=== PATIENT | male | born 1935 | race American Indian/Alaskan Native ===

== ENCOUNTER → 2020-03-13 13:07 | Outpatient (BNVA) | payer MEDICARE, SELFPAY | PROVIDERS: PCP Internal Medicine; Visit Provider Internal Medicine | DX: G45.9 Transient cerebral ischemic attack, unspecified (principal); Z51.81 Encounter for therapeutic drug level monitoring; Z79.01 Long term (current) use of anticoagulants | CPT/HCPCS: 85610; 99211 ==

== ENCOUNTER → 2020-03-23 09:32 | Outpatient (BNVA) | payer MEDICARE, SELFPAY | PROVIDERS: Visit Provider Nurse Practitioner Family | DX: R07.89 Other chest pain (principal); R06.02 Shortness of breath; I25.10 Atherosclerotic heart disease of native coronary artery without angina pectoris; I48.19 Other persistent atrial fibrillation; I10 Essential (primary) hypertension; E78.00 Pure hypercholesterolemia, unspecified; Z95.1 Presence of aortocoronary bypass graft; Z79.82 Long term (current) use of aspirin; Z79.01 Long term (current) use of anticoagulants | CPT/HCPCS: 99214 ==

== ENCOUNTER → 2020-04-03 11:06 | Outpatient (BNVA) | payer MEDICARE, SELFPAY | PROVIDERS: PCP Internal Medicine; Visit Provider Internal Medicine | DX: G45.9 Transient cerebral ischemic attack, unspecified (principal); Z51.81 Encounter for therapeutic drug level monitoring; Z79.01 Long term (current) use of anticoagulants | CPT/HCPCS: 85610; 99211 ==

== ENCOUNTER → 2020-04-11 08:34 | Outpatient (REF) | payer MEDICARE, SELFPAY ==
--- NOTE | 2020-04-11 | NM_ITS ---
Lexiscan Myocardial perfusion study Indication: Shortness of breath, chest pressure, atrial fibrillation, coronary disease, bypass surgery, assess for coronary disease and ischemia Technique: The patient was brought in for a Lexiscan perfusion study on 04/11/2020 and was injected 0.4 mg of Lexiscan intravenously. Within a minute of this injection 30 mCi of sestamibi was given intravenously. Images were obtained using the SPECT gamma camera interlaced with the gating device. Images were obtained in supine position. Resting perfusion study was performed on 04/12/2020. Patient was administered 30 mCi of sestamibi intravenously at rest. Images were then obtained in supine position. Total DLP 100mGy-cm/ Images were processed with the software and compared side to side in short axis, horizontal long axis and vertical long axis views. Findings: Raw acquisition was reviewed. The stress perfusion study showed diminished tracer uptake along the basal inferior wall; along the inferolateral wall. With CT attenuation correction, there is improvement in tracer uptake that may indicate a component of diaphragmatic attenuation artifact. However there is also adjacent bowel/hepatic uptake which makes interpretation difficult. The gated study shows normal LV systolic function with calculated LVEF of 71%. LV cavity is normal in size. The gated study shows diminished thickening and contractility in the basal inferior wall. Resting study shows diminished tracer uptake along the basal inferior wall but otherwise unremarkable. Gating at rest reveals ejection fraction at 76%. The findings are consistent with fixed basal inferior perfusion defect; possible mild inferolateral reversible defect. NM/NM aparna perf SPECT rest & str Impression: 1. Myocardial perfusion imaging study shows fixed defect in the basal inferior wall that could indicate a prior infarct. Small areas in the inferolateral wall with reversible defects that could indicate mild ischemia, but cannot exclude artifacts related to adjacent diaphragm/bowel uptake. 2. Gated LVEF is normal. 3. Transient ischemic dilatation not present. EKG component of the test reported separately.
--- NOTE | 2020-04-11 08:40 | CA_ITS ---
Transthoracic Echocardiogram Patient (Last, First, Middle): Fadi Sheppard A Gender: Male Date of : 1935 Age: 84 Procedure Date: 04/11/2020 Procedure Type: Transthoracic Echocardiogram Location: OP Height: 177.8 cm Weight: 79.83 kg BSA: 1.98 m2 Heart Rate: bpm BP: 128 / 60 mmHg Reconciliation Manager: ROSARIO Referring MD: Sadaf MEADE Sign Installer: Freddie Arora MD Symptoms: R07.89 - Other chest pain, CAD Study Quality: Fair ECG Rhythm: Atrial Fibrillation Conclusions: - 1. Normal LV systolic function 2. Mildly dilated left atrium 3. Normal cardiac valvular Doppler 4. Normal RV systolic pressure 5. No gross pericardial effusion Findings Left Ventricle Normal left ventricular size, thickness, and systolic function. The visually estimated ejection fraction is between 55-60%. There is evidence of regional wall motion abnormalities. Diastolic function is indeterminate on the basis of available data. Wall Motion Rest Echo Findings The basal inferior segment is akinetic. All other scored wall segments showed normal motion. Right Ventricle Normal right ventricular cavity size and systolic function. Atria The left atrium is mildly dilated. Interatrial shunt cannot be excluded. The right atrium is normal in size. Aortic Valve The aortic valve was not well visualized. There is no aortic valve stenosis. There is no aortic valve regurgitation. Mitral Valve There is mild anterior and posterior mitral leaflet thickening. There is trace mitral valve regurgitation. There is no mitral valve stenosis. Pulmonic Valve The pulmonic valve was not well visualized. Tricuspid Valve Likely normal tricuspid valve structure and function. There is mild tricuspid valve regurgitation. The right ventricular systolic pressure is normal. The right ventricular systolic pressure is 26 mmHg. There is no evidence of pulmonary hypertension. Great Vessels All visible segments of the aorta are normal in size. The pulmonary artery was not well visualized. Small plaque is seen in the ascending aorta and arch. Venous The inferior vena cava was not well visualized. Pericardium/Pleural There is no evidence of pericardial effusion. Prior Study Comparison Changes noted compared to prior study dated: 11/19/2016. Basal inferiorwall motion abnormality noted Measurements 2D Linear Measurements IVSd: 0.93 0.6-0.9/0.6-1.0 cm LVIDd: 5.66 3.9-5.3/4.2-5.9 cm LVIDd Index: 2.86 2.4-3.2/2.2-3.1 cm/m2 LVIDs: 3.05 2.0-3.6 cm LVPWd: 1.04 0.7-1.1 cm Ao Root: 3.00 2.1-3.5 cm LA Diam: 3.90 2.7-3.8/3.0-4.0 cm LAIDs Index: 1.97 1.5-2.3 cm/m2 LV Mass: 273.03 67-162/88-224 g LV Mass Index: 137.89 43-95/49-115 g/m2 LVOT Diam: 2.00 3.0+(-)1.3 cm 2D Systolic Function EF 4C: 64.20 >55% EF 2C: 48.30 >55% EF BiP: 57.60 >55% Mitral Valve MV Pk E: 1.22 MV PK A: 0.51 MV Decel Time: 187.00 E/A: 2.40 E'Lateral: 9.96 E'Medial: 11.10 E/E' Med: 11.00 E/E' Lat: 12.20 PHT: 55.00 MVA PHT: 4.00 Decel [place]: 6.49 Aortic Valve AoV Pk Terrell: 1.15 AoV Pk Grad: 5.00 LVOT LVOT Pk Terrell: 1.10 LVOT Mn Terrell: 0.71 LVOT VTI: 0.24 LVOT Pk Grad: 5.00 LVOT Mn Grad: 3.00 LVOT Diam: 2.00 LVOT Area: 3.14 Diastolic Function MV Pk E: 1.22 MV Pk A: 0.51 E/A: 2.40 E'Medial: 11.10 E/E' Med: 11.00 E' Laterial: 9.96 E/E' Lat: 12.20 Tricuspid Valve TR Pk Terrell: 2.88 TR Pk Grad: 23.00 RA Press: 3.00 RVSP: 26.00 Great Vessels Aorta Ao Root-2D: 3.00 2.0-3.7 cm Ao Asc: 3.70 2.1-3.4 cm Updated in Other Vendor System with Status of Final Freddie Arora MD electronically signed on 04/11/2020 11:00:03 AM with status of Final
--- NOTE | 2020-04-11 08:40 | CA_ITS ---
Acquisition Time: 2020-04-11 09:40:57 Total Exercise Time: 00:02:00 Test Indications: Dyspnea Medications: ATORVASTATIN ISOSORBIDE VERAPAMIL WARFARIN Protocol: LEXISCAN Max HR: 088 BPM 64% of Pred: 137 BPM Max BP: 134/064 mmHG Max Work Load: 1.0 METS Pharmacological stress test using Lexiscan. Patient tolerated well, denies any anginal sx, mild SOB after Lexiscan. Sx reversed with Aminophyline 75 mg IV. EKG with a-fib at baseline. Non-diagnostic for ischemia. Nuclear images to follow. Normotensive response to test. Test reviewed with Dr. Casanova. Referred By: Sadaf Christian Overread By: Maryuri Martinez
== END ==
LOC: HO.CARD 08:34
PROVIDERS: PCP Internal Medicine; Visit Provider Nurse Practitioner Family
DX: R07.89 Other chest pain (principal); I25.10 Atherosclerotic heart disease of native coronary artery without angina pectoris; R06.02 Shortness of breath; Z95.1 Presence of aortocoronary bypass graft
CPT/HCPCS: 78452; 93017; 93306; A9500; J0280; J2785

== ENCOUNTER → 2020-04-24 11:32 | Outpatient (BNVA) | payer MEDICARE, SELFPAY | PROVIDERS: PCP Internal Medicine; Visit Provider Internal Medicine | DX: G45.9 Transient cerebral ischemic attack, unspecified (principal); Z51.81 Encounter for therapeutic drug level monitoring; Z79.01 Long term (current) use of anticoagulants | CPT/HCPCS: 85610; 99211 ==

== ENCOUNTER → 2020-04-26 09:57 | Outpatient (BNVA) | payer MEDICARE, SELFPAY | PROVIDERS: PCP Internal Medicine; Visit Provider Internal Medicine Cardiovascular Disease | DX: I48.91 Unspecified atrial fibrillation (principal); I25.10 Atherosclerotic heart disease of native coronary artery without angina pectoris; R07.89 Other chest pain; Z79.01 Long term (current) use of anticoagulants; Z79.899 Other long term (current) drug therapy; Z95.1 Presence of aortocoronary bypass graft | CPT/HCPCS: 99212 ==

== ENCOUNTER 2020-04-26 11:24 | Outpatient (REF) | payer MEDICARE, SELFPAY ==
[2020-04-26 12:33] LABS: MANUAL DIFF FLAG NO
[2020-04-26 12:49] LABS: Basophils Percent Auto 0.5 % (0-2); Eosinophils Absolute Auto 0.1 X10*3/uL (0.0-0.4); Hematocrit 34.1 % (42-52); Hemoglobin 11.4 g/dl (14.0-18.0); Imm Gran Abs Auto 0.03 X10*3/uL (0.00-0.03); Imm Gran Pct Auto 0.3 % (0.0-0.4); Lymphocytes Absolute Auto 1.6 X10*3/uL (1.2-4.9); Lymphocytes Percent Auto 18.6 % (20-40); Mean Corpuscular HGB Conc 33.4 g/dl (31.0-36.0); Mean Corpuscular Volume 107.6 fL (80-98); Mean Platelet Volume 10.4 fL (9.4-12.4); Monocytes Absolute Auto 0.8 X10*3/uL (0.1-1.2); Monocytes Percent Auto 9.5 % (2-11); NRBC Pct Auto 0.2 /100WBC (0.0-0.2); Neutrophils Absolute Auto 6.1 X10*3/uL (2.0-8.3); Neutrophils Percent Auto 70.1 % (45-73); Platelet Count 242 X10*3/uL (160-400); Red Blood Count 3.17 X10*6/uL (4.60-5.80); Red Cell Distribution Width 18.5 % (11.0-16.0); White Blood Count 8.6 X10*3/uL (4.8-10.8)
[2020-04-26 12:58] LABS: INTERNATIONAL NORM RATIO 2.2 (0.9-1.1); Prothrombin Time 26.9 SEC (10.8-13.0)
[2020-04-26 13:30] LABS: Alanine Aminotransferase 20 U/L (0-40); Albumin Level 4.4 g/dL (3.5-5.0); Alkaline Phosphatase 67 U/L (39-117); Anion Gap 11 (12-20); Aspartate Amino Transferase 16 U/L (5-37); Bilirubin Total 1.2 mg/dL (0.0-1.0); Blood Urea Nitrogen 17 mg/dL (9-16); Calcium 8.9 mg/dL (8.4-10.2); Carbon Dioxide 30 mmol/L (22-29); Chloride 105 mmol/L (96-108); Estimated Glomerular Filt Rate > 60; Glucose Random 94 mg/dL (60-115); Iron 99 mcg/dL (45-160); Percent Iron Saturation 39 % (15-50); Potassium 4.6 mmol/l (3.3-5.1); Sodium 141 mmol/L (135-145); Total Iron Binding Capacity 252 mcg/dL (228-428); Unsaturated Iron Binding 153 ug/dL
[2020-04-26 13:39] LABS: Ferritin 573 ng/mL (20-250)
[2020-04-26 13:49] LABS: Glucose Urine UA NEG (NEG); Leukocyte Esterase Urine NEG (NEG); Nitrite Urine NEG (NEG); PH 5.5 (5.0-8.0); Urine Blood NEG (NEG); Urine Ketones NEG (NEG); Urine Protein NEG (NEG-TRACE)
[2020-04-26 13:56] LABS: Appearance Urine CLEAR; Color Urine YELLOW
== END 2020-04-26 11:25 | disposition home or self-care (01) ==
LOC: HO.LAB 11:24
PROVIDERS: Internal Medicine; PCP Internal Medicine; Visit Provider Internal Medicine Cardiovascular Disease
DX: I25.10 Atherosclerotic heart disease of native coronary artery without angina pectoris (principal); R07.89 Other chest pain; D64.9 Anemia, unspecified; I10 Essential (primary) hypertension; I48.0 Paroxysmal atrial fibrillation
CPT/HCPCS: 36415; 80053; 81003; 82728; 83540; 85025; 85610

== ENCOUNTER → 2020-05-15 11:14 | Outpatient (BNVA) | payer MEDICARE, SELFPAY | PROVIDERS: PCP Internal Medicine; Visit Provider Internal Medicine | DX: G45.9 Transient cerebral ischemic attack, unspecified (principal); Z51.81 Encounter for therapeutic drug level monitoring; Z79.01 Long term (current) use of anticoagulants | CPT/HCPCS: 85610; 99211 ==

== ENCOUNTER → 2020-05-25 10:57 | Outpatient (BNVA) | payer MEDICARE, SELFPAY | PROVIDERS: PCP Internal Medicine; Visit Provider Internal Medicine Cardiovascular Disease | DX: I25.10 Atherosclerotic heart disease of native coronary artery without angina pectoris (principal); R07.89 Other chest pain; I48.91 Unspecified atrial fibrillation; Z95.1 Presence of aortocoronary bypass graft | CPT/HCPCS: 99212 ==

== ENCOUNTER → 2020-06-05 11:17 | Outpatient (BNVA) | payer MEDICARE, SELFPAY | PROVIDERS: PCP Internal Medicine; Visit Provider Internal Medicine | DX: G45.9 Transient cerebral ischemic attack, unspecified (principal); Z51.81 Encounter for therapeutic drug level monitoring; Z79.01 Long term (current) use of anticoagulants | CPT/HCPCS: 85610; 99211 ==

== ENCOUNTER → 2020-06-12 11:06 | Outpatient (BNVA) | payer MEDICARE, SELFPAY | PROVIDERS: PCP Internal Medicine; Visit Provider Internal Medicine Cardiovascular Disease | DX: I25.118 Atherosclerotic heart disease of native coronary artery with other forms of angina pectoris (principal); I48.91 Unspecified atrial fibrillation | CPT/HCPCS: 99212 ==

== ENCOUNTER → 2020-07-17 09:09 | Outpatient (BNVA) | payer MEDICARE, SELFPAY | PROVIDERS: PCP Internal Medicine; Visit Provider Internal Medicine | DX: G45.9 Transient cerebral ischemic attack, unspecified (principal); Z51.81 Encounter for therapeutic drug level monitoring; Z79.01 Long term (current) use of anticoagulants | CPT/HCPCS: 85610; 99211 ==

== ENCOUNTER → 2020-07-24 14:33 | Outpatient (BNVA) | payer MEDICARE, SELFPAY | PROVIDERS: PCP Internal Medicine; Visit Provider Internal Medicine Cardiovascular Disease | DX: I48.0 Paroxysmal atrial fibrillation (principal); I25.10 Atherosclerotic heart disease of native coronary artery without angina pectoris | CPT/HCPCS: 99212 ==

== ENCOUNTER → 2020-08-07 13:02 | Outpatient (BNVA) | payer MEDICARE, SELFPAY | PROVIDERS: PCP Internal Medicine; Visit Provider Internal Medicine | DX: G45.9 Transient cerebral ischemic attack, unspecified (principal); Z51.81 Encounter for therapeutic drug level monitoring; Z79.01 Long term (current) use of anticoagulants | CPT/HCPCS: 85610; 99211 ==

== ENCOUNTER 2020-08-10 12:55 | Outpatient (REF) | payer MEDICARE, SELFPAY ==
[2020-08-10 13:30] LABS: MANUAL DIFF FLAG NO
[2020-08-10 13:37] LABS: Basophils Percent Auto 0.5 % (0-2); Eosinophils Absolute Auto 0.4 X10*3/uL (0.0-0.4); Eosinophils Percent Auto 5.8 % (0-4); Hematocrit 33.7 % (42-52); Hemoglobin 11.7 g/dl (14.0-18.0); Imm Gran Abs Auto 0.03 X10*3/uL (0.00-0.03); Imm Gran Pct Auto 0.4 % (0.0-0.4); Lymphocytes Absolute Auto 1.9 X10*3/uL (1.2-4.9); Lymphocytes Percent Auto 25.4 % (20-40); Mean Corpuscular HGB Conc 34.7 g/dl (31.0-36.0); Mean Corpuscular Hemoglobin 36.8 pg (27.0-33.0); Mean Platelet Volume 10.6 fL (9.4-12.4); Monocytes Absolute Auto 1.1 X10*3/uL (0.1-1.2); Monocytes Percent Auto 14.2 % (2-11); NRBC Pct Auto 0.4 /100WBC (0.0-0.2); Neutrophils Percent Auto 53.7 % (45-73); Platelet Count 208 X10*3/uL (160-400); Red Blood Count 3.18 X10*6/uL (4.60-5.80); Red Cell Distribution Width 19.2 % (11.0-16.0); White Blood Count 7.5 X10*3/uL (4.8-10.8)
[2020-08-10 14:00] LABS: Anion Gap 11 (12-20); Blood Urea Nitrogen 19 mg/dL (9-16); Calcium 8.8 mg/dL (8.4-10.2); Carbon Dioxide 27 mmol/L (22-29); Chloride 105 mmol/L (96-108); Estimated Glomerular Filt Rate > 60; Glucose Random 95 mg/dL (60-115); Potassium 4.3 mmol/L (3.3-5.1); Sodium 139 mmol/L (135-145)
[2020-08-10 14:22] LABS: Vitamin D 25-OH Total 38.6 ng/mL (>30)
== END 2020-08-10 12:56 | disposition home or self-care (01) ==
LOC: HO.LAB 12:55
PROVIDERS: PCP Internal Medicine; Visit Provider Internal Medicine
DX: D64.9 Anemia, unspecified (principal); E55.9 Vitamin D deficiency, unspecified; R07.89 Other chest pain; I25.10 Atherosclerotic heart disease of native coronary artery without angina pectoris
CPT/HCPCS: 36415; 80048; 82306; 85025

== ENCOUNTER 2020-08-24 14:38 | Outpatient (REF) | payer SELFPAY | END 2020-08-24 14:39 | disposition home or self-care (01) | LOC: HO.HAP 14:38 | PROVIDERS: Visit Provider Otolaryngology | DX: Z13.89 Encounter for screening for other disorder (principal) ==

== ENCOUNTER → 2020-08-27 14:01 | Outpatient (BNVA) | payer MEDICARE, SELFPAY | PROVIDERS: PCP Internal Medicine; Visit Provider Internal Medicine | DX: G45.9 Transient cerebral ischemic attack, unspecified (principal); Z51.81 Encounter for therapeutic drug level monitoring; Z79.01 Long term (current) use of anticoagulants | CPT/HCPCS: 85610; 99211 ==

== ENCOUNTER → 2020-09-18 11:05 | Outpatient (BNVA) | payer MEDICARE, SELFPAY | PROVIDERS: PCP Internal Medicine; Visit Provider Internal Medicine | DX: G45.9 Transient cerebral ischemic attack, unspecified (principal); Z79.01 Long term (current) use of anticoagulants; Z51.81 Encounter for therapeutic drug level monitoring | CPT/HCPCS: 85610; 99211 ==

== ENCOUNTER 2020-10-02 08:16 | Outpatient (REF) | payer MEDICARE, SELFPAY ==
[2020-10-02 09:19] LABS: MANUAL DIFF FLAG NO
[2020-10-02 09:32] LABS: Basophils Absolute Auto 0.1 X10*3/uL (0.0-0.2); Basophils Percent Auto 0.6 % (0-2); Eosinophils Absolute Auto 0.2 X10*3/uL (0.0-0.4); Eosinophils Percent Auto 1.9 % (0-4); Hematocrit 34.7 % (42-52); Hemoglobin 11.6 g/dl (14.0-18.0); Imm Gran Abs Auto 0.03 X10*3/uL (0.00-0.03); Imm Gran Pct Auto 0.4 % (0.0-0.4); Lymphocytes Absolute Auto 1.8 X10*3/uL (1.2-4.9); Lymphocytes Percent Auto 22.9 % (20-40); Mean Corpuscular HGB Conc 33.4 g/dl (31.0-36.0); Mean Corpuscular Hemoglobin 35.7 pg (27.0-33.0); Mean Corpuscular Volume 106.8 fL (80-98); Mean Platelet Volume 11.3 fL (9.4-12.4); Monocytes Absolute Auto 0.7 X10*3/uL (0.1-1.2); Monocytes Percent Auto 9.4 % (2-11); NRBC Pct Auto 0.3 /100WBC (0.0-0.2); Neutrophils Absolute Auto 5.1 X10*3/uL (2.0-8.3); Neutrophils Percent Auto 64.8 % (45-73); Platelet Count 211 X10*3/uL (160-400); Red Blood Count 3.25 X10*6/uL (4.60-5.80); Red Cell Distribution Width 19.5 % (11.0-16.0); White Blood Count 7.9 X10*3/uL (4.8-10.8)
[2020-10-02 09:45] LABS: Alanine Aminotransferase 27 U/L (0-40); Albumin Level 4.3 g/dL (3.5-5.0); Alkaline Phosphatase 60 U/L (39-117); Anion Gap 11 (12-20); Aspartate Amino Transferase 19 U/L (5-37); Bilirubin Total 1.8 mg/dL (0.0-1.0); Blood Urea Nitrogen 22 mg/dL (9-16); Calcium 9.1 mg/dL (8.4-10.2); Carbon Dioxide 28 mmol/L (22-29); Chloride 106 mmol/L (96-108); Cholesterol 106 mg/dL; Estimated Glomerular Filt Rate > 60; Glucose Random 106 mg/dL (60-115); HDL Cholesterol 36 mg/dL; LDL Cholesterol Calculated 56 mg/dl; Potassium 4.3 mmol/L (3.3-5.1); Sodium 141 mmol/L (135-145); Total Protein 6.7 g/dL (6.5-8.0); Triglycerides 71 mg/dL
[2020-10-02 10:07] LABS: Free T4 (Free Thyroxine) 0.87 ng/dL (0.71-1.85); Thyroid Stimulating Hormone 1.17 uIU/mL (0.32-4.0)
[2020-10-02 12:06] LABS: Folate 12.6 ng/mL (> or = 4.0); Vitamin B12 1557 pg/mL (200-900)
== END 2020-10-02 08:17 | disposition home or self-care (01) ==
LOC: HO.LAB 08:16
PROVIDERS: PCP Internal Medicine; Visit Provider Internal Medicine
DX: I10 Essential (primary) hypertension (principal); E78.00 Pure hypercholesterolemia, unspecified
CPT/HCPCS: 36415; 80053; 80061; 82607; 82746; 84439; 84443; 85025

== ENCOUNTER → 2020-10-09 10:25 | Outpatient (BNVA) | payer MEDICARE, SELFPAY | PROVIDERS: PCP Internal Medicine; Visit Provider Internal Medicine | DX: Z86.73 Personal history of transient ischemic attack (TIA), and cerebral infarction without residual deficits (principal); Z51.81 Encounter for therapeutic drug level monitoring; Z79.01 Long term (current) use of anticoagulants | CPT/HCPCS: 85610; 99211 ==

== ENCOUNTER → 2020-10-23 14:18 | Outpatient (BNVA) | payer MEDICARE, SELFPAY | PROVIDERS: PCP Internal Medicine; Visit Provider Internal Medicine Cardiovascular Disease | DX: I48.0 Paroxysmal atrial fibrillation (principal); I25.10 Atherosclerotic heart disease of native coronary artery without angina pectoris | CPT/HCPCS: 99212 ==

== ENCOUNTER → 2020-10-30 10:15 | Outpatient (BNVA) | payer MEDICARE, SELFPAY | PROVIDERS: PCP Internal Medicine; Visit Provider Internal Medicine | DX: Z86.73 Personal history of transient ischemic attack (TIA), and cerebral infarction without residual deficits (principal); Z51.81 Encounter for therapeutic drug level monitoring; Z79.01 Long term (current) use of anticoagulants | CPT/HCPCS: 85610; 99211 ==

== ENCOUNTER 2020-11-02 10:03 | Outpatient (REF) | payer MEDICARE, SELFPAY ==
--- NOTE | 2020-11-02 09:00 | ECG_ITS ---
Hook-up date: 2020-11-02 10:18:00 Duration: 31:26:00 Test Indications: PAF Medications: 108385 QRS complexes 26 Ventricular ectopics which represent <1 % of total QRS comp. * Supraventricular ectopics which represent % of total QRS comp. * Paced QRS complexs which represent % of total QRS comp. VENTRICULAR ECTOPY 26 Isolated 0 Bigeminal Cycles 0 Couplets 0 Runs 0 Beats in Runs * Beats LONGEST at * BPM at :: -- * Beats FASTEST at * BPM at :: -- SUPRAVENTRICULAR ECTOPY * Isolated * Couplets * Runs * Beats in Runs * Beats LONGEST at * BPM at :: -- * Beats FASTEST at * BPM at :: -- HEART RATES 42 MIN at 14:18:57 2020-11-03 66 AVG 98 MAX at 21:20:57 2020-11-02 LONGEST RR 2.0480 secs at 07:08:47 2020-11-03 S-T LEVELS Channel 1 - 128 mm at 10:18:00 2020-11-02 - 128 mm at 10:18:00 2020-11-02 Channel 2 - 128 mm at 10:18:00 2020-11-02 - 128 mm at 10:18:00 2020-11-02 Channel 3 - 128 mm at 02:93:71 -- - 128 mm at 02:93:71 Underlying rhythm is atrial fibrillation; Average rate 66/min; range 42-98/min; Rare PVCs; Adequate rate control of atrial fibrillation; Patient diary not available for review. Referred By: Freddie Arora Overread By: BOBO MAURO
[2020-11-02 11:53] LABS: Hematocrit 32.9 % (42-52); Hemoglobin 10.9 g/dl (14.0-18.0); Mean Corpuscular HGB Conc 33.1 g/dl (31.0-36.0); Mean Corpuscular Hemoglobin 36.1 pg (27.0-33.0); Mean Corpuscular Volume 108.9 fL (80-98); Mean Platelet Volume 10.8 fL (9.4-12.4); Platelet Count 214 X10*3/uL (160-400); Red Blood Count 3.02 X10*6/uL (4.60-5.80); Red Cell Distribution Width 19.5 % (11.0-16.0)
[2020-11-02 12:03] LABS: B Type Natriuretic Peptide 118 pg/mL (<100)
[2020-11-02 12:13] LABS: Anion Gap 11 (12-20); Blood Urea Nitrogen 22 mg/dL (9-16); Calcium 9.2 mg/dL (8.4-10.2); Carbon Dioxide 27 mmol/L (22-29); Chloride 106 mmol/L (96-108); Estimated Glomerular Filt Rate > 60; Glucose Random 96 mg/dL (60-115); Potassium 4.3 mmol/L (3.3-5.1); Sodium 140 mmol/L (135-145)
== END 2020-11-02 10:04 | disposition home or self-care (01) ==
LOC: HO.CARD 10:03
PROVIDERS: PCP Internal Medicine; Visit Provider Internal Medicine Cardiovascular Disease
DX: I48.0 Paroxysmal atrial fibrillation (principal); M79.89 Other specified soft tissue disorders; Z79.899 Other long term (current) drug therapy
CPT/HCPCS: 36415; 80048; 83880; 85027; 93226

== ENCOUNTER → 2020-11-20 13:01 | Outpatient (BNVA) | payer MEDICARE, SELFPAY | PROVIDERS: PCP Internal Medicine; Visit Provider Internal Medicine | DX: Z86.73 Personal history of transient ischemic attack (TIA), and cerebral infarction without residual deficits (principal); Z51.81 Encounter for therapeutic drug level monitoring; Z79.01 Long term (current) use of anticoagulants | CPT/HCPCS: 85610; 99211 ==

== ENCOUNTER 2020-12-04 10:34 | Outpatient (REF) | payer MEDICARE, SELFPAY ==
--- NOTE | ~2020-12-04 | XR_ITS ---
EXAMINATION: XR SACRUM AND COCCYX CLINICAL INFORMATION: Pain COMPARISON: None TECHNIQUE: 2 views of the sacrum and 2 views of the coccyx were obtained. FINDINGS: Normal alignment. No fracture. 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 XR/XR sacrum coccyx min 2V IMPRESSION: Degenerative changes as described. No fracture.
== END 2020-12-04 10:35 | disposition home or self-care (01) ==
LOC: HO.XRAY 10:34
PROVIDERS: Absent Provider Nurse Practitioner Family; PCP Internal Medicine; Visit Provider Internal Medicine
DX: I48.91 Unspecified atrial fibrillation (principal); M54.5 Low back pain; Z51.81 Encounter for therapeutic drug level monitoring; Z79.01 Long term (current) use of anticoagulants
CPT/HCPCS: 72220; 85610; 99211

== ENCOUNTER → 2020-12-18 10:33 | Outpatient (BNVA) | payer MEDICARE, SELFPAY | PROVIDERS: PCP Internal Medicine; Visit Provider Internal Medicine | DX: Z79.01 Long term (current) use of anticoagulants (principal) | CPT/HCPCS: 85610; 99211 ==

== ENCOUNTER 2021-01-03 10:32 | Outpatient (REF) | payer MEDICARE, SELFPAY ==
--- NOTE | ~2021-01-03 | US_ITS ---
EXAMINATION: ULTRASOUND PROSTATE VOLUME CLINICAL INFORMATION: Nodular scar prostate land with lower urinary tract infections COMPARISON: None TECHNIQUE: Transrectal prostate ultrasound was performed. FINDINGS: The prostate gland is slightly enlarged measures 4.9 x 3.1 x 4.6 cm, volume 35 mL. There are central gland calcifications. US/US prostate volume IMPRESSION: Enlarged prostate gland.
== END 2021-01-03 10:33 | disposition home or self-care (01) ==
LOC: HO.US 10:32
PROVIDERS: Visit Provider Internal Medicine
DX: N40.2 Nodular prostate without lower urinary tract symptoms (principal)
CPT/HCPCS: 76872

== ENCOUNTER → 2021-01-08 10:38 | Outpatient (BNVA) | payer MEDICARE, SELFPAY | PROVIDERS: PCP Internal Medicine; Visit Provider Internal Medicine | DX: Z51.81 Encounter for therapeutic drug level monitoring; Z79.01 Long term (current) use of anticoagulants; Z86.73 Personal history of transient ischemic attack (TIA), and cerebral infarction without residual deficits | CPT/HCPCS: 85610; 99211 ==

== ENCOUNTER → 2021-01-15 10:27 | Outpatient (REF) | payer MEDICARE, SELFPAY ==
--- NOTE | 2021-01-15 10:35 | CA_ITS ---
Transthoracic Echocardiogram Patient (Last, First, Middle): Fadi Sheppard A Gender: Male Date of : 1935 Age: 85 Procedure Date: 01/15/2021 Procedure Type: Transthoracic Echocardiogram Location: OP Height: 175.26 cm Weight: 78.02 kg BSA: 1.94 m2 Heart Rate: bpm BP: 110 / 53 mmHg Photographers' Model: ROSARIO Referring MD: Freddie Arora MD Audit Control Clerk: Freddie Arora MD Symptoms: M79.89 - Other specified soft tissue disorders Study Quality: Fair ECG Rhythm: Atrial Fibrillation Conclusions: - 1. Normal LV systolic function with normal filling pressures 2. Mild biatrial enlargement 3. Normal cardiac valvular Doppler next 4. Normal RV systolic pressure 5. No pericardial effusion 6. Mildly dilated ascending aorta Findings Left Ventricle Normal left ventricular size, thickness, and systolic function. The visually estimated ejection fraction is between 60-65%. Normal left ventricular filling pressures. E/E prime ratio is <8, consistent with normal filling pressures. Right Ventricle Normal right ventricular cavity size and systolic function. Atria Mild biatrial enlargement. There is lipomatous hypertrophy of the interatrial septum. There is no evidence of interatrial shunt. Aortic Valve There is mild calcification of the aortic valve. There is no aortic valve stenosis. There is no aortic valve regurgitation. Mitral Valve There is mild anterior and posterior mitral leaflet thickening. There is trace mitral valve regurgitation. There is no mitral valve stenosis. Pulmonic Valve The pulmonic valve was not well visualized. Tricuspid Valve Likely normal tricuspid valve structure and function. There is trace tricuspid valve regurgitation. The right ventricular systolic pressure is normal. The right ventricular systolic pressure is 23 mmHg. Normal right atrial pressure. There is no evidence of pulmonary hypertension. Great Vessels The pulmonary artery was not well visualized. There is mild dilatation of the ascending aorta measuring 4.00 cm. Venous The inferior vena cava is normal in size and collapses greater than 50% with inspiration. Pericardium/Pleural There is no evidence of pericardial effusion. Prior Study Comparison No significant change compared to prior study dated: 04/11/2020. Measurements 2D Linear Measurements IVSd: 0.91 0.6-0.9/0.6-1.0 cm LVIDd: 5.07 3.9-5.3/4.2-5.9 cm LVIDd Index: 2.61 2.4-3.2/2.2-3.1 cm/m2 LVIDs: 3.09 2.0-3.6 cm LVPWd: 1.10 0.7-1.1 cm Ao Root: 3.10 2.1-3.5 cm LA Diam: 4.00 2.7-3.8/3.0-4.0 cm LAIDs Index: 2.06 1.5-2.3 cm/m2 LV Mass: 232.93 67-162/88-224 g LV Mass Index: 120.07 43-95/49-115 g/m2 LVOT Diam: 2.30 3.0+(-)1.3 cm 2D Systolic Function EF 4C: 62.40 >55% EF 2C: 54.70 >55% EF BiP: 61.10 >55% Mitral Valve MV Pk E: 1.15 MV Decel Time: 176.00 E'Lateral: 10.60 E'Medial: 7.72 E/E' Med: 14.90 E/E' Lat: 10.80 PHT: 52.00 MVA PHT: 4.23 Decel [place]: 6.57 Aortic Valve AoV Pk Terrell: 1.28 AoV Pk Grad: 7.00 LVOT LVOT Pk Terrell: 1.09 LVOT Mn Terrell: 0.68 LVOT VTI: 0.25 LVOT Pk Grad: 5.00 LVOT Mn Grad: 2.00 LVOT Diam: 2.30 LVOT Area: 4.15 Diastolic Function MV Pk E: 1.15 E'Medial: 7.72 E/E' Med: 14.90 E' Laterial: 10.60 E/E' Lat: 10.80 Right Ventricle TAPSE (mm): 1.80 Tricuspid Valve TR Pk Terrell: 2.25 TR Pk Grad: 20.00 RA Press: 3.00 RVSP: 23.00 Great Vessels Aorta Ao Root-2D: 3.10 2.0-3.7 cm Ao Asc: 4.00 2.1-3.4 cm Updated in Other Vendor System with Status of Final Freddie Arora MD electronically signed on 01/16/2021 4:34:43 PM with status of Final
== END ==
LOC: HO.CARD 10:27
PROVIDERS: Visit Provider Internal Medicine Cardiovascular Disease
DX: I25.10 Atherosclerotic heart disease of native coronary artery without angina pectoris (principal); I48.0 Paroxysmal atrial fibrillation; M79.89 Other specified soft tissue disorders
CPT/HCPCS: 93306

== ENCOUNTER → 2021-01-24 11:31 | Outpatient (BNVA) | payer MEDICARE, SELFPAY | PROVIDERS: PCP Internal Medicine; Visit Provider Internal Medicine Cardiovascular Disease | DX: I25.10 Atherosclerotic heart disease of native coronary artery without angina pectoris (principal); I48.0 Paroxysmal atrial fibrillation; I10 Essential (primary) hypertension; E78.00 Pure hypercholesterolemia, unspecified; E55.9 Vitamin D deficiency, unspecified; Z86.73 Personal history of transient ischemic attack (TIA), and cerebral infarction without residual deficits; Z95.1 Presence of aortocoronary bypass graft; Z98.890 Other specified postprocedural states; Z88.8 Allergy status to other drugs, medicaments and biological substances; Z79.02 Long term (current) use of antithrombotics/antiplatelets; Z79.899 Other long term (current) drug therapy | CPT/HCPCS: 99212 ==

== ENCOUNTER → 2021-01-29 10:36 | Outpatient (BNVA) | payer MEDICARE, SELFPAY | PROVIDERS: PCP Internal Medicine; Visit Provider Internal Medicine | DX: Z86.73 Personal history of transient ischemic attack (TIA), and cerebral infarction without residual deficits (principal); Z51.81 Encounter for therapeutic drug level monitoring; Z79.01 Long term (current) use of anticoagulants | CPT/HCPCS: 85610; 99211 ==

== ENCOUNTER → 2021-01-30 11:11 | Outpatient (BNVA) | payer MEDICARE, SELFPAY | PROVIDERS: PCP Internal Medicine; Visit Provider Urology | DX: N40.2 Nodular prostate without lower urinary tract symptoms (principal); N13.8 Other obstructive and reflux uropathy; R39.12 Poor urinary stream; E78.00 Pure hypercholesterolemia, unspecified; I10 Essential (primary) hypertension; M54.5 Low back pain; E55.9 Vitamin D deficiency, unspecified; Z98.890 Other specified postprocedural states; Z95.1 Presence of aortocoronary bypass graft; Z88.8 Allergy status to other drugs, medicaments and biological substances | CPT/HCPCS: 51798; 99202 ==

== ENCOUNTER 2021-02-19 11:34 | Outpatient (REF) | payer MEDICARE, SELFPAY ==
[2021-02-19 11:55] VITALS: BP 122/59; PULSE 65; RESP 19; TEMP 36.9; BMI 25.1
--- NOTE | 2021-02-19 12:58 | W.PM.OPN ---
Operative Note Operative Note Date of Service: 02/19/21 Narrative: Preoperative diagnosis: Elevated PSA Postoperative diagnosis: Elevated PSA Procedure: 1. transrectal ultrasound measurement of prostate 2. transrectal ultrasound-guided pudendal nerve block 3. transrectal ultrasound-guided prostate biopsy 12 core Surgeon: Dr. Efrain Jaimes Anesthetic: Local Indications for procedure: Elevated PSA Procedure: After informed consent was verified, the patient was brought into the procedure area and lay left-hand side down on the table. Patient identity confirmed. Perioperative antibiotics confirmed. Gel was placed per rectum Ultrasound probe was placed per rectum The prostate was measured in 3 dimensions Total volume equals 50 gm There were no cystic structures and no calcifications noted and the prostate was homogeneous in nature A ultrasound-guided pudendal nerve block was performed using 10 cc of 1% lidocaine. 8 cc was placed at the base and 2 cc of the apex. A 12 core biopsy was performed with 6 cores each side. Two cores were taken at the apex, mid and base. Cores were spaced between lateral and medial. He tolerated the procedure well. Was able to ambulate to bathroom after 5 minutes. Printed instructions regarding antibiotic use and common side effects such as low-grade temperature and bleeding were given.
== END 2021-02-19 11:35 | disposition home or self-care (01) ==
LOC: HO.MS 11:34
PROVIDERS: PCP Internal Medicine; Visit Provider Urology
PROC: (CPT 55700; principal; 2021-02-19 12:00)
DX: C61 Malignant neoplasm of prostate (principal); R97.20 Elevated prostate specific antigen [PSA]; Z51.81 Encounter for therapeutic drug level monitoring; Z79.01 Long term (current) use of anticoagulants; Z86.73 Personal history of transient ischemic attack (TIA), and cerebral infarction without residual deficits
CPT/HCPCS: 55700; 76942; 85610; 88305; 88344; 99211

== ENCOUNTER → 2021-02-22 10:58 | Outpatient (BNVA) | payer MEDICARE, SELFPAY | PROVIDERS: PCP Internal Medicine; Visit Provider Internal Medicine | DX: Z86.73 Personal history of transient ischemic attack (TIA), and cerebral infarction without residual deficits (principal); Z51.81 Encounter for therapeutic drug level monitoring; Z79.01 Long term (current) use of anticoagulants | CPT/HCPCS: 85610; 99211 ==

== ENCOUNTER → 2021-02-26 13:36 | Outpatient (BNVA) | payer MEDICARE, SELFPAY | PROVIDERS: PCP Internal Medicine; Visit Provider Urology | DX: N40.1 Benign prostatic hyperplasia with lower urinary tract symptoms (principal); N13.8 Other obstructive and reflux uropathy; C61 Malignant neoplasm of prostate | CPT/HCPCS: Q3014 ==

== ENCOUNTER → 2021-02-27 13:16 | Outpatient (BNVA) | payer MEDICARE, SELFPAY | PROVIDERS: PCP Internal Medicine; Visit Provider Internal Medicine | DX: Z86.73 Personal history of transient ischemic attack (TIA), and cerebral infarction without residual deficits (principal); Z79.01 Long term (current) use of anticoagulants; Z51.81 Encounter for therapeutic drug level monitoring | CPT/HCPCS: 85610; 99211; 99212 ==

== ENCOUNTER 2021-03-04 13:41 | Outpatient (REF) | payer MEDICARE, SELFPAY ==
[2021-03-04 15:58] LABS: Basophils Percent Auto 0.4 % (0-2); Eosinophils Absolute Auto 0.1 X10*3/uL (0.0-0.4); Eosinophils Percent Auto 1.3 % (0-4); Hematocrit 32.2 % (42-52); Hemoglobin 10.8 g/dl (14.0-18.0); Imm Gran Abs Auto 0.03 X10*3/uL (0.00-0.03); Imm Gran Pct Auto 0.4 % (0.0-0.4); Lymphocytes Absolute Auto 1.5 X10*3/uL (1.2-4.9); Lymphocytes Percent Auto 18.9 % (20-40); MANUAL DIFF FLAG NO; Mean Corpuscular HGB Conc 33.5 g/dl (31.0-36.0); Mean Corpuscular Hemoglobin 35.9 pg (27.0-33.0); Mean Platelet Volume 11.2 fL (9.4-12.4); Monocytes Absolute Auto 0.7 X10*3/uL (0.1-1.2); Monocytes Percent Auto 9.2 % (2-11); NRBC Pct Auto 0.4 /100WBC (0.0-0.2); Neutrophils Absolute Auto 5.5 X10*3/uL (2.0-8.3); Neutrophils Percent Auto 69.8 % (45-73); Platelet Count 218 X10*3/uL (160-400); Red Blood Count 3.01 X10*6/uL (4.60-5.80); Red Cell Distribution Width 19.4 % (11.0-16.0); White Blood Count 7.8 X10*3/uL (4.8-10.8)
[2021-03-04 16:23] LABS: Alanine Aminotransferase 20 U/L (0-40); Albumin Level 4.6 g/dL (3.5-5.0); Alkaline Phosphatase 60 U/L (39-117); Anion Gap 12 (12-20); Aspartate Amino Transferase 18 U/L (5-37); Bilirubin Total 1.9 mg/dL (0.0-1.0); Blood Urea Nitrogen 19 mg/dL (9-16); Carbon Dioxide 25 mmol/L (22-29); Chloride 106 mmol/L (96-108); Estimated Glomerular Filt Rate > 60; Glucose Random 115 mg/dL (60-115); Potassium 4.2 mmol/L (3.3-5.1); Sodium 139 mmol/L (135-145); Total Protein 6.9 g/dL (6.5-8.0)
[2021-03-04 16:37] LABS: B Type Natriuretic Peptide 214 pg/mL (<100)
[2021-03-04 16:47] LABS: Prostate Specific Antigen 2.21 ng/mL (<0.05-4.0); Thyroid Stimulating Hormone 0.95 uIU/mL (0.32-4.0)
== END 2021-03-04 13:42 | disposition home or self-care (01) ==
LOC: HO.LAB 13:41
PROVIDERS: PCP Internal Medicine; Visit Provider Urology
DX: Z12.5 Encounter for screening for malignant neoplasm of prostate (principal); I25.10 Atherosclerotic heart disease of native coronary artery without angina pectoris; N13.8 Other obstructive and reflux uropathy; N40.1 Benign prostatic hyperplasia with lower urinary tract symptoms
CPT/HCPCS: 36415; 80053; 83880; 84153; 84443; 85025

== ENCOUNTER → 2021-03-06 11:00 | Outpatient (BNVA) | payer MEDICARE, SELFPAY | PROVIDERS: PCP Internal Medicine; Visit Provider Internal Medicine | DX: Z86.73 Personal history of transient ischemic attack (TIA), and cerebral infarction without residual deficits (principal); Z51.81 Encounter for therapeutic drug level monitoring; Z79.01 Long term (current) use of anticoagulants | CPT/HCPCS: 85610; 99211 ==

== ENCOUNTER → 2021-03-13 11:07 | Outpatient (REF) | payer MEDICARE, SELFPAY ==
--- NOTE | ~2021-03-13 | NM_ITS ---
EXAMINATION: NM BONE SCAN OF THE WHOLE BODY CLINICAL INFORMATION: Malignant neoplasm of prostate. COMPARISON: No previous bone scan is available for comparison. Radiographs of the sacrum and coccyx dated 12/04/2020 are available for comparison. Radiographs of the right shoulder dated 07/04/2019 are also available for comparison. TECHNIQUE: Multiple gamma scintillation camera images of the whole body were performed 2 hours following the intravenous administration of 28 mCi Tc-99m MDP. FINDINGS: In the head, there is mildly increased activity in the right temporomandibular joint region, likely arthritic. In the thoracic cage and upper extremities, there is mildly increased activity in the sternoclavicular joints bilaterally and the glenohumeral articulation of the right shoulder and in mild bilaterally symmetrical foci in the radial side of both hands, all likely arthritic. There is a very faint focus of increased activity in the posterolateral aspect of the right ninth rib. In the spine, there is a mild thoracolumbar scoliosis with lumbar convexity to the left. In the pelvis, no significant abnormalities are present. In the lower extremities, there is mildly increased activity in the medial compartment of the right knee left and very faintly in the proximal left foot and right first metatarsophalangeal joint. No other definite bony abnormalities are noted. The urinary bladder and faint visualization of both kidneys are noted. Radiographs of the right shoulder dated 07/04/2019 shows marked degenerative changes in the glenohumeral joint corresponding to bone scan abnormalities described above. NM/NM bone scan whole body IMPRESSION: 1. A faint solitary right ninth rib lesion is noted as described above and this is most likely due to a healing fracture. This could be further characterized with dedicated rib radiographs if clinically indicated. 2. A few additional mild nonspecific abnormalities are noted as described above and these are all likely arthritic or traumatic in etiology. None of these abnormalities is strongly suspicious for metastatic disease.
== END ==
LOC: HO.NUCMED 11:07
PROVIDERS: Visit Provider Urology
DX: C61 Malignant neoplasm of prostate (principal); C79.51 Secondary malignant neoplasm of bone
CPT/HCPCS: 78306; A9503

== ENCOUNTER → 2021-03-20 08:43 | Outpatient (BNVA) | payer MEDICARE, SELFPAY | PROVIDERS: Visit Provider Urology | DX: C61 Malignant neoplasm of prostate (principal) | CPT/HCPCS: Q3014 ==

== ENCOUNTER → 2021-03-27 11:01 | Outpatient (BNVA) | payer MEDICARE, SELFPAY | PROVIDERS: PCP Internal Medicine; Visit Provider Internal Medicine | DX: Z86.73 Personal history of transient ischemic attack (TIA), and cerebral infarction without residual deficits (principal); Z51.81 Encounter for therapeutic drug level monitoring; Z79.01 Long term (current) use of anticoagulants | CPT/HCPCS: 85610; 99211 ==

== ENCOUNTER → 2021-04-16 13:10 | Outpatient (BNVA) | payer MEDICARE, SELFPAY | PROVIDERS: PCP Internal Medicine; Visit Provider Internal Medicine | DX: Z95.2 Presence of prosthetic heart valve (principal); Z51.81 Encounter for therapeutic drug level monitoring; Z79.01 Long term (current) use of anticoagulants | CPT/HCPCS: 85610; 99211 ==

== ENCOUNTER → 2021-05-07 13:01 | Outpatient (BNVA) | payer MEDICARE, SELFPAY | PROVIDERS: PCP Internal Medicine; Visit Provider Internal Medicine | DX: Z86.73 Personal history of transient ischemic attack (TIA), and cerebral infarction without residual deficits (principal); Z51.81 Encounter for therapeutic drug level monitoring; Z79.01 Long term (current) use of anticoagulants | CPT/HCPCS: 85610; 99211 ==

== ENCOUNTER 2021-05-20 08:29 | Outpatient (REF) | payer MEDICARE, SELFPAY ==
--- NOTE | ~2021-05-20 | XR_ITS ---
EXAMINATION: XR KNEE STANDING, BILATERAL XR KNEE, LEFT CLINICAL INFORMATION: Pain in unspecified knee. COMPARISON: X-ray bilateral knees 05/21/2018. TECHNIQUE: AP standing view of both knees was obtained. Lateral and sunrise views of the left knee were obtained. FINDINGS: RIGHT KNEE: Limited AP view demonstrates no change in mild lateral compartment narrowing with tiny marginal osteophytes. There may be slight worsening mild medial compartment narrowing. LEFT KNEE: There is no fracture, malalignment, or joint effusion. There are tiny marginal osteophytes involving all compartments. There is slight worsening [id number]-tklyggwi medial compartment narrowing. XR/XR knee standing BI IMPRESSION: Right Knee: Limited AP view demonstrates no change in mild lateral compartment narrowing and slight worsening mild medial compartment narrowing. Left Knee: Tricompartmental osteoarthritis with slight worsening [id number] medial compartment narrowing.
--- NOTE | ~2021-05-20 | XR_ITS ---
EXAMINATION: XR KNEE STANDING, BILATERAL XR KNEE, LEFT CLINICAL INFORMATION: Pain in unspecified knee. COMPARISON: X-ray bilateral knees 05/21/2018. TECHNIQUE: AP standing view of both knees was obtained. Lateral and sunrise views of the left knee were obtained. FINDINGS: RIGHT KNEE: Limited AP view demonstrates no change in mild lateral compartment narrowing with tiny marginal osteophytes. There may be slight worsening mild medial compartment narrowing. LEFT KNEE: There is no fracture, malalignment, or joint effusion. There are tiny marginal osteophytes involving all compartments. There is slight worsening awtt-po-enhhcsos medial compartment narrowing. XR/XR knee LT 2V IMPRESSION: Right Knee: Limited AP view demonstrates no change in mild lateral compartment narrowing and slight worsening mild medial compartment narrowing. Left Knee: Tricompartmental osteoarthritis with slight worsening aquf-ct-myfwsxcj medial compartment narrowing.
== END 2021-05-20 08:30 | disposition home or self-care (01) ==
LOC: HO.HOSX 08:29
PROVIDERS: Visit Provider Orthopaedic Surgery
DX: M17.0 Bilateral primary osteoarthritis of knee (principal)
CPT/HCPCS: 73560; 73565; 99202

== ENCOUNTER → 2021-05-28 11:36 | Outpatient (BNVA) | payer MEDICARE, SELFPAY | PROVIDERS: PCP Internal Medicine; Visit Provider Internal Medicine | DX: Z86.73 Personal history of transient ischemic attack (TIA), and cerebral infarction without residual deficits (principal); Z51.81 Encounter for therapeutic drug level monitoring; Z79.01 Long term (current) use of anticoagulants | CPT/HCPCS: 85610; 99211 ==

== ENCOUNTER 2021-06-18 10:38 | Outpatient (REF) | payer MEDICARE, SELFPAY | END 2021-06-18 10:39 | disposition home or self-care (01) | LOC: HO.HOSX 10:38 | PROVIDERS: Visit Provider Orthopaedic Surgery | DX: Z13.89 Encounter for screening for other disorder (principal) ==

== ENCOUNTER → 2021-06-25 13:39 | Outpatient (BNVA) | payer MEDICARE, SELFPAY | PROVIDERS: PCP Internal Medicine; Visit Provider Internal Medicine | DX: Z86.73 Personal history of transient ischemic attack (TIA), and cerebral infarction without residual deficits (principal); Z51.81 Encounter for therapeutic drug level monitoring; Z79.01 Long term (current) use of anticoagulants | CPT/HCPCS: 99211 ==

== ENCOUNTER 2021-07-09 12:05 | Outpatient (REF) | payer MEDICARE, SELFPAY ==
[2021-07-09 12:44] LABS: MANUAL DIFF FLAG NO
[2021-07-09 13:04] LABS: Basophils Percent Auto 0.4 % (0-2); Eosinophils Absolute Auto 0.2 X10*3/uL (0.0-0.4); Eosinophils Percent Auto 2.2 % (0-4); Hematocrit 33.1 % (42.0-52.0); Imm Gran Abs Auto 0.04 X10*3/uL (0.00-0.03); Imm Gran Pct Auto 0.4 % (0.0-0.4); Lymphocytes Absolute Auto 1.8 X10*3/uL (1.2-4.9); Lymphocytes Percent Auto 19.2 % (20-40); Mean Corpuscular HGB Conc 33.2 g/dl (31.0-36.0); Mean Corpuscular Hemoglobin 36.4 pg (27.0-33.0); Mean Corpuscular Volume 109.6 fL (80.0-98.0); Mean Platelet Volume 10.8 fL (9.4-12.4); Monocytes Absolute Auto 0.8 X10*3/uL (0.1-1.2); Monocytes Percent Auto 8.8 % (2-11); NRBC Pct Auto 0.2 /100WBC (0.0-0.2); Neutrophils Absolute Auto 6.6 x10*3/uL (2.0-8.3); Platelet Count 213 X10*3/uL (160-400); Red Blood Count 3.02 X10*6/uL (4.60-5.80); Red Cell Distribution Width 18.5 % (11.0-16.0); White Blood Count 9.6 X10*3/uL (4.8-10.8)
[2021-07-09 13:36] LABS: B Type Natriuretic Peptide 179 pg/mL (<100)
[2021-07-09 13:37] LABS: Alanine Aminotransferase 23 U/L (0-40); Albumin Level 4.4 g/dL (3.5-5.0); Alkaline Phosphatase 62 U/L (39-117); Anion Gap 10 (12-20); Aspartate Amino Transferase 18 U/L (5-37); Bilirubin Total 1.4 mg/dL (0.0-1.0); Blood Urea Nitrogen 26 mg/dL (9-16); Calcium 9.3 mg/dL (8.4-10.2); Carbon Dioxide 30 mmol/L (22-29); Chloride 105 mmol/L (96-108); Estimated Glomerular Filt Rate 59; Glucose Random 97 mg/dL (60-115); Potassium 4.4 mmol/L (3.3-5.1); Sodium 141 mmol/L (135-145); Total Protein 7.2 g/dL (6.5-8.0)
[2021-07-09 13:46] LABS: Erythrocyte Sedimentation Rate 12 MM/HR (0-15)
[2021-07-09 13:54] LABS: PSA,Total (Free>4and<10) 1.52 ng/mL (0.00-4.00)
[2021-07-09 14:00] LABS: Thyroid Stimulating Hormone 0.92 uIU/mL (0.32-4.0)
== END 2021-07-09 12:06 | disposition home or self-care (01) ==
LOC: HO.LAB 12:05
PROVIDERS: PCP Internal Medicine; Visit Provider Urology
DX: Z12.5 Encounter for screening for malignant neoplasm of prostate (principal); G45.9 Transient cerebral ischemic attack, unspecified; I25.10 Atherosclerotic heart disease of native coronary artery without angina pectoris; R73.01 Impaired fasting glucose; N13.8 Other obstructive and reflux uropathy; N40.1 Benign prostatic hyperplasia with lower urinary tract symptoms; Z51.81 Encounter for therapeutic drug level monitoring; Z79.01 Long term (current) use of anticoagulants
CPT/HCPCS: 36415; 80053; 83880; 84153; 84443; 85025; 85610; 85652; 99211

== ENCOUNTER → 2021-07-16 11:28 | Outpatient (BNVA) | payer MEDICARE, SELFPAY | PROVIDERS: PCP Internal Medicine; Visit Provider Internal Medicine | DX: Z86.73 Personal history of transient ischemic attack (TIA), and cerebral infarction without residual deficits (principal); Z51.81 Encounter for therapeutic drug level monitoring; Z79.01 Long term (current) use of anticoagulants | CPT/HCPCS: 85610; 99211 ==

== ENCOUNTER → 2021-07-23 15:49 | Outpatient (BNVA) | payer MEDICARE, SELFPAY | PROVIDERS: PCP Internal Medicine; Visit Provider Urology | DX: C61 Malignant neoplasm of prostate (principal) | CPT/HCPCS: 99212 ==

== ENCOUNTER → 2021-07-30 10:48 | Outpatient (BNVA) | payer MEDICARE, SELFPAY | PROVIDERS: PCP Internal Medicine; Referring Provider Internal Medicine; Visit Provider Internal Medicine Cardiovascular Disease | DX: I25.10 Atherosclerotic heart disease of native coronary artery without angina pectoris (principal); I10 Essential (primary) hypertension; E78.00 Pure hypercholesterolemia, unspecified; E55.9 Vitamin D deficiency, unspecified; R51.9 Headache, unspecified; R73.01 Impaired fasting glucose; Z98.890 Other specified postprocedural states; Z95.1 Presence of aortocoronary bypass graft; Z88.8 Allergy status to other drugs, medicaments and biological substances; Z79.01 Long term (current) use of anticoagulants; Z79.899 Other long term (current) drug therapy | CPT/HCPCS: 85610; 93005; 99211; 99212 ==

== ENCOUNTER → 2021-08-13 11:01 | Outpatient (BNVA) | payer MEDICARE, SELFPAY | PROVIDERS: PCP Internal Medicine; Visit Provider Internal Medicine | DX: G45.9 Transient cerebral ischemic attack, unspecified (principal); Z79.01 Long term (current) use of anticoagulants; Z51.81 Encounter for therapeutic drug level monitoring | CPT/HCPCS: 85610; 99211 ==

== ENCOUNTER 2021-08-20 11:00 | Outpatient (RCR) | payer MEDICARE, SELFPAY ==
--- NOTE | 2021-06-20 12:56 | MHC.PT.EP ---
[facility] [place] Office [place] Office [place] Office [address] Wilfredo Fermin [address] [phone] F: [phone] F: [phone] F: [phone] F: [phone] Physical Therapy Plan of Care Date of Evaluation: Date of Surgery: NA Diagnosis: Unilateral primary OA, patellofemoral OA (L knee) Assessment: Fadi is a 85 year old male who is referred to PT for unilateral primary OA . Pt reports of having sudden onset of knee buckling episodes about 2 months back. He denies any trauma or falls. He reports of having these episodes when he moves his knee from flexion to extension (sit to stand) and some times from knee extension to flexion. He denies having any pain. On PT examination he presented with no TTP, 0/10 pain in knee, decreased hip and knee muscle strength, altered posture and gait. Due to these impairments he has difficulty moving from sit to stand. He would benefit from skilled PT to address the aforementioned impairments and improve tolerance to functional activities. Frequency and Duration: The patient will be seen 2/week for 4 weeks Short Term Goals: 1. Pt will be able bend his knee through full plane of motion without feeling of instability in 2 weeks Deputy Felony Clerk Goals: 1. Pt will be able to move from sit to stand without having a feeling of knee buckling in 4 weeks. 2. Pt will be independent with [facility] for symptom management and maintenance in 4 weeks. Treatment Plan: Modalities to reduce pain, spasms and effusion. Manual therapy to restore motion and function. Therapeutic exercise to improve strength and flexibility. Neuromuscular re-education for posture and balance. Therapeutic activities to return to functional activities of daily living. Electronically signed by: Luana Dial PT DPT Please sign and return to therapist. Thank you for your referral.
--- NOTE | 2022-02-27 08:25 | MHC.PT.DC ---
[facility] [place] Office [place] Office [place] Office [address] Wilfredo Fermin [address] [phone] F: [phone] F: [phone] F: [phone] F: [phone] Physical Therapy Discharge Report Diagnosis: Unilateral primary OA, patellofemoral OA (L knee) Date of Surgery: NA Date of Evaluation: 06/20/21 Date of Discharge: 09/20/21 Treatments to Date: 5 Cancellations to Date: 0 No Shows to Date: 0 Discharge Status: Discharge Summary: We d/c patient at this time due to non-compliance with HEP reducing ability to improved in PT. 08/20/21: pt denies any compliance with HEP. we will continue 1 more visit, then d/c to HEP unless pt is able to demonstrate improved compliance with HEP. 07/30/21: progressed very well with resistance today, no adverse reactions. we will continue to progress as tolerated . 07/25/21: added reps and resistance today. added standing hip abd and ext with YTB. issued TB for HEP. 07/18/21: pt progressing well with skilled PT. still has yet to be compliant and consistent with HEP. we issued updated HEP and encouraged him about compliance. 07/04/21: Pt with less discomfort on stepper today. less difficult redirecting. we will transition to HEP Nv. 06/26/21: difficulty keeping on task. we finished with heat. assess response NV. Order received, pt evaluated and treated. He was sent home with hip and knee strengthening exercises. Progress per plan. Faid is a 85 year old male who is referred to PT for unilateral primary OA . Pt reports of having sudden onset of knee buckling episodes about 2 months back. He denies any trauma or falls. He reports of having these episodes when he moves his knee from flexion to extension (sit to stand) and some times from knee extension to flexion. He denies having any pain. On PT examination he presented with no TTP, 0/10 pain in knee, decreased hip and knee muscle strength, altered posture and gait. Due to these impairments he has difficulty moving from sit to stand. He would benefit from skilled PT to address the aforementioned impairments and improve tolerance to functional activities. Electronically signed by: Hilario Bolanos PT Please sign and return to therapist. Thank you for your referral.
== END 2022-02-27 08:25 | disposition home or self-care (01) ==
LOC: HO.PTCHIC 11:00
PROVIDERS: PCP Internal Medicine; Visit Provider Orthopaedic Surgery
DX: M17.10 Unilateral primary osteoarthritis, unspecified knee (principal)
CPT/HCPCS: 97110; 97161

== ENCOUNTER 2021-08-27 08:50 | Outpatient (REF) | payer MEDICARE, SELFPAY ==
--- NOTE | ~2021-08-27 | CT_ITS ---
EXAMINATION: CT ABDOMEN AND PELVIS WITHOUT AND WITH CONTRAST CLINICAL INFORMATION: Screening for pancreatic cancer. COMPARISON: Previous abdominal ultrasound July [address] of the abdomen and pelvis February 2012. TECHNIQUE: Multidetector volumetric imaging was performed of the abdomen and pelvis before and after the IV administration of 65 mL of Omnipaque 300 intravenous contrast. Sagittal and coronal reformatted images were obtained on the technologist's workstation. This CT examination was performed using dose optimization techniques as appropriate, variously including the following: *Automated exposure control *Adjustment of mA and/or kV according to patient size (this includes techniques or standardized protocols for targeted exams where dose is matched to indication/reason for exam; i.e. extremities or head) *Use of iterative reconstruction technique DLP: 695 mGy-cm FINDINGS: LUNG BASES: The visualized lung bases are clear. The heart is slightly enlarged. LIVER, GALLBLADDER, AND BILIARY TREE: The liver is normal in size, shape, and attenuation. No focal hepatic lesion or biliary ductal dilatation is present. The gallbladder is contracted. There are gallstones. PANCREAS: The pancreas is normal-appearing. No mass is seen. The main pancreatic duct does not appear dilated. SPLEEN: Unremarkable. ADRENAL GLANDS: Unremarkable. KIDNEYS AND URETERS: There are bilateral renal peripelvic cysts, left greater than right. No imaging followup needed. The kidneys are otherwise unremarkable. BLADDER: Unremarkable. GASTROINTESTINAL TRACT: The small and large bowel are unremarkable. The appendix is unremarkable. ABDOMINAL WALL: No significant hernia is appreciated. LYMPH NODES: Normal. VASCULAR: Atherosclerotic disease. No abdominal aortic aneurysm. Ectasia of the right common iliac artery measuring 1.5 cm. PELVIC VISCERA: Unremarkable. OSSEOUS STRUCTURES: Degenerative changes of the spine and hip joints. CT/CT abdomen pelvis wo/w con IMPRESSION: Normal-appearing pancreas. Gallstones. Peripelvic renal cysts. Atherosclerotic disease. Fleischner guidelines were followed.
[2021-08-27] MEDS: iohexoL 350 MG/ML 100 ML INFUS..BTL IV (09:47)
== END 2021-08-27 08:51 | disposition home or self-care (01) ==
LOC: HO.CT 08:50
PROVIDERS: Visit Provider Internal Medicine
DX: C61 Malignant neoplasm of prostate (principal); Z15.01 Genetic susceptibility to malignant neoplasm of breast
CPT/HCPCS: 74178; Q9967

== ENCOUNTER → 2021-09-03 10:59 | Outpatient (BNVA) | payer MEDICARE, SELFPAY | PROVIDERS: PCP Internal Medicine; Visit Provider Internal Medicine | DX: Z86.73 Personal history of transient ischemic attack (TIA), and cerebral infarction without residual deficits (principal); Z51.81 Encounter for therapeutic drug level monitoring; Z79.01 Long term (current) use of anticoagulants | CPT/HCPCS: 85610; 99211 ==

== ENCOUNTER → 2021-09-17 11:32 | Outpatient (BNVA) | payer MEDICARE, SELFPAY | PROVIDERS: PCP Internal Medicine; Visit Provider Internal Medicine | DX: G45.9 Transient cerebral ischemic attack, unspecified (principal); Z79.01 Long term (current) use of anticoagulants; Z51.81 Encounter for therapeutic drug level monitoring | CPT/HCPCS: 85610; 99211 ==

== ENCOUNTER → 2021-10-08 11:32 | Outpatient (BNVA) | payer MEDICARE, SELFPAY | PROVIDERS: PCP Internal Medicine; Visit Provider Internal Medicine | DX: G45.9 Transient cerebral ischemic attack, unspecified (principal); Z79.01 Long term (current) use of anticoagulants; Z51.81 Encounter for therapeutic drug level monitoring | CPT/HCPCS: 85610; 99211 ==

== ENCOUNTER → 2021-10-29 11:29 | Outpatient (BNVA) | payer MEDICARE, SELFPAY | PROVIDERS: PCP Internal Medicine; Visit Provider Internal Medicine | DX: G45.9 Transient cerebral ischemic attack, unspecified (principal); Z79.01 Long term (current) use of anticoagulants; Z51.81 Encounter for therapeutic drug level monitoring | CPT/HCPCS: 85610; 99211 ==

== ENCOUNTER 2021-11-13 12:57 | Outpatient (REF) | payer MEDICARE, SELFPAY ==
--- NOTE | ~2021-11-13 | US_ITS ---
EXAMINATION: US SOFT TISSUE NECK CLINICAL INFORMATION: Localized swelling, mass or lump left neck COMPARISON: None TECHNIQUE: Ultrasound of the neck soft tissues is performed with high- frequency mackey-scale imaging and color Doppler. Comparison imaging of the left neck was performed. FINDINGS: There is a 1.3 x 0.6 x 0.9 cm right level 2 cervical lymph node in the area of palpable abnormality. This is normal in size and demonstrate normal ultrasound morphology and flow. The adjacent right submandibular gland is normal-appearing. There is a similar-appearing left cervical lymph node adjacent to the submandibular gland that are 0.9 x 0.5 x 0.7 cm. US/US soft tiss head and/or neck IMPRESSION: No abnormality seen by ultrasound. Small bilateral cervical lymph nodes in the submandibular region.
== END 2021-11-13 12:58 | disposition home or self-care (01) ==
LOC: HO.HMGCX 12:57
PROVIDERS: PCP Internal Medicine; Visit Provider Internal Medicine
DX: R22.1 Localized swelling, mass and lump, neck (principal)
CPT/HCPCS: 76536

== ENCOUNTER → 2021-11-19 11:27 | Outpatient (BNVA) | payer MEDICARE, SELFPAY | PROVIDERS: PCP Internal Medicine; Visit Provider Internal Medicine | DX: G45.9 Transient cerebral ischemic attack, unspecified (principal); Z51.81 Encounter for therapeutic drug level monitoring; Z79.01 Long term (current) use of anticoagulants | CPT/HCPCS: 85610; 99211 ==

== ENCOUNTER 2021-11-27 06:57 | Outpatient (REF) | payer MEDICARE, SELFPAY ==
[2021-11-27 07:11] LABS: MANUAL DIFF FLAG NO
[2021-11-27 07:26] LABS: Basophils Percent Auto 0.3 % (0-2); Eosinophils Absolute Auto 0.1 X10*3/uL (0.0-0.4); Eosinophils Percent Auto 1.5 % (0-4); Hematocrit 31.3 % (42.0-52.0); Hemoglobin 10.5 g/dl (14.0-18.0); Imm Gran Abs Auto 0.05 X10*3/uL (0.00-0.03); Imm Gran Pct Auto 0.5 % (0.0-0.4); Lymphocytes Absolute Auto 1.6 X10*3/uL (1.2-4.9); Lymphocytes Percent Auto 17.1 % (20-40); Mean Corpuscular HGB Conc 33.5 g/dl (31.0-36.0); Mean Corpuscular Hemoglobin 36.8 pg (27.0-33.0); Mean Corpuscular Volume 109.8 fL (80.0-98.0); Mean Platelet Volume 10.8 fL (9.4-12.4); Monocytes Absolute Auto 0.8 X10*3/uL (0.1-1.2); Monocytes Percent Auto 7.9 % (2-11); NRBC Pct Auto 0.2 /100WBC (0.0-0.2); Neutrophils Absolute Auto 6.9 x10*3/uL (2.0-8.3); Neutrophils Percent Auto 72.7 % (45-73); Platelet Count 206 X10*3/uL (160-400); Red Blood Count 2.85 X10*6/uL (4.60-5.80); Red Cell Distribution Width 19.7 % (11.0-16.0); White Blood Count 9.5 X10*3/uL (4.8-10.8)
[2021-11-27 07:36] LABS: Estimated Average Glucose 111 mg/dL; Hemoglobin A1c % 5.5 %
[2021-11-27 07:50] LABS: B Type Natriuretic Peptide 213 pg/mL (<100)
[2021-11-27 07:57] LABS: Alanine Aminotransferase 22 U/L (0-40); Albumin Level 4.4 g/dL (3.5-5.0); Alkaline Phosphatase 73 U/L (39-117); Anion Gap 11 (12-20); Aspartate Amino Transferase 18 U/L (5-37); Bilirubin Total 1.2 mg/dL (0.0-1.0); Blood Urea Nitrogen 27 mg/dL (9-16); Calcium 9.1 mg/dL (8.4-10.2); Carbon Dioxide 26 mmol/L (22-29); Chloride 107 mmol/L (96-108); Cholesterol 93 mg/dL; Estimated Glomerular Filt Rate > 60; Glucose Random 103 mg/dL (60-115); HDL Cholesterol 37 mg/dL; LDL Cholesterol Calculated 49 mg/dl; Magnesium 2.3 mg/dL (1.6-2.6); Potassium 4.5 mmol/L (3.3-5.1); Sodium 139 mmol/L (135-145); Total Protein 7.1 g/dL (6.5-8.0); Triglycerides 37 mg/dL
[2021-11-27 08:07] LABS: Free T4 (Free Thyroxine) 1.07 ng/dL (0.71-1.85); Vitamin D 25-OH Total 55.9 ng/mL (>30)
[2021-11-27 08:16] LABS: Prostate Specific Antigen 1.58 ng/mL (<0.05-4.0); Thyroid Stimulating Hormone 0.99 uIU/mL (0.32-4.0)
[2021-11-27 08:22] LABS: Folate > 20.0 ng/mL (> or = 4.0); Vitamin B12 1583 pg/mL (200-900)
[2021-11-27 08:25] LABS: Erythrocyte Sedimentation Rate 18 MM/HR (0-15)
[2021-11-27 09:46] LABS: Appearance Urine CLEAR; Color Urine YELLOW; Glucose Urine UA NEG (NEG); Leukocyte Esterase Urine NEG (NEG); Nitrite Urine NEG (NEG); PH 5.5 (5.0-8.0); Specific Gravity - Urine 1.015 (1.005-1.025); Urine Blood NEG (NEG); Urine Ketones NEG (NEG); Urine Protein NEG (NEG-TRACE)
[2021-11-27 10:18] LABS: RBC Urine 0 /HPF (0); WBC Urine 0 /HPF (0-4)
== END 2021-11-27 06:58 | disposition home or self-care (01) ==
LOC: HO.LAB 06:57
PROVIDERS: PCP Internal Medicine; Visit Provider Urology
DX: Z12.5 Encounter for screening for malignant neoplasm of prostate (principal); C61 Malignant neoplasm of prostate; I25.10 Atherosclerotic heart disease of native coronary artery without angina pectoris; R73.01 Impaired fasting glucose; E78.00 Pure hypercholesterolemia, unspecified
CPT/HCPCS: 36415; 80053; 80061; 81001; 82306; 82607; 82746; 83036; 83735; 83880; 84153; 84439; 84443; 85025; 85652

== ENCOUNTER → 2021-12-03 09:16 | Outpatient (BNVA) | payer MEDICARE, SELFPAY | PROVIDERS: PCP Internal Medicine; Visit Provider Urology | DX: C61 Malignant neoplasm of prostate (principal) | CPT/HCPCS: 99212 ==

== ENCOUNTER → 2021-12-17 11:30 | Outpatient (BNVA) | payer MEDICARE, SELFPAY | PROVIDERS: PCP Internal Medicine; Visit Provider Internal Medicine | DX: Z86.73 Personal history of transient ischemic attack (TIA), and cerebral infarction without residual deficits (principal); Z51.81 Encounter for therapeutic drug level monitoring; Z79.01 Long term (current) use of anticoagulants | CPT/HCPCS: 85610; 99211 ==

== ENCOUNTER 2021-12-25 11:07 | Outpatient (REF) | payer MEDICARE, SELFPAY ==
--- NOTE | ~2021-12-25 | CT_ITS ---
EXAMINATION: CT SOFT TISSUE NECK WITHOUT CONTRAST CLINICAL INFORMATION: Unspecified voice and resonance disorder. COMPARISON: None TECHNIQUE: Helical imaging was performed in the axial plane with generation of coronal and sagittal reformatted images. This CT examination was performed using dose optimization techniques as appropriate, variously including the following: *Automated exposure control *Adjustment of mA and/or kV according to patient size (this includes techniques or standardized protocols for targeted exams where dose is matched to indication/reason for exam; i.e. extremities or head) *Use of iterative reconstruction technique DLP: 344 mGy-cm FINDINGS: The nasopharynx appears normal. There is no retropharyngeal adenopathy. The palatine tonsils and base of tongue appear normal. No laryngeal lesion is seen. The vocal folds appear symmetric. The parotid and submandibular glands appear normal. No enlarged cervical chain lymph nodes are seen. The thyroid gland appears normal. No consolidation is seen within the upper lungs. Sequela of coronary artery bypass grafting is noted. Atheromatous changes are seen within the major neck arteries imaged intracranial contents appear normal. Multilevel degenerative changes are seen within the spine. CT/CT soft tissue neck wo con IMPRESSION: No neck mass or cervical lymphadenopathy identified.
== END 2021-12-25 11:08 | disposition home or self-care (01) ==
LOC: HO.CT 11:07
PROVIDERS: PCP Internal Medicine; Visit Provider Nurse Practitioner Family
DX: R49.9 Unspecified voice and resonance disorder (principal); R59.0 Localized enlarged lymph nodes
CPT/HCPCS: 70490

== ENCOUNTER → 2022-01-07 14:33 | Outpatient (BNVA) | payer MEDICARE, SELFPAY | PROVIDERS: PCP Internal Medicine; Visit Provider Internal Medicine | DX: G45.9 Transient cerebral ischemic attack, unspecified (principal); Z79.01 Long term (current) use of anticoagulants; Z51.81 Encounter for therapeutic drug level monitoring | CPT/HCPCS: 85610; 99211 ==

== ENCOUNTER → 2022-01-21 11:29 | Outpatient (BNVA) | payer MEDICARE, SELFPAY | PROVIDERS: PCP Internal Medicine; Visit Provider Internal Medicine | DX: I25.10 Atherosclerotic heart disease of native coronary artery without angina pectoris (principal); I48.0 Paroxysmal atrial fibrillation; G45.9 Transient cerebral ischemic attack, unspecified; Z79.01 Long term (current) use of anticoagulants; Z51.81 Encounter for therapeutic drug level monitoring | CPT/HCPCS: 85610; 93005; 99211; 99212 ==

== ENCOUNTER → 2022-02-11 11:49 | Outpatient (BNVA) | payer MEDICARE, SELFPAY | PROVIDERS: PCP Internal Medicine; Visit Provider Internal Medicine | DX: G45.9 Transient cerebral ischemic attack, unspecified (principal); Z51.81 Encounter for therapeutic drug level monitoring; Z79.01 Long term (current) use of anticoagulants | CPT/HCPCS: 85610; 99211 ==

== ENCOUNTER → 2022-02-25 13:05 | Outpatient (BNVA) | payer MEDICARE, SELFPAY | PROVIDERS: PCP Internal Medicine; Visit Provider Internal Medicine | DX: G45.9 Transient cerebral ischemic attack, unspecified (principal); Z79.01 Long term (current) use of anticoagulants; Z51.81 Encounter for therapeutic drug level monitoring | CPT/HCPCS: 85610; 99211 ==

== ENCOUNTER → 2022-02-28 11:17 | Outpatient (BNVA) | payer MEDICARE, SELFPAY | PROVIDERS: PCP Internal Medicine; Visit Provider Internal Medicine | DX: G45.9 Transient cerebral ischemic attack, unspecified (principal); Z79.01 Long term (current) use of anticoagulants; Z51.81 Encounter for therapeutic drug level monitoring | CPT/HCPCS: 85610; 99211 ==

== ENCOUNTER → 2022-03-04 11:27 | Outpatient (BNVA) | payer MEDICARE, SELFPAY | PROVIDERS: PCP Internal Medicine; Visit Provider Internal Medicine | DX: G45.9 Transient cerebral ischemic attack, unspecified (principal); Z79.01 Long term (current) use of anticoagulants; Z51.81 Encounter for therapeutic drug level monitoring | CPT/HCPCS: 85610; 99211 ==

== ENCOUNTER 2022-03-05 14:49 | Outpatient (REF) | payer MEDICARE, SELFPAY ==
--- NOTE | ~2022-03-05 | XR_ITS ---
EXAMINATION: XR CHEST CLINICAL INFORMATION: Dysphagia COMPARISON: Previous chest x-ray most recent October 2018 TECHNIQUE: 2 views of the chest were obtained. FINDINGS: The cardiac and mediastinal contours are stable. 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 The lungs are clear. There is an azygos lobe. There is no pleural effusion or pneumothorax. There are degenerative changes of the spine. There are old bilateral rib fractures. There are median sternotomy wires. XR/XR chest 2V IMPRESSION: No evidence for acute disease in the chest.
== END 2022-03-05 14:50 | disposition home or self-care (01) ==
LOC: HO.XRAY 14:49
PROVIDERS: PCP Internal Medicine; Visit Provider Internal Medicine Cardiovascular Disease
DX: R13.10 Dysphagia, unspecified (principal)
CPT/HCPCS: 71046

== ENCOUNTER 2022-03-13 08:33 | Outpatient (REF) | payer MEDICARE, SELFPAY ==
--- NOTE | ~2022-03-13 | FL_ITS ---
PROCEDURE: BARIUM SWALLOW AND UPPER GI CLINICAL INFORMATION: Dysphagia. COMPARISON: None TECHNIQUE: Barium swallow was performed using thin and thick barium and effervescent granules. Barium tablet was also administered. Subsequently, upper GI was performed including CHIANG drinking esophagram images. FINDINGS: There is retention in the vallecula with liquid barium. The barium tablet also got temporarily stuck in the vallecula. No aspiration or penetration is seen. The patient had difficulty drinking. Esophageal motility is normal. There is significant gastroesophageal reflux. There is also question of mild esophagitis with some mucosal irregularity of the distal esophagus and underdistention. Aside from getting stuck in the vallecula, the barium tablet passed freely through the esophagus into the stomach. No hernia, mass or stricture in the esophagus is appreciated. The stomach and duodenum are normal-appearing. No fold thickening, mass, ulcer or stricture is seen. FLUOROSCOPY TIME: 2.3 minutes DAP: 16.4 Gy-cm2 Saved fluoroscopic images: 77 FL/FL upper GI w air w Ba Swallow IMPRESSION: Retention in the vallecula with liquid barium. The barium tablet also got stuck in the vallecula. Gastroesophageal reflux and question mild esophagitis.
== END 2022-03-13 08:34 | disposition home or self-care (01) ==
LOC: HO.XRAY 08:33
PROVIDERS: PCP Internal Medicine; Visit Provider Internal Medicine
DX: R13.10 Dysphagia, unspecified (principal); Z79.01 Long term (current) use of anticoagulants
CPT/HCPCS: 74246

== ENCOUNTER → 2022-03-18 11:18 | Outpatient (BNVA) | payer MEDICARE, SELFPAY | PROVIDERS: PCP Internal Medicine; Visit Provider Internal Medicine | DX: G45.9 Transient cerebral ischemic attack, unspecified (principal); Z79.01 Long term (current) use of anticoagulants; Z51.81 Encounter for therapeutic drug level monitoring | CPT/HCPCS: 85610; 99211 ==

== ENCOUNTER 2022-03-31 11:44 | Outpatient (REF) | payer MEDICARE, SELFPAY ==
[2022-03-31 12:01] LABS: MANUAL DIFF FLAG NO
[2022-03-31 12:22] LABS: Basophils Percent Auto 0.5 % (0-2); Eosinophils Absolute Auto 0.1 X10*3/uL (0.0-0.4); Eosinophils Percent Auto 1.9 % (0-4); Hematocrit 29.6 % (42.0-52.0); Hemoglobin 10.1 g/dl (14.0-18.0); Imm Gran Abs Auto 0.03 X10*3/uL (0.00-0.03); Imm Gran Pct Auto 0.4 % (0.0-0.4); Lymphocytes Absolute Auto 1.7 X10*3/uL (1.2-4.9); Lymphocytes Percent Auto 22.5 % (20-40); Mean Corpuscular HGB Conc 34.1 g/dl (31.0-36.0); Mean Corpuscular Hemoglobin 37.3 pg (27.0-33.0); Mean Corpuscular Volume 109.2 fL (80.0-98.0); Mean Platelet Volume 10.9 fL (9.4-12.4); Monocytes Absolute Auto 0.6 X10*3/uL (0.1-1.2); Monocytes Percent Auto 8.3 % (2-11); NRBC Pct Auto 0.4 /100WBC (0.0-0.2); Neutrophils Percent Auto 66.4 % (45-73); Platelet Count 212 X10*3/uL (160-400); Red Blood Count 2.71 X10*6/uL (4.60-5.80); Red Cell Distribution Width 17.9 % (11.0-16.0); White Blood Count 7.5 X10*3/uL (4.8-10.8)
[2022-03-31 12:49] LABS: Alanine Aminotransferase 18 U/L (0-40); Albumin Level 4.3 g/dL (3.5-5.0); Alkaline Phosphatase 60 U/L (39-117); Anion Gap 12 (12-20); Aspartate Amino Transferase 17 U/L (5-37); Bilirubin Total 1.6 mg/dL (0.0-1.0); Blood Urea Nitrogen 25 mg/dL (9-16); Carbon Dioxide 26 mmol/L (22-29); Chloride 106 mmol/L (96-108); Estimated Glomerular Filt Rate > 60; Glucose Random 167 mg/dL (60-115); Iron 127 mcg/dL (45-160); Percent Iron Saturation 55 % (15-50); Potassium 4.2 mmol/L (3.3-5.1); Sodium 140 mmol/L (135-145); Total Iron Binding Capacity 230 mcg/dL (228-428); Total Protein 6.6 g/dL (6.5-8.0); Unsaturated Iron Binding 103 ug/dL
[2022-03-31 13:09] LABS: Prostate Specific Antigen 2.14 ng/mL (<0.05-4.0); Thyroid Stimulating Hormone 0.92 uIU/mL (0.32-4.0)
== END 2022-03-31 11:45 | disposition home or self-care (01) ==
LOC: HO.LAB 11:44
PROVIDERS: Absent Provider Urology; PCP Internal Medicine; Visit Provider Internal Medicine
DX: Z12.5 Encounter for screening for malignant neoplasm of prostate (principal); I48.0 Paroxysmal atrial fibrillation
CPT/HCPCS: 36415; 80053; 83540; 84153; 84443; 85025

== ENCOUNTER → 2022-04-01 13:22 | Outpatient (BNVA) | payer MEDICARE, SELFPAY | PROVIDERS: PCP Internal Medicine; Visit Provider Urology | DX: G45.9 Transient cerebral ischemic attack, unspecified (principal); C61 Malignant neoplasm of prostate; Z51.81 Encounter for therapeutic drug level monitoring; Z79.01 Long term (current) use of anticoagulants | CPT/HCPCS: 85610; 99211; 99212 ==

== ENCOUNTER → 2022-04-24 10:59 | Outpatient (BNVA) | payer MEDICARE, SELFPAY | PROVIDERS: PCP Internal Medicine; Visit Provider Internal Medicine | DX: G45.9 Transient cerebral ischemic attack, unspecified (principal); Z79.01 Long term (current) use of anticoagulants; Z51.81 Encounter for therapeutic drug level monitoring | CPT/HCPCS: 85610; 99211 ==

== ENCOUNTER → 2022-05-13 13:07 | Outpatient (BNVA) | payer MEDICARE, SELFPAY | PROVIDERS: PCP Internal Medicine; Visit Provider Internal Medicine | DX: Z86.73 Personal history of transient ischemic attack (TIA), and cerebral infarction without residual deficits (principal); Z79.01 Long term (current) use of anticoagulants; Z51.81 Encounter for therapeutic drug level monitoring | CPT/HCPCS: 85610; 99211 ==

== ENCOUNTER → 2022-06-04 13:03 | Outpatient (BNVA) | payer MEDICARE, SELFPAY | PROVIDERS: PCP Internal Medicine; Visit Provider Internal Medicine | DX: G45.9 Transient cerebral ischemic attack, unspecified (principal); Z79.01 Long term (current) use of anticoagulants; Z51.81 Encounter for therapeutic drug level monitoring | CPT/HCPCS: 85610; 99211 ==

== ENCOUNTER → 2022-06-10 11:15 | Outpatient (BNVA) | payer MEDICARE, SELFPAY | PROVIDERS: PCP Internal Medicine; Visit Provider Internal Medicine | DX: G45.9 Transient cerebral ischemic attack, unspecified (principal); Z79.01 Long term (current) use of anticoagulants; Z51.81 Encounter for therapeutic drug level monitoring | CPT/HCPCS: 85610; 99211 ==

== ENCOUNTER → 2022-06-17 11:15 | Outpatient (BNVA) | payer MEDICARE, SELFPAY | PROVIDERS: PCP Internal Medicine; Visit Provider Internal Medicine | DX: G45.9 Transient cerebral ischemic attack, unspecified (principal); Z79.01 Long term (current) use of anticoagulants; Z51.81 Encounter for therapeutic drug level monitoring | CPT/HCPCS: 85610; 99211 ==

== ENCOUNTER → 2022-07-01 12:59 | Outpatient (BNVA) | payer MEDICARE, SELFPAY | PROVIDERS: PCP Internal Medicine; Visit Provider Internal Medicine | DX: G45.9 Transient cerebral ischemic attack, unspecified (principal); Z79.01 Long term (current) use of anticoagulants; Z51.81 Encounter for therapeutic drug level monitoring | CPT/HCPCS: 85610; 99211 ==

== ENCOUNTER 2022-07-19 10:30 | Outpatient (REF) | payer MEDICARE, SELFPAY ==
[2022-07-19 10:43] LABS: MANUAL DIFF FLAG NO
[2022-07-19 11:22] LABS: Basophils Absolute Auto 0.1 X10*3/uL (0.0-0.2); Basophils Percent Auto 0.8 % (0-2); Eosinophils Absolute Auto 0.2 X10*3/uL (0.0-0.4); Eosinophils Percent Auto 2.3 % (0-4); Hematocrit 31.8 % (42.0-52.0); Hemoglobin 10.7 g/dl (14.0-18.0); Imm Gran Abs Auto 0.03 X10*3/uL (0.00-0.03); Imm Gran Pct Auto 0.4 % (0.0-0.4); Immature Retic Fraction 18.6 % (2.3-13.4); Lymphocytes Absolute Auto 1.6 X10*3/uL (1.2-4.9); Lymphocytes Percent Auto 20.2 % (20-40); Mean Corpuscular HGB Conc 33.6 g/dl (31.0-36.0); Mean Corpuscular Hemoglobin 36.9 pg (27.0-33.0); Mean Corpuscular Volume 109.7 fL (80.0-98.0); Mean Platelet Volume 11.1 fL (9.4-12.4); Monocytes Absolute Auto 0.7 X10*3/uL (0.1-1.2); NRBC Pct Auto 0.3 /100WBC (0.0-0.2); Neutrophils Absolute Auto 5.2 x10*3/uL (2.0-8.3); Neutrophils Percent Auto 67.3 % (45-73); Platelet Count 197 X10*3/uL (160-400); Red Cell Distribution Width 18.5 % (11.0-16.0); Retic HGB Equivalent 36.6 pg (30.0-35.0); Reticulocyte Percent 1.3 % (0.5-1.8); Reticulocytes Absolute 0.038 X10*6/uL (0.026-0.095); White Blood Count 7.7 X10*3/uL (4.8-10.8)
[2022-07-19 11:37] LABS: Estimated Average Glucose 97 mg/dL
[2022-07-19 11:54] LABS: Alanine Aminotransferase 16 U/L (0-40); Albumin Level 4.4 g/dL (3.5-5.0); Alkaline Phosphatase 66 U/L (39-117); Anion Gap 11 (12-20); Aspartate Amino Transferase 16 U/L (5-37); Bilirubin Total 1.7 mg/dL (0.0-1.0); Blood Urea Nitrogen 18 mg/dL (9-16); Calcium 9.1 mg/dL (8.4-10.2); Carbon Dioxide 26 mmol/L (22-29); Chloride 107 mmol/L (96-108); Cholesterol 112 mg/dL; Estimated Glomerular Filt Rate > 60; Glucose Random 93 mg/dL (60-115); HDL Cholesterol 42 mg/dL; Iron 130 mcg/dL (45-160); LDL Cholesterol Calculated 60 mg/dl; Percent Iron Saturation 55 % (15-50); Potassium 4.4 mmol/L (3.3-5.1); Sodium 140 mmol/L (135-145); Total Iron Binding Capacity 237 mcg/dL (228-428); Total Protein 6.9 g/dL (6.5-8.0); Triglycerides 53 mg/dL; Unsaturated Iron Binding 107 ug/dL
[2022-07-19 12:27] LABS: Ferritin 562 ng/mL (20-250); Folate 15.8 ng/mL (> or = 4.0); Free T4 (Free Thyroxine) 1.08 ng/dL (0.71-1.85); Prostate Specific Antigen Scr 3.03 ng/mL (<0.05-4.0); Thyroid Stimulating Hormone 1.04 uIU/mL (0.32-4.0); Vitamin B12 1373 pg/mL (200-900)
== END 2022-07-19 10:31 | disposition home or self-care (01) ==
LOC: HO.LAB 10:30
PROVIDERS: PCP Internal Medicine; Visit Provider Internal Medicine
DX: Z12.5 Encounter for screening for malignant neoplasm of prostate (principal); I25.10 Atherosclerotic heart disease of native coronary artery without angina pectoris; I48.0 Paroxysmal atrial fibrillation; C61 Malignant neoplasm of prostate; E78.00 Pure hypercholesterolemia, unspecified; R73.01 Impaired fasting glucose
CPT/HCPCS: 36415; 80053; 80061; 82607; 82728; 82746; 83036; 83540; 84153; 84439; 84443; 85025; 85045

== ENCOUNTER → 2022-07-22 13:00 | Outpatient (BNVA) | payer MEDICARE, SELFPAY | PROVIDERS: PCP Internal Medicine; Visit Provider Internal Medicine | DX: Z86.73 Personal history of transient ischemic attack (TIA), and cerebral infarction without residual deficits (principal); Z51.81 Encounter for therapeutic drug level monitoring; Z79.01 Long term (current) use of anticoagulants | CPT/HCPCS: 85610; 99211 ==

== ENCOUNTER → 2022-07-29 11:11 | Outpatient (BNVA) | payer MEDICARE, SELFPAY | PROVIDERS: PCP Internal Medicine; Referring Provider Internal Medicine; Visit Provider Internal Medicine Cardiovascular Disease | DX: I25.10 Atherosclerotic heart disease of native coronary artery without angina pectoris (principal); I48.0 Paroxysmal atrial fibrillation | CPT/HCPCS: 99212 ==

== ENCOUNTER → 2022-08-12 13:15 | Outpatient (REF) | payer MEDICARE, SELFPAY ==
--- NOTE | 2022-08-12 13:22 | CA_ITS ---
Transthoracic Echocardiogram Patient (Last, First, Middle): Fadi Sheppard A Gender: Male Date of : 1935 Age: 87 Procedure Date: 08/12/2022 Procedure Type: Transthoracic Echocardiogram Location: OP Height: 177.8 cm Weight: 74.39 kg BSA: 1.92 m2 Heart Rate: bpm BP: 141 / 65 mmHg Galley Stripper: ALESSIA Referring MD: Freddie Arora MD Symptoms: I48.0 - Paroxysmal atrial fibrillation Study Quality: Adequate ECG Rhythm: Atrial Fibrillation Conclusions: - The left ventricular systolic function is normal. The calculated ejection fraction is 59% by biplane method. - The basal inferior segment is akinetic. - Moderate biatrial enlargement. - There is mild mitral annular calcification. Findings Left Ventricle Normal left ventricular cavity size. There is normal left ventricular wall thickness. The left ventricular systolic function is normal. The calculated ejection fraction is 59% by biplane method. There is evidence of regional wall motion abnormalities. Diastolic function is indeterminate on the basis of available data. Wall Motion Rest Echo Findings The basal inferior segment is akinetic. Right Ventricle Mildly increased right ventricular cavity size. There is normal right ventricular systolic function. Atria Moderate biatrial enlargement. Aortic Valve There is a normal trileaflet aortic valve. There is no aortic valve stenosis. There is trace (trivial) aortic valve regurgitation. Mitral Valve The mitral valve appears normal. There is mild mitral annular calcification. There is trace mitral valve regurgitation. There is no mitral valve stenosis. Pulmonic Valve The pulmonic valve is likely normal. Tricuspid Valve There is mild tricuspid valve regurgitation. There is no evidence of pulmonary hypertension. Great Vessels The asc aorta is normal in size. Venous The inferior vena cava is mildly dilated and collapses less than 50% with inspiration. Pericardium/Pleural There is no evidence of pericardial effusion. Prior Study Comparison No significant change compared to prior study dated: 01/15/2021. Wall motion similar to before. Images reviewed. Measurements 2D Linear Measurements IVSd: 0.81 0.6-0.9/0.6-1.0 cm LVIDd: 5.35 3.9-5.3/4.2-5.9 cm LVIDd Index: 2.79 2.4-3.2/2.2-3.1 cm/m2 LVIDs: 3.32 2.0-3.6 cm LVPWd: 0.82 0.7-1.1 cm LA Diam: 4.60 2.7-3.8/3.0-4.0 cm LAIDs Index: 2.40 1.5-2.3 cm/m2 LV Mass: 193.96 67-162/88-224 g LV Mass Index: 101.02 43-95/49-115 g/m2 LVOT Diam: 2.10 3.0+(-)1.3 cm 2D Systolic Function EF 4C: 65.90 >55% EF 2C: 51.30 >55% EF BiP: 59.00 >55% Mitral Valve MV Pk E: 1.10 E'Lateral: 9.75 E/E' Lat: 11.30 Aortic Valve AoV Pk Terrell: 1.35 AoV Pk Grad: 7.00 LVOT LVOT Pk Terrell: 0.89 LVOT Mn Terrell: 0.73 LVOT VTI: 0.23 LVOT Pk Grad: 3.00 LVOT Mn Grad: 2.00 LVOT Diam: 2.10 LVOT Area: 3.46 Diastolic Function MV Pk E: 1.10 E' Laterial: 9.75 E/E' Lat: 11.30 Tricuspid Valve TR Pk Terrell: 2.28 TR Pk Grad: 21.00 RA Press: 8.00 RVSP: 29.00 Great Vessels Aorta Sinus of Valsalva: 3.30 2.0-3.5 cm Ao Asc: 3.80 2.1-3.4 cm Pulmonary Valve PV Pk Terrell: 0.76 Peak PV Grad: 2.00 Updated in Other Vendor System with Status of Final Satya Casanova MD electronically signed on 08/13/2022 2:42:03 PM with status of Final
== END ==
LOC: HO.CARD 13:15
PROVIDERS: PCP Internal Medicine; Visit Provider Internal Medicine Cardiovascular Disease
DX: I48.0 Paroxysmal atrial fibrillation (principal); G45.9 Transient cerebral ischemic attack, unspecified; Z51.81 Encounter for therapeutic drug level monitoring; Z79.01 Long term (current) use of anticoagulants
CPT/HCPCS: 85610; 93306; 99211

== ENCOUNTER → 2022-09-02 13:06 | Outpatient (BNVA) | payer MEDICARE, SELFPAY | PROVIDERS: PCP Internal Medicine; Visit Provider Internal Medicine | DX: G45.9 Transient cerebral ischemic attack, unspecified (principal); Z79.01 Long term (current) use of anticoagulants; Z51.81 Encounter for therapeutic drug level monitoring | CPT/HCPCS: 85610; 99211 ==

== ENCOUNTER → 2022-09-23 11:40 | Outpatient (BNVA) | payer MEDICARE, SELFPAY | PROVIDERS: PCP Internal Medicine; Visit Provider Internal Medicine | DX: G45.9 Transient cerebral ischemic attack, unspecified (principal); Z79.01 Long term (current) use of anticoagulants; Z51.81 Encounter for therapeutic drug level monitoring | CPT/HCPCS: 85610; 99211 ==

== ENCOUNTER 2022-09-26 10:35 | Outpatient (REF) | payer MEDICARE, SELFPAY | END 2022-09-26 10:36 | disposition home or self-care (01) | LOC: HO.LAB 10:35 | PROVIDERS: PCP Internal Medicine; Visit Provider Urology | DX: Z12.5 Encounter for screening for malignant neoplasm of prostate (principal); C61 Malignant neoplasm of prostate | CPT/HCPCS: 36415; 84153 ==

== ENCOUNTER → 2022-09-30 11:47 | Outpatient (BNVA) | payer MEDICARE, SELFPAY | PROVIDERS: PCP Internal Medicine; Visit Provider Urology | DX: C61 Malignant neoplasm of prostate (principal); R39.12 Poor urinary stream | CPT/HCPCS: 99212 ==

== ENCOUNTER → 2022-10-08 13:35 | Outpatient (BNVA) | payer MEDICARE, SELFPAY | PROVIDERS: PCP Internal Medicine; Visit Provider Internal Medicine | DX: G45.9 Transient cerebral ischemic attack, unspecified (principal); Z79.01 Long term (current) use of anticoagulants; Z51.81 Encounter for therapeutic drug level monitoring | CPT/HCPCS: 85610; 99211 ==

== ENCOUNTER → 2022-10-13 11:20 | Outpatient (BNVA) | payer MEDICARE, SELFPAY | PROVIDERS: PCP Internal Medicine; Visit Provider Internal Medicine | DX: G45.9 Transient cerebral ischemic attack, unspecified (principal); Z79.01 Long term (current) use of anticoagulants; Z51.81 Encounter for therapeutic drug level monitoring | CPT/HCPCS: 85610; 99211 ==

== ENCOUNTER → 2022-10-27 15:03 | Outpatient (BNVA) | payer MEDICARE, SELFPAY | PROVIDERS: PCP Internal Medicine; Visit Provider Internal Medicine | DX: G45.9 Transient cerebral ischemic attack, unspecified (principal); Z79.01 Long term (current) use of anticoagulants; Z51.81 Encounter for therapeutic drug level monitoring | CPT/HCPCS: 85610; 99211 ==

== ENCOUNTER → 2022-11-18 11:31 | Outpatient (BNVA) | payer MEDICARE, SELFPAY | PROVIDERS: PCP Internal Medicine; Visit Provider Internal Medicine | DX: G45.9 Transient cerebral ischemic attack, unspecified (principal); Z79.01 Long term (current) use of anticoagulants; Z51.81 Encounter for therapeutic drug level monitoring | CPT/HCPCS: 85610; 99211 ==

== ENCOUNTER → 2022-12-10 11:38 | Outpatient (BNVA) | payer MEDICARE, SELFPAY | PROVIDERS: PCP Internal Medicine; Visit Provider Internal Medicine | DX: G45.9 Transient cerebral ischemic attack, unspecified (principal); Z79.01 Long term (current) use of anticoagulants; Z51.81 Encounter for therapeutic drug level monitoring | CPT/HCPCS: 85610; 99212 ==

== ENCOUNTER 2022-12-15 11:17 | Outpatient (AMB) | payer MEDICARE, SELFPAY ==
--- NOTE | 2022-12-15 11:26 | MHC.OFFVISCO ---
Intake Intake Visit Reasons: Anticoagulation Allergies omeprazole [OMEPRAZOLE] Allergy (Unknown, Verified 12/15/22 11:21) RASH Medication List - Last Reconciled 12/15/22 by Gricelda Ogden RN atorvastatin (Lipitor) 40 mg PO DAILY cholecalciferol (vitamin D3) 50 mcg PO DAILY furosemide 40 mg (2 x 20 mg) PO DAILY isosorbide mononitrate ER 30 mg PO DAILY 90 days multivitamin 1 tab PO DAILY nitroglycerin 0.4 mg sublingual ONCE verapamil ER 120 mg PO TID warfarin 5 mg See Protocol PO DAILY 90 days Nursing Note INR: 2.4- in therapeutic range Medications and supplements reviewed- no changes No changes in health, diet, medications, or supplements, Denies any signs and symptoms of bleeding or bruising or clotting. Bleeding, bruising, clotting discussed Nutritional guidance given Dose: due to dental extraction then cont reg dosing 5mg x 5, 7.5mg x 2 F/U INR: tomm 12/16/22 per dentist office Patient verbalizes understanding of instructions given pt states having dental extraction on thu12/17/[address] whitten, [facility] in [place]- goal inr 2.0- pt states has been instructed to hold warfarin today and tomm. dental office called- spoke to marcial- she verified pt to hold warfarin for 2 days. inr must be done 24 hours prior to proc. 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
[2022-12-16 15:40] LABS: Prothrombin Time Whole Bld POC 28.9 sec (11.1-13.5); ~PT, ~INR - Anti Coag Clinic 2.4 (0.9-1.1)
== END 2022-12-15 12:03 | disposition home or self-care (01) ==
LOC: HO.ACS 11:17
PROVIDERS: PCP Internal Medicine; Visit Provider Internal Medicine
DX: Z79.01 Long term (current) use of anticoagulants (principal)

== ENCOUNTER → 2022-12-15 11:17 | Outpatient (BNVA) | payer MEDICARE, SELFPAY | PROVIDERS: PCP Internal Medicine; Visit Provider Internal Medicine | DX: Z86.73 Personal history of transient ischemic attack (TIA), and cerebral infarction without residual deficits (principal); Z79.01 Long term (current) use of anticoagulants; Z51.81 Encounter for therapeutic drug level monitoring | CPT/HCPCS: 85610; 99211 ==

== ENCOUNTER 2022-12-16 11:01 | Outpatient (AMB) | payer MEDICARE, SELFPAY ==
[2022-12-16 11:23] LABS: Prothrombin Time Whole Bld POC 19.4 sec (11.1-13.5); ~PT, ~INR - Anti Coag Clinic 1.6 (0.9-1.1)
--- NOTE | 2022-12-16 11:26 | MHC.OFFVISCO ---
Intake Intake Visit Reasons: Anticoagulation Allergies omeprazole [OMEPRAZOLE] Allergy (Unknown, Verified 12/16/22 11:09) RASH Medication List - Last Reconciled 12/16/22 by Zoe Figueroa RN atorvastatin (Lipitor) 40 mg PO DAILY cholecalciferol (vitamin D3) 50 mcg PO DAILY furosemide 40 mg (2 x 20 mg) PO DAILY isosorbide mononitrate ER 30 mg PO DAILY 90 days multivitamin 1 tab PO DAILY nitroglycerin 0.4 mg sublingual ONCE verapamil ER 120 mg PO TID warfarin 5 mg See Protocol PO DAILY 90 days Nursing Note INR 1.6 out of therapeutic range- TO HAVE DENTAL EXTRACTION TOMORROW Medications and supplements reviewed Patient status: BEING VERY FORGETFUL Medications or supplements: HOLDING WARFARIN X 2 DAYS Diet: GOOD Denies any signs and symptoms of bleeding or clotting or unusual bruising Bleeding, bruising, clotting discussed Nutritional guidance given: AVOID GREENS AFTER THE PROCEDURE AND UNTIL INR 2.0 Dose: HOLD X 2 DAYS (Thu)PER DENTIST, THEN RESUME WED 5MG IF APPROVED BY DENTIST, 7.5MG , THU, SAT F/U INR Date: 12/19/22Thursday ?? 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 Anti-Coag Initial Assessment Social Hx Patient Tobacco Use Status: Never used Tobacco alcohol intake: former Coding Level of Care Code Est Patient Level 1 Diagnoses Current use of anticoagulant therapy Z79.01 Results AMB INR Fingerstick AMB INR Fingerstick 1.6 Last Edit by Zoe Figueroa RN on 12/16/22 11:17 manual entry Assessment & Plan Assessment & Plan (1) Current use of anticoagulant therapy: Code(s): Z79.01 - prison (current) use of anticoagulants Category: Medical
== END 2022-12-16 11:35 | disposition home or self-care (01) ==
LOC: HO.ACS 11:01
PROVIDERS: PCP Internal Medicine; Visit Provider Internal Medicine
DX: Z79.01 Long term (current) use of anticoagulants (principal)

== ENCOUNTER → 2022-12-16 11:01 | Outpatient (BNVA) | payer MEDICARE, SELFPAY | PROVIDERS: PCP Internal Medicine; Visit Provider Internal Medicine | DX: G45.9 Transient cerebral ischemic attack, unspecified (principal); Z79.01 Long term (current) use of anticoagulants; Z51.81 Encounter for therapeutic drug level monitoring | CPT/HCPCS: 85610; 99211 ==

== ENCOUNTER 2022-12-19 11:35 | Outpatient (AMB) | payer MEDICARE, SELFPAY ==
[2022-12-19 11:45] LABS: Prothrombin Time Whole Bld POC 14.3 sec (11.1-13.5); ~PT, ~INR - Anti Coag Clinic 1.2 (0.9-1.1)
--- NOTE | 2022-12-19 12:00 | MHC.OFFVISCO ---
Intake Intake Visit Reasons: Anticoagulation Allergies omeprazole [OMEPRAZOLE] Allergy (Unknown, Verified 12/19/22 11:40) RASH Medication List - Last Reconciled 12/19/22 by Lizette Sol, RN atorvastatin (Lipitor) 40 mg PO DAILY cholecalciferol (vitamin D3) 50 mcg PO DAILY furosemide 40 mg (2 x 20 mg) PO DAILY isosorbide mononitrate ER 30 mg PO DAILY 90 days multivitamin 1 tab PO DAILY nitroglycerin 0.4 mg sublingual ONCE verapamil ER 120 mg PO TID warfarin 5 mg See Protocol PO DAILY 90 days Nursing Note PT. HELD WARFARIN AGAIN ON 12/17 AFTER EXTRACTION. HE DENIES ANY CP,SOB,DIET/MED CHANGES OR SX OF BLEEDING. 7.5MGM 4 DAYS AND RECHECK INR HERE ON 12/23. NO GREENS 3 DAYS. WILL INCREASE REDS. )(VELMA)INFORMED OF LOW INR AND PLAN OF CARE. ALSO INFORMED THAT PT.REFUSES TO TAKE LOVENOX IF ORDERED. PT.VERB.GOOD UNDERSTANDING OF DOSING INSTR. 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
== END 2022-12-19 12:11 | disposition home or self-care (01) ==
LOC: HO.ACS 11:35
PROVIDERS: PCP Internal Medicine; Visit Provider Internal Medicine
DX: Z79.01 Long term (current) use of anticoagulants (principal)

== ENCOUNTER → 2022-12-19 11:35 | Outpatient (BNVA) | payer MEDICARE, SELFPAY | PROVIDERS: PCP Internal Medicine; Visit Provider Internal Medicine | DX: G45.9 Transient cerebral ischemic attack, unspecified (principal); Z79.01 Long term (current) use of anticoagulants; Z51.81 Encounter for therapeutic drug level monitoring | CPT/HCPCS: 85610; 99211 ==

== ENCOUNTER 2022-12-23 11:05 | Outpatient (AMB) | payer MEDICARE, SELFPAY ==
--- NOTE | 2022-12-23 11:13 | MHC.OFFVISCO ---
Intake Intake Visit Reasons: Anticoagulation Allergies omeprazole [OMEPRAZOLE] Allergy (Unknown, Verified 12/23/22 11:08) RASH Medication List - Last Reconciled 12/23/22 by Gricelda Ogden RN atorvastatin (Lipitor) 40 mg PO DAILY cholecalciferol (vitamin D3) 50 mcg PO DAILY enoxaparin (Lovenox) 70 mg (0.7 mL) subcut Q12H furosemide 40 mg (2 x 20 mg) PO DAILY isosorbide mononitrate ER 30 mg PO DAILY 90 days multivitamin 1 tab PO DAILY nitroglycerin 0.4 mg sublingual ONCE verapamil ER 120 mg PO TID warfarin 5 mg See Protocol PO DAILY 90 days Nursing Note INR 1.5-?? out of therapeutic range Medications and supplements reviewed Patient status: pt s/p dental extraction on 12/17/22-pt held warfarin 3 days Medications or supplements: pt states on antibiotics- will call acs with name return call from pt- he states taking amoxicillin 500mg tid- has 3-4 days left Diet: appetite good Denies any signs and symptoms of bleeding or clotting or unusual bruising Bleeding, bruising, clotting discussed Nutritional guidance given: no greens for 2-3 days Dose: 7.5mg today- then cont reg 5mg x 5, 7.5mg x 2 F/U INR Date : thursday12/26/22?? Patient verbalizing understanding of instructions given. pcp office called with low inr/dosing and f/u appt thursday- spoke to POORNIMA at 1125 pt states did not up lovenox and did not take- pcp made aware, pt educated on purpose of lovenox and risks involved. pt made aware pcp would like him to take lovenox . 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
[2022-12-23 11:14] LABS: Prothrombin Time Whole Bld POC 17.9 sec (11.1-13.5); ~PT, ~INR - Anti Coag Clinic 1.5 (0.9-1.1)
== END 2022-12-23 12:51 | disposition home or self-care (01) ==
LOC: HO.ACS 11:05
PROVIDERS: PCP Internal Medicine; Visit Provider Internal Medicine
DX: Z79.01 Long term (current) use of anticoagulants (principal)

== ENCOUNTER → 2022-12-23 11:05 | Outpatient (BNVA) | payer MEDICARE, SELFPAY | PROVIDERS: PCP Internal Medicine; Visit Provider Internal Medicine | DX: G45.9 Transient cerebral ischemic attack, unspecified (principal); Z79.01 Long term (current) use of anticoagulants; Z51.81 Encounter for therapeutic drug level monitoring | CPT/HCPCS: 85610; 99211 ==

== ENCOUNTER 2022-12-26 10:21 | Outpatient (AMB) | payer MEDICARE, SELFPAY ==
[2022-12-26 10:28] LABS: Prothrombin Time Whole Bld POC 26.9 sec (11.1-13.5); ~PT, ~INR - Anti Coag Clinic 2.2 (0.9-1.1)
--- NOTE | 2022-12-26 10:36 | MHC.OFFVISCO ---
Intake Intake Visit Reasons: Anticoagulation Allergies omeprazole [OMEPRAZOLE] Allergy (Unknown, Verified 12/26/22 10:24) RASH Medication List - Last Reconciled 12/26/22 by Lizette Sol RN atorvastatin (Lipitor) 40 mg PO DAILY cholecalciferol (vitamin D3) 50 mcg PO DAILY enoxaparin (Lovenox) 70 mg See Protocol subcut Q12H furosemide 40 mg (2 x 20 mg) PO DAILY isosorbide mononitrate ER 30 mg PO DAILY 90 days multivitamin 1 tab PO DAILY nitroglycerin 0.4 mg sublingual ONCE verapamil ER 120 mg PO TID warfarin 5 mg See Protocol PO DAILY 90 days Nursing Note NO CP,SOB,DIET/MED CHANGES,FALLS OR SX OF BLEEDING. CONTINUE PRESENT DOSE AND FOLLOW-UP IN 10 DAYS GOOD UNDERSTANDING OF DOSING INSTR. Anti-Coag Initial Assessment Social Hx Patient Tobacco Use Status: Never used Tobacco alcohol intake: former Coding Level of Care Code Est Patient Level 1 Diagnoses Current use of anticoagulant therapy Z79.01 Assessment & Plan Assessment & Plan (1) Current use of anticoagulant therapy: Code(s): Z79.01 - [facility] (current) use of anticoagulants Category: Medical
== END 2022-12-26 10:38 | disposition home or self-care (01) ==
LOC: HO.ACS 10:21
PROVIDERS: PCP Internal Medicine; Visit Provider Internal Medicine
DX: Z79.01 Long term (current) use of anticoagulants (principal)

== ENCOUNTER → 2022-12-26 10:21 | Outpatient (BNVA) | payer MEDICARE, SELFPAY | PROVIDERS: PCP Internal Medicine; Visit Provider Internal Medicine | DX: G45.9 Transient cerebral ischemic attack, unspecified (principal); Z79.01 Long term (current) use of anticoagulants; Z51.81 Encounter for therapeutic drug level monitoring | CPT/HCPCS: 85610; 99211 ==

== ENCOUNTER 2023-01-06 11:32 | Outpatient (AMB) | payer MEDICARE, SELFPAY ==
[2023-01-06 11:40] LABS: Prothrombin Time Whole Bld POC 24.4 sec (11.1-13.5)
--- NOTE | 2023-01-06 11:49 | MHC.OFFVISCO ---
Intake Intake Visit Reasons: Anticoagulation Allergies omeprazole [OMEPRAZOLE] Allergy (Unknown, Verified 01/06/23 11:34) RASH Medication List - Last Reconciled 01/06/23 by Cheli Urrutia, RN atorvastatin (Lipitor) 40 mg PO DAILY cholecalciferol (vitamin D3) 50 mcg PO DAILY furosemide 40 mg (2 x 20 mg) PO DAILY isosorbide mononitrate ER 30 mg PO DAILY 90 days multivitamin 1 tab PO DAILY nitroglycerin 0.4 mg sublingual ONCE verapamil ER 120 mg PO TID warfarin 5 mg See Protocol PO DAILY 90 days Nursing Note Amb to [facility] feeling ok, sts was in the hospital Thursday, when questioned when at [facility] sts just Thursday the , chart review revealed Thursday 12/28, pt sts they didn't do ant testing on me till the last day , denies being admitted. Sts he went there for arm pain, sts he has a bruise (noted left forearm, surface, not raised) really bothering me but it is getting better Medications and supplements reviewed, sts no new meds No other changes in health, diet, medications, or supplements Denies any unusual signs and symptoms of bruising, bleeding other than noted above Denies any new Chest pain, SOB, or clotting INR: 2.0 just in therapeutic range Nutritional guidance given: balance greens and reds in diet Dose: continue usual dosing; 7.5 mg x 2 days and 5mg x 5 days F/U INR: 1 week, booked on Thursday as there were no 1130 appointments available on Thursday Patient verbalizes understanding of instructions given with accurate read back/ teach back of dosing although noted periods of confusion Anti-Coag Initial Assessment Social Hx Patient Tobacco Use Status: Never used Tobacco alcohol intake: former Coding Level of Care Code Est Patient Level 1 Diagnoses Current use of anticoagulant therapy Z79.01 Time Spent (min) 15 Assessment & Plan Assessment & Plan (1) Current use of anticoagulant therapy: Code(s): Z79.01 - long-term (current) use of anticoagulants Category: Medical
== END 2023-01-06 12:03 | disposition home or self-care (01) ==
LOC: HO.ACS 11:32
PROVIDERS: PCP Internal Medicine; Visit Provider Internal Medicine
DX: Z79.01 Long term (current) use of anticoagulants (principal)

== ENCOUNTER → 2023-01-06 11:32 | Outpatient (BNVA) | payer MEDICARE, SELFPAY | PROVIDERS: PCP Internal Medicine; Visit Provider Internal Medicine | DX: G45.9 Transient cerebral ischemic attack, unspecified (principal); Z79.01 Long term (current) use of anticoagulants; Z51.81 Encounter for therapeutic drug level monitoring | CPT/HCPCS: 85610; 99211 ==

== ENCOUNTER 2023-01-14 11:35 | Outpatient (AMB) | payer MEDICARE, SELFPAY ==
[2023-01-14 11:39] LABS: Prothrombin Time Whole Bld POC 27.3 sec (11.1-13.5); ~PT, ~INR - Anti Coag Clinic 2.3 (0.9-1.1)
--- NOTE | 2023-01-14 11:47 | MHC.OFFVISCO ---
Intake Intake Visit Reasons: Anticoagulation Allergies omeprazole [OMEPRAZOLE] Allergy (Unknown, Verified 01/14/23 11:36) RASH Medication List - Last Reconciled 01/14/23 by Lizette Sol RN atorvastatin (Lipitor) 40 mg PO DAILY cholecalciferol (vitamin D3) 50 mcg PO DAILY furosemide 40 mg (2 x 20 mg) PO DAILY isosorbide mononitrate ER 30 mg PO DAILY 90 days multivitamin 1 tab PO DAILY nitroglycerin 0.4 mg sublingual ONCE verapamil ER 120 mg PO TID warfarin 5 mg See Protocol PO DAILY 90 days Nursing Note NO CP,SOB,DIET/MED CHANGES,FALLS OR SX OF BLEEDING. CONTINUE PRESENT DOSE AND FOLLOW-UP IN 2 WEEKS/ GOOD UNDERSTANDING OF DOSING INSTR. 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
== END 2023-01-14 11:48 | disposition home or self-care (01) ==
LOC: HO.ACS 11:35
PROVIDERS: PCP Internal Medicine; Visit Provider Internal Medicine
DX: Z79.01 Long term (current) use of anticoagulants (principal)

== ENCOUNTER → 2023-01-14 11:35 | Outpatient (BNVA) | payer MEDICARE, SELFPAY | PROVIDERS: PCP Internal Medicine; Visit Provider Internal Medicine | DX: G45.9 Transient cerebral ischemic attack, unspecified (principal); Z79.01 Long term (current) use of anticoagulants; Z51.81 Encounter for therapeutic drug level monitoring | CPT/HCPCS: 85610; 99211 ==

== ENCOUNTER 2023-01-20 12:53 | Outpatient (AMB) | payer MEDICARE, SELFPAY ==
[2023-01-20 13:03] VITALS: BP 130/72; PULSE 64; O2SAT 97; BMI 23.5
--- NOTE | 2023-01-20 13:03 | MHC.PC.OV ---
Vital Signs 01/20/23 13:03 Height 5 ft 10 in Weight 164 lb BMI 23.5 BP 130/72 Blood Pressure Location Lt brachial Position Sitting Pulse 64 Pulse Source Pulse Oximeter Pulse Oximetry (%) 97 Oxygen Delivery Method Room Air Intake Visit Reasons: Annual Exam Allergies omeprazole [OMEPRAZOLE] Allergy (Unknown, Verified 01/20/23 13:03) RASH Medication List - Last Reconciled 01/20/23 by Dhiraj Guevara MD atorvastatin (Lipitor) 40 mg PO DAILY cholecalciferol (vitamin D3) 50 mcg PO DAILY furosemide 40 mg (2 x 20 mg) PO DAILY isosorbide mononitrate ER 30 mg PO DAILY 90 days multivitamin 1 tab PO DAILY nitroglycerin 0.4 mg sublingual ONCE verapamil ER 120 mg PO TID warfarin 5 mg See Protocol PO DAILY 90 days Tobacco use date assessed: 07/22/22 Fall risk assessment: No Falls in past year Last assessed Fall Risk: 01/20/23 Dental Screening Dental Screen Date: 01/20/23 Did you have a dental visit in the last 12 months?: Yes Did you have a dental problem in the last 6 months where you did not have access to dental care?: No Was dental information given to patient?: Patient has dentist HPI Annual Exam HPI Details 87 year old male with hypertension, hypercholesterolemia, atrial fibrillation on anticoagulation, coronary artery disease GERD history of prostate cancer and impaired glucose tolerance. Last seen in July patient is here for physical exam. Review of the notes in December 2022 was in the hospital for left shoulder pain patient was admitted. Patient had increased paranoia a a patient was also seen by the [facility] in November 2022 for right shoulder, left knee pain known to have osteoarthritis and has had injection 1 year ago diagnosis osteoarthritis of the left knee and right shoulder and had another injection done November. For the prostate cancer sees Urology September 2022 diagnosis in 2020 continue to be monitored with PSA. Echocardiogram done in August 2022The left ventricular systolic function is normal. The calculated ejection fraction is 59% by biplane method. - The basal inferior segment is akinetic. - Moderate biatrial enlargement. - There is mild mitral annular calcification. 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 Patient has followed up with Cardiology also in July for the atrial fibrillation continuing with anticoagulation and verapamil . Continue risk reduction strategies. as per patient states hospital - work up - not available has hearing aids but not using due to difficulty cleaning [facility] Medical History Atrial fibrillation Bilateral carotid artery disease Carpal tunnel syndrome of right wrist Cervical spinal stenosis Coronary artery disease CVA (cerebral vascular accident) Dementia GERD (gastroesophageal reflux disease) Hypercholesterolemia Hypertension Low back pain Prostate nodule Vitamin D deficiency Surgical History History of cardiac cath (~03/2008) Hx of CABG (~1997) Inguinal hernia, right Family History Father No problems noted. Mother Cancer CVD (cardiovascular disease) Social History Household Members: Spouse Housing: House Alcohol intake: former Patient Tobacco Use Status: Never used Tobacco e-Cigarette/Vaping Use: Never Used Second Hand Smoke Exposure: No service: Yes Current occupational status: retired Cognitive needs: No Hearing needs: Yes Vision needs: Yes Questionnaire PHQ-9 Over the last 2 weeks, how often have you been bothered by any of the following problems? 1. Little interest or pleasure in doing things: not at all 2. Feeling down, depressed, or hopeless: not at all 3. Trouble falling or staying asleep, or sleeping too much: not at all 4. Feeling tired or having little energy: not at all 5. Poor appetite or overeating: not at all 6. Feeling bad about yourself - or that you are a failure or have let yourself or your family down: not at all 7. Trouble concentrating on things, such as reading the newspaper or watching television: not at all 8. Moving or speaking so slowly that other people could have noticed. Or the opposite - being so fidgety or restless that you have been moving around a lot more than usual: not at all 9. Thoughts that you would be better off or of hurting yourself in some way: not at all Total score: 0 Depression Screening Interpretation: Negative Source: Developed by Drs. Fadi Avery, Alanna B.WJustin Martinez and colleagues, with an educational oliver from [employer]. Thrive Questionnaire Date Thrive assessed: 07/22/22 AUDIT C Alcohol Use Questionnaire (AUDIT-C) 1. How often do you have a drink containing alcohol?: Never 3. How often do you have six or more drinks on one occasion?: Never Total Score: 0 DARYL-7 AMB Questionnaire DARYL-7 Date DARYL - 7 assessed: 07/22/22 Source: Developed by Drs. Fadi Avery, Justin Clinton and colleagues, with an educational olvier from [employer]. Review of Systems Const Denies poor appetite and Denies weakness Eyes Denies no additional complaints ENT Reports Normal hearing present, Denies dizziness, Denies nasal congestion, Denies tinnitus and Denies sore throat Card Denies chest pain, Denies syncope, Denies rapid heart rate and Denies dyspnea Resp Denies cough and Denies dyspnea GI Denies change in stool character, Reports constipation, Denies diarrhea, Denies nausea and Denies vomiting Denies dysuria and Denies urinary frequency Neuro Reports Normal hearing present, Denies confusion, Denies dizziness, Denies syncope and Denies weakness Psych Denies confusion Physical exam (Primary Care) Vital Signs: Last Vital Signs Pulse 64 01/20/23 13:03 BP 130/72 01/20/23 13:03 Pulse Ox 97 01/20/23 13:03 Oxygen Delivery Method Room Air 01/20/23 13:03 BMI result Body Mass Index 23.5 Tobacco/Smoking Status: Tobacco use Status Tobacco use date assessed 07/22/22 01/20/23 13:07 Patient Tobacco Use Status Never used Tobacco 01/20/23 13:07 e-Cigarette/Vaping Use Never Used 01/20/23 13:07 PHQ-9: PHQ-9 Score PHQ-9: Total score 0 01/20/23 13:07 Depression Screening Interpretation: Negative Thrive Assessment: Date of Thrive Assessment Date Thrive assessed 07/22/22 01/20/23 13:07 Const General: No confusion Orientation/consciousness: No confusion HENMT Head: Yes normocephalic Ears: external ears normal and TM's normal bilaterally Face and sinus: Yes normal facial exam Mouth: moist mucous membranes Throat: Yes tonsils normal Eyes Conjunctivae: conjunctivae normal Pupils: Equal, round and reactive pupils present and Pupil accommodation reflex normal Direct Ophthalmoscopy: normal light reflex Neck Neck: No lymphadenopathy Thyroid: Thyroid normal Chest Chest palpation & inspection: normal inspection of the chest Resp Effort & Inspection: normal respiratory effort and no audible wheezes Auscultation: clear to auscultation bilaterally, no crackles, no wheezes and lung sounds not diminished Cardio Other: irregular rate and controlled Peripheral pulses: radial pulses present and dorsalis pedis present GI Other: guaiac neg prostate enlarged Palpation (GI): no masses Auscultation: normal bowel sounds and normoactive bowel sounds Other: Mild inguinal bulge R direct hernia Skin General skin exam: no rashes or lesions noted Rashes: no rashes Neuro General: No confusion Cranial nerves: Yes Equal, round and reactive pupils present and Yes Normal hearing present Cognition (Neuro): normal cognition Gait exam (Neuro): Normal gait present Motor exam (neuro): 5/5 motor strength present throughout Deep tendon reflexes (DTR's): Right brachioradialis reflex intensity grade: 2+, Left brachioradialis reflex intensity grade: 2+, Right patellar reflex intensity grade: 2+ and Left patellar reflex intensity grade: 2+ Extrem Other: ++ edema L leg + edema R leg General: Yes edema Assessment and Plan Assessment & Plan (1) Annual physical exam: Code(s): Z00.00 - Encounter for general adult medical examination without abnormal findings (2) Prostate cancer: Comment: February 2021 grade group 3 intermediate volume - Bone Scan NAD Code(s): C61 - Malignant neoplasm of prostate Plan: Patient follows with Urology on PSA surveillance (3) Coronary artery disease: Comment: CABG 3 vessel catheterization 2007 Catheterization May 2020 complex mulivessel disease, April 2020 echocardiogram normal LV mild left atrial dilatation Code(s): I25.10 - Atherosclerotic heart disease of [place] coronary artery without angina pectoris Qualifiers: Coronary Disease-Associated Artery/Lesion type: [place] artery [place] vs. transplanted heart: [place] heart Associated angina: without angina Qualified Code(s): I25.10 - Atherosclerotic heart disease of [place] coronary artery without angina pectoris Plan: Control the cholesterol, weight, blood pressure (4) Atrial fibrillation: Comment: Ablation 2007(did not work), Holter October 2020 atrial fibrillation controlled rate Code(s): I48.91 - Unspecified atrial fibrillation Qualifiers: Atrial fibrillation type: paroxysmal Qualified Code(s): I48.0 - Paroxysmal atrial fibrillation Plan: Continue with anticoagulation and follows up with Cardiology (5) Macrocytic anemia: Code(s): D53.9 - Nutritional anemia, unspecified Plan: Continue to follow-up with hematology oncology (6) Hypercholesterolemia: Comment: LDL goal < 70 Code(s): E78.00 - Pure hypercholesterolemia, unspecified Plan: Avoid fried foods, chicken skin, eggs, butter margarine, pastries and meat. Be it pork or beef they have a lot of cholesterol LDL goal of less than 70 and triglyceride of less than 150 patient is on atorvastatin 40 mg once a day July 2022 last blood work (7) Hypertension: Code(s): I10 - Essential (primary) hypertension Qualifiers: Hypertension type: essential hypertension Qualified Code(s): I10 - Essential (primary) hypertension Plan: Continue with blood pressure medication. Decrease salt intake and exercise patient takes verapamil 120 mg 3 times a day Coding Level of Care Code Est Pt Prev Care >65y(02046) Diagnoses Annual physical exam Z00.00 Prostate cancer C61 Coronary artery disease I25.10 Coronary Disease-Associated Artery/Lesion type: [place] artery [place] vs. transplanted heart: [place] heart Associated angina: without angina Atrial fibrillation I48.0 Atrial fibrillation type: paroxysmal Macrocytic anemia D53.9 Hypercholesterolemia E78.00 Hypertension I10 Hypertension type: essential hypertension
== END 2023-01-20 13:50 | disposition home or self-care (01) ==
PROVIDERS: PCP Internal Medicine; Visit Provider Internal Medicine
DX: Z00.00 Encounter for general adult medical examination without abnormal findings (principal); C61 Malignant neoplasm of prostate; I48.0 Paroxysmal atrial fibrillation; I10 Essential (primary) hypertension; I25.10 Atherosclerotic heart disease of native coronary artery without angina pectoris; D53.9 Nutritional anemia, unspecified; E78.00 Pure hypercholesterolemia, unspecified
CPT/HCPCS: 99397

== ENCOUNTER 2023-01-27 12:43 | Outpatient (AMB) | payer MEDICARE, SELFPAY ==
--- NOTE | 2023-01-27 12:47 | MHC.OFFVIS ---
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 Installer Required: No Electronic Assembler: Electronic Assembler Present Accompanied by: Spouse Allergies omeprazole [OMEPRAZOLE] Allergy (Unknown, Verified 01/20/23 13:03) RASH Medication List - Last Reconciled 01/27/23 by Freddie Arora MD atorvastatin (Lipitor) 40 mg PO DAILY cholecalciferol (vitamin D3) 50 mcg PO DAILY furosemide 20 mg PO DAILY isosorbide mononitrate ER 30 mg PO DAILY 90 days multivitamin 1 tab PO DAILY nitroglycerin 0.4 mg sublingual ONCE verapamil ER 120 mg PO TID warfarin 5 mg See Protocol PO DAILY 90 days HPI HPI Comments History of Present Illness Details Fadi comes for follow-up. Recently was at [facility] and said he underwent a lot of testing. On asking why he went to [facility] he said he wanted to get checked out. He did not have any clear significant symptoms. Myocardial perfusion imaging shows apical infarct with minimal kelley-infarct ischemia. Echocardiogram shows preserved LV systolic function without major valvular abnormalities. He is taking the same medications. Denies any prolonged palpitations, lightheadedness, syncope. No bleeding issues or neurologic events. No orthopnea, PND, leg edema. FORMERLY [facility], [facility]–1983 Medical History Atrial fibrillation Bilateral carotid artery disease Carpal tunnel syndrome of right wrist Cervical spinal stenosis Coronary artery disease CVA (cerebral vascular accident) Dementia GERD (gastroesophageal reflux disease) Hypercholesterolemia Hypertension Low back pain Prostate nodule Vitamin D deficiency Surgical History History of cardiac cath (~03/2008) Hx of CABG (~1997) Inguinal hernia, right Family History Father No problems noted. Mother Cancer CVD (cardiovascular disease) Social History Household Members: Spouse Housing: House Alcohol intake: former Patient Tobacco Use Status: Never used Tobacco e-Cigarette/Vaping Use: Never Used Second Hand Smoke Exposure: No service: Yes Current occupational status: retired Cognitive needs: No Hearing needs: Yes Vision needs: Yes Review of Systems Const Denies chills, Denies fatigue, Denies fever(s), Denies frequent falls, Denies weakness, Denies weight gain and Denies weight loss ENT Denies dizziness Card Denies chest pain, Denies leg edema, Denies lightheadedness, Denies palpitations, Denies dyspnea, Denies dyspnea on exertion, Denies orthopnea and Denies other (loss of consciousness) Resp Denies cough, Denies dyspnea and Denies dyspnea on exertion GI Denies hematochezia and Denies change in stool character Musc Denies abnormal gait, Denies muscle weakness, Denies numbness, Denies radiating pain into limb and Denies tingling Neuro Denies abnormal gait, Denies dizziness, Denies frequent falls, Denies numbness, Denies tingling and Denies weakness Endo Denies fatigue and Denies palpitations Physical Exam Vital Signs: Last Vital Signs Pulse 64 01/27/23 12:48 BP 122/62 01/27/23 12:48 BMI result Body Mass Index 23.1 Const General: cooperative, comfortable, no acute distress, alert and awake Nutritional Appearance: average body habitus Orientation/consciousness: patient oriented x3 Limitations: no limitations Neck Neck: Yes trachea midline, Yes supple and Yes no JVD Resp Effort & Inspection: normal respiratory effort Auscultation: clear to auscultation bilaterally Cardio Jugular venous distension: no JVD Palpation: normal PMI Rhythm: abnormal rhythm irregularly irregular Heart sounds: S1 normal heart sound present and S2 normal heart sound present GI Auscultation: normal bowel sounds Skin General skin exam: no rashes or lesions noted Neuro General: patient oriented x3 and no focal motor deficits Extrem General: Yes no clubbing, cyanosis or edema Psych Appearance: grossly normal Affect: Anxious affect present Assessment & Plan Assessment & Plan (1) Coronary artery disease: Comment: CABG 3 vessel catheterization 2007 Catheterization May 2020 complex mulivessel disease, April 2020 echocardiogram normal LV mild left atrial dilatation Code(s): I25.10 - Atherosclerotic heart disease of [place] coronary artery without angina pectoris Qualifiers: Coronary Disease-Associated Artery/Lesion type: [place] artery [place] vs. transplanted heart: [place] heart Associated angina: without angina Qualified Code(s): I25.10 - Atherosclerotic heart disease of [place] coronary artery without angina pectoris Plan: CAD status post 3 vessel coronary bypass grafting with recent myocardial perfusion imaging not show any significant ischemia. Currently not having any symptoms of angina. Advised to continue current medical therapy. Blood pressure is currently well optimized. Continue high-intensity statin therapy with target goal LDL less than 70 mg/dL. Continue isosorbide therapy. Continue warfarin therapy and avoid aspirin therapy to reduce bleeding risk. (2) Atrial fibrillation: Comment: Ablation 2007(did not work), Holter October 2020 atrial fibrillation controlled rate Code(s): I48.91 - Unspecified atrial fibrillation Qualifiers: Atrial fibrillation type: paroxysmal Qualified Code(s): I48.0 - Paroxysmal atrial fibrillation Plan: Chronic atrial fibrillation which is currently rate control verapamil therapy. He wants to change verapamil therapy which has worked well for him for many years. I told him that this is not necessary at this point time. He is currently on warfarin therapy for anticoagulation. Advised to continue the same. We discussed about direct oral anticoagulant putting was continued to warfarin therapy. Target INR between 2 and 3 being followed by [facility]. Follow up in the clinic in 6 months time, sooner p.r.n.. Thank you for allowing me to partake in his care Medications: Changed From furosemide 40 mg (2 x 20 mg) PO DAILY 180 tabs 0RF M79.89 - Other specified soft tissue disorders To furosemide 20 mg PO DAILY M79.89 - Other specified soft tissue disorders Coding Level of Care Code Est Pt Level 4 (41787) Diagnoses Coronary artery disease I25.10 Coronary Disease-Associated Artery/Lesion type: [place] artery [place] vs. transplanted heart: [place] heart Associated angina: without angina Atrial fibrillation I48.0 Atrial fibrillation type: paroxysmal
[2023-01-27 12:48] VITALS: BP 122/62; PULSE 64; BMI 23.1
== END 2023-01-27 13:40 | disposition home or self-care (01) ==
PROVIDERS: PCP Internal Medicine; Referring Provider Internal Medicine; Visit Provider Internal Medicine Cardiovascular Disease
DX: I25.10 Atherosclerotic heart disease of native coronary artery without angina pectoris (principal); I48.0 Paroxysmal atrial fibrillation
CPT/HCPCS: 99214

== ENCOUNTER → 2023-01-27 12:43 | Outpatient (BNVA) | payer MEDICARE, SELFPAY | PROVIDERS: PCP Internal Medicine; Referring Provider Internal Medicine; Visit Provider Internal Medicine Cardiovascular Disease | DX: I25.10 Atherosclerotic heart disease of native coronary artery without angina pectoris (principal); I48.0 Paroxysmal atrial fibrillation | CPT/HCPCS: 99212 ==

== ENCOUNTER 2023-01-28 11:33 | Outpatient (AMB) | payer MEDICARE, SELFPAY ==
--- NOTE | 2023-01-28 11:42 | MHC.OFFVISCO ---
Intake Intake Visit Reasons: Anticoagulation Allergies omeprazole [OMEPRAZOLE] Allergy (Unknown, Verified 01/28/23 11:37) RASH Medication List - Last Reconciled 01/28/23 by Gricelda Ogden, RN atorvastatin (Lipitor) 40 mg PO DAILY cholecalciferol (vitamin D3) 50 mcg PO DAILY furosemide 20 mg PO DAILY isosorbide mononitrate ER 30 mg PO DAILY 90 days multivitamin 1 tab PO DAILY nitroglycerin 0.4 mg sublingual ONCE verapamil ER 120 mg PO TID warfarin 5 mg See Protocol PO DAILY 90 days Nursing Note INR 1.9-?? out of therapeutic range Medications and supplements reviewed Patient status: pt saw cardiology recently- no changes Medications or supplements: no changes Diet: same Denies any signs and symptoms of bleeding or clotting or unusual bruising Bleeding, bruising, clotting discussed- pt with abrasion on right lateral forearm due to injury with rough wall Nutritional guidance given: no greens for 2 days, eat a red today Dose: pt states already took warfarin today, increase tomm to 7.5mg then cont reg dosing- 7.5mg x 2, 5mg x 5 F/U INR Date : pt ref earlier appt than 02/16/23? Patient verbalizing understanding of instructions given. 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
[2023-01-28 11:43] LABS: Prothrombin Time Whole Bld POC 23.3 sec (11.1-13.5); ~PT, ~INR - Anti Coag Clinic 1.9 (0.9-1.1)
== END 2023-01-28 11:54 | disposition home or self-care (01) ==
LOC: HO.ACS 11:33
PROVIDERS: PCP Internal Medicine; Visit Provider Internal Medicine
DX: Z79.01 Long term (current) use of anticoagulants (principal)

== ENCOUNTER → 2023-01-28 11:33 | Outpatient (BNVA) | payer MEDICARE, SELFPAY | PROVIDERS: PCP Internal Medicine; Visit Provider Internal Medicine | DX: G45.9 Transient cerebral ischemic attack, unspecified (principal); Z79.01 Long term (current) use of anticoagulants; Z51.81 Encounter for therapeutic drug level monitoring | CPT/HCPCS: 85610; 99211 ==

== ENCOUNTER 2023-02-16 11:29 | Outpatient (AMB) | payer MEDICARE, SELFPAY ==
--- NOTE | 2023-02-16 11:37 | MHC.OFFVISCO ---
Intake Intake Visit Reasons: Anticoagulation Allergies omeprazole [OMEPRAZOLE] Allergy (Unknown, Verified 02/16/23 11:32) RASH Medication List - Last Reconciled 02/16/23 by Gricelda Ogden RN atorvastatin (Lipitor) 40 mg PO DAILY cholecalciferol (vitamin D3) 50 mcg PO DAILY furosemide 20 mg PO DAILY isosorbide mononitrate ER 30 mg PO DAILY 90 days multivitamin 1 tab PO DAILY nitroglycerin 0.4 mg sublingual ONCE verapamil ER 120 mg PO TID warfarin 5 mg See Protocol PO DAILY 90 days Nursing Note INR: 2.6-in therapeutic range Medications and supplements reviewed- no changes No changes in health, diet, medications, or supplements, Denies any signs and symptoms of bleeding or bruising or clotting. Bleeding, bruising, clotting discussed - occ bruising Nutritional guidance given Dose: 7.5mg x 2, 5mg x 5 F/U INR: 4 weeks Patient verbalizes understanding of instructions given Anti-Coag Initial Assessment Social Hx Patient Tobacco Use Status: Never used Tobacco alcohol intake: former Coding Level of Care Code Est Patient Level 1 Diagnoses Current use of anticoagulant therapy Z79.01 Results AMB INR Fingerstick AMB INR Fingerstick 2.6 Last Edit by Gricelda Ogden RN on 02/16/23 11:39 Assessment & Plan Assessment & Plan (1) Current use of anticoagulant therapy: Code(s): Z79.01 - penitentiary (current) use of anticoagulants Category: Medical
[2023-02-16 11:38] LABS: Prothrombin Time Whole Bld POC 31.3 sec (11.1-13.5); ~PT, ~INR - Anti Coag Clinic 2.6 (0.9-1.1)
== END 2023-02-16 11:47 | disposition home or self-care (01) ==
LOC: HO.ACS 11:29
PROVIDERS: PCP Internal Medicine; Visit Provider Internal Medicine
DX: Z79.01 Long term (current) use of anticoagulants (principal)

== ENCOUNTER → 2023-02-16 11:29 | Outpatient (BNVA) | payer MEDICARE, SELFPAY | PROVIDERS: PCP Internal Medicine; Visit Provider Internal Medicine | DX: G45.9 Transient cerebral ischemic attack, unspecified (principal); Z79.01 Long term (current) use of anticoagulants; Z51.81 Encounter for therapeutic drug level monitoring | CPT/HCPCS: 85610; 99211 ==

== ENCOUNTER 2023-03-06 11:35 | Outpatient (AMB) | payer MEDICARE, SELFPAY ==
[2023-03-06 11:46] LABS: Prothrombin Time Whole Bld POC 26.7 sec (11.1-13.5); ~PT, ~INR - Anti Coag Clinic 2.2 (0.9-1.1)
--- NOTE | 2023-03-06 11:49 | MHC.OFFVISCO ---
Intake Intake Visit Reasons: Anticoagulation Allergies omeprazole [OMEPRAZOLE] Allergy (Unknown, Verified 03/06/23 11:40) RASH Medication List - Last Reconciled 03/06/23 by Cheli Urrutia, RN apixaban (Eliquis) 5 mg PO BID atorvastatin (Lipitor) 40 mg PO DAILY cholecalciferol (vitamin D3) 50 mcg PO DAILY furosemide 20 mg PO DAILY isosorbide mononitrate ER 30 mg PO DAILY 90 days multivitamin 1 tab PO DAILY nitroglycerin 0.4 mg sublingual ONCE verapamil ER 120 mg PO TID warfarin 5 mg See Protocol PO DAILY 90 days Nursing Note Amb to [facility] feeling well pt recently contacted hospital with concerns related to lancets- see compose note from 03/05 discussion with pt regarding options for todays visit, can have phlebotomy lab draw, discussed results will take approx 30 or more minutes and if pt would like that option we can schedule accordingly, pt also offered usual visit with lancet. A disassembled lancet was shown to pt so that he could see mechanism, needle size, length and stop mechanism that keep needle from penetrating deep PT STS THAT HE SPOKE WITH DR PYLE THIS MORNING AND IS POSSIBLY GOING TO GO ON ELOQUIS. reviewed with pt Eloquis information including anticoagulant, bleed risk and precautions, twice daily dosing, less blood monitoring, less dietary and medication interactions. reviewed with pt that if he is going on eloquis there will be a transition from warfarin to eloquis that we will assist him with pt sts it is in the hands of the insurance right now pt sts that today he will have INR done by lancet to his thumb (not a usual site) Medications and supplements reviewed, noted eloquis prescribed No other changes in health, diet, medications, or supplements Denies any unusual signs and symptoms of bruising, bleeding Denies any new Chest pain, SOB, or clotting INR: 2.2 in therapeutic range Nutritional guidance given: balance greens and reds in diet, be consistent Dose: continue usual dosing;7.5mg x2 days and 5mg x 5 days F/U INR: 03/24, sooner if going on Eloquis Patient verbalizes understanding of instructions given with accurate read back/ teach back of dosing Anti-Coag Initial Assessment Social Hx Patient Tobacco Use Status: Never used Tobacco alcohol intake: former Coding Level of Care Code Est Patient Level 2 Diagnoses Current use of anticoagulant therapy Z79.01 Time Spent (min) 30 Assessment & Plan Assessment & Plan (1) Current use of anticoagulant therapy: Code(s): 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
== END 2023-03-06 12:35 | disposition home or self-care (01) ==
LOC: HO.ACS 11:35
PROVIDERS: PCP Internal Medicine; Visit Provider Internal Medicine
DX: Z79.01 Long term (current) use of anticoagulants (principal)

== ENCOUNTER → 2023-03-06 11:35 | Outpatient (BNVA) | payer MEDICARE, SELFPAY | PROVIDERS: PCP Internal Medicine; Visit Provider Internal Medicine | DX: G45.9 Transient cerebral ischemic attack, unspecified (principal); Z79.01 Long term (current) use of anticoagulants; Z51.81 Encounter for therapeutic drug level monitoring | CPT/HCPCS: 85610; 99212 ==

== ENCOUNTER 2023-03-23 07:35 | Outpatient (REF) | payer MEDICARE, SELFPAY ==
[2023-03-23 07:48] LABS: MANUAL DIFF FLAG NO
[2023-03-23 08:33] LABS: Basophils Absolute Auto 0.1 X10*3/uL (0.0-0.2); Basophils Percent Auto 0.8 % (0-2); Eosinophils Absolute Auto 0.2 X10*3/uL (0.0-0.4); Eosinophils Percent Auto 2.5 % (0-4); Hematocrit 32.7 % (42.0-52.0); Hemoglobin 10.9 g/dl (14.0-18.0); Imm Gran Abs Auto 0.05 X10*3/uL (0.00-0.03); Imm Gran Pct Auto 0.7 % (0.0-0.4); Lymphocytes Absolute Auto 1.8 X10*3/uL (1.2-4.9); Lymphocytes Percent Auto 23.3 % (20-40); Mean Corpuscular HGB Conc 33.3 g/dl (31.0-36.0); Mean Platelet Volume 11.5 fL (9.4-12.4); Monocytes Absolute Auto 0.8 X10*3/uL (0.1-1.2); NRBC Pct Auto 0.4 /100WBC (0.0-0.2); Neutrophils Absolute Auto 4.7 x10*3/uL (2.0-8.3); Neutrophils Percent Auto 61.7 % (45-73); Platelet Count 298 X10*3/uL (160-400); Red Blood Count 2.87 X10*6/uL (4.60-5.80); Red Cell Distribution Width 17.9 % (11.0-16.0); White Blood Count 7.7 X10*3/uL (4.8-10.8)
[2023-03-23 08:34] LABS: Mean Corpuscular Volume 113.9 fL (80.0-98.0)
[2023-03-23 08:48] LABS: Estimated Average Glucose 105 mg/dL; Hemoglobin A1c % 5.3 % (<6.0)
[2023-03-23 09:14] LABS: Alanine Aminotransferase 19 U/L (0-40); Albumin Level 4.5 g/dL (3.5-5.0); Alkaline Phosphatase 67 U/L (39-117); Anion Gap 13 (12-20); Aspartate Amino Transferase 18 U/L (5-37); Bilirubin Total 0.9 mg/dL (0.0-1.0); Blood Urea Nitrogen 22 mg/dL (9-16); Calcium 9.4 mg/dL (8.4-10.2); Carbon Dioxide 27 mmol/L (22-29); Chloride 108 mmol/L (96-108); Cholesterol 129 mg/dL (<200); Estimated Glomerular Filt Rate > 60; Glucose Random 107 mg/dL (60-115); HDL Cholesterol 41 mg/dL (>40); LDL Cholesterol Calculated 74 mg/dL (<100); Sodium 144 mmol/L (135-145); Total Protein 7.2 g/dL (6.5-8.0); Triglycerides 71 mg/dL (<150)
[2023-03-23 09:22] LABS: Prostate Specific Antigen 3.76 ng/mL (<0.05-4.0)
[2023-03-23 09:32] LABS: Free T4 (Free Thyroxine) 0.94 ng/dL (0.71-1.85); Thyroid Stimulating Hormone 1.31 uIU/mL (0.32-4.0)
[2023-03-23 09:37] LABS: Folate 14.1 ng/mL (> or = 4.0); Vitamin B12 1456 pg/mL (200-900)
== END 2023-03-23 07:36 | disposition home or self-care (01) ==
LOC: HO.LAB 07:35
PROVIDERS: Absent Provider Urology; PCP Internal Medicine; Visit Provider Internal Medicine
DX: Z12.5 Encounter for screening for malignant neoplasm of prostate (principal); C61 Malignant neoplasm of prostate; R73.01 Impaired fasting glucose; E78.00 Pure hypercholesterolemia, unspecified; I25.10 Atherosclerotic heart disease of native coronary artery without angina pectoris
CPT/HCPCS: 36415; 80053; 80061; 82607; 82746; 83036; 84153; 84439; 84443; 85025

== ENCOUNTER 2023-03-24 11:37 | Outpatient (REF) | payer MEDICARE, SELFPAY ==
[2023-03-24 12:54] LABS: INTERNATIONAL NORM RATIO 2.4 (0.9-1.1); Prothrombin Time 29.8 SEC (11.1-13.3)
== END 2023-03-24 11:38 | disposition home or self-care (01) ==
LOC: HO.LAB 11:37
PROVIDERS: PCP Internal Medicine; Visit Provider Internal Medicine
DX: G45.9 Transient cerebral ischemic attack, unspecified (principal); Z79.01 Long term (current) use of anticoagulants
CPT/HCPCS: 36415; 85610; 99212

== ENCOUNTER 2023-03-24 11:37 | Outpatient (AMB) | payer MEDICARE, SELFPAY ==
--- NOTE | 2023-03-24 11:51 | MHC.OFFVISCO ---
Intake Intake Visit Reasons: Anticoagulation Allergies omeprazole [OMEPRAZOLE] Allergy (Unknown, Verified 03/24/23 11:39) RASH Medication List - Last Reconciled 03/24/23 by Cheli Urrutia, RN apixaban (Eliquis) 5 mg PO BID atorvastatin (Lipitor) 40 mg PO DAILY cholecalciferol (vitamin D3) 50 mcg PO DAILY furosemide 20 mg PO DAILY isosorbide mononitrate ER 30 mg PO DAILY 90 days multivitamin 1 tab PO DAILY nitroglycerin 0.4 mg sublingual ONCE verapamil ER 120 mg PO TID warfarin 5 mg See Protocol PO DAILY 90 days Nursing Note pt presents to [facility] at 1130, sts he would like butterfly draw today for stick pt does not have appt today, sts today is my day and this is my time pt instructed that appt is tomorrow, pt then sts they changed my appointment and I don't think that is far instructed pt that some appts were changed yesterday for today due to staffing issue this morning, however his appointment was not changed by us and was scheduled on 03/06 for 03/25. pt also reminded that we had discussed that if he did decide to go with phlebotomy blood draws he had to come 30 minutes before scheduled appointment time to be able to get results and review dosing with patient patient also instructed that because he is requesting the lab draws, presented to [facility] not scheduled and not as instructed, care will be returned to PCP No change in medications, supplements or diet, pt has Eliquis on EMAR but is not taking due to zamora pamphlets given for Eliquis and Xarelto denies any unusual bruising, bleeding, Cp,or SOB 1150 pt to lab and request for butterfly draw 1215 pt back to [facility], sts blood has been drawn, instructed to have a seat in waiting room and as soon as INR available will review dosing 1230-INR pending 1245-INR pending 1250-INR pending 1255- INR pending 1300- INR 2.4 pt instructed to continue usual dosing 7.5mg x 2 days and 5mg x 5 days balance greens and reds in diet, be consistent next INR will be due in 4 weeks or earlier if switching to Eloquis, pt referred to PCP for continued follow up as not following scheduled appointment dates, and request for lab draw compose note to PCP regarding above Anti-Coag Initial Assessment Social Hx Patient Tobacco Use Status: Never used Tobacco alcohol intake: former Coding Level of Care Code Est Patient Level 2 Diagnoses Current use of anticoagulant therapy Z79.01 Time Spent (min) 30 Assessment & Plan Assessment & Plan (1) Current use of anticoagulant therapy: Code(s): Z79.01 - intermediate frame tender (current) use of anticoagulants Category: Medical Orders: Orders Prothrombin Time INR Today Z79.01 - intermediate frame tender (current) use of anticoagulants
== END 2023-03-24 15:06 | disposition home or self-care (01) ==
LOC: HO.ACS 11:37
PROVIDERS: PCP Internal Medicine; Visit Provider Internal Medicine
DX: Z79.01 Long term (current) use of anticoagulants (principal)

== ENCOUNTER 2023-04-07 08:37 | Outpatient (AMB) | payer MEDICARE, SELFPAY ==
--- NOTE | 2023-04-07 08:37 | A.OFFVIS_ITS ---
Intake Intake Visit Reasons: 6m follow up Intake Note: Patient is Present for Follow Up Urology Medication: None Antibiotic Allergies: None Blood Thinners: Eliquis, Warfarin Pharmacy: [facility] PVR: 0 Allergies omeprazole [OMEPRAZOLE] Allergy (Unknown, Verified 04/07/23 08:44) RASH Medication List - Last Reconciled 04/07/23 by Efrain Jaimes MD apixaban (Eliquis) 5 mg PO BID atorvastatin (Lipitor) 40 mg PO DAILY cholecalciferol (vitamin D3) 50 mcg PO DAILY furosemide 20 mg PO DAILY isosorbide mononitrate ER 30 mg PO DAILY 90 days multivitamin 1 tab PO DAILY nitroglycerin 0.4 mg sublingual ONCE tamsulosin 0.4 mg PO BEDTIME 30 days verapamil ER 120 mg PO TID warfarin 5 mg See Protocol PO DAILY 90 days HPI HPI Comments History of Present Illness Details Fadi is a pleasant male. He is a patient of Dr. Guevara. He is seen for following urologic condition - prostate nodule - prostate cancer Slight PSA rise Does have BPH symptoms Trial of Flomax Active surveillance without any intervention PSA 09/28 3.3, 03/30 3.7 Prostate cancer February 2021 grade group 3 Prostate cancer diagnosed by Dr. Jaimes February 2021 PSA at diagnosis - 02/26 2.2 Biopsy performed for prostate nodule Histologic type: Adenocarcinoma, acinar type; focal intraductal adenocarcinoma Histologic grade: [place] score: 4+3=7 (left mid lateral), 3+4=7 (left base medial), 3+3=6 (left base lateral, left mid medial, right base lateral, right mid medial) Tumor quantitation: ? Number cores positive: 6 - 50%, 80%, 50%, 50%, 20%, 20% - 270/1200 ? Total number of cores: 12 ? % of tissue involved: 20-25% of all tissue examined Periprostatic fat inv.: Not identified Seminal vesicle inv.: Not identified, Perineural inv.: Present, LVI:Not identified Staging 02/26 Bone Scan NAD PSA 12/23 1.8, 02/26 2.2, 11/27 1.6, 03/29 2.1 6 month follow-up PSA Lower Urinary Tract Symptoms Weakness of stream On alpha velasquez previously PFSH Medical History Prostate nodule Low back pain GERD (gastroesophageal reflux disease) CVA (cerebral vascular accident) Dementia Bilateral carotid artery disease Carpal tunnel syndrome of right wrist Vitamin D deficiency Cervical spinal stenosis Atrial fibrillation Hypercholesterolemia Hypertension Coronary artery disease Surgical History Inguinal hernia, right History of cardiac cath (~03/2008) Hx of CABG (~1997) Family History Father No problems noted. Mother Cancer CVD (cardiovascular disease) Social History Household Members: Spouse Housing: House Alcohol intake: former Patient Tobacco Use Status: Never used Tobacco e-Cigarette/Vaping Use: Never Used Second Hand Smoke Exposure: No service: Yes Current occupational status: retired Cognitive needs: No Hearing needs: Yes Vision needs: Yes Review of Systems Const Denies chills and Denies fever(s) Card Reports no additional complaints and Denies syncope Resp Denies cough GI Denies abdominal pain and Denies heartburn Reports as per HPI and Denies change in libido Neuro Denies syncope Psych Denies change in libido Endo Denies change in libido Physical Exam Const General: cooperative, healthy appearing, comfortable and no acute distress Orientation/consciousness: patient oriented x3 HEENT Face and sinus: Yes normal facial exam Mouth: moist mucous membranes Neck Neck: Yes normal visual inspection, Yes full ROM and Yes trachea midline Chest Chest palpation & inspection: normal inspection of the chest Resp Effort & Inspection: normal respiratory effort, able to speak in complete sentences and no respiratory distress GI Inspection: Yes normal to inspection Back/Spine/Pelvis Cervical Spine: normal cervical lordosis Thoracic/Lumbar Spine: thoracic and lumbar spine normal to inspection Skin General skin exam: no rashes or lesions noted Neuro General: patient oriented x3, gait normal, tone normal and moves all extremities Extrem General: Yes normal to inspection and Yes capillary refill normal Office Procedures Post Void Residual Post Residual Void Post Void Residual (PVR): 0 38745-Hhlu Void Residual by ultrasound Results AMB Urinalysis, Automated UA Leukoctes 0 Jeffry/uL Last Edit by LIZABETH Lawton on 04/07/23 08:51 UA Nitrite Negative Last Edit by LIZABETH Lawton on 04/07/23 08:51 UA Urobilinogen 0.2 mg/dL Last Edit by Una Martines A on 04/07/23 08:5 1 UA Protein 0 mg/dL Last Edit by Una Martines A on 04/07/23 08:51 UA pH 6.0 Last Edit by Una Martines, A on 04/07/23 08:51 UA Blood 0 Joseph/uL Last Edit by Una Martines A on 04/07/23 08:51 UA Specific [place] 1.015 Last Edit by Una Martines, A on 04/07/23 08: 51 UA Ketone Negative Last Edit by Una Martines A on 04/07/23 08:51 UA Bilirubin 0 mg/dL Last Edit by Una Martines A on 04/07/23 08:51 UA Glucose 0 mg/dL Last Edit by Una Martines A on 04/07/23 08:51 Results Reviewed Results Reviewed: Laboratory Last Values Urine pH (Auto) 6.0 04/07/23 08:44 Specific [place] (Auto) 1.015 04/07/23 08:44 Urine Protein (Auto) 0 mg/dL 04/07/23 08:44 Glucose (UA)(Auto) 0 mg/dL 04/07/23 08:44 Urine Ketones (Auto) Negative 04/07/23 08:44 Urine Blood (Auto) 0 Joseph/uL 04/07/23 08:44 Urine Nitrite (Auto) Negative 04/07/23 08:44 Urine Bilirubin (Auto) 0 mg/dL 04/07/23 08:44 Urine Urobilinogen (Auto) 0.2 mg/dL 04/07/23 08:44 Leukocyte Esterase (Auto) 0 Jeffry/uL 04/07/23 08:44 Assessment & Plan Assessment & Plan (1) BPH w urinary obs/LUTS: Code(s): N40.1 - Benign prostatic hyperplasia with lower urinary tract symptoms; N13.8 - Other obstructive and reflux uropathy (2) Prostate cancer: Comment: February 2021 grade group 3 intermediate volume - Bone Scan NAD Code(s): C61 - Malignant neoplasm of prostate Plan Two month follow-up PVR Orders: Orders AMB Urinalysis Automated Today Z13.9 - Encounter for screening, unspecified AMB Post Void Residual by ultrasound Today N13.8 - Other obstructive and reflux uropathy, N40.1 - Benign prostatic hyperplasia with lower urinary tract symptoms Medications: New tamsulosin 0.4 mg PO BEDTIME 30 caps 1RF 30 days N13.8 - Other obstructive and reflux uropathy, N40.1 - Benign prostatic hyperplasia with lower urinary tract symptoms, R35.1 - Nocturia Patient Instructions: Imaging studies, laboratory and physical exam results were discussed and reviewed in detail. No major barriers to patient understanding were identified. An opportunity to ask questions regarding the treatment plan was provided. All questions were answered. The patient expressed understanding and agreement with the above treatment plan. The patient is aware they should contact our office by phone for worsening of their current condition or the appearance of new urologic symptoms. Compliance is encouraged with any medications and followup testing that is ordered. It is a privilege to participate in the urologic care of your patient. If you have any questions or concerns regarding treatment for the above conditions, or other urologic issues, please do not hesitate to contact me. The office telephone contact is [phone]. This note is constructed using voice recognition software. While every effort has been made to ensure accuracy textile designer errors may have been included. Yours sincerely, Dr Efrain Jaimes MD, [facility] - Urology Providers of Expert, Compassionate Care for the Genitourinary System Coding Level of Care Code Est Pt Level 4 (70771) Diagnoses BPH w urinary obs/LUTS N40.1; N13.8 Prostate cancer C61 CPT Codes Post Residual Void - PVR CPT Code: 63127-Seve Void Residual by ultrasound ([id number])
== END 2023-04-07 09:12 | disposition home or self-care (01) ==
LOC: HO.HUSH 08:37
PROVIDERS: PCP Internal Medicine; Visit Provider Urology
DX: N40.1 Benign prostatic hyperplasia with lower urinary tract symptoms (principal); N13.8 Other obstructive and reflux uropathy; C61 Malignant neoplasm of prostate; Z13.9 Encounter for screening, unspecified
CPT/HCPCS: 99213

== ENCOUNTER → 2023-04-07 08:37 | Outpatient (BNVA) | payer MEDICARE, SELFPAY | PROVIDERS: PCP Internal Medicine; Visit Provider Urology | DX: N40.1 Benign prostatic hyperplasia with lower urinary tract symptoms (principal); N13.8 Other obstructive and reflux uropathy; C61 Malignant neoplasm of prostate | CPT/HCPCS: 51798; 81003; 99212 ==

== ENCOUNTER 2023-04-14 11:22 | Outpatient (AMB) | payer MEDICARE, SELFPAY ==
[2023-04-14 11:45] LABS: Prothrombin Time Whole Bld POC 20.3 sec (11.1-13.5); ~PT, ~INR - Anti Coag Clinic 1.7 (0.9-1.1)
--- NOTE | 2023-04-14 11:58 | MHC.OFFVISCO ---
Intake Intake Visit Reasons: Anticoagulation Allergies omeprazole [OMEPRAZOLE] Allergy (Unknown, Verified 04/14/23 11:34) RASH Medication List - Last Reconciled 04/14/23 by Zoe Figueroa RN apixaban (Eliquis) 5 mg PO BID atorvastatin (Lipitor) 40 mg PO DAILY cholecalciferol (vitamin D3) 50 mcg PO DAILY furosemide 20 mg PO DAILY isosorbide mononitrate ER 30 mg PO DAILY 90 days multivitamin 1 tab PO DAILY nitroglycerin 0.4 mg sublingual ONCE tamsulosin 0.4 mg PO BEDTIME 30 days verapamil ER 120 mg PO TID warfarin 5 mg See Protocol PO DAILY 90 days Nursing Note Pt very pleasant today, asking many questions about the Eliquis, financial form given for he and is daughter to fill out then to bring to PCP to complete it on his next f/u appt He fell 04/08/23 and went to ER at [facility], they stated his fall may be r/t the flomax and enc him to stop it, he is still taking it, His INR was 3.4 on `04/08/23 -he stated that is why he thinks he fell because his INR was elevated, it was explained he had elevated INRs in the past and did not fall, but to discuss with his PCP. Smaller yellow [id number] lancet used to obtain POC today - he tolerated the POC very well with his finger squeezed tight to lessen the prick sensation, the poc was performed barely touching his finger finger, he stated he still felt it but the pain was much less INR: 1.7 in therapeutic range Medications and supplements reviewed Denies any signs and symptoms of bleeding or bruising or clotting. Bleeding, bruising, clotting discussed Nutritional guidance given - avoid greens today then resume usual dose Dose: 7.5MG X 3 DAYS this week/ then resume usual dose and f/u INR next week F/U INR: 1 WEEK Patient verbalizes understanding of instructions given Anti-Coag Initial Assessment Social Hx Patient Tobacco Use Status: Never used Tobacco alcohol intake: former Coding Level of Care Code Est Patient Level 1 Diagnoses Current use of anticoagulant therapy Z79.01 Results AMB INR Fingerstick AMB INR Fingerstick 1.7 Last Edit by Zoe Figueroa RN on 04/14/23 11:44 MANUAL ENTRY Assessment & Plan Assessment & Plan (1) Current use of anticoagulant therapy: Code(s): Z79.01 - detention (current) use of anticoagulants Category: Medical
== END 2023-04-14 12:11 | disposition home or self-care (01) ==
LOC: HO.ACS 11:22
PROVIDERS: PCP Internal Medicine; Visit Provider Internal Medicine
DX: Z79.01 Long term (current) use of anticoagulants (principal)

== ENCOUNTER → 2023-04-14 11:22 | Outpatient (BNVA) | payer MEDICARE, SELFPAY | PROVIDERS: PCP Internal Medicine; Visit Provider Internal Medicine | DX: G45.9 Transient cerebral ischemic attack, unspecified (principal); Z79.01 Long term (current) use of anticoagulants; Z51.81 Encounter for therapeutic drug level monitoring | CPT/HCPCS: 85610; 99211 ==

== ENCOUNTER → 2023-04-16 08:19 | Outpatient (REF) | payer MEDICARE, SELFPAY ==
--- NOTE | 2023-04-16 11:39 | HM_ITS ---
Conclusion: 1. Patient was monitored for total period of 1 day 2. Baseline was atrial fibrillation with average heart of 71 beats per minute with good rate control 3. No significant pauses noted 4. Occasional PVCs noted 5. Patient reported symptoms that did not sound cardiac but correlated with underlying control atrial fibrillation MTDD
== END ==
LOC: HO.CARD 08:19
PROVIDERS: PCP Internal Medicine; Visit Provider Internal Medicine Cardiovascular Disease
DX: I48.0 Paroxysmal atrial fibrillation (principal)
CPT/HCPCS: 93225

== ENCOUNTER → 2023-04-16 11:39 | Outpatient (BNV) | payer MEDICARE, SELFPAY | PROVIDERS: PCP Internal Medicine; Visit Provider Internal Medicine Cardiovascular Disease | DX: I48.0 Paroxysmal atrial fibrillation (principal) | CPT/HCPCS: 93227 ==

== ENCOUNTER 2023-04-17 14:42 | Outpatient (AMB) | payer MEDICARE, SELFPAY ==
--- NOTE | 2023-04-17 14:42 | A.OFFVIS_ITS ---
Intake Intake Visit Reasons: discuss meds/symptoms #[phone] Intake Note: Patient is Present for Telephone Follow Up medication Urology Med: stopped Tamsulosin Antibiotic Allergy: None Blood Thinner:Eliquis Allergies omeprazole [OMEPRAZOLE] Allergy (Unknown, Verified 06/03/23 11:31) RASH HPI HPI Comments History of Present Illness Details Fadi is a pleasant male. He is a patient of Dr. Guevara. He is seen for following urologic condition - prostate nodule - prostate cancer Telemedicine Evaluation 15 min Consultation [employer] Shirin Video attempted Slight PSA rise Does have BPH symptoms Trial of Flomax Active surveillance without any intervention Prior discussion regarding finasteride He initially had been against this approach. Is willing to try. PSA 09/28 3.3, 03/30 3.7 Prostate cancer February 2021 grade group 3 Prostate cancer diagnosed by Dr. Jaimes February 2021 PSA at diagnosis - 02/26 2.2 Biopsy performed for prostate nodule Histologic type: Adenocarcinoma, acinar type; focal intraductal adenocarcinoma Histologic grade: [place] score: 4+3=7 (left mid lateral), 3+4=7 (left base medial), 3+3=6 (left base lateral, left mid medial, right base lateral, right mid medial) Tumor quantitation: Number cores positive: 6 - 50%, 80%, 50%, 50%, 20%, 20% - 270/1200 Total number of cores: 12, % of tissue involved: 20-25% of all tissue examined Periprostatic fat inv.: Not identified Seminal vesicle inv: Not identified, Perineural inv.: Present, LVI:Not identified Staging 02/26 Bone Scan NAD PSA 12/23 1.8, 02/26 2.2, 11/27 1.6, 03/29 2.1 6 month follow-up PSA Lower Urinary Tract Symptoms Weakness of stream On alpha velasquez previously PFSH Medical History Prostate nodule Low back pain GERD (gastroesophageal reflux disease) CVA (cerebral vascular accident) Dementia Bilateral carotid artery disease Carpal tunnel syndrome of right wrist Vitamin D deficiency Cervical spinal stenosis Atrial fibrillation Hypercholesterolemia Hypertension Coronary artery disease Surgical History Inguinal hernia, right History of cardiac cath (~03/2008) Hx of CABG (~1997) Family History Father No problems noted. Mother Cancer CVD (cardiovascular disease) Social History Household Members: Spouse Housing: House Alcohol intake: former Patient Tobacco Use Status: Never used Tobacco e-Cigarette/Vaping Use: Never Used Second Hand Smoke Exposure: No service: Yes Current occupational status: retired Cognitive needs: No Hearing needs: Yes Vision needs: Yes Review of Systems Const All systems reviewed & are unremarkable except as noted in HPI and below Reports no additional complaints Resp Reports no additional complaints GI Reports no additional complaints Reports as per HPI Musc Reports no additional complaints Physical Exam Telemedicine evaluation Appropriate responses Regular breathing rate and rhythm HEENT Head: Yes normal to inspection Ears: hearing grossly normal bilaterally Eyes General: appearance normal, both eyes and all related structures Neck Neck: Yes normal visual inspection Chest Chest palpation & inspection: normal inspection of the chest Resp Effort & Inspection: normal respiratory effort and able to speak in complete sentences Assessment & Plan Assessment & Plan (1) BPH w urinary obs/LUTS: Code(s): N40.1 - Benign prostatic hyperplasia with lower urinary tract symptoms; N13.8 - Other obstructive and reflux uropathy (2) Prostate cancer: Comment: February 2021 grade group 3 intermediate volume - Bone Scan NAD Code(s): C61 - Malignant neoplasm of prostate Plan Trial finasteride Medications: New finasteride 5 mg PO DAILY 90 tabs 0RF 90 days N32.0 - Bladder-neck obstruction Patient Instructions: Imaging studies, laboratory and physical exam results were discussed and reviewed in detail. No major barriers to patient understanding were identified. An opportunity to ask questions regarding the treatment plan was provided. All questions were answered. The patient expressed understanding and agreement with the above treatment plan. The patient is aware they should contact our office by phone for worsening of their current condition or the appearance of new urologic symptoms. Compliance is encouraged with any medications and followup testing that is ordered. It is a privilege to participate in the urologic care of your patient. If you have any questions or concerns regarding treatment for the above conditions, or other urologic issues, please do not hesitate to contact me. The office telephone contact is [phone]. This note is constructed using voice recognition software. While every effort has been made to ensure accuracy tissue technologist errors may have been included. Yours sincerely, Dr Efrain Jaimes MD, [facility] - Urology Providers of Expert, Compassionate Care for the Genitourinary System Telehealth Telehealth Location of provider rendering services: practice address Location of patient: address on file Patient Identification confirmed using: Name, : Yes Telehealth method: voice only Patient verbally consented to treatment: Yes Patient verbally consented to billing insurance company: Yes Patient informed of any privacy concerns related to visit: Yes Coding Level of Care Code Est Pt Level 4 (94152) Diagnoses BPH w urinary obs/LUTS N40.1; N13.8 Prostate cancer C61
== END 2023-04-17 15:03 | disposition home or self-care (01) ==
LOC: HO.HUSH 14:42
PROVIDERS: PCP Internal Medicine; Visit Provider Urology
DX: N40.1 Benign prostatic hyperplasia with lower urinary tract symptoms (principal); N13.8 Other obstructive and reflux uropathy; C61 Malignant neoplasm of prostate
CPT/HCPCS: 99442

== ENCOUNTER → 2023-04-17 14:42 | Outpatient (BNVA) | payer MEDICARE, SELFPAY | PROVIDERS: PCP Internal Medicine; Visit Provider Urology ==

== ENCOUNTER 2023-04-21 11:03 | Outpatient (AMB) | payer MEDICARE, SELFPAY ==
[2023-04-21 11:13] LABS: Prothrombin Time Whole Bld POC 34.2 sec (11.1-13.5); ~PT, ~INR - Anti Coag Clinic 2.8 (0.9-1.1)
--- NOTE | 2023-04-21 11:18 | MHC.OFFVISCO ---
Intake Intake Visit Reasons: Anticoagulation Allergies omeprazole [OMEPRAZOLE] Allergy (Unknown, Verified 04/21/23 11:05) RASH Medication List - Last Reconciled 04/21/23 by Cheli Urrutia, RN apixaban (Eliquis) 5 mg PO BID atorvastatin (Lipitor) 40 mg PO DAILY cholecalciferol (vitamin D3) 50 mcg PO DAILY finasteride 5 mg PO DAILY 90 days folic acid 1 mg PO DAILY furosemide 20 mg PO DAILY isosorbide mononitrate ER 30 mg PO DAILY 90 days multivitamin 1 tab PO DAILY nitroglycerin 0.4 mg sublingual ONCE tamsulosin 0.4 mg PO BEDTIME 30 days verapamil ER 120 mg PO TID warfarin 5 mg See Protocol PO DAILY 90 days Nursing Note Amb to ACS feeling well, Medications and supplements reviewed, sts started on folic acid (no warfarin interaction) , pt sts he is not taking eloquis which is on EMAR No other changes in health, diet, medications, or supplements Denies any unusual signs and symptoms of bruising, bleeding Denies any new Chest pain, SOB, or clotting INR: 2.8 in therapeutic range (obtained by 23gauge lancet, no C/O) Nutritional guidance given: balance greens and reds in diet, be consistent Dose: continue usual dosing;7.5mg x 2 days and 5mg x 5 days F/U INR: offered 2 week appt pt sts 3 weeks, booked for 3 weeks Patient verbalizes understanding of instructions given with accurate read back/ teach back of dosing Anti-Coag Initial Assessment Social Hx Patient Tobacco Use Status: Never used Tobacco alcohol intake: former Coding Level of Care Code Est Patient Level 1 Diagnoses Current use of anticoagulant therapy Z79.01 Time Spent (min) 15 Assessment & Plan Assessment & Plan (1) Current use of anticoagulant therapy: Code(s): Z79.01 - shelter (current) use of anticoagulants Category: Medical
== END 2023-04-21 11:25 | disposition home or self-care (01) ==
LOC: HO.ACS 11:03
PROVIDERS: PCP Internal Medicine; Visit Provider Internal Medicine
DX: Z79.01 Long term (current) use of anticoagulants (principal)

== ENCOUNTER → 2023-04-21 11:03 | Outpatient (BNVA) | payer MEDICARE, SELFPAY | PROVIDERS: PCP Internal Medicine; Visit Provider Internal Medicine | DX: G45.9 Transient cerebral ischemic attack, unspecified (principal); Z79.01 Long term (current) use of anticoagulants; Z51.81 Encounter for therapeutic drug level monitoring | CPT/HCPCS: 85610; 99211 ==

== ENCOUNTER 2023-04-23 10:16 | Outpatient (AMB) | payer MEDICARE, SELFPAY ==
[2023-04-23 10:21] VITALS: BP 124/68; PULSE 62; O2SAT 92; BMI 23.4
--- NOTE | 2023-04-23 10:21 | A.OFFPC_ITS ---
Vital Signs 04/23/23 10:21 Height 5 ft 10 in Weight 163 lb BMI 23.4 BP 124/68 Blood Pressure Location Lt brachial Position Sitting Pulse 62 Pulse Source Pulse Oximeter Pulse Oximetry (%) 92 Oxygen Delivery Method Room Air Intake Visit Reasons: ED Follow up Allergies omeprazole [OMEPRAZOLE] Allergy (Unknown, Verified 04/23/23 10:21) RASH Tobacco use date assessed: 07/22/22 Fall risk assessment: 1 Fall in past year Last assessed Fall Risk: 04/23/23 Dental Screening Dental Screen Date: 04/23/23 Did you have a dental visit in the last 12 months?: Yes Did you have a dental problem in the last 6 months where you did not have access to dental care?: No Was dental information given to patient?: Patient has dentist HPI ED Follow up HPI Details 87-year-old male with a history of prost ate cancer coronary artery disease atrial fibrillation hypercholesterolemia hypertension last seen in January 2023. Patient is here for follow-up.. Review of the notes patient was recently in the hospital for fall denies any tripping and does not remember feeling palpitations or lightheadedness head trauma on the sidewall per daughter lost consciousness or 40 seconds had right-sided eye deviation and lip tingling patient was recently started on tamsulosin CT head and spine patient had an echocardiogram December 2022 EF 55-60% basal inferior wall akinetic no valvular disease right ventricle mildly dilated right ventricular systolic function mildly reduced advised to consider EEG. Before this ER visit patient was seen by the Urology for the prostate cancer diagnosed February 2021 patient was started on finasteride [facility] Medical History Prostate nodule Low back pain GERD (gastroesophageal reflux disease) CVA (cerebral vascular accident) Dementia Bilateral carotid artery disease Carpal tunnel syndrome of right wrist Vitamin D deficiency Cervical spinal stenosis Atrial fibrillation Hypercholesterolemia Hypertension Coronary artery disease Surgical History Inguinal hernia, right History of cardiac cath (~03/2008) Hx of CABG (~1997) Family History Father No problems noted. Mother Cancer CVD (cardiovascular disease) Social History Household Members: Spouse Housing: House Alcohol intake: former Patient Tobacco Use Status: Never used Tobacco e-Cigarette/Vaping Use: Never Used Second Hand Smoke Exposure: No service: Yes Current occupational status: retired Cognitive needs: No Hearing needs: Yes Vision needs: Yes Questionnaire PHQ-9 Over the last 2 weeks, how often have you been bothered by any of the following problems? 1. Little interest or pleasure in doing things: not at all 2. Feeling down, depressed, or hopeless: not at all 3. Trouble falling or staying asleep, or sleeping too much: not at all 4. Feeling tired or having little energy: not at all 5. Poor appetite or overeating: not at all 6. Feeling bad about yourself - or that you are a failure or have let yourself or your family down: not at all 7. Trouble concentrating on things, such as reading the newspaper or watching television: not at all 8. Moving or speaking so slowly that other people could have noticed. Or the opposite - being so fidgety or restless that you have been moving around a lot more than usual: not at all 9. Thoughts that you would be better off or of hurting yourself in some way: not at all Total score: 0 Depression Screening Interpretation: Negative Depression Screening Done: Yes Source: Developed by Drs. Fadi Avery, Justin Clinton and colleagues, with an educational oliver from [employer]. Thrive Questionnaire Date Thrive assessed: 07/22/22 AUDIT C Alcohol Use Questionnaire (AUDIT-C) 1. How often do you have a drink containing alcohol?: Never 3. How often do you have six or more drinks on one occasion?: Never Total Score: 0 DARYL-7 AMB Questionnaire DARYL-7 Date DARYL - 7 assessed: 07/22/22 Source: Developed by Drs. Fadi Avery, Justin Clinton and colleagues, with an educational oliver from [employer]. Physical exam (Primary Care) Vital Signs: Last Vital Signs Pulse 62 04/23/23 10:21 BP 124/68 04/23/23 10:21 Pulse Ox 92 04/23/23 10:21 Oxygen Delivery Method Room Air 04/23/23 10:21 BMI result Body Mass Index 23.4 Tobacco/Smoking Status: Tobacco use Status Tobacco use date assessed 07/22/22 04/23/23 10:26 Patient Tobacco Use Status Never used Tobacco 04/23/23 10:26 e-Cigarette/Vaping Use Never Used 04/23/23 10:26 PHQ-9: PHQ-9 Score PHQ-9: Total score 0 04/23/23 10:26 Depression Screening Interpretation: Negative Thrive Assessment: Date of Thrive Assessment Date Thrive assessed 07/22/22 04/23/23 10:26 Const General: alert; No acute distress Eyes Conjunctivae: conjunctivae normal Resp Auscultation: clear to auscultation bilaterally Cardio Rate: regular rate Rhythm: regular rhythm GI Inspection: Yes normal to inspection Extrem General: Yes normal to inspection and No edema Assessment and Plan Assessment & Plan (1) Hypertension: Code(s): I10 - Essential (primary) hypertension Qualifiers: Hypertension type: essential hypertension Qualified Code(s): I10 - Essential (primary) hypertension Plan: Continue with blood pressure medication. Decrease salt intake and exercise patient presently on verapamil 120 mg once a day (2) Hypercholesterolemia: Comment: LDL goal < 70 Code(s): E78.00 - Pure hypercholesterolemia, unspecified Plan: Avoid fried foods, chicken skin, eggs, butter margarine, pastries and meat. Be it pork or beef they have a lot of cholesterol LDL goal of less than 70 and triglyceride of less than 150 patient is on atorvastatin 40 mg once a day (3) Atrial fibrillation: Comment: Ablation 2007(did not work), Holter October 2020 atrial fibrillation controlled rate Code(s): I48.91 - Unspecified atrial fibrillation Qualifiers: Atrial fibrillation type: paroxysmal Qualified Code(s): I48.0 - Paroxysmal atrial fibrillation Plan: Continuing with anticoagulation with Eliquis (4) Coronary artery disease: Comment: CABG 3 vessel catheterization 2007 Catheterization May 2020 complex mulivessel disease, April 2020 echocardiogram normal LV mild left atrial dilatation Code(s): I25.10 - Atherosclerotic heart disease of [place] coronary artery without angina pectoris Qualifiers: Coronary Disease-Associated Artery/Lesion type: [place] artery [place] vs. transplanted heart: [place] heart Associated angina: without angina Qu alified Code(s): I25.10 - Atherosclerotic heart disease of [place] coronary artery without angina pectoris Plan: Control the cholesterol, weight, blood pressure (5) GERD (gastroesophageal reflux disease): Code(s): K21.9 - Gastro-esophageal reflux disease without esophagitis Qualifiers: Esophagitis presence: without esophagitis Qualified Code(s): K21.9 - Gastro-esophageal reflux disease without esophagitis Plan: Avoid the foods that causes that usually spicy foods, tomato products, juices, coffee, soda and foods that your sensitive to. After eating do not lie down, allow 3-4 hours before in lie down. And keep the head of bed above 30 degrees to avoid the acid from going up. (6) BPH w urinary obs/LUTS: Code(s): N40.1 - Benign prostatic hyperplasia with lower urinary tract symptoms; N13.8 - Other obstructive and reflux uropathy Plan: Patient is being followed up by Urology (7) Syncope: Code(s): R55 - Syncope and collapse Plan: Patient was recently hospitalized and workup still underway (8) Prostate cancer: Comment: February 2021 grade group 3 intermediate volume - Bone Scan NAD Code(s): C61 - Malignant neoplasm of prostate Plan: Patient continues to follow-up with Urology Orders: Orders EEG ambulatory Today R55 - Syncope and collapse Coding Level of Care Code Est Pt Level 4 (97849) Diagnoses Essential hypertension I10 Hypertension type: essential hypertension Hypercholesterolemia E78.00 Paroxysmal atrial fibrillation I48.0 Atrial fibrillation type: paroxysmal Coronary artery disease involving [place] coronary artery of [place] heart without angina pectoris I25.10 Coronary Disease-Associated Artery/Lesion type: [place] artery [place] vs. transplanted heart: [place] heart Associated angina: without angina Gastroesophageal reflux disease without esophagitis K21.9 Esophagitis presence: without esophagitis BPH w urinary obs/LUTS N40.1; N13.8 Syncope R55 Prostate cancer C61
== END 2023-04-23 11:45 | disposition home or self-care (01) ==
PROVIDERS: PCP Internal Medicine; Visit Provider Internal Medicine
DX: I10 Essential (primary) hypertension (principal); I48.0 Paroxysmal atrial fibrillation; C61 Malignant neoplasm of prostate; E78.00 Pure hypercholesterolemia, unspecified; I25.10 Atherosclerotic heart disease of native coronary artery without angina pectoris; K21.9 Gastro-esophageal reflux disease without esophagitis; N40.1 Benign prostatic hyperplasia with lower urinary tract symptoms; N13.8 Other obstructive and reflux uropathy; R55 Syncope and collapse
CPT/HCPCS: 99214

== ENCOUNTER 2023-04-24 10:29 | Outpatient (AMB) | payer MEDICARE, SELFPAY ==
[2023-04-24 10:31] VITALS: BP 120/78; PULSE 78; O2SAT 98; BMI 23.7
--- NOTE | 2023-04-24 10:31 | MHC.OFFVIS ---
Intake Vital Signs 04/24/23 10:31 Height 5 ft 10 in Weight 165 lb 5.547 oz BMI 23.7 BP 120/78 Blood Pressure Location Lt brachial Position Sitting Pulse 78 Pulse Oximetry (%) 98 Intake Visit Reasons: [facility] dc/ holter 04/16 Intake Note: Follow-up [facility] dc after holter feeling ok Contract Associate Manager Required: No Electrical Manufacturing Technician: Electrical Manufacturing Technician Present Accompanied by: and daughter Allergies omeprazole [OMEPRAZOLE] Allergy (Unknown, Verified 04/23/23 10:21) RASH Medication List - Last Reconciled 04/24/23 by Freddie Arora MD atorvastatin (Lipitor) 40 mg PO DAILY cholecalciferol (vitamin D3) 50 mcg PO DAILY folic acid 1 mg PO DAILY furosemide 20 mg PO DAILY isosorbide mononitrate ER 30 mg PO DAILY 90 days multivitamin 1 tab PO DAILY nitroglycerin 0.4 mg sublingual ONCE verapamil ER 120 mg PO TID warfarin 5 mg See Protocol PO DAILY 90 days HPI HPI Comments History of Present Illness Details Fadi comes for follow-up after recent hospitalization syncope. He was started on Flomax tonight before the following day after he got up from the table after eating he walk few steps and then fell down and passed out. He subsequently was taken to [facility]. He was observed and had multiple tests including echocardiogram myocardial perfusion imaging which were unremarkable. He was then discharged home and his Flomax was discontinued. Since then he has had no further episodes. Since then he had a Holter monitor which shows atrial fibrillation controlled ventricular response without any significant pauses. [facility] Medical History Prostate nodule Low back pain GERD (gastroesophageal reflux disease) CVA (cerebral vascular accident) Dementia Bilateral carotid artery disease Carpal tunnel syndrome of right wrist Vitamin D deficiency Cervical spinal stenosis Atrial fibrillation Hypercholesterolemia Hypertension Coronary artery disease Surgical History Inguinal hernia, right History of cardiac cath (~03/2008) Hx of CABG (~1997) Family History Father No problems noted. Mother Cancer CVD (cardiovascular disease) Social History Household Members: Spouse Housing: House Alcohol intake: former Patient Tobacco Use Status: Never used Tobacco e-Cigarette/Vaping Use: Never Used Second Hand Smoke Exposure: No service: Yes Current occupational status: retired Cognitive needs: No Hearing needs: Yes Vision needs: Yes Review of Systems Const Denies chills, Denies fatigue, Denies fever(s), Denies frequent falls, Denies weakness, Denies weight gain and Denies weight loss ENT Denies dizziness Card Denies chest pain, Denies leg edema, Denies lightheadedness, Denies palpitations, Denies dyspnea, Denies dyspnea on exertion, Denies orthopnea and Denies other (loss of consciousness) Resp Denies cough, Denies dyspnea and Denies dyspnea on exertion GI Denies hematochezia and Denies change in stool character Musc Denies abnormal gait, Denies muscle weakness, Denies numbness, Denies radiating pain into limb and Denies tingling Neuro Denies abnormal gait, Denies dizziness, Denies frequent falls, Denies numbness, Denies tingling and Denies weakness Endo Denies fatigue and Denies palpitations Physical Exam Vital Signs: Last Vital Signs Pulse 78 04/24/23 10:31 BP 120/78 04/24/23 10:31 Pulse Ox 98 04/24/23 10:31 BMI result Body Mass Index 23.7 Const General: cooperative, comfortable, no acute distress, alert and awake Nutritional Appearance: average body habitus Orientation/consciousness: patient oriented x3 Limitations: no limitations Neck Neck: Yes trachea midline, Yes supple and Yes no JVD Resp Effort & Inspection: normal respiratory effort Auscultation: clear to auscultation bilaterally Cardio Jugular venous distension: no JVD Palpation: normal PMI Rhythm: abnormal rhythm irregularly irregular Heart sounds: S1 normal heart sound present and S2 normal heart sound present GI Auscultation: normal bowel sounds Skin General skin exam: no rashes or lesions noted Neuro General: patient oriented x3 and no focal motor deficits Extrem General: Yes no clubbing, cyanosis or edema Psych Appearance: grossly normal Affect: Anxious affect present Assessment & Plan Assessment & Plan (1) Syncope: Code(s): R55 - Syncope and collapse Plan: Syncope that from history sounds like orthostatic syncope. Subsequent workup is not showing any significant cardiac issues including no significant pauses on Holter monitor on current medications there is no significant LV systolic dysfunction and/or ischemia. Advised to increase his fluid intake up to 60 oz a day I do not see any clear indication for Lasix therapy and this can be discontinued. Call me if he develops any signs of fluid overload. Avoid vasodilatory medications neck and potentiate syncopal episodes. Risk of orthostatic syncope was discussed. We discussed about orthostatic precautions including sleeping in a semi reclining position, changing his position less abruptly and assuming sitting or lying down position he gets any symptoms. His symptoms are very minimal prior to him passing out. This can present a difficult clinical situation. Advised compression venous stockings for his leg edema. (2) Coronary artery disease: Comment: CABG 3 vessel catheterization 2007 Catheterization May 2020 complex mulivessel disease, April 2020 echocardiogram normal LV mild left atrial dilatation Code(s): I25.10 - Atherosclerotic heart disease of [place] coronary artery without angina pectoris Qualifiers: Coronary Disease-Associated Artery/Lesion type: [place] artery [place] vs. transplanted heart: [place] heart Associated angina: without angina Qualified Code(s): I25.10 - Atherosclerotic heart disease of [place] coronary artery without angina pectoris Plan: Coronary artery disease, remote coronary bypass grafting with patent grafts. His recent myocardial perfusion imaging shows no significant ischemia except for possible apical defect which could be artifactual. He has currently no anginal symptoms on current therapy with verapamil and isosorbide. However if he continues to have episodes of syncope may require discontinuation of isosorbide therapy. Continue high-intensity statin therapy. Currently on warfarin therapy for anticoagulation should avoid antiplatelet therapy to reduce bleeding risk (3) Atrial fibrillation: Comment: Ablation 2007(did not work), Holter October 2020 atrial fibrillation controlled rate Code(s): I48.91 - Unspecified atrial fibrillation Qualifiers: Atrial fibrillation type: paroxysmal Qualified Code(s): I48.0 - Paroxysmal atrial fibrillation Plan: Atrial fibrillation with adequate rate control on current verapamil therapy. Continue the same. No signs of bradyarrhythmia that requires pacing therapy. This was discussed in details with the patient. I do not think there is indication for implantable loop recorder at this point in time. Will follow up in 6 months time, sooner p.r.n.. Thank you for allowing me to partake in his care Coding Level of Care Code Est Pt Level 4 (37854) Diagnoses Syncope R55 Coronary artery disease involving [place] coronary artery of [place] heart without angina pectoris I25.10 Coronary Disease-Associated Artery/Lesion type: [place] artery [place] vs. transplanted heart: [place] heart Associated angina: without angina Paroxysmal atrial fibrillation I48.0 Atrial fibrillation type: paroxysmal
== END 2023-04-24 11:05 | disposition home or self-care (01) ==
PROVIDERS: PCP Internal Medicine; Visit Provider Internal Medicine Cardiovascular Disease
DX: R55 Syncope and collapse (principal); I25.10 Atherosclerotic heart disease of native coronary artery without angina pectoris; I48.0 Paroxysmal atrial fibrillation
CPT/HCPCS: 99214

== ENCOUNTER → 2023-04-24 10:29 | Outpatient (BNVA) | payer MEDICARE, SELFPAY | PROVIDERS: PCP Internal Medicine; Visit Provider Internal Medicine Cardiovascular Disease | DX: R55 Syncope and collapse (principal); I25.10 Atherosclerotic heart disease of native coronary artery without angina pectoris; I48.0 Paroxysmal atrial fibrillation | CPT/HCPCS: 99212 ==

== ENCOUNTER 2023-05-12 11:04 | Outpatient (AMB) | payer MEDICARE, SELFPAY ==
--- NOTE | 2023-05-12 11:25 | MHC.OFFVISCO ---
Intake Intake Visit Reasons: Anticoagulation Allergies omeprazole [OMEPRAZOLE] Allergy (Unknown, Verified 05/12/23 11:13) RASH Medication List - Last Reconciled 05/12/23 by Zoe Figueroa RN atorvastatin (Lipitor) 40 mg PO DAILY cholecalciferol (vitamin D3) 50 mcg PO DAILY folic acid 1 mg PO DAILY isosorbide mononitrate ER 30 mg PO DAILY 90 days multivitamin 1 tab PO DAILY nitroglycerin 0.4 mg sublingual ONCE verapamil ER 120 mg PO TID warfarin 5 mg See Protocol PO DAILY 90 days Nursing Note INR: 2.1 in therapeutic range #23 GUAGE LANCET USED FOR INR TODAY WITHOUT ANY COMPLAINT OR DISCOMFORT Medications and supplements reviewed No changes in health, diet, medications, or supplements, Denies any signs and symptoms of bleeding or bruising or clotting. Bleeding, bruising, clotting discussed Nutritional guidance given Dose: 7.5MG X 2 DAYS/ 5MG X 5 DAYS F/U INR: 3 WEEKS PER PT REQUEST 06/03/23 Patient verbalizes understanding of instructions given Anti-Coag Initial Assessment Social Hx Patient Tobacco Use Status: Never used Tobacco alcohol intake: former Coding Level of Care Code Est Patient Level 1 Diagnoses Current use of anticoagulant therapy Z79.01 Results AMB INR Fingerstick AMB INR Fingerstick 2.1 Last Edit by Zoe Figueroa RN on 05/12/23 11:20 MANUAL ENTRY INTERACE DELAYS ONGOING Assessment & Plan Assessment & Plan (1) Current use of anticoagulant therapy: Code(s): Z79.01 - detention (current) use of anticoagulants Category: Medical
[2023-05-13 11:05] LABS: Prothrombin Time Whole Bld POC 25.3 sec (11.1-13.5); ~PT, ~INR - Anti Coag Clinic 2.1 (0.9-1.1)
== END 2023-05-12 11:28 | disposition home or self-care (01) ==
LOC: HO.ACS 11:04
PROVIDERS: PCP Internal Medicine; Visit Provider Internal Medicine
DX: Z79.01 Long term (current) use of anticoagulants (principal)

== ENCOUNTER → 2023-05-12 11:04 | Outpatient (BNVA) | payer MEDICARE, SELFPAY | PROVIDERS: PCP Internal Medicine; Visit Provider Internal Medicine | DX: G45.9 Transient cerebral ischemic attack, unspecified (principal); Z79.01 Long term (current) use of anticoagulants; Z51.81 Encounter for therapeutic drug level monitoring | CPT/HCPCS: 85610; 99211 ==

== ENCOUNTER → 2023-06-03 11:48 | Outpatient (BNVA) | payer MEDICARE, SELFPAY | PROVIDERS: PCP Internal Medicine; Visit Provider Internal Medicine | DX: G45.9 Transient cerebral ischemic attack, unspecified (principal); Z79.01 Long term (current) use of anticoagulants; Z51.81 Encounter for therapeutic drug level monitoring | CPT/HCPCS: 85610 ==

== ENCOUNTER 2023-07-02 13:08 | Outpatient (AMB) | payer MEDICARE, SELFPAY ==
--- NOTE | 2023-07-02 13:30 | MHC.OFFVISCO ---
Intake Intake Visit Reasons: Anticoagulation Allergies omeprazole [OMEPRAZOLE] Allergy (Unknown, Verified 07/02/23 13:23) RASH Medication List - Last Reconciled 07/02/23 by Gricelda Ogden RN atorvastatin (Lipitor) 40 mg PO DAILY cholecalciferol (vitamin D3) 50 mcg PO DAILY folic acid 1 mg PO DAILY isosorbide mononitrate ER 30 mg PO DAILY multivitamin 1 tab PO DAILY nitroglycerin 0.4 mg sublingual ONCE verapamil ER 120 mg PO TID warfarin 5 mg See Protocol PO DAILY 90 days Nursing Note INR 3.5-?? out of therapeutic range of 2-3 Medications and supplements reviewed Patient status: no c.o Medications or supplements: no changes may change mvi to one without vit k. will let acs know when Diet: same- had increased dark chocolate Denies any signs and symptoms of bleeding or clotting or unusual bruising Bleeding, bruising, clotting discussed Nutritional guidance given: eat greens to lower, no reds for 2-3 days Dose: 2.5mg today then cont 5mg x 5, 7.5mg x 2 F/U INR Date : 2 weeks?? Patient verbalizing understanding of instructions given. Anti-Coag Initial Assessment Social Hx Patient Tobacco Use Status: Never used Tobacco alcohol intake: former Coding Level of Care Code Est Patient Level 1 Diagnoses Current use of anticoagulant therapy Z79.01 Assessment & Plan Assessment & Plan (1) Current use of anticoagulant therapy: Code(s): Z79.01 - alf (current) use of anticoagulants Category: Medical
[2023-07-02 13:32] LABS: Prothrombin Time Whole Bld POC 42.3 sec (11.1-13.5); ~PT, ~INR - Anti Coag Clinic 3.5 (0.9-1.1)
== END 2023-07-02 13:55 | disposition home or self-care (01) ==
LOC: HO.ACS 13:08
PROVIDERS: PCP Internal Medicine; Visit Provider Internal Medicine
DX: Z79.01 Long term (current) use of anticoagulants (principal)

== ENCOUNTER → 2023-07-02 13:08 | Outpatient (BNVA) | payer MEDICARE, SELFPAY | PROVIDERS: PCP Internal Medicine; Visit Provider Internal Medicine | DX: G45.9 Transient cerebral ischemic attack, unspecified (principal); Z79.01 Long term (current) use of anticoagulants; Z51.81 Encounter for therapeutic drug level monitoring | CPT/HCPCS: 85610; 99211 ==

== ENCOUNTER 2023-07-22 15:01 | Outpatient (AMB) | payer MEDICARE, SELFPAY ==
[2023-07-22 15:02] VITALS: BP 122/68; PULSE 49; O2SAT 98; BMI 24.0
--- NOTE | 2023-07-22 15:02 | A.OFFPC_ITS ---
Vital Signs 07/22/23 15:02 07/22/23 15:45 Height 5 ft 10 in Weight 167 lb BMI 24.0 BP 122/68 Blood Pressure Location Lt brachial Position Sitting Pulse 49 L 63 Pulse Source Pulse Oximeter Auscultation Pulse Oximetry (%) 98 Oxygen Delivery Method Room Air Intake Visit Reasons: Coronary artery disease Players Assistant Required: No Allergies omeprazole [OMEPRAZOLE] Allergy (Unknown, Verified 07/22/23 15:08) RASH Tobacco use date assessed: 07/22/23 Fall risk assessment: 1 Fall in past year Last assessed Fall Risk: 07/22/23 Dental Screening Dental Screen Date: 07/22/23 Did you have a dental visit in the last 12 months?: No Did you have a dental problem in the last 6 months where you did not have access to dental care?: No HPI Coronary artery disease HPI Details 88-year-old male with a history of atria l fibrillation coronary artery disease GERD hypertension hypercholesterolemia BPH and history of prostate cancer coming in for follow-up. Last seen in April 2023. Review of the notes has followed up with Urology June 2023 for history of the prostate cancer assessment of benign localized prostatic hyperplasia without urinary obstruction. Advised to continue with finasteride and malignant neoplasm of the prostate gland August 2022 will continue to monitor review of the notes had an EKG in April showing atrial fibrillation patient also had a stress test done no evidence of EKG ischemia . Received also December 2022 echocardiogram showing left ventricular size is normal left ventricular ejection fraction 55-60% basal inferior wall is akinetic right ventricle mildly dilated. So patient saw Cardiology April 2023 syncope from history sounds like orthostatic subsequent studies negative advised to increase oral fluids no indication for Lasix. For the coronary artery disease April 2020 echocardiogram normal left ventricular mild left atrial dilatation. complains of bowel movement, change in diet.. Patient also wanted to go over the [place] [facility] form. Discussed each and every item on the MOLST form with the pain. Patient also asks about vitamin K and the food groups that belongs to this and what it does. As for Coumadin discussion about medication/food effect on Coumadin. [facility] Medical History Prostate nodule Low back pain GERD (gastroesophageal reflux disease) CVA (cerebral vascular accident) Dementia Bilateral carotid artery disease Carpal tunnel syndrome of right wrist Vitamin D deficiency Cervical spinal stenosis Atrial fibrillation Hypercholesterolemia Hypertension Coronary artery disease Surgical History Inguinal hernia, right History of cardiac cath (~03/2008) Hx of CABG (~1997) Family History Father No problems noted. Mother Cancer CVD (cardiovascular disease) Social History Household Members: Spouse Housing: House Alcohol intake: former Patient Tobacco Use Status: Never used Tobacco e-Cigarette/Vaping Use: Never Used Second Hand Smoke Exposure: No service: Yes Current occupational status: retired Cognitive needs: No Hearing needs: Yes Vision needs: Yes Questionnaire Thrive Questionnaire Date Thrive assessed: 07/22/23 I am a: Patient AUDIT C Alcohol Use Questionnaire (AUDIT-C) 1. How often do you have a drink containing alcohol?: Never 3. How often do you have six or more drinks on one occasion?: Never Total Score: 0 DARYL-7 AMB Questionnaire DARYL-7 Date DARYL - 7 assessed: 07/22/22 Source: Developed by Drs. Fadi Avery, Alanna Nguyen, Justin Campos and colleagues, with an educational oliver from [employer]. Physical exam (Primary Care) Vital Signs: Last Vital Signs Pulse 63 07/22/23 15:45 BP 122/68 07/22/23 15:02 Pulse Ox 98 07/22/23 15:02 Oxygen Delivery Method Room Air 07/22/23 15:02 BMI result Body Mass Index 24.0 Tobacco/Smoking Status: Tobacco use Status Tobacco use date assessed 07/22/23 07/22/23 15:03 Patient Tobacco Use Status Never used Tobacco 07/22/23 15:03 e-Cigarette/Vaping Use Never Used 07/22/23 15:03 Thrive Assessment: Date of Thrive Assessment Date Thrive assessed 07/22/23 07/22/23 15:11 Const General: alert; No acute distress Eyes Conjunctivae: conjunctivae normal Resp Auscultation: clear to auscultation bilaterally Cardio Rate: regular rate Rhythm: regular rhythm GI Inspection: Yes normal to inspection Extrem General: Yes edema Assessment and Plan Assessment & Plan (1) Impaired fasting blood sugar: Code(s): R73.01 - Impaired fasting glucose Plan: Decrease the amount of carbohydrate intake, pasta, bread, rice and potatoes are all sugar and that is aside from all the sweet stuff, remember that fruits are good but they are Sweet also. (2) BPH w urinary obs/LUTS: Code(s): N40.1 - Benign prostatic hyperplasia with lower urinary tract symptoms; N13.8 - Other obstructive and reflux uropathy Plan: Patient follows up with urology (3) Prostate cancer: Comment: February 2021 grade group 3 intermediate volume - Bone Scan NAD Code(s): C61 - Malignant neoplasm of prostate Plan: Continue to follow-up with urology (4) Coronary artery disease: Comment: CABG 3 vessel catheterization 2007 Catheterization May 2020 complex mulivessel disease, April 2020 echocardiogram normal LV mild left atrial dilatation Code(s): I25.10 - Atherosclerotic heart disease of [place] coronary artery without angina pectoris Qualifiers: Associated angina: without angina Coronary Disease-Associated Artery/Lesion type: [place] artery [place] vs. transplanted heart: [place] heart Qualified Code(s): I25.10 - Atherosclerotic heart disease of [place] coronary artery without angina pectoris Plan: Control the cholesterol, weight, blood pressure continue with anticoagulation on isosorbide mononitrate and nitro as needed (5) Atrial fibrillation: Comment: Ablation 2007(did not work), Holter October 2020 atrial fibrillation controlled rate Code(s): I48.91 - Unspecified atrial fibrillation Qualifiers: Atrial fibrillation type: paroxysmal Qualified Code(s): I48.0 - Paroxysmal atrial fibrillation Plan: Continue with anticoagulation with Coumadin (6) Hypercholesterolemia: Comment: LDL goal < 70 Code(s): E78.00 - Pure hypercholesterolemia, unspecified Plan: Avoid fried foods, chicken skin, eggs, butter margarine, pastries and meat. Be it pork or beef they have a lot of cholesterol LDL goal of less than 70 and triglyceride of less than 150 patient is on atorvastatin 40 mg once a day (7) Hypertension: Code(s): I10 - Essential (primary) hypertension Qualifiers: Hypertension type: essential hypertension Qualified Code(s): I10 - Essential (primary) hypertension Plan: Continue with blood pressure medication. Decrease salt intake and exercise patient on verapamil 120 mg 3 times a day concern about bradycardia (8) Change in stool caliber: Code(s): R19.5 - Other fecal abnormalities Plan: advsed increase fluid intake, fiber in the diet but will have to watch out for coumadin inr. (9) Peripheral vascular disease: Code(s): I73.9 - Peripheral vascular disease, unspecified Plan: elevate, exercise and support stockings Orders: Orders Comprehensive Met. Panel Today R73.01 - Impaired fasting glucose Lipid Panel Today D53.9 - Nutritional anemia, unspecified, E78.00 - Pure hypercholesterolemia, unspecified IRON PROFILE Today D53.9 - Nutritional anemia, unspecified Reticulocyte Count Today D53.9 - Nutritional anemia, unspecified Vitamin B12 and Folate Today D53.9 - Nutritional anemia, unspecified Thyroid Stimulating Hormone Today I48.0 - Paroxysmal atrial fibrillation Hemoglobin A1c Today R73.01 - Impaired fasting glucose Complete Blood Count Auto Diff Today D53.9 - Nutritional anemia, unspecified Ferritin Today D53.9 - Nutritional anemia, unspecified Free T4 (Free Thyroxine) Today D53.9 - Nutritional anemia, unspecified UA CC w/rflx Micro + Cult Today C61 - Malignant neoplasm of prostate, R30.0 - Dysuria Coding Level of Care Code Est Pt Level 4 (76644) Diagnoses Impaired fasting blood sugar R73.01 BPH w urinary obs/LUTS N40.1; N13.8 Prostate cancer C61 Coronary artery disease involving [place] coronary artery of [place] heart without angina pectoris I25.10 Associated angina: without angina Coronary Disease-Associated Artery/Lesion type: [place] artery [place] vs. transplanted heart: [place] heart Paroxysmal atrial fibrillation I48.0 Atrial fibrillation type: paroxysmal Hypercholesterolemia E78.00 Essential hypertension I10 Hypertension type: essential hypertension Change in stool caliber R19.5 Peripheral vascular disease I73.9
[2023-07-22 15:45] VITALS: PULSE 63
== END 2023-07-22 16:20 | disposition home or self-care (01) ==
PROVIDERS: PCP Internal Medicine; Visit Provider Internal Medicine
DX: R73.01 Impaired fasting glucose (principal); C61 Malignant neoplasm of prostate; I48.0 Paroxysmal atrial fibrillation; I73.9 Peripheral vascular disease, unspecified; N40.1 Benign prostatic hyperplasia with lower urinary tract symptoms; N13.8 Other obstructive and reflux uropathy; I25.10 Atherosclerotic heart disease of native coronary artery without angina pectoris; E78.00 Pure hypercholesterolemia, unspecified; I10 Essential (primary) hypertension; R19.5 Other fecal abnormalities
CPT/HCPCS: 99214

== ENCOUNTER 2023-07-29 11:07 | Outpatient (AMB) | payer MEDICARE, SELFPAY ==
[2023-07-29 11:31] LABS: Prothrombin Time Whole Bld POC 43.7 sec (11.1-13.5); ~PT, ~INR - Anti Coag Clinic 3.6 (0.9-1.1)
--- NOTE | 2023-07-29 11:35 | MHC.OFFVISCO ---
Intake Intake Visit Reasons: Anticoagulation Allergies omeprazole [OMEPRAZOLE] Allergy (Unknown, Verified 07/29/23 11:23) RASH Medication List - Last Reconciled 07/29/23 by Lizette Sol, RN atorvastatin (Lipitor) 40 mg PO DAILY cholecalciferol (vitamin D3) 50 mcg PO DAILY folic acid 1 mg PO DAILY isosorbide mononitrate ER 30 mg PO DAILY multivitamin 1 tab PO DAILY nitroglycerin 0.4 mg sublingual ONCE verapamil ER 120 mg PO TID warfarin 5 mg See Protocol PO DAILY 90 days Nursing Note NO CP,SOB,DIET/MED CHANGES,FALLS OR SX OF BLEEDING. HOLD WARFARIN TOMORROW(TOOK TODAY) THEN RESUME USUAL DOSING AND FOLLOW-UP IN 2 WEEKS. GOOD UNDERSTANDING OF DOSING INSTR., Anti-Coag Initial Assessment Social Hx Patient Tobacco Use Status: Never used Tobacco alcohol intake: former Coding Level of Care Code Est Patient Level 1 Diagnoses Current use of anticoagulant therapy Z79.01 Assessment & Plan Assessment & Plan (1) Current use of anticoagulant therapy: Code(s): Z79.01 - roasterman (current) use of anticoagulants Category: Medical
== END 2023-07-29 11:37 | disposition home or self-care (01) ==
LOC: HO.ACS 11:07
PROVIDERS: PCP Internal Medicine; Visit Provider Internal Medicine
DX: Z79.01 Long term (current) use of anticoagulants (principal)

== ENCOUNTER → 2023-07-29 11:07 | Outpatient (BNVA) | payer MEDICARE, SELFPAY | PROVIDERS: PCP Internal Medicine; Visit Provider Internal Medicine | DX: G45.9 Transient cerebral ischemic attack, unspecified (principal); Z79.01 Long term (current) use of anticoagulants; Z51.81 Encounter for therapeutic drug level monitoring | CPT/HCPCS: 85610; 99211 ==

== ENCOUNTER 2023-08-11 11:20 | Outpatient (AMB) | payer MEDICARE, SELFPAY ==
[2023-08-11 11:34] LABS: Prothrombin Time Whole Bld POC 17.7 sec (11.1-13.5); ~PT, ~INR - Anti Coag Clinic 1.5 (0.9-1.1)
--- NOTE | 2023-08-11 11:34 | MHC.OFFVISCO ---
Intake Intake Visit Reasons: Anticoagulation Allergies omeprazole [OMEPRAZOLE] Allergy (Unknown, Verified 08/11/23 11:20) RASH Medication List - Last Reconciled 08/11/23 by Cheli Eden RN apixaban (Eliquis) 5 mg PO BID atorvastatin (Lipitor) 40 mg PO DAILY cholecalciferol (vitamin D3) 50 mcg PO DAILY folic acid 1 mg PO DAILY isosorbide mononitrate ER 30 mg PO BID multivitamin 1 tab PO DAILY nitroglycerin 0.4 mg sublingual ONCE verapamil ER 120 mg PO TID warfarin 5 mg PO DAILY Nursing Note INR: 1.5 out of therapeutic range 2-3 After much questioning, pt states he did not take today's dose and thinks he missed a dose this past week. States he will be taking Eliquis hopefully today. Going [facility] after he leaves [facility] to find out the cost. Prescription is waiting to be picked up. Medications and supplements reviewed No changes in health, diet, medications, or supplements, Denies any signs and symptoms of bleeding or bruising or clotting. Bleeding, bruising, clotting discussed and concern about INR being low today. Pt instructed to call [facility] as soon as he knows if he will be starting Eliquis today. If not, he knows he needs to follow the dosing sheet prepared on this visit for warfarin. If continuing on warfarin, then increase dose to 7.5mg today and tomorrow (5mg) then to continue usual dose 5mg the next day() and to retest at [facility] on Thursday F/U INR: 3 days Patient verbalizes understanding of instructions given Md has discontinued warfarin but this sports book writer added it back into med list to be able to give a dosing instruction sheet. Dr Guevara's office called and INR 1.5, warfarin dosing plan, F/U and concerns regarding starting eliquis today or not relayed to [facility]. Anti-Coag Initial Assessment Social Hx Patient Tobacco Use Status: Never used Tobacco alcohol intake: former Coding Level of Care Code Est Patient Level 2 Diagnoses Current use of anticoagulant therapy Z79.01 Time Spent (min) 30 Results AMB INR Fingerstick AMB INR Fingerstick 1.5 Last Edit by Cheli Eden RN on 08/11/23 11:25 interface delay Assessment & Plan Assessment & Plan (1) Current use of anticoagulant therapy: Code(s): Z79.01 - detention (current) use of anticoagulants Category: Medical
== END 2023-08-11 12:09 | disposition home or self-care (01) ==
LOC: HO.ACS 11:20
PROVIDERS: PCP Internal Medicine; Visit Provider Internal Medicine
DX: Z79.01 Long term (current) use of anticoagulants (principal)

== ENCOUNTER → 2023-08-11 11:20 | Outpatient (BNVA) | payer MEDICARE, SELFPAY | PROVIDERS: PCP Internal Medicine; Visit Provider Internal Medicine | DX: G45.9 Transient cerebral ischemic attack, unspecified (principal); Z79.01 Long term (current) use of anticoagulants; Z51.81 Encounter for therapeutic drug level monitoring | CPT/HCPCS: 85610; 99212 ==

== ENCOUNTER 2023-08-28 14:46 | Outpatient (AMB) | payer MEDICARE, SELFPAY ==
--- NOTE | 2023-08-28 15:19 | MHC.OFFVIS ---
Intake Visit Reasons: 2m/PVR Intake Note: Patient presents today for a follow up on PVR Meds- None Allergies to Antibiotic- No Known Allergies Blood Thinner- Eliquis Post Void Residual: 58ml Utility Worker [employer] Required: No Allergies omeprazole [OMEPRAZOLE] Allergy (Unknown, Verified 08/28/23 15:57) RASH HPI Comments Details: Fadi is a pleasant male. He is a patient of Dr. Guevara. He is seen for following urologic condition - prostate nodule - prostate cancer PSA stable Plan prostate MRI in 6 months. PSA 09/28 3.3, 03/30 3.7 Prostate cancer February 2021 grade group [address] cancer diagnosed by Dr. Jaimes February 2021 PSA at diagnosis - 02/26 2.2 Biopsy performed for prostate nodule Histologic type: Adenocarcinoma, acinar type; focal intraductal adenocarcinoma Histologic grade: [place] score: 4+3=7 (left mid lateral), 3+4=7 (left base medial), 3+3=6 (left base lateral, left mid medial, right base lateral, right mid medial) Tumor quantitation: Number cores positive: 6 - 50%, 80%, 50%, 50%, 20%, 20% - 270/1200 Total number of cores: 12, % of tissue involved: 20-25% of all tissue examined Periprostatic fat inv.: Not identified Seminal vesicle inv: Not identified, Perineural inv.: Present, LVI:Not identified Staging 02/26 Bone Scan NAD PSA 12/23 1.8, 02/26 2.2, 11/27 1.6, 03/29 2.1 6 month follow-up PSA Lower Urinary Tract Symptoms Weakness of stream On alpha velasquez previously PFSH Medical History Prostate nodule Low back pain GERD (gastroesophageal reflux disease) CVA (cerebral vascular accident) Dementia Bilateral carotid artery disease Carpal tunnel syndrome of right wrist Vitamin D deficiency Cervical spinal stenosis Atrial fibrillation Hypercholesterolemia Hypertension Coronary artery disease Surgical History Inguinal hernia, right History of cardiac cath (~03/2008) Hx of CABG (~1997) Family History Father No problems noted. Mother Cancer CVD (cardiovascular disease) Social History Household Members: Spouse Housing: House Alcohol intake: former Patient Tobacco Use Status: Never used Tobacco e-Cigarette/Vaping Use: Never Used Second Hand Smoke Exposure: No service: Yes Current occupational status: retired Cognitive needs: No Hearing needs: Yes Vision needs: Yes Review of Systems Const Denies chills and Denies fever(s) Card Reports no additional complaints and Denies syncope Resp Denies cough GI Denies abdominal pain and Denies heartburn Reports as per HPI and Denies change in libido Neuro Denies syncope Psych Denies change in libido Endo Denies change in libido Physical Exam Const General: cooperative, healthy appearing, comfortable and no acute distress Orientation/consciousness: patient oriented x3 HEENT Face and sinus: Yes normal facial exam Mouth: moist mucous membranes Neck Neck: Yes normal visual inspection, Yes full ROM and Yes trachea midline Chest Chest palpation & inspection: normal inspection of the chest Resp Effort & Inspection: normal respiratory effort, able to speak in complete sentences and no respiratory distress GI Inspection: Yes normal to inspection Back/Spine/Pelvis Cervical Spine: normal cervical lordosis Thoracic/Lumbar Spine: thoracic and lumbar spine normal to inspection Skin General skin exam: no rashes or lesions noted Neuro General: patient oriented x3, gait normal, tone normal and moves all extremities Extrem General: Yes normal to inspection and Yes capillary refill normal Office Procedures Post Void Residual Post Residual Void Post Void Residual (PVR): 58 26091-Hjzl Void Residual by ultrasound Assessment & Plan Assessment & Plan (1) Prostate cancer: Comment: February 2021 grade group 3 intermediate volume - Bone Scan NAD Code(s): C61 - Malignant neoplasm of prostate Category: Medical Plan Six-month follow-up MRI with PSA Orders: Orders Blood Urea Nitrogen 6 Months C61 - Malignant neoplasm of prostate Creatinine 6 Months C61 - Malignant neoplasm of prostate Prostate Specific Antigen 6 Months C61 - Malignant neoplasm of prostate MR pelvis wo/w con 6 Months C61 - Malignant neoplasm of prostate AMB Post Void Residual by ultrasound 08/28/23 R33.9 - Retention of urine, unspecified Patient Instructions: Imaging studies, laboratory and physical exam results were discussed and reviewed in detail. No major barriers to patient understanding were identified. An opportunity to ask questions regarding the treatment plan was provided. All questions were answered. The patient expressed understanding and agreement with the above treatment plan. The patient is aware they should contact our office by phone for worsening of their current condition or the appearance of new urologic symptoms. Compliance is encouraged with any medications and followup testing that is ordered. It is a privilege to participate in the urologic care of your patient. If you have any questions or concerns regarding treatment for the above conditions, or other urologic issues, please do not hesitate to contact me. The office telephone contact is [phone]. This note is constructed using voice recognition software. While every effort has been made to ensure accuracy clinical educator errors may have been included. Yours sincerely, Dr Efrain Jaimes MD, [facility] - Urology Providers of Expert, Compassionate Care for the Genitourinary System Coding Level of Care Code Est Pt Level 3 (00413) Diagnoses Prostate cancer C61 CPT Codes Post Residual Void - PVR CPT Code: 80380-Afdi Void Residual by ultrasound ([id number])
== END 2023-08-28 16:01 | disposition home or self-care (01) ==
PROVIDERS: PCP Internal Medicine; Visit Provider Urology
DX: C61 Malignant neoplasm of prostate (principal)
CPT/HCPCS: 99213

== ENCOUNTER → 2023-08-28 14:46 | Outpatient (BNVA) | payer MEDICARE, SELFPAY | PROVIDERS: PCP Internal Medicine; Visit Provider Urology | DX: C61 Malignant neoplasm of prostate (principal); R39.12 Poor urinary stream; R33.9 Retention of urine, unspecified | CPT/HCPCS: 51798; 99212 ==

== ENCOUNTER 2023-10-22 12:31 | Outpatient (AMB) | payer MEDICARE, SELFPAY ==
--- NOTE | 2023-10-22 12:42 | A.OFFVIS_ITS ---
Vital Signs 10/22/23 12:43 Height 5 ft 10 in Weight 167 lb 8.821 oz BMI 24.0 BP 118/64 Blood Pressure Location Lt brachial Position Sitting Pulse 67 Intake Visit Reasons: 6 mth fu Allergies omeprazole [OMEPRAZOLE] Allergy (Unknown, Verified 08/28/23 15:57) RASH Medication List - Last Reconciled 10/22/23 by Freddie Arora MD apixaban (Eliquis) 5 mg PO BID 90 days atorvastatin (Lipitor) 40 mg PO DAILY cholecalciferol (vitamin D3) 50 mcg PO DAILY isosorbide mononitrate ER 30 mg PO ONCE multivitamin 1 tab PO DAILY nitroglycerin 0.4 mg sublingual ONCE verapamil ER 120 mg PO BID HPI Comments Details: Fadi comes for follow-up. He is accompanied by his . Continues to be very vague about his symptoms. He said he sleeps a lot in his for the he does not sleep at night and then has daytime sleepiness. Denies any symptoms of claudication. Has increased leg swelling. He said he has currently not on any diuretics. He is taking verapamil twice a day. Has been noticing some precordial chest discomfort which is very atypical and not exertion related. He said he gets more tired. Also complains of exertional shortness of breath. Although denies any clear orthopnea PND this is difficult. Denies any palpitations. Complains of intermittent episodes of chest discomfort for which she then takes extra isosorbide instead of sublingual nitroglycerin. No bleeding issues or neurologic events. [facility] Medical History Prostate nodule Low back pain GERD (gastroesophageal reflux disease) CVA (cerebral vascular accident) Dementia Bilateral carotid artery disease Carpal tunnel syndrome of right wrist Vitamin D deficiency Cervical spinal stenosis Atrial fibrillation Hypercholesterolemia Hypertension Coronary artery disease Surgical History Inguinal hernia, right History of cardiac cath (~03/2008) Hx of CABG (~1997) Family History Father No problems noted. Mother Cancer CVD (cardiovascular disease) Social History Household Members: Spouse Housing: House Alcohol intake: former Patient Tobacco Use Status: Never used Tobacco e-Cigarette/Vaping Use: Never Used Second Hand Smoke Exposure: No service: Yes Current occupational status: retired Cognitive needs: No Hearing needs: Yes Vision needs: Yes Review of Systems Const Denies chills, Denies fatigue, Denies fever(s), Denies frequent falls, Denies weakness, Denies weight gain and Denies weight loss ENT Denies dizziness Card Denies chest pain, Denies leg edema, Denies lightheadedness, Denies palpitations, Denies dyspnea, Denies dyspnea on exertion, Denies orthopnea and Denies other (loss of consciousness) Resp Denies cough, Denies dyspnea and Denies dyspnea on exertion GI Denies hematochezia and Denies change in stool character Musc Denies abnormal gait, Denies muscle weakness, Denies numbness, Denies radiating pain into limb and Denies tingling Neuro Denies abnormal gait, Denies dizziness, Denies frequent falls, Denies numbness, Denies tingling and Denies weakness Endo Denies fatigue and Denies palpitations Physical Exam Vital Signs: Last Vital Signs Pulse 67 10/22/23 12:43 BP 118/64 10/22/23 12:43 BMI result Body Mass Index 24.0 Const General: cooperative, comfortable, no acute distress, alert and awake Nutritional Appearance: average body habitus Orientation/consciousness: patient oriented x3 Limitations: no limitations Neck Neck: Yes trachea midline, Yes supple and Yes no JVD (Positive AJR) Resp Effort & Inspection: normal respiratory effort Auscultation: clear to auscultation bilaterally Cardio Jugular venous distension: no JVD Palpation: normal PMI Rhythm: abnormal rhythm irregularly irregular Heart sounds: S1 normal heart sound present and S2 normal heart sound present GI Auscultation: normal bowel sounds Skin General skin exam: no rashes or lesions noted Neuro General: patient oriented x3 and no focal motor deficits Extrem General: No clubbing, No cyanosis and Yes edema Psych Appearance: grossly normal Affect: Anxious affect present Office Procedures EKG Details: [place] [id number]-[id number], Complete Assessment & Plan Assessment & Plan (1) Congestive heart failure: Code(s): I50.9 - Heart failure, unspecified Plan: Patient with signs and symptoms suggestive of development of congestive heart failure. Does have vague symptoms of fatigue and has increased shortness of breath. Clinically appears to be mildly fluid overloaded. Would advise him to a baseline BMP and BNP. If elevated I think he would benefit from low-dose Lasix therapy. This was discussed with him. Will obtain an echocardiogram near future. Management of heart failure syndrome was discussed. He was confused about heart failure syndrome I discussed avoided means with him including pathophysiology. Goals of therapy were discussed including improving symptoms and avoidance of hospitalization. (2) Coronary artery disease: Comment: CABG 3 vessel catheterization 2007 Catheterization May 2020 complex mulivessel disease, April 2020 echocardiogram normal LV mild left atrial dilatation Code(s): I25.10 - Atherosclerotic heart disease of [place] coronary artery without angina pectoris Category: Medical Qualifiers: Coronary Disease-Associated Artery/Lesion type: [place] artery [place] vs. transplanted heart: [place] heart Associated angina: without angina Qualified Code(s): I25.10 - Atherosclerotic heart disease of [place] coronary artery without angina pectoris Plan: CAD with remote coronary artery bypass grafting with myocardial ischemia. Currently on dual therapy with verapamil as well as isosorbide therapy. Continue the same. Currently on full oral anticoagulation and on Eliquis. Will avoid antiplatelet therapy to reduce bleeding risk. Continue high-intensity statin therapy. Target goal LDL less than 70 mg/dL. Blood pressure is c urrently well optimized. Discussed how to take his sublingual nitroglycerin with him again. Advised to call me with progressive symptoms although this will be difficult. (3) Atrial fibrillation: Comment: Ablation 2007(did not work), Holter October 2020 atrial fibrillation controlled rate Code(s): I48.91 - Unspecified atrial fibrillation Category: Medical Qualifiers: Atrial fibrillation type: paroxysmal Qualified Code(s): I48.0 - Paroxysmal atrial fibrillation Plan: Atrial fibrillation, chronic has been on rate control therapy for many years. Continue verapamil therapy. Importance of rate control was discussed. Rate appears to be adequately controlled at this point time. Continue full oral anticoagulation, currently on Eliquis 5 mg b.i.d.. Quarterly renal function test should be pursued. Follow up in the clinic in 3 months time, sooner p.r.n.. Thank you for allowing me to partake in his care Orders: Orders B Type Natriuretic Peptide Today I48.0 - Paroxysmal atrial fibrillation Basic Metabolic Panel Today I48.0 - Paroxysmal atrial fibrillation CA echo transthoracic complete Today I48.0 - Paroxysmal atrial fibrillation Medications: Changed From verapamil ER 120 mg PO TID 270 caps 3RF I48.0 - Paroxysmal atrial fibrillation To verapamil ER 120 mg PO BID I48.0 - Paroxysmal atrial fibrillation From isosorbide mononitrate ER 30 mg PO BID 90 tabs 3RF To isosorbide mononitrate ER 30 mg PO ONCE Coding Level of Care Code Est Pt Level 4 (66140) Diagnoses Congestive heart failure I50.9 Coronary artery disease involving [place] coronary artery of [place] heart without angina pectoris I25.10 Coronary Disease-Associated Artery/Lesion type: [place] artery [place] vs. transplanted heart: [place] heart Associated angina: without angina Paroxysmal atrial fibrillation I48.0 Atrial fibrillation type: paroxysmal CPT Codes EKG - CPT: 99025-[id number], Complete ([id number])
[2023-10-22 12:43] VITALS: BP 118/64; PULSE 67; BMI 24.0
== END 2023-10-22 13:17 | disposition home or self-care (01) ==
PROVIDERS: PCP Internal Medicine; Visit Provider Internal Medicine Cardiovascular Disease
DX: I50.9 Heart failure, unspecified (principal); I25.10 Atherosclerotic heart disease of native coronary artery without angina pectoris; I48.0 Paroxysmal atrial fibrillation
CPT/HCPCS: 93010; 99214

== ENCOUNTER 2023-10-22 12:31 | Outpatient (REF) | payer MEDICARE, SELFPAY ==
[2023-10-22 14:42] LABS: Anion Gap 13 (12-20); Blood Urea Nitrogen 17 mg/dL (9-16); Calcium 9.3 mg/dL (8.4-10.2); Carbon Dioxide 26 mmol/L (22-29); Chloride 107 mmol/L (96-108); Estimated Glomerular Filt Rate > 60; Glucose Random 108 mg/dL (60-115); Potassium 4.2 mmol/L (3.3-5.1); Sodium 142 mmol/L (135-145)
[2023-10-22 14:44] LABS: B Type Natriuretic Peptide 223 pg/mL (<100)
== END 2023-10-22 12:32 | disposition home or self-care (01) ==
LOC: HO.LAB 12:31
PROVIDERS: PCP Internal Medicine; Visit Provider Internal Medicine Cardiovascular Disease
DX: I48.0 Paroxysmal atrial fibrillation (principal); I50.9 Heart failure, unspecified; I25.10 Atherosclerotic heart disease of native coronary artery without angina pectoris
CPT/HCPCS: 36415; 80048; 83880; 93005; 99212

== ENCOUNTER 2024-01-23 10:38 | Outpatient (REF) | payer MEDICARE, SELFPAY ==
[2024-01-23 10:53] LABS: MANUAL DIFF FLAG NO
[2024-01-23 11:08] LABS: Appearance Urine Clear; Color Urine Yellow; Glucose Urine UA Negative (Negative); Leukocyte Esterase Urine Negative (Negative); Nitrite Urine Negative (Negative); Urine Blood Negative (Negative); Urine Ketones Negative (Negative); Urine Protein Negative (Neg-Trace)
[2024-01-23 11:09] LABS: Basophils Percent Auto 0.5 % (0-2); Eosinophils Absolute Auto 0.1 X10*3/uL (0.0-0.4); Eosinophils Percent Auto 2.3 % (0-4); Hematocrit 26.3 % (42.0-52.0); Imm Gran Abs Auto 0.02 X10*3/uL (0.00-0.03); Imm Gran Pct Auto 0.3 % (0.0-0.4); Immature Retic Fraction 20.6 % (2.3-13.4); Lymphocytes Absolute Auto 2.1 X10*3/uL (1.2-4.9); Lymphocytes Percent Auto 33.5 % (20-40); Mean Corpuscular HGB Conc 34.2 g/dl (31.0-36.0); Mean Corpuscular Hemoglobin 37.7 pg (27.0-33.0); Mean Platelet Volume 11.5 fL (9.4-12.4); Monocytes Percent Auto 16.3 % (2-11); Neutrophils Absolute Auto 2.9 x10*3/uL (2.0-8.3); Neutrophils Percent Auto 47.1 % (45-73); Platelet Count 311 X10*3/uL (160-400); Red Blood Count 2.39 X10*6/uL (4.60-5.80); Red Cell Distribution Width 23.7 % (11.0-16.0); Retic HGB Equivalent 33.4 pg (30.0-35.0); Reticulocyte Percent 1.5 % (0.5-1.8); Reticulocytes Absolute 0.035 X10*6/uL (0.026-0.095); White Blood Count 6.2 X10*3/uL (4.8-10.8)
[2024-01-23 11:17] LABS: Estimated Average Glucose 103 mg/dL; Hemoglobin A1c % 5.2 % (<6.0)
[2024-01-23 11:51] LABS: Alanine Aminotransferase 18 U/L (0-40); Albumin Level 4.3 g/dL (3.5-5.0); Alkaline Phosphatase 50 U/L (39-117); Anion Gap 11 (12-20); Aspartate Amino Transferase 16 U/L (5-37); Bilirubin Total 1.7 mg/dL (0.0-1.0); Blood Urea Nitrogen 15 mg/dL (9-16); Calcium 9.4 mg/dL (8.4-10.2); Carbon Dioxide 26 mmol/L (22-29); Chloride 109 mmol/L (96-108); Cholesterol 98 mg/dL (<200); Estimated Glomerular Filt Rate > 60; Glucose Random 102 mg/dL (60-115); HDL Cholesterol 46 mg/dL (>40); Iron 207 mcg/dL (45-160); LDL Cholesterol Calculated 44 mg/dL (<100); Percent Iron Saturation 85 % (15-50); Sodium 142 mmol/L (135-145); Total Iron Binding Capacity 243 mcg/dL (228-428); Total Protein 6.6 g/dL (6.5-8.0); Triglycerides 42 mg/dL (<150); Unsaturated Iron Binding 36 ug/dL
[2024-01-23 11:56] LABS: Prostate Specific Antigen 3.26 ng/mL (<0.05-4.0)
[2024-01-23 11:59] LABS: Ferritin 484 ng/mL (20-250); Free T4 (Free Thyroxine) 0.95 ng/dL (0.71-1.85)
[2024-01-23 12:10] LABS: Folate 12.8 ng/mL (> or = 4.0); Vitamin B12 917 pg/mL (200-900)
== END 2024-01-23 10:39 | disposition home or self-care (01) ==
LOC: HO.LAB 10:38
PROVIDERS: PCP Internal Medicine; Visit Provider Urology
DX: C61 Malignant neoplasm of prostate (principal); E78.00 Pure hypercholesterolemia, unspecified; D53.9 Nutritional anemia, unspecified; I48.0 Paroxysmal atrial fibrillation; R73.01 Impaired fasting glucose; R30.0 Dysuria; Z12.5 Encounter for screening for malignant neoplasm of prostate
CPT/HCPCS: 36415; 80053; 80061; 81003; 82607; 82728; 82746; 83036; 83540; 84153; 84439; 84443; 85025; 85045

== ENCOUNTER 2024-01-25 12:23 | Outpatient (AMB) | payer MEDICARE, SELFPAY ==
[2024-01-25 12:32] VITALS: BP 120/64; PULSE 70; O2SAT 97; BMI 23.6
--- NOTE | 2024-01-25 12:32 | MHC.PC.OV ---
Vital Signs 01/25/24 12:32 Height 5 ft 10 in Weight 164 lb 4 oz BMI 23.6 BP 120/64 Blood Pressure Location Lt brachial Position Sitting Pulse 70 Pulse Source Pulse Oximeter Pulse Oximetry (%) 97 Oxygen Delivery Method Room Air Intake Visit Reasons: Annual exam Guest Experience Manager Required: No Accompanied by: Self / Same As Patient Allergies omeprazole [OMEPRAZOLE] Allergy (Unknown, Verified 01/25/24 12:32) RASH Medication List - Last Reconciled 01/25/24 by Dhiraj Guevara MD apixaban (Eliquis) 5 mg PO BID 90 days atorvastatin (Lipitor) 40 mg PO DAILY cholecalciferol (vitamin D3) 50 mcg PO DAILY furosemide (Lasix) 20 mg PO DAILY isosorbide mononitrate ER 30 mg PO .QD multivitamin 1 tab PO DAILY nitroglycerin 0.4 mg sublingual ONCE verapamil ER 120 mg PO BID Tobacco use date assessed: 01/25/24 Fall risk assessment: No Falls in past year Last assessed Fall Risk: 01/25/24 Dental Screening Dental Screen Date: 01/25/24 Did you have a dental visit in the last 12 months?: Yes Did you have a dental problem in the last 6 months where you did not have access to dental care?: No Was dental information given to patient?: Patient has dentist HPI Annual exam HPI Details 88-year-old male with a history of BPH prostate cancer coronary artery disease atrial fibrillation hypercholesterolemia hypertension peripheral vascular disease and impaired glucose tolerance coming in for physical exam. Last seen in 07/28/2023. Patient's last colonoscopy was done in 2011. 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 Did see Urology notes in 12/29/2023 that he did not follow-up with [facility] U[facility]. Patient did see Urology here 11/26/2023 advised six-month follow-up with MRI. Patient was seen by Cardiology in 10/22/2023 congestive heart failure advised BNP blood work and if elevated would consider Lasix therapy advised echocardiogram CABG 2008 catheterization 05/27/2020 complex multivessel disease 04/27/2020 echocardiogram normal LV with mild left atrial dilatation atrial fibrillation with full anticoagulation on verapamil quarterly renal function test. decline taking off shoes [facility] Medical History Prostate nodule Low back pain GERD (gastroesophageal reflux disease) CVA (cerebral vascular accident) Dementia Bilateral carotid artery disease Carpal tunnel syndrome of right wrist Vitamin D deficiency Cervical spinal stenosis Atrial fibrillation Hypercholesterolemia Hypertension Coronary artery disease Surgical History (Updated 01/25/24 @ 13:09 by Dhiraj Guevara MD) Inguinal hernia, right History of cardiac cath (~03/2008) Hx of CABG (~1997) Family History Father No problems noted. Mother Cancer CVD (cardiovascular disease) Social History Household Members: Spouse Housing: House Alcohol intake: former Patient Tobacco Use Status: Never used Tobacco e-Cigarette/Vaping Use: Never Used Second Hand Smoke Exposure: No service: Yes Current occupational status: retired Cognitive needs: No Hearing needs: Yes Vision needs: Yes Questionnaire PHQ-9 Over the last 2 weeks, how often have you been bothered by any of the following problems? 1. Little interest or pleasure in doing things: not at all 2. Feeling down, depressed, or hopeless: not at all 3. Trouble falling or staying asleep, or sleeping too much: not at all 4. Feeling tired or having little energy: not at all 5. Poor appetite or overeating: not at all 6. Feeling bad about yourself - or that you are a failure or have let yourself or your family down: not at all 7. Trouble concentrating on things, such as reading the newspaper or watching television: not at all 8. Moving or speaking so slowly that other people could have noticed. Or the opposite - being so fidgety or restless that you have been moving around a lot more than usual: not at all 9. Thoughts that you would be better off or of hurting yourself in some way: not at all Total score: 0 Depression Screening Interpretation: Negative Depression Screening Done: Yes Source: Developed by Drs. Fadi Avery, Alanna Nguyen, Justin Campos and colleagues, with an educational oliver from [employer]. Thrive Questionnaire Date Thrive assessed: 01/25/24 I am a: Patient What is your living situation today?: I have a steady place to live Within the past 12 months, did the food you bought not last and you didn't have the money to get more?: Never true Within the past 12 months, did you worry whether your food would run out before you got money to buy more?: Never true Do you have trouble paying for medicines?: No Do you have trouble getting transportation to medical appointments?: No Do you have trouble paying your heating and electricity bill?: No Do you have trouble taking care of your child, family member or friend?: No Do you have trouble with day-to-day activities such as bathing, preparing meals, shopping, managing finances, etc.?: No Are you currently unemployed and looking for a job?: No Are you interested in more education?: No Please select the resources that you would like help with: None Currently or been in a relationship where the following occur: No concerns reported THRIVE Score: 0 AUDIT C Alcohol Use Questionnaire (AUDIT-C) 1. How often do you have a drink containing alcohol?: Never 3. How often do you have six or more drinks on one occasion?: Never Total Score: 0 DARYL-7 AMB Questionnaire DARYL-7 Date DARYL - 7 assessed: 01/25/24 Feeling nervous, anxious, or on edge: 0 = Not at all Not being able to stop or control worryin = Not at all Worrying too much about different things: 0 = Not at all Trouble relaxin = Not at all Being so restless that it is hard to sit still: 0 = Not at all Becoming easily annoyed or irritable: 0 = Not at all Feeling afraid as if something awful might happen: 0 = Not at all Total DARYL-7 score (0-4 normal; 5-9 mild; 10-14 moderate; 15-21 severe): 0 Source: Developed by Drs. Fadi Avery, Alanna Nguyen, Justin Campos and colleagues, with an educational oliver from [employer]. Review of Systems Const Denies poor appetite and Denies weakness Eyes Denies no additional complaints ENT Reports Normal hearing present, Denies dizziness, Denies nasal congestion, Denies tinnitus and Denies sore throat Card Denies chest pain, Denies syncope, Denies rapid heart rate and Denies dyspnea Resp Denies cough and Denies dyspnea GI Denies change in stool character, Reports constipation, Denies diarrhea, Denies nausea and Denies vomiting Denies dysuria and Denies urinary frequency Neuro Reports Normal hearing present, Denies confusion, Denies dizziness, Denies syncope and Denies weakness Psych Denies confusion Physical exam (Primary Care) Vital Signs: Last Vital Signs Pulse 70 01/25/24 12:32 BP 120/64 01/25/24 12:32 Pulse Ox 97 01/25/24 12:32 Oxygen Delivery Method Room Air 01/25/24 12:32 BMI result Body Mass Index 23.6 Tobacco/Smoking Status: Tobacco use Status Tobacco use date assessed 01/25/24 01/25/24 12:41 Patient Tobacco Use Status Never used Tobacco 01/25/24 12:41 e-Cigarette/Vaping Use Never Used 01/25/24 12:41 PHQ-9: PHQ-9 Score PHQ-9: Total score 0 01/25/24 12:41 Depression Screening Interpretation: Negative Thrive Assessment: Date of Thrive Assessment Date Thrive assessed 01/25/24 01/25/24 12:41 Currently or been in a relationship where the following occur: No concerns reported Const General: No confusion Orientation/consciousness: No confusion HENMT Head: Yes normocephalic Ears: external ears normal and TM's normal bilaterally Face and sinus: Yes normal facial exam Mouth: moist mucous membranes Throat: Yes tonsils normal Eyes Conjunctivae: conjunctivae normal Pupils: Equal, round and reactive pupils present and Pupil accommodation reflex normal Direct Ophthalmoscopy: normal light reflex Neck Neck: No lymphadenopathy Thyroid: Thyroid normal Chest Chest palpation & inspection: normal inspection of the chest Resp Effort & Inspection: normal respiratory effort and no audible wheezes Auscultation: clear to auscultation bilaterally, no crackles, no wheezes and lung sounds not diminished Cardio Rate: regular rate Rhythm: regular rhythm Peripheral pulses: radial pulses present and dorsalis pedis present GI Other: guaiac negative prostate hard as a rock with a mass on the L side- polypoid 1 cm Palpation (GI): no masses Auscultation: normal bowel sounds and normoactive bowel sounds Other: R inguinal hernia noted mild 3cm Skin General skin exam: no rashes or lesions noted Rashes: no rashes Neuro General: No confusion Cranial nerves: Yes Equal, round and reactive pupils present and Yes Normal hearing present Cognition (Neuro): normal cognition Gait exam (Neuro): Normal gait present Motor exam (neuro): 5/5 motor strength present throughout Deep tendon reflexes (DTR's): Right brachioradialis reflex intensity grade: 2+, Left brachioradialis reflex intensity grade: 2+, Right patellar reflex intensity grade: 2+ and Left patellar reflex intensity grade: 2+ Extrem General: No edema Assessment and Plan Assessment & Plan (1) Annual physical exam: Code(s): Z00.00 - Encounter for general adult medical examination without abnormal findings Plan: Patient is advised to eat healthy, keep well hydrated, keep active and have adequate sleep. (2) Prostate cancer: Comment: February 2021 grade group 3 intermediate volume - Bone Scan NAD Code(s): C61 - Malignant neoplasm of prostate Plan: Patient is being followed up by Urology and MRI in 6 months (3) Coronary artery disease: Comment: CABG 3 vessel catheterization 2007 Catheterization May 2020 complex mulivessel disease, April 2020 echocardiogram normal LV mild left atrial dilatation Code(s): I25.10 - Atherosclerotic heart disease of [place] coronary artery without angina pectoris Qualifiers: Coronary Disease-Associated Artery/Lesion type: [place] artery [place] vs. transplanted heart: [place] heart Associated angina: without angina Qualified Code(s): I25.10 - Atherosclerotic heart disease of [place] coronary artery without angina pectoris Plan: Control the cholesterol, weight, blood pressure, diabetes on anticoagulation (4) Atrial fibrillation: Comment: Ablation 2007(did not work), Holter October 2020 atrial fibrillation controlled rate Code(s): I48.91 - Unspecified atrial fibrillation Qualifiers: Atrial fibrillation type: paroxysmal Qualified Code(s): I48.0 - Paroxysmal atrial fibrillation Plan: Continue with anticoagulation and verapamil (5) Hypercholesterolemia: Comment: LDL goal < 70 Code(s): E78.00 - Pure hypercholesterolemia, unspecified Plan: Avoid fried foods, chicken skin, eggs, butter margarine, pastries and meat. Be it pork or beef they have a lot of cholesterol atorvastatin 40 mg once a day goal of LDL is less than 70. (6) Hypertension: Code(s): I10 - Essential (primary) hypertension Qualifiers: Hypertension type: essential hypertension Qualified Code(s): I10 - Essential (primary) hypertension Plan: Continue with blood pressure medication. Decrease salt intake and exercise takes isosorbide mononitrate and verapamil 120 mg twice a day (7) Impaired fasting blood sugar: Code(s): R73.01 - Impaired fasting glucose Plan: Decrease the amount of carbohydrate intake, pasta, bread, rice and potatoes are all sugar and that is aside from all the sweet stuff, remember that fruits are good but they are Sweet also. (8) Inguinal hernia, right: Code(s): K40.90 - Unilateral inguinal hernia, without obstruction or gangrene, not specified as recurrent Plan: mild avoid heavy liftingh Orders: Orders Basic Metabolic Panel Today I48.0 - Paroxysmal atrial fibrillation Basic Metabolic Panel Today I48.0 - Paroxysmal atrial fibrillation Basic Metabolic Panel 04/24/24 I48.0 - Paroxysmal atrial fibrillation Basic Metabolic Panel 07/23/24 I48.0 - Paroxysmal atrial fibrillation Basic Metabolic Panel 10/21/24 I48.0 - Paroxysmal atrial fibrillation Coding Level of Care Code Est Pt Prev Care >65y(40606) Diagnoses Annual physical exam Z00.00 Prostate cancer C61 Coronary artery disease involving [place] coronary artery of [place] heart without angina pectoris I25.10 Coronary Disease-Associated Artery/Lesion type: [place] artery [place] vs. transplanted heart: [place] heart Associated angina: without angina Paroxysmal atrial fibrillation I48.0 Atrial fibrillation type: paroxysmal Hypercholesterolemia E78.00 Essential hypertension I10 Hypertension type: essential hypertension Impaired fasting blood sugar R73.01 Inguinal hernia, right K40.90
== END 2024-01-25 13:23 | disposition home or self-care (01) ==
PROVIDERS: PCP Internal Medicine; Visit Provider Internal Medicine
DX: Z00.00 Encounter for general adult medical examination without abnormal findings (principal); C61 Malignant neoplasm of prostate; I25.10 Atherosclerotic heart disease of native coronary artery without angina pectoris; I48.0 Paroxysmal atrial fibrillation; E78.00 Pure hypercholesterolemia, unspecified; I10 Essential (primary) hypertension; R73.01 Impaired fasting glucose; K40.90 Unilateral inguinal hernia, without obstruction or gangrene, not specified as recurrent
CPT/HCPCS: 99397

== ENCOUNTER 2024-01-27 11:11 | Outpatient (AMB) | payer MEDICARE, SELFPAY ==
[2024-01-27 11:22] VITALS: BP 116/58; PULSE 72; BMI 24.1
--- NOTE | 2024-01-27 11:22 | MHC.OFFVIS ---
Vital Signs 01/27/24 11:22 Height 5 ft 10 in Weight 168 lb BMI 24.1 BP 116/58 L Blood Pressure Location Lt brachial Position Sitting Pulse 72 Pulse Source Pulse Oximeter Intake Visit Reasons: 3m follow up Allergies omeprazole [OMEPRAZOLE] Allergy (Unknown, Verified 01/25/24 12:32) RASH Medication List - Last Reconciled 01/27/24 by Freddie Arora MD apixaban (Eliquis) 5 mg PO BID 90 days atorvastatin (Lipitor) 40 mg PO DAILY cholecalciferol (vitamin D3) 50 mcg PO DAILY furosemide (Lasix) 20 mg PO DAILY isosorbide mononitrate ER 30 mg PO .QD multivitamin 1 tab PO DAILY nitroglycerin 0.4 mg sublingual ONCE PRN verapamil ER 120 mg PO BID 90 days HPI Comments Details: Fadi comes for follow-up, accompanied by his . No clear symptoms to present. Denies symptoms angina. He said he does not like to take diuretics as he has to go to the bathroom a lot. He denies any clear orthopnea, PND. Does have kelley ankle edema. Denies any prolonged palpitation irregular heartbeat. Denies any bleeding issues or neurologic events. [facility] Medical History (Updated 01/27/24 @ 14:01 by Freddie Arora MD) Prostate nodule Low back pain GERD (gastroesophageal reflux disease) CVA (cerebral vascular accident) Dementia Bilateral carotid artery disease Carpal tunnel syndrome of right wrist Vitamin D deficiency Cervical spinal stenosis Atrial fibrillation Hypercholesterolemia Hypertension Coronary artery disease Surgical History (Updated 01/27/24 @ 14:01 by Freddie Arora MD) Hx of CABG (~1997) Inguinal hernia, right History of cardiac cath (~03/2008) Family History Father No problems noted. Mother Cancer CVD (cardiovascular disease) Social History Household Members: Spouse Housing: House Alcohol intake: former Patient Tobacco Use Status: Never used Tobacco e-Cigarette/Vaping Use: Never Used Second Hand Smoke Exposure: No service: Yes Current occupational status: retired Cognitive needs: No Hearing needs: Yes Vision needs: Yes Review of Systems Const Denies weakness ENT Denies dizziness Card Denies chest pain, Denies chest pain with activity, Denies syncope, Denies rapid heart rate, Denies pedal edema, Denies edema, Denies leg edema, Denies lightheadedness, Denies palpitations, Denies dyspnea, Denies dyspnea on exertion and Denies orthopnea Resp Denies cough, Denies dyspnea and Denies dyspnea on exertion GI Denies hematochezia and Denies change in stool character Musc Denies abnormal gait, Denies muscle cramps, Denies muscle weakness, Denies numbness, Denies radiating pain into limb and Denies tingling Neuro Denies abnormal gait, Denies dizziness, Denies syncope, Denies numbness, Denies tingling and Denies weakness Endo Denies palpitations Physical Exam Vital Signs: Last Vital Signs Pulse 72 01/27/24 11:22 BP 116/58 L 01/27/24 11:22 BMI result Body Mass Index 24.1 Const General: cooperative, comfortable, no acute distress, alert and awake Nutritional Appearance: average body habitus Orientation/consciousness: patient oriented x3 Limitations: no limitations Neck Neck: Yes trachea midline, Yes supple and Yes no JVD (Positive AJR) Resp Effort & Inspection: normal respiratory effort Auscultation: clear to auscultation bilaterally Cardio Jugular venous distension: no JVD Palpation: normal PMI Rhythm: abnormal rhythm irregularly irregular Heart sounds: S1 normal heart sound present and S2 normal heart sound present GI Auscultation: normal bowel sounds Skin General skin exam: no rashes or lesions noted Neuro General: patient oriented x3 and no focal motor deficits Extrem General: No clubbing, No cyanosis and Yes edema Psych Appearance: grossly normal Affect: Anxious affect present Assessment & Plan Assessment & Plan (1) Coronary artery disease: Comment: CABG 3 vessel catheterization 2007 Catheterization May 2020 complex mulivessel disease, April 2020 echocardiogram normal LV mild left atrial dilatation Code(s): I25.10 - Atherosclerotic heart disease of robinson coronary artery without angina pectoris Category: Medical Qualifiers: Coronary Disease-Associated Artery/Lesion type: robinson artery [place] vs. transplanted heart: robinson heart Associated angina: without angina Qualified Code(s): I25.10 - Atherosclerotic heart disease of [place] coronary artery without angina pectoris Plan: CAD status post three-vessel coronary artery bypass grafting with robinson coronary disease, clinically without any symptoms angina current antianginal therapy with isosorbide verapamil. Advised to continue the same. Currently on full oral anticoagulation Eliquis and therefore avoid aspirin therapy to reduce bleeding risk. Continue high-intensity statin therapy with target goal LDL less than 70 mg/dL. Further workup is indicated at this point in time. (2) Atrial fibrillation: Comment: Ablation 2007(did not work), Holter October 2020 atrial fibrillation controlled rate Code(s): I48.91 - Unspecified atrial fibrillation Category: Medical Qualifiers: Atrial fibrillation type: paroxysmal Qualified Code(s): I48.0 - Paroxysmal atrial fibrillation Plan: Chronic longstanding atrial fibrillation has failed rhythm control approach. Continue rate control approach with verapamil which has worked well. He is not having any symptoms of significant palpitations. Continue full oral anticoagulation with Eliquis at 5 mg b.i.d.. Agree with quarterly renal function test and annual CBC check. (3) (HFpEF) heart failure with preserved ejection fraction: Code(s): I50.30 - Unspecified diastolic (congestive) heart failure Category: Medical Plan: Heart failure preserved ejection fraction, clinically euvolemic and well compensated. Advised to monitor for signs and symptoms of heart failure. Daily weight monitoring avoidance of salt loading was discussed. Importance of diuretic therapy was discussed. Continue aggressive blood pressure control which is currently well optimized. Advised Follow up in the clinic in 6 months time, sooner p.r.n.. Thank you for allowing me to partake in his care Medications: Changed From nitroglycerin 0.4 mg sublingual ONCE 25 tabs 1RF I25.10 - Atherosclerotic heart disease of [place] coronary artery without angina pectoris To nitroglycerin 0.4 mg sublingual ONCE PRN I25.10 - Atherosclerotic heart disease of [place] coronary artery without angina pectoris Coding Level of Care Code Est Pt Level 4 (35225) Diagnoses Coronary artery disease involving robinson coronary artery of robinson heart without angina pectoris I25.10 Coronary Disease-Associated Artery/Lesion type: [place]inson artery [place] vs. transplanted heart: robinson heart Associated angina: without angina Paroxysmal atrial fibrillation I48.0 Atrial fibrillation type: paroxysmal (HFpEF) heart failure with preserved ejection fraction I50.30
== END 2024-01-27 11:48 | disposition home or self-care (01) ==
PROVIDERS: PCP Internal Medicine; Visit Provider Internal Medicine Cardiovascular Disease
DX: I25.10 Atherosclerotic heart disease of native coronary artery without angina pectoris (principal); I48.0 Paroxysmal atrial fibrillation; I50.30 Unspecified diastolic (congestive) heart failure
CPT/HCPCS: 99214

== ENCOUNTER → 2024-01-27 11:11 | Outpatient (BNVA) | payer MEDICARE, SELFPAY | PROVIDERS: PCP Internal Medicine; Visit Provider Internal Medicine Cardiovascular Disease | DX: I25.10 Atherosclerotic heart disease of native coronary artery without angina pectoris (principal); I48.0 Paroxysmal atrial fibrillation; I50.30 Unspecified diastolic (congestive) heart failure | CPT/HCPCS: 99212 ==

== ENCOUNTER 2024-01-29 10:32 | Outpatient (AMB) | payer MEDICARE, SELFPAY ==
--- NOTE | 2024-01-29 11:09 | MHC.OFFVIS ---
Intake Visit Reasons: 6M Follow Up-MRI/PSA(set) Intake Note: Patient is present for MRI Results Urology Med: None Antibiotic Allergy: None Blood Thinner: Eliquis Allergies omeprazole [OMEPRAZOLE] Allergy (Unknown, Verified 01/25/24 12:32) RASH HPI Comments Details: Fadi is a pleasant male. He is a patient of Dr. Guevara. He is seen for following urologic condition - prostate nodule - prostate cancer PSA 3.3. Discussed MRI findings. Prostate size 55 g, PI-RADS 5 lesion 2 cm. Represents proximally 15% of total prostate volume. Question of abutment. At this point will continue to follow PSA 09/28 3.3, 03/30 3.7, 01/29 3.3 Prostate cancer February 2021 grade group 3 Prostate cancer diagnosed by Dr. Jaimes February 2021 PSA at diagnosis - 02/26 2.2 Biopsy performed for prostate nodule Histologic type: Adenocarcinoma, acinar type; focal intraductal adenocarcinoma Histologic grade: Monae score: 4+3=7 (left mid lateral), 3+4=7 (left base medial), 3+3=6 (left base lateral, left mid medial, right base lateral, right mid medial) Tumor quantitation: Number cores positive: 6 - 50%, 80%, 50%, 50%, 20%, 20% - 270/1200 Total number of cores: 12, % of tissue involved: 20-25% of all tissue examined Periprostatic fat inv.: Not identified Seminal vesicle inv: Not identified, Perineural inv.: Present, LVI:Not identified Staging 02/26 Bone Scan NAD PSA 12/23 1.8, 02/26 2.2, 11/27 1.6, 03/29 2.1 Imaging - 01/29 MRI - left posterolateral mid gland 2 cm lesion PI-RADS 5, question of early T3a involvement, 55 g prostate Lower Urinary Tract Symptoms Weakness of stream On alpha velasquez previously PFSH Medical History (Updated 01/27/24 @ 14:01 by Freddie Arora MD) Prostate nodule Low back pain GERD (gastroesophageal reflux disease) CVA (cerebral vascular accident) Dementia Bilateral carotid artery disease Carpal tunnel syndrome of right wrist Vitamin D deficiency Cervical spinal stenosis Atrial fibrillation Hypercholesterolemia Hypertension Coronary artery disease Surgical History (Updated 01/27/24 @ 14:01 by Freddie Arora MD) Hx of CABG (~1997) Inguinal hernia, right History of cardiac cath (~03/2008) Family History Father No problems noted. Mother Cancer CVD (cardiovascular disease) Social History Household Members: Spouse Housing: House Alcohol intake: former Patient Tobacco Use Status: Never used Tobacco e-Cigarette/Vaping Use: Never Used Second Hand Smoke Exposure: No service: Yes Current occupational status: retired Cognitive needs: No Hearing needs: Yes Vision needs: Yes Review of Systems Const Denies chills and Denies fever(s) Card Reports no additional complaints and Denies syncope Resp Denies cough GI Denies abdominal pain and Denies heartburn Reports as per HPI and Denies change in libido Neuro Denies syncope Psych Denies change in libido Endo Denies change in libido Physical Exam Const General: cooperative, healthy appearing, comfortable and no acute distress Orientation/consciousness: patient oriented x3 HEENT Face and sinus: Yes normal facial exam Mouth: moist mucous membranes Neck Neck: Yes normal visual inspection, Yes full ROM and Yes trachea midline Chest Chest palpation & inspection: normal inspection of the chest Resp Effort & Inspection: normal respiratory effort, able to speak in complete sentences and no respiratory distress GI Inspection: Yes normal to inspection Back/Spine/Pelvis Cervical Spine: normal cervical lordosis Thoracic/Lumbar Spine: thoracic and lumbar spine normal to inspection Skin General skin exam: no rashes or lesions noted Neuro General: patient oriented x3, gait normal, tone normal and moves all extremities Extrem General: Yes normal to inspection and Yes capillary refill normal Assessment & Plan Assessment & Plan (1) Prostate cancer: Comment: February 2021 grade group 3 intermediate volume - Bone Scan NAD Code(s): C61 - Malignant neoplasm of prostate Category: Medical Plan Six-month follow-up Orders: Orders Prostate Specific Antigen 6 Months C61 - Malignant neoplasm of prostate Patient Instructions: Imaging studies, laboratory and physical exam results were discussed and reviewed in detail. No major barriers to patient understanding were identified. An opportunity to ask questions regarding the treatment plan was provided. All questions were answered. The patient expressed understanding and agreement with the above treatment plan. The patient is aware they should contact our office by phone for worsening of their current condition or the appearance of new urologic symptoms. Compliance is encouraged with any medications and followup testing that is ordered. It is a privilege to participate in the urologic care of your patient. If you have any questions or concerns regarding treatment for the above conditions, or other urologic issues, please do not hesitate to contact me. The office telephone contact is [phone]. This note is constructed using voice recognition software. While every effort has been made to ensure accuracy stock roller errors may have been included. Yours sincerely, Dr Efrain Jaimes MD, [facility] - Urology Providers of Expert, Compassionate Care for the Genitourinary System Coding Level of Care Code Est Pt Level 3 (24877) Diagnoses Prostate cancer C61
== END 2024-01-29 11:38 | disposition home or self-care (01) ==
PROVIDERS: PCP Internal Medicine; Visit Provider Urology
DX: C61 Malignant neoplasm of prostate (principal)
CPT/HCPCS: 99213

== ENCOUNTER → 2024-01-29 10:32 | Outpatient (BNVA) | payer MEDICARE, SELFPAY | PROVIDERS: PCP Internal Medicine; Visit Provider Urology | DX: C61 Malignant neoplasm of prostate (principal); R39.12 Poor urinary stream | CPT/HCPCS: 99212 ==

== ENCOUNTER → 2024-02-11 14:59 | Outpatient (REF) | payer MEDICARE, SELFPAY ==
--- NOTE | 2024-02-11 15:02 | HM_ITS ---
* Total monitoring time 2 days. * Underlying rhythm is atrial fibrillation. Average ventricular rate 68/Min. * Rare ventricular ectopy. * No significant pauses or AV blocks. * Patient markers used in association with atrial fibrillation. * Descriptions of shortness of breath, pain, extremely heavy, lifting in heart, easier breathing associated with atrial fibrillation. MTDD
== END ==
LOC: HO.CARD 14:59
PROVIDERS: PCP Internal Medicine; Visit Provider Internal Medicine Cardiovascular Disease
DX: I48.0 Paroxysmal atrial fibrillation (principal); I50.30 Unspecified diastolic (congestive) heart failure
CPT/HCPCS: 93225

== ENCOUNTER → 2024-02-11 15:02 | Outpatient (BNV) | payer MEDICARE, SELFPAY | PROVIDERS: PCP Internal Medicine; Visit Provider Internal Medicine | DX: I48.91 Unspecified atrial fibrillation (principal) | CPT/HCPCS: 93227 ==

== ENCOUNTER 2024-04-27 10:37 | Outpatient (AMB) | payer MEDICARE, SELFPAY ==
[2024-04-27 10:40] VITALS: BP 138/68; PULSE 75; O2SAT 98; BMI 23.2
--- NOTE | 2024-04-27 10:40 | MHC.PC.OV ---
Vital Signs 04/27/24 10:40 Height 5 ft 10 in Weight 162 lb BMI 23.2 BP 138/68 Blood Pressure Location Lt brachial Position Sitting Pulse 75 Pulse Source Pulse Oximeter Pulse Oximetry (%) 98 Oxygen Delivery Method Room Air Intake Visit Reasons: Requesting Order for PT Allergies omeprazole [OMEPRAZOLE] Allergy (Unknown, Verified 04/27/24 10:41) RASH Tobacco use date assessed: 04/27/24 Fall risk assessment: No Falls in past year Last assessed Fall Risk: 04/27/24 Dental Screening Dental Screen Date: 01/25/24 HPI Requesting Order for PT HPI Details 88-year-old male with hypertension hypercholesterolemia history of cervical spinal stenosis atrial fibrillation coronary artery disease GERD history of prostate cancer 2020 impaired glucose tolerance congestive heart failure coming in for follow-up. January seen for physical exam. Review of the notes 04/14/2024 was seen by spine and sports for shoulder pain right patient was advised to get an x-ray done to evaluate for degenerative joint disease and was given Celebrex. Patient had a Holter done in 02/11/2024 showing atrial fibrillation average heart rate of 68 no significant pauses. Patient was seen by Urology also in January 28 advised to continue follow-up. Patient has also seen Cardiology in January 26 CABG 2007, catheterization 2019 complex multivessel disease echocardiogram 2019 normal LV continue with isosorbide continuing anticoagulation avoid aspirin statin with the atrial fibrillation ablation 2007, verapamil rate control.. R shoulder will be having Physical therapy tomorrow. states had hematuria then rectal bleeding for 5 days. but this has stopped. declined flu shot. PAtient states uses diclofenac gel for the joimnt and wants refill patient was advised to follow-up with urology with regards to hematuria and prostate problem. [facility] Medical History (Updated 04/27/24 @ 11:02 by Dhiraj Guevara MD) Prostate nodule Low back pain GERD (gastroesophageal reflux disease) CVA (cerebral vascular accident) Dementia Bilateral carotid artery disease Carpal tunnel syndrome of right wrist Vitamin D deficiency Cervical spinal stenosis Atrial fibrillation Hypercholesterolemia Hypertension Coronary artery disease Surgical History (Updated 01/27/24 @ 14:01 by Freddie Arora MD) Hx of CABG (~1997) Inguinal hernia, right History of cardiac cath (~03/2008) Family History Father No problems noted. Mother Cancer CVD (cardiovascular disease) Social History Household Members: Spouse Housing: House Alcohol intake: former Patient Tobacco Use Status: Never used Tobacco Tobacco use type: Cigarette e-Cigarette/Vaping Use: Never Used Second Hand Smoke Exposure: No service: Yes Current occupational status: retired Cognitive needs: No Hearing needs: Yes Vision needs: Yes Questionnaire PHQ-9 Over the last 2 weeks, how often have you been bothered by any of the following problems? 1. Little interest or pleasure in doing things: not at all 2. Feeling down, depressed, or hopeless: not at all 3. Trouble falling or staying asleep, or sleeping too much: not at all 4. Feeling tired or having little energy: not at all 5. Poor appetite or overeating: not at all 6. Feeling bad about yourself - or that you are a failure or have let yourself or your family down: not at all 7. Trouble concentrating on things, such as reading the newspaper or watching television: not at all 8. Moving or speaking so slowly that other people could have noticed. Or the opposite - being so fidgety or restless that you have been moving around a lot more than usual: not at all 9. Thoughts that you would be better off or of hurting yourself in some way: not at all Total score: 0 Depression Screening Interpretation: Negative Depression Screening Done: Yes Source: Developed by Drs. Fadi Avery, Alanna Nguyen, Justin Campos and colleagues, with an educational oliver from [employer]. Thrive Questionnaire Date Thrive assessed: 01/25/24 AUDIT C Alcohol Use Questionnaire (AUDIT-C) 1. How often do you have a drink containing alcohol?: Never 3. How often do you have six or more drinks on one occasion?: Never Total Score: 0 DARYL-7 AMB Questionnaire DARYL-7 Date DARYL - 7 assessed: 01/25/24 Source: Developed by Drs. Fadi Avery, Alanna Nguyen, Justin Campos and colleagues, with an educational oliver from [employer]. Physical exam (Primary Care) Vital Signs: Last Vital Signs Pulse 75 04/27/24 10:40 BP 138/68 04/27/24 10:40 Pulse Ox 98 04/27/24 10:40 Oxygen Delivery Method Room Air 04/27/24 10:40 BMI result Body Mass Index 23.2 Tobacco/Smoking Status: Tobacco use Status Tobacco use date assessed 04/27/24 04/27/24 10:42 Patient Tobacco Use Status Never used Tobacco 04/27/24 10:42 Tobacco use type Cigarette 04/27/24 10:42 e-Cigarette/Vaping Use Never Used 04/27/24 10:42 PHQ-9: PHQ-9 Score PHQ-9: Total score 0 04/27/24 10:42 Depression Screening Interpretation: Negative Thrive Assessment: Date of Thrive Assessment Date Thrive assessed 01/25/24 04/27/24 10:42 Const General: alert; No acute distress Eyes Conjunctivae: conjunctivae normal Resp Auscultation: clear to auscultation bilaterally Cardio Rate: regular rate Rhythm: regular rhythm GI Inspection: Yes normal to inspection Extrem General: Yes normal to inspection and No edema Coding Level of Care Code Est Pt Level 4 (43159) Diagnoses (HFpEF) heart failure with preserved ejection fraction I50.30 Paroxysmal atrial fibrillation I48.0 Atrial fibrillation type: paroxysmal Hypercholesterolemia E78.00 Essential hypertension I10 Hypertension type: essential hypertension Coronary artery disease involving [place] coronary artery of [place] heart without angina pectoris I25.10 Coronary Disease-Associated Artery/Lesion type: [place] artery [place] vs. transplanted heart: [place] heart Associated angina: without angina Right shoulder pain M25.511 Assessment & Plan Assessment & Plan (1) (HFpEF) heart failure with preserved ejection fraction: Code(s): I50.30 - Unspecified diastolic (congestive) heart failure Category: Medical Plan: Advised to continue with weighing daily and on furosemide. Advised to get blood work done (2) Atrial fibrillation: Comment: Ablation 2007(did not work), Holter October 2020 atrial fibrillation controlled rate Code(s): I48.91 - Unspecified atrial fibrillation Category: Medical Qualifiers: Atrial fibrillation type: paroxysmal Qualified Code(s): I48.0 - Paroxysmal atrial fibrillation Plan: Continue with anticoagulation with Eliquis continue with verapamil advised to get blood work done (3) Hypercholesterolemia: Comment: LDL goal < 70 Code(s): E78.00 - Pure hypercholesterolemia, unspecified Category: Medical Plan: Avoid fried foods, chicken skin, eggs, butter margarine, pastries and meat. Be it pork or beef they have a lot of cholesterol LDL goal of below 70 on atorvastatin 40 mg once a day 01/26/2024 last blood work (4) Hypertension: Code(s): I10 - Essential (primary) hypertension Category: Medical Qualifiers: Hypertension type: essential hypertension Qualified Code(s): I10 - Essential (primary) hypertension Plan: Continue with blood pressure medication. Decrease salt intake and exercise continue with present medication of verapamil (5) Coronary artery disease: Comment: CABG 3 vessel catheterization 2007 Catheterization May 2020 complex mulivessel disease, April 2020 echocardiogram normal LV mild left atrial dilatation Code(s): I25.10 - Atherosclerotic heart disease of [place] coronary artery without angina pectoris Category: Medical Qualifiers: Coronary Disease-Associated Artery/Lesion type: [place] artery [place] vs. transplanted heart: [place] heart Associated angina: without angina Qualified Code(s): I25.10 - Atherosclerotic heart disease of [place] coronary artery without angina pectoris Plan: Control the cholesterol, weight, blood pressure, diabetes on isosorbide mononitrate and nitro given (6) Right shoulder pain: Code(s): M25.511 - Pain in right shoulder Category: Medical Plan: Patient was seen by the [place] [facility] and has advised physical therapy Orders: Orders PT Evaluation and Treatment Today M25.511 - Pain in right shoulder Complete Blood Count Auto Diff Today I50.30 - Unspecified diastolic (congestive) heart failure Thyroid Stimulating Hormone Today I50.30 - Unspecified diastolic (congestive) heart failure Free T4 (Free Thyroxine) Today I50.30 - Unspecified diastolic (congestive) heart failure B Type Natriuretic Peptide Today I50.30 - Unspecified diastolic (congestive) heart failure Comprehensive Met. Panel Today I50.30 - Unspecified diastolic (congestive) heart failure Medications: New diclofenac sodium 1% (Arthritis Pain (diclofenac)) apply to single knee, ankle, foot; for foot includes sole/toes/top of foot 4 grams topical QID 100 grams 2RF M17.10 - Unilateral primary osteoarthritis, unspecified knee
== END 2024-04-27 11:27 | disposition home or self-care (01) ==
PROVIDERS: PCP Internal Medicine; Visit Provider Internal Medicine
DX: I50.30 Unspecified diastolic (congestive) heart failure (principal); I48.0 Paroxysmal atrial fibrillation; E78.00 Pure hypercholesterolemia, unspecified; I10 Essential (primary) hypertension; I25.10 Atherosclerotic heart disease of native coronary artery without angina pectoris; M25.511 Pain in right shoulder

== ENCOUNTER → 2024-04-27 10:37 | Outpatient (BNVA) | payer MEDICARE, SELFPAY | PROVIDERS: PCP Internal Medicine; Visit Provider Internal Medicine | DX: I11.0 Hypertensive heart disease with heart failure (principal); I50.30 Unspecified diastolic (congestive) heart failure; I48.0 Paroxysmal atrial fibrillation; E78.00 Pure hypercholesterolemia, unspecified; I25.10 Atherosclerotic heart disease of native coronary artery without angina pectoris; M25.511 Pain in right shoulder | CPT/HCPCS: 96127; 99212 ==

== ENCOUNTER 2024-04-28 11:47 | Outpatient (AMB) | payer MEDICARE, SELFPAY ==
--- NOTE | 2024-04-28 11:48 | MHC.OFFVIS ---
Intake Visit Reasons: discuss MRI/ many questions Intake Note: Patient is present for Discussion on MRI Urology Med: None Blood Thinner: Eliquis Patient has many questions on Plan of Care Senior Service Aide Required: No Accompanied by: Spouse Allergies omeprazole [OMEPRAZOLE] Allergy (Unknown, Verified 04/28/24 11:55) RASH HPI Comments Details: Fadi is a pleasant male. He is a patient of Dr. Guevara. He is seen for following urologic condition - prostate nodule - prostate cancer - gross hematuria Recent episodes of gross hematuria Had been started on Eliquis for AFib Discussed risks and benefit ratio of Eliquis. Over 88 yr risk benefit ratio of anticoagulation suggests risk of fall with neurologic hemorrhage over ways risk of AFib generated clot. Would suggest using Coumadin which has ability to reverse. Eliquis is associated with independent risk factor of in trauma. PSA 3.3. Discussed MRI findings. Prostate size 55 g, PI-RADS 5 lesion 2 cm. Represents proximally 15% of total prostate volume. Question of abutment. At this point will continue to follow PSA 09/28 3.3, 03/30 3.7, 01/29 3.3 Prostate cancer February 2021 grade group 3 Prostate cancer diagnosed by Dr. Jaimes February 2021 PSA at diagnosis - 02/26 2.2 Biopsy performed for prostate nodule Histologic type: Adenocarcinoma, acinar type; focal intraductal adenocarcinoma Histologic grade: Shoup score: 4+3=7 (left mid lateral), 3+4=7 (left base medial), 3+3=6 (left base lateral, left mid medial, right base lateral, right mid medial) Tumor quantitation: Number cores positive: 6 - 50%, 80%, 50%, 50%, 20%, 20% - 270/1200 Total number of cores: 12, % of tissue involved: 20-25% of all tissue examined Periprostatic fat inv.: Not identified Seminal vesicle inv: Not identified, Perineural inv.: Present, LVI:Not identified Staging 02/26 Bone Scan NAD PSA 12/23 1.8, 02/26 2.2, 11/27 1.6, 03/29 2.1 Imaging - 01/29 MRI - left posterolateral mid gland 2 cm lesion PI-RADS 5, question of early T3a involvement, 55 g prostate Lower Urinary Tract Symptoms Weakness of stream On alpha velasquez previously [facility] Medical History (Updated 04/27/24 @ 11:02 by Dhiraj Guevara MD) Prostate nodule Low back pain GERD (gastroesophageal reflux disease) CVA (cerebral vascular accident) Dementia Bilateral carotid artery disease Carpal tunnel syndrome of right wrist Vitamin D deficiency Cervical spinal stenosis Atrial fibrillation Hypercholesterolemia Hypertension Coronary artery disease Surgical History (Updated 01/27/24 @ 14:01 by Freddie Arora MD) Hx of CABG (~1997) Inguinal hernia, right History of cardiac cath (~03/2008) Family History Father No problems noted. Mother Cancer CVD (cardiovascular disease) Social History Household Members: Spouse Housing: House Alcohol intake: former Patient Tobacco Use Status: Never used Tobacco Tobacco use type: Cigarette e-Cigarette/Vaping Use: Never Used Second Hand Smoke Exposure: No service: Yes Current occupational status: retired Cognitive needs: No Hearing needs: Yes Vision needs: Yes Review of Systems Const Denies chills and Denies fever(s) Card Reports no additional complaints and Denies syncope Resp Denies cough GI Denies abdominal pain and Denies heartburn Reports as per HPI and Denies change in libido Neuro Denies syncope Psych Denies change in libido Endo Denies change in libido Physical Exam Const General: cooperative, healthy appearing, comfortable and no acute distress Orientation/consciousness: patient oriented x3 HEENT Face and sinus: Yes normal facial exam Mouth: moist mucous membranes Neck Neck: Yes normal visual inspection, Yes full ROM and Yes trachea midline Chest Chest palpation & inspection: normal inspection of the chest Resp Effort & Inspection: normal respiratory effort, able to speak in complete sentences and no respiratory distress GI Inspection: Yes normal to inspection Back/Spine/Pelvis Cervical Spine: normal cervical lordosis Thoracic/Lumbar Spine: thoracic and lumbar spine normal to inspection Skin General skin exam: no rashes or lesions noted Neuro General: patient oriented x3, gait normal, tone normal and moves all extremities Extrem General: Yes normal to inspection and Yes capillary refill normal Assessment & Plan Assessment & Plan (1) Prostate cancer: Comment: February 2021 grade group 3 intermediate volume - Bone Scan NAD Code(s): C61 - Malignant neoplasm of prostate Category: Medical (2) BPH w urinary obs/LUTS: Code(s): N40.1 - Benign prostatic hyperplasia with lower urinary tract symptoms; N13.8 - Other obstructive and reflux uropathy Category: Medical Plan Plan office cystoscopy Patient Instructions: Imaging studies, laboratory and physical exam results were discussed and reviewed in detail. No major barriers to patient understanding were identified. An opportunity to ask questions regarding the treatment plan was provided. All questions were answered. The patient expressed understanding and agreement with the above treatment plan. The patient is aware they should contact our office by phone for worsening of their current condition or the appearance of new urologic symptoms. Compliance is encouraged with any medications and followup testing that is ordered. It is a privilege to participate in the urologic care of your patient. If you have any questions or concerns regarding treatment for the above conditions, or other urologic issues, please do not hesitate to contact me. The office telephone contact is [phone]. This note is constructed using voice recognition software. While every effort has been made to ensure accuracy cooky packer errors may have been included. Yours sincerely, Dr Efrain Jaimes MD, RADHA [facility] - Urology Providers of Expert, Compassionate Care for the Genitourinary System Coding Level of Care Code Est Pt Level 3 (26030) Diagnoses Prostate cancer C61 BPH w urinary obs/LUTS N40.1; N13.8
== END 2024-04-28 12:40 | disposition home or self-care (01) ==
PROVIDERS: PCP Internal Medicine; Visit Provider Urology
DX: C61 Malignant neoplasm of prostate (principal); N40.1 Benign prostatic hyperplasia with lower urinary tract symptoms; N13.8 Other obstructive and reflux uropathy
CPT/HCPCS: 99213

== ENCOUNTER → 2024-04-28 11:47 | Outpatient (BNVA) | payer MEDICARE, SELFPAY | PROVIDERS: PCP Internal Medicine; Visit Provider Urology | DX: C61 Malignant neoplasm of prostate (principal); N40.1 Benign prostatic hyperplasia with lower urinary tract symptoms; N13.8 Other obstructive and reflux uropathy | CPT/HCPCS: 99212 ==

== ENCOUNTER 2024-07-04 15:31 | Outpatient (REF) | payer MEDICARE, SELFPAY ==
[2024-07-04 15:49] LABS: MANUAL DIFF FLAG NO
[2024-07-04 16:01] LABS: Basophils Percent Auto 0.4 % (0-2); Eosinophils Absolute Auto 0.1 X10*3/uL (0.0-0.4); Eosinophils Percent Auto 0.7 % (0-4); Hematocrit 26.8 % (42.0-52.0); Hemoglobin 8.8 g/dl (14.0-18.0); Imm Gran Abs Auto 0.03 X10*3/uL (0.00-0.03); Imm Gran Pct Auto 0.4 % (0.0-0.4); Lymphocytes Absolute Auto 1.7 X10*3/uL (1.2-4.9); Lymphocytes Percent Auto 21.1 % (20-40); Mean Corpuscular HGB Conc 32.8 g/dl (31.0-36.0); Mean Corpuscular Hemoglobin 36.7 pg (27.0-33.0); Mean Platelet Volume 10.8 fL (9.4-12.4); Monocytes Absolute Auto 1.2 X10*3/uL (0.1-1.2); Monocytes Percent Auto 15.3 % (2-11); NRBC Pct Auto 0.4 /100WBC (0.0-0.2); Neutrophils Percent Auto 62.1 % (45-73); Platelet Count 302 X10*3/uL (160-400); White Blood Count 8.1 X10*3/uL (4.8-10.8)
[2024-07-04 16:08] LABS: Mean Corpuscular Volume 111.7 fL (80.0-98.0)
[2024-07-04 16:31] LABS: B Type Natriuretic Peptide 254 pg/mL (<100)
[2024-07-04 16:32] LABS: Alanine Aminotransferase 18 U/L (0-40); Albumin Level 4.5 g/dL (3.5-5.0); Alkaline Phosphatase 59 U/L (39-117); Anion Gap 10 (12-20); Aspartate Amino Transferase 17 U/L (5-37); Bilirubin Total 1.3 mg/dL (0.0-1.0); Blood Urea Nitrogen 25 mg/dL (9-16); Calcium 9.1 mg/dL (8.4-10.2); Carbon Dioxide 25 mmol/L (22-29); Chloride 110 mmol/L (96-108); Estimated Glomerular Filt Rate > 60; Glucose Random 114 mg/dL (60-115); Potassium 3.9 mmol/L (3.3-5.1); Sodium 141 mmol/L (135-145); Total Protein 7.1 g/dL (6.5-8.0)
[2024-07-04 16:45] LABS: Prostate Specific Antigen 3.85 ng/mL (<0.05-4.0)
[2024-07-04 16:48] LABS: Thyroid Stimulating Hormone 1.12 uIU/mL (0.32-4.0)
[2024-07-04 16:50] LABS: Free T4 (Free Thyroxine) 1.04 ng/dL (0.71-1.85)
--- OUTSIDE RECORDS SUMMARY | 2024-07-04 19:33 | XMS_ITS ---
Author Organization [facility] Address [address] [facility] [address] [place] [address] Care Team Providers Care Tissue Inserter Name Role Phone Dhiraj Guevara MD Primary Care Provider Edwin Bal Jr, Nicholas Unavailable ALLERGIES Allergen (clinical drug ingredient) Drug/Non Drug Allergy documented on EMR Reaction Allergy Type Onset Date Status omeprazole Omeprazole Unknown Drug Allergy Activ e REASON FOR VISIT Patient presents today for dysphagia MEDICATIONS Medication SIG (Take, Route, Frequency, Duration) Notes Start Date End Date Status Verapamil HCl ER 120 MG Oral for 90 Active Atorvastatin Calcium 40 MG Oral for 90 Active Eliquis 5 MG 1 tablet Orally Twic e a day Active Vitamin D3 50 MCG (1999) TAKE 1 CAPSU LE BY MOUTH DAILY Oral for 90 Active Verapamil HCl Active VITAL SIGNS BMI 23.59 kg/m2 09/17/2023 Blood pressure systolic 000 mm Hg 09/17/19 24 Blood pressure diastolic 00 mm Hg 024 Height 70.75 in 09/17/2023 Weight 168 lbs 09/17/2023 Encounters Encounter Location Date Provider Diagnosis [facility] [address] [address] 09/17/2023 Nicholas Bal Jr Gastroesophageal reflux disease without esophagitis K21.9 ASSESSMENTS Encounter Date Diagnosis Assessment Notes Treatment Notes Treatment Clinical Notes 09/17/2023 Gastroesophageal ref lux disease without esophagitis (ICD-10 - K21.9) Proton pump inhibitors material was printed PLAN OF TREATMENT Treatment Notes Assessment Notes Gastroesophageal reflux dise ase without esophagitis Proton pump inhibitors material was printed Next Appt Details Follow Up: 1 Year, Reason: Provider Name:Nicholas mazariegos Jr, 09/22/2024 01:35:00 PM, [address] [place] [address] Drive, [address], [place], [address],
--- OUTSIDE RECORDS SUMMARY | 2024-07-04 19:33 | XMS_ITS ---
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 Generated for Ramyi vivian/Marcella/eTransmitting on:?07/04/2024 07:32 PM EST
--- OUTSIDE RECORDS SUMMARY | 2024-07-04 19:33 | XMS_ITS ---
Author Organization [facility] Address [address] [place] [address] Care Team Providers Care Group Teacher Name Role Phone Dhiraj Guevara Primary Care Provider Crow Reina Unavailable [phone] Encounters Encounter Location Date Provider Diagnosis [address] [address] 10/14/2023 Crow Cuellar Plan Of Treatment No Information Progress Notes * Fadi SHEPPARDDOB:1935 (88 yo M)Acc No.[id number]:10/14/2023 Progress Notes Patient:?Fadi SHEPPARD Provider:?Crow Cuellar DPM :1935???Age:88 Y???Sex:Male Kofi e:10/14/2023 Address:[address] [place] [address] [facility] Pcp:Dhiraj Guevara Subjective: * Chief Complaints: * ??? * Medical History:? Objective: * Vitals:? Assessment: Plan: * Treatment: * Images: * The named appointment provid er may or may not be the originator of this progress note, and it is not deemed complete until electronically signed by the appointment provider. Sign off status: Pending * Provider:Patti Cuellar DPM Date:? 024 Generated for Yvette park/Marcella/eTransmitting on:?07/04/2024 07:32 PM EST
--- OUTSIDE RECORDS SUMMARY | 2024-07-04 19:33 | XMS_ITS | Patient Health Record ---
Author Organization [facility] Address [address] [place] [address] Care Team Providers Care Mine Superintendent Name Role Phone Dhiraj Guevara MD Primary Care Provider Nicholas Paul Jr ALLERGIES Allergen (clinical drug ingredient) Drug/Non Drug Allergy documented on EMR Reaction Allergy Type Onset Date Status omeprazole Omeprazole Unknown Drug Allergy Activ e REASON FOR REFERRAL No Information MEDICATIONS Medication SIG (Take, Route, Frequency, Duration) Notes Start Date End Date Status Verapamil HCl ER 120 MG Oral for 90 Active Atorvastatin Calcium 40 MG Oral for 90 Active Eliquis 5 MG 1 tablet Orally Twic e a day Active Vitamin D3 50 MCG (1999) TAKE 1 CAPSU LE BY MOUTH DAILY Oral for 90 Active Verapamil HCl Active IMMUNIZATIONS Vaccine Route Administration Date Status Comme nts Influenza Unknown 09/15/2022 Refused SOCIAL HISTORY Sex Assigned At : Social History Observation Description Sex Assigned At Unknown PROBLEMS Problem Type ICD Code Onset Dates Problem Status W/U Status Risk SNOMED Code Notes Problem Gastroesophageal reflux disease without esophagitis (K21.9) Active confirmed 802928201 Problem Abnormal barium swallow (R93.3) Active confirmed 603208292 VITAL SIGNS Blood pressure diastolic 00 mm Hg 09/17/2023 Height 70.75 in 09/17/2023 Blood pressure systolic 000 mm Hg 09/17/2023 Weight 168 lbs 09/17/2023 BMI 23.59 kg/m2 09/17/2023 Encounters Encounter Location Date Provider Diagnosis [facility] [address] [place] [address] 09/17/2023 Nicholas Bal Jr Gastroesophageal reflux disease without esophagitis K21.9 [facility] [address] [place] [id number] 03/18/2024 Nicholas Bal Jr ASSESSMENTS Encounter Date Diagnosis Assessment Notes Treatment Notes Treatment Clinical Notes 09/17/2023 Gastroesophageal ref lux disease without esophagitis (ICD-10 - K21.9) Proton pump inhibitors material was printed PLAN OF TREATMENT Future Test Test Name Order Date COLONOSCOPY 07/30/2011 Next Appt Details Provider Name:Nicholas mazariegos Jr, 09/22/2024 01:35:00 PM, [address] [facility], [address], [place], [address], Insurance Providers Payer Name Payer Address Payer Phone Subscriber Number Group Number Insured Name Patient Relationship to Insured Coverage Start Date Coverage End Date [facility] [address] [place] [phone] [id number] RADHA OVALLES Self - patient is the insured MEDICAL (GENERAL) HISTORY Medical History History ICD Code coronary artery disease atrial fibrillation Colonoscopy 10/29/11, normal, ten-year fo llowup Iron overload Prostate cancer CVA Gastroesophageal reflux disease Hypertension Back pain Surgical History Surgery Date(Month/Year) 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
--- OUTSIDE RECORDS SUMMARY | 2024-07-04 19:33 | XMS_ITS | Patient Health Record ---
Author Organization [facility]ia [facility] Address [address] [facility] [place] [address] Care Team Providers Care Typesetting Supervisor Name Role Phone Dhiraj Guevara Primary Care Provider Crow Reina Unavailable [phone] Allergies Allergen (clinical drug ingredient) Drug/Non Drug Allergy documented on EMR Reaction Allergy Type Onset Date Status Adhesive Unknown Allergy Active Latex Latex Unknown Allergy Active Reason For Referral No Information Medications Medication SIG (Take, Route, Frequency, Duration) Notes Start Date End Date Status Vitamin D3 Active Isosorbide Dinitrate 30 MG 1 tablet Oral ly Twice a day Active Verapamil HCl 120 MG 1 tablet Orally Thr ee times a day for 30 day(s) Active Warfarin Sodium 5 MG 1 tablet Orally Two times a Week for 30 day(s) Active Physical Therapy . . . 2-3x/week for 3- 4 weeks 03/23/2013 Unknown Lipitor 40 MG 1 tablet Orally Once a day for 30 day(s) Unknown baby asprin as directed Unknow n Social History Tobacco Use: Social History Observation Description Date Details (start date - stop date) Never Smoker NA - NA Tobacco Use/Smoking Question Answer Notes Are you a: nonsmoker Additional Findings: Tobacco Non-User Current no n-smoker Tobacco use other than smoking: Question Answer Notes Are you an other tobacco user? No Problems Problem Type SNOMED Code ICD Code Onset Dates Problem Status W/U Status Risk Notes Problem Peroneal tendonitis (78038475) Peroneal Tendonitis (726.79) Active confirmed Problem Plantar fasciitis (617756616) Plantar Fasciitis (728.71) Active confirmed Problem Pain in limb (25155341) Pain in Limb (729.5) Active confirmed Vital Signs Height 5 ft 10 in in 11/04/2023 Weight 170 lbs 11/04/2023 BMI 24.39 kg/m2 11/04/2023 Encounters Encounter Location Date Provider Diagnosis [address] [address] 11/04/2023 Crow Cuellar Skin disease L98.9 ; Ingrowing nail L60.0 ; Pain in left toe(s) M79.675 and Localized edema R60.[address] [address] 08/05/2023 Crow Cuellar [facility] [address] 08/26/2023 Crow Polo Assessments Encounter Date Diagnosis (ICD Code) Assessment Notes Treatment Notes Treatment Clinical Notes Section Notes 11/04/2023 Ingrowing nail (ICD-10 - L60.0) 11/04/2023 Skin disease (ICD-10 - L98.9) 11/04/2023 Pain in left toe(s) (ICD-10 - M79.675) 11/04/2023 Localized edema (ICD-10 - R60.0) Plan Of Treatment Pending Test Test Name Order Date X ray : Foot, left 3V 03/23/2013 Insurance Providers Payer Name Payer Address Payer Phone Subscriber Number Group Number Insured Name Patient Relationship to Insured Coverage Start Date Coverage End Date [facility] [address] [facility] [address] [phone] [id number] Fadi Sheppard Self - patient is the insured Medical (General) History Medical History History ICD Code hyperlipidemia chicken pox Anemia Broken bones CAD (Cholesterol) Cancer Heart disease Scarlet fever Measles Mumps Chicken pox Vascular grafts Surgical History Surgery Date(Month/Year) heart surgery unspecified 08/24/1987
--- OUTSIDE RECORDS SUMMARY | 2024-07-04 19:33 | XMS_ITS ---
[facility] Radhakatherine cat [place] Address [address] [place] [address] Care Team Providers Care Inside Sales Coordinator Name Role Phone Dhiraj Guevara Primary Care Provider Crow Reina [phone] Allergies Allergen (clinical drug ingredient) Drug/Non Drug Allergy documented on EMR Reaction Allergy Type Onset Date Status Adhesive Unknown Allergy Active Latex Latex Unknown Allergy Active REASON FOR VISIT Last PCP Visit: 06/2022, Skin problem Medications Medication SIG (Take, Route, Frequency, Duration) Notes Start Date End Date Status Vitamin D3 Active Isosorbide Dinitrate 30 MG 1 tablet Oral ly Twice a day Active Verapamil HCl 120 MG 1 tablet Orally Thr ee times a day for 30 day(s) Active Warfarin Sodium 5 MG 1 tablet Orally Two times a Week for 30 day(s) Active baby asprin as directed Unknow n Physical Therapy . . . 2-3x/week for 3- 4 weeks 03/23/2013 Unknown Lipitor 40 MG 1 tablet Orally Once a day for 30 day(s) Unknown Social History Tobacco Use: Social History Observation Description Date Details (start date - stop date) Never Smoker NA - NA Tobacco Use/Smoking Question Answer Notes Are you a: nonsmoker Additional Findings: Tobacco Non-User Current no n-smoker Tobacco use other than smoking: Question Answer Notes Are you an other tobacco user? No Vital Signs Height 5 ft 10 in in 11/04/2023 Weight 170 lbs 11/04/2023 BMI 24.39 kg/m2 11/04/2023 Encounters Encounter Location Date Provider Diagnosis [facility] [address] [place] [address] 11/04/2023 Crow Cuellar Skin disease L98.9 ; Ingrowing nail L60.0 ; Pain in left toe(s) M79.675 and Localized edema R60.0 Assessments Encounter Date Diagnosis (ICD Code) Assessment Notes Treatment Notes Treatment Clinical Notes Section Notes 11/04/2023 Skin disease (ICD-10 - L98.9) 11/04/2023 Ingrowing nail (ICD-10 - L60.0) 11/04/2023 Pain in left toe(s) (ICD-10 - M79.675) 11/04/2023 Localized edema (ICD-10 - R60.0) Plan Of Treatment Next Appt Details Follow Up: prn, Reason: Progress Notes * Fadi SHEPPARDDOB:1935 (88 yo M)Acc No.[id number]:11/04/2023 Progress Notes Patient:?Fadi Sheppard Provider:?Crow Cuellar DPM :1935???Age:88 Y???Sex:Male Kofi e:11/04/2023 Address:[address] [place], [place] [address] Pcp:Dhiraj Guevara Subjective: * Chief Complaints: * ??? Last PCP Visit: 06/2022Sk in problem * HPI: ???Skin problems:?Nature:?swelling, tender.?Location:?Left , 1st.?Duration:?several weeks.?Onset/Cause:?unknown.?Course:?worse, intermittent.?Aggravated by:?comp stockings.?Treatments:?self care.?Severity/Quality:?mild.? * ROS:?General/Constitutional:?Nausea?denies.?Vomiting?denies.?Hunger Thirst?denies.?Loss appetite?denies.?Chills?denies.?Fatigue?denies.?Fever?denies.?Night Sweats?denies.?Unexplained weight loss?denies.?Unexplained weight gain?denies.?HEENTM:?Dentures?denies.?Dizziness?denies.?Glasses/contacts?denies.?Retinopathy?de nies.?Blurred/double vision?denies.?TMJ?denies.?Discharge/drainage?admits.?Implants?denies.?Sore throat?denies.?Dental implants?denies.?Hard of hearing ?admits.?Difficulty chewing/swallowing/speaking?denies.?Nose bleeds?denies.?Sore mouth?denies.?Respiratory:?On Oxygen?denies.?Pneumonia/pleurisy?denies.?Bronchitis?denies.?Emphysema?denies.?C oughing?denies.?Cough blood?denies.?Shortness of breath?admits.?Wheezing?denies.?Cardiovascular:?Pacemaker?denies.?MVP?denies.?WPW?denies.?CHF?denies.?Heart attack?admits.?Septal defect?denies.?Rapid beat?admits.?Chest pain ?denies.?Atrial Fib.?admits.?Murmur/Palpitations?denies.?Gastrointestinal:?Hemorrhoids?denies.?Stomach/Abdominal pain?denies.?Dark blood stool?denies.?Irritable bowel ?denies.?Constipation?denies.?Diarrhea?denies.?Hematology:?Swelling?admits.?Clots?denies.?Varicose Veins?denies.?Bruising?admits.?Bleeding problem?denies.?Genitourinary:?Blood urine?denies.?Frequent/Painfu/urination/bladder control?denies.?Kidney stones?denies.?Infection (UTI)?denies.?Nephropathy?denies.?sex trans dis (STD)?denies.?Prostate?admits.?Musculoskeletal:?Hammertoes?denies.?Bunions?denies.?Back Pain?denies.?Muscle Cramps/ Resting?denies.?Muscle cramps / walking?denies.?Generalized aches and pains?denies.?Weakness?denies.?Integ.:?Jeter?admits.?Scars?admits.?Corns/calluses?denies.?Ingrown nails?denies.?Painful nails?admits.?Open Sores?denies.?Rashes?denies.?Neurologic:?Difficulty sleeping?denies.?Brain disorder?denies.?Numbness?denies.?Balance trouble?denies.?Confusion?denies.?Fainting/blackouts?denies.?Tingling?denies.?Tr emors?denies.? * Medical History:? * Surgical History:?heart surg evan unspecified 08/24/1987 * Hospitalization/Major Diagno stic Procedure:?Denies Past Hospitalization * Family History:?Mother: dece ased, cancer.?Father: .? * Social History:?Tobacco Use:?Tobacco Use/Smoking?Are you a:?nonsmoker ?Additional Findings: Tobacco Non-User?Current non-smoker ?Tobacco use other than smoking?Are you an other tobacco user??No ???Drugs/Alcohol:?Drugs?Have you used drugs other than those for medical reasons in the past 12 months? No.?Alcohol Screen?Did you have a drink containing alcohol in the past year?: No, Points: 0, Interpretation: Negative.?Miscellaneous:?Caffeine: yes, 1-2 cups per day. ?no Exercise. ?Marital status: . ?Occupation: Retired. * Medications:?TakingVitamin D 3 Isosorbide Dinitrate 30 MG Tablet 1 tablet Orally Twice a dayVerapamil HCl 120 MG Tablet 1 tablet Orally Three times a dayWarfarin Sodium 5 MG Tablet 1 tablet Orally Two times a WeekTaking Vitamin D3 Taking Isosorbide Dinitrate 30 MG Tablet 1 tablet Orally Twice a dayTaking Verapamil HCl 120 MG Tablet 1 tablet Orally Three times a dayTaking Warfarin Sodium 5 MG Tablet 1 tablet Orally Two times a WeekUnknownPhysical Therapy . . . . 2-3x/weekLipitor 40 MG Tablet 1 tablet Orally Once a daybaby asprin as directed Medication List reviewed and reconciled with the patientUnknown Physical Therapy . . . . 2-3x/weekUnknown Lipitor 40 MG Tablet 1 tablet Orally Once a dayUnknown baby asprin as directed Medication List reviewed and reconciled with the patient * Allergies:?LatexAdhesiveyes[ Allergies Verified] Objective: * Vitals:?Ht: 5 ft 10 in, Wt: 170, BMI: 24.39, Shoe size: 12, Ht-cm: 177.8 cm, Wt- k.11 kg. * Examination: ???General Examination: ?GENERAL APPEARANCE:?pleasant, alert, well nourished, well developed, well hydrated, with good attention to hygene/body habitus, and in no acute distress.?ORIENTED:?person,place, and time.?Neurological: ?SENSORY:?neurological exam reveals intact sensorium, pain sensation normal, vibration sensation intact, pinprick sensation is normal in the lower extremities, anesthesia, burning, tingling, B/L.?Vascular: ?DP PULSES:?2/4, B/L.?PT PULSES:?2/4, B/L.?CAPILLARY FILL TIME:?3 secs. per digit. B/L.?EDEMA:? 3/4, Left, 1/4, Right, Foot, Ankle(s), Leg(s).?Dermatologic: ?SKIN FINDINGS:?Skin exam reveals normal texture, elasticity, and tugor. There are no masses. The interspaces are clear.?Orthopedic: ?MUSCLE STRENGTH:?5/5 all groups in a symmetrical fashion , B/L.?Ingrown Nail: ?INSPECTION:? Reveals nail incurvation, pain on palpation, groove hypertrophy, groove ischemia, Medial nail border, TA.? Assessment: * Assessment: 1.?Ingrowing nail - L60.0?2. ?Skin disease - L98.9 (Primary)?3.?Pain in left toe(s) - M79.675?4.?Localized edema - R60.0? Plan: * Treatment: * Procedure Codes:? * Preventive Medicine:? ??Counseling:?Discussion:?-03: Office or other outpatient visit for the evaluation and management of a new patient, which required a medically appropriate history and/or examination and LOW level of DECISION MAKING for: 1 STABLE ACUTE UNCOMPLICATED PROBLEM, 2 OR MORE MINOR PROBLEMS, OR 1 STABLE CHRONIC PROBLEM, THAT POSE(S) A LOW RISK FOR MORBIDITY/MORTALITY. The visit on the day of the encounter encompassed interpreting the data and educating the patient as to the nature of their condition, treatment options available according to their individual PMH, meds, allergies, and overall health/living conditions, as well as any potential risks or complications that may occur from a failure to adhere to, and participate in, the recommended course of therapy. The discussion included a complete verbal, and/or written explanation of the examination results, any x-rays taken, the proposed diagnosis, and outline of the treatment plan. A schedule for future care needs was also explained. The patient verbalized an understanding of the instructions at this time and agreed to be an active participant in their treatment. If the patient should think of any questions or concerns after the visit, I have encouraged the patient to call the office--pt to use abx ointment and call prn need for na.? * Follow Up:?prn * Images: * Electronically co-signed by Mireya Soria on 11/04/2023 at 11:10 AM EDT Sign off status: Completed true * Provider:?Crow Cuellar DPM Date:? 024 Generated for Yvette park/Marcella/Belia on:?07/04/2024 07:33 PM EST History and Physical Notes * HPI (History of Present Illness) Category Sub-Category Detail Notes Category Not es Skin problems Nature: swelling, tender Location: Left , 1st Duration: several weeks Onset/Cause: unknown Course: worse, intermittent Aggravated by: comp stockings Treatments: self care Severity/Quality: mild Examination Category Sub-Category Detail Notes Category Not es Ingrown Nail INSPECTION: Reveals nail inc urvation, pain on palpation, groove hypertrophy, groove ischemia, Medial nail border, TA Neurological SENSORY: neurological exa m reveals intact sensorium, pain sensation normal, vibration sensation intact, pinprick sensation is normal in the lower extremities, anesthesia, burning, tingling, B/L Dermatologic SKIN FINDINGS: Skin exam reveal s normal texture, elasticity, and tugor. There are no masses. The interspaces are clear Orthopedic MUSCLE STRENGTH: 5/5 all groups in a symmetrical fashion , B/L General Examination GENERAL APPEARANCE: pleasant , alert, well nourished, well developed, well hydrated, with good attention to hygene/body habitus, and in no acute distress ORIENTED: person,place, and ti me Vascular DP PULSES (B): 2/4, B/L PT PULSES (B): 2/4, B/L CAPILLARY FILL TIME: 3 secs. per digit. B/L EDEMA (C): 3/4, Left, 1/4, Righ t, Foot, Ankle(s), Leg(s)
--- OUTSIDE RECORDS SUMMARY | 2024-07-04 19:33 | XMS_ITS ---
Author Organization [facility] Address [address] [facility] [address] [place] [address] Care Team Providers Care Sports Reporter Name Role Phone Dhiraj Guevara MD Primary Care Provider Nicholas Paul Jr REASON FOR VISIT mri results Encounters Encounter Location Date Provider Diagnosis [facility] Inpatient [address] [place] [id number] 03/18/2024 Nicholas Bal Jr PLAN OF TREATMENT Next Appt Details Provider Name:Nicholas mazariegos Jr, 09/22/2024 01:35:00 PM, [address] [facility], [address], [place], [address],
== END 2024-07-04 15:32 | disposition home or self-care (01) ==
LOC: HO.LAB 15:31
PROVIDERS: Absent Provider Urology; PCP Internal Medicine; Visit Provider Internal Medicine
DX: I50.30 Unspecified diastolic (congestive) heart failure (principal); C61 Malignant neoplasm of prostate; Z12.5 Encounter for screening for malignant neoplasm of prostate
CPT/HCPCS: 36415; 80053; 83880; 84153; 84439; 84443; 85025

== ENCOUNTER 2024-07-07 10:28 | Outpatient (AMB) | payer MEDICARE, SELFPAY ==
--- NOTE | 2024-07-07 10:31 | MHC.OFFVIS ---
Intake Visit Reasons: Followup/Concerns over Cysto Intake Note: Patient is present for CONCERNS OVER CYSTO F/U Urology Medication:NONE Antibiotic Allergy:NONE Blood Thinner:APIXABAN Integrated Circuit Design Engineer Required: No Allergies omeprazole [OMEPRAZOLE] Allergy (Unknown, Verified 07/07/24 10:33) RASH HPI Comments Details: Fadi is a pleasant male. He is a patient of Dr. Guevara. He is seen for following urologic condition - prostate nodule - prostate cancer - gross hematuria Questions over gross hematuria Discussed cystoscopy Would prefer imaging six-month At this point will continue to follow PSA 09/28 3.3, 03/30 3.7, 01/29 3.3 Prostate cancer February 2021 grade group 3 Prostate cancer diagnosed by Dr. Jaimes February 2021 PSA at diagnosis - 02/26 2.2 Biopsy performed for prostate nodule Histologic type: Adenocarcinoma, acinar type; focal intraductal adenocarcinoma Histologic grade: [place] score: 4+3=7 (left mid lateral), 3+4=7 (left base medial), 3+3=6 (left base lateral, left mid medial, right base lateral, right mid medial) Tumor quantitation: Number cores positive: 6 - 50%, 80%, 50%, 50%, 20%, 20% - 270/1200 Total number of cores: 12, % of tissue involved: 20-25% of all tissue examined Periprostatic fat inv.: Not identified Seminal vesicle inv: Not identified, Perineural inv.: Present, LVI:Not identified Staging 02/26 Bone Scan NAD PSA 12/23 1.8, 02/26 2.2, 11/27 1.6, 03/29 2.1 Imaging - 01/29 MRI - left posterolateral mid gland 2 cm lesion PI-RADS 5, question of early T3a involvement, 55 g prostate Lower Urinary Tract Symptoms Weakness of stream On alpha velasquez previously PFSH Medical History (Updated 07/07/24 @ 11:25 by Efrain Jaimes MD) Prostate nodule Low back pain GERD (gastroesophageal reflux disease) CVA (cerebral vascular accident) Dementia Bilateral carotid artery disease Carpal tunnel syndrome of right wrist Vitamin D deficiency Cervical spinal stenosis Atrial fibrillation Hypercholesterolemia Hypertension Coronary artery disease Surgical History (Updated 01/27/24 @ 14:01 by Freddie Arora MD) Hx of CABG (~1997) Inguinal hernia, right History of cardiac cath (~03/2008) Family History Father No problems noted. Mother Cancer CVD (cardiovascular disease) Social History Household Members: Spouse Housing: House Alcohol intake: former Patient Tobacco Use Status: Never used Tobacco Tobacco use type: Cigarette e-Cigarette/Vaping Use: Never Used Second Hand Smoke Exposure: No service: Yes Current occupational status: retired Cognitive needs: No Hearing needs: Yes Vision needs: Yes Review of Systems Const Denies chills and Denies fever(s) Card Reports no additional complaints and Denies syncope Resp Denies cough GI Denies abdominal pain and Denies heartburn Reports as per HPI and Denies change in libido Neuro Denies syncope Psych Denies change in libido Endo Denies change in libido Physical Exam Const General: cooperative, healthy appearing, comfortable and no acute distress Orientation/consciousness: patient oriented x3 HEENT Face and sinus: Yes normal facial exam Mouth: moist mucous membranes Neck Neck: Yes normal visual inspection, Yes full ROM and Yes trachea midline Chest Chest palpation & inspection: normal inspection of the chest Resp Effort & Inspection: normal respiratory effort, able to speak in complete sentences and no respiratory distress GI Inspection: Yes normal to inspection Back/Spine/Pelvis Cervical Spine: normal cervical lordosis Thoracic/Lumbar Spine: thoracic and lumbar spine normal to inspection Skin General skin exam: no rashes or lesions noted Neuro General: patient oriented x3, gait normal, tone normal and moves all extremities Extrem General: Yes normal to inspection and Yes capillary refill normal Assessment & Plan Assessment & Plan (1) Hydrocele: Code(s): N43.3 - Hydrocele, unspecified Category: Medical (2) Prostate cancer: Comment: February 2021 grade group 3 intermediate volume - Bone Scan NAD Code(s): C61 - Malignant neoplasm of prostate Category: Medical (3) BPH w urinary obs/LUTS: Code(s): N40.1 - Benign prostatic hyperplasia with lower urinary tract symptoms; N13.8 - Other obstructive and reflux uropathy Category: Medical Plan Six-month follow-up imaging and PSA Orders: Orders Prostate Specific Antigen 6 Months C61 - Malignant neoplasm of prostate US bladder 6 Months R39.12 - Poor urinary stream, N43.3 - Hydrocele, unspecified US scrotum 6 Months N43.3 - Hydrocele, unspecified Patient Instructions: This note is constructed using voice recognition software. While every effort has been made to ensure accuracy animal keeper errors may have been included. Imaging studies, laboratory and physical exam results were discussed and reviewed in detail. No major barriers to patient understanding were identified. An opportunity to ask questions regarding the treatment plan was provided. All questions were answered. The patient expressed understanding and agreement with the above treatment plan. The patient is aware they should contact our office by phone for worsening of their current condition or the appearance of new urologic symptoms. Compliance is encouraged with any medications and followup testing that is ordered. It is a privilege to participate in the urologic care of your patient. If you have any questions or concerns regarding treatment for the above conditions, or other urologic issues, please do not hesitate to contact me. The office telephone contact is [phone]. Sincerely, Dr Efrain Jaimes MD, [facility] - Urology Compassionate Specialist Care for the Genitourinary System Coding Level of Care Code Est Pt Level 3 (80388) Diagnoses Hydrocele N43.3 Prostate cancer C61 BPH w urinary obs/LUTS N40.1; N13.8
--- OUTSIDE RECORDS SUMMARY | 2024-07-07 14:02 | XMS_ITS ---
Author Organization [facility] Address [address] [facility] [address] [place] [address] Care Team Providers Care Supervisor Accounting Clerks Name Role Phone Dhiraj Guevara MD Primary Care Provider Nicholas Paul Jr REASON FOR VISIT mri results Encounters Encounter Location Date Provider Diagnosis [facility] Inpatient [address] [place] [phone] 03/18/2024 Nicholas Bal Jr PLAN OF TREATMENT Next Appt Details Provider Name:Nicholas mazariegos Jr, 09/22/2024 01:35:00 PM, [address] [facility], [address], [place], [address],
--- OUTSIDE RECORDS SUMMARY | 2024-07-07 14:02 | XMS_ITS ---
Author Organization [facility] Address [address] [place] [address] Care Team Providers Care Hot Metal Mixer Operator Name Role Phone Dhiraj Guevara Primary Care Provider Crow Reina Unavailable [phone] Encounters Encounter Location Date Provider Diagnosis [address] [address] 10/14/2023 Crow Cuellar Plan Of Treatment No Information Progress Notes * Fadi SHEPPARDDOB:1935 (88 yo M)Acc No.[id number]:10/14/2023 Progress Notes Patient:?Fadi SHEPPARD Provider:?Crow Cuellar DPM :1935???Age:88 Y???Sex:Male Kofi e:10/14/2023 Address:[address] [place] [address] [facility] Pcp:Dhiraj Guevara Subjective: * Chief Complaints: * [...] DPM Date:? 024 Generated for Yvette park/Marcella/eTransmitting on:?07/07/2024 02:01 PM EST
--- OUTSIDE RECORDS SUMMARY | 2024-07-07 14:02 | XMS_ITS ---
Author Organization [facility] Address [address] [place] [address] Care Team Providers Care Law Enforcement Director Name Role Phone Dhiraj Guevara Primary Care Provider Crow Reina [phone] REASON FOR VISIT NIGHT WAREHOUSE SELECTOR PPWK Entered Encounters Encounter Location Date Provider Diagnosis [facility] [address] [place] [address] 08/26/2023 Crow Cuellar Plan Of Treatment No Information Progress Notes * VALARIE FadiDOB:1935 (88 yo M)Acc No.[id number]:08/26/2023 Patient:?MelfaFadi :1935???Age:88 Y???Sex:Male Address:[address] [place] [address], [address] * true * Date:? Generated for Ramyi vivian/Marcella/eTransmitting on:?07/07/2024 02:02 PM EST
--- OUTSIDE RECORDS SUMMARY | 2024-07-07 14:02 | XMS_ITS | Patient Health Record ---
Author Organization [facility] Address [address] [place] [address] Care Team Providers Care Director Digital Analytics Name Role Phone Dhiraj Guevara MD Primary [...] reflux disease without esophagitis (K21.9) Active confirmed [id number] Problem Abnormal barium swallow (R93.3) Active confirmed [id number] VITAL SIGNS Blood pressure diastolic 00 mm Hg 09/17/2023 Height 70.75 in 09/17/2023 Blood pressure systolic 000 mm Hg 09/17/2023 Weight 168 lbs 09/17/2023 BMI 23.59 kg/m2 09/17/2023 Encounters Encounter Location Date Provider Diagnosis [facility] [address] [place] [address] 09/17/2023 Nicholas Bal Jr Gastroesophageal reflux disease without esophagitis K21.9 [facility] [place] [address], [place] [phone] 03/18/2024 Nicholas Bal Jr ASSESSMENTS Encounter Date Diagnosis Assessment Notes Treatment Notes Treatment Clinical Notes 09/17/2023 Gastroesophageal ref lux disease without esophagitis (ICD-10 - K21.9) Proton pump inhibitors material was printed PLAN OF TREATMENT Future Test Test Name Order Date COLONOSCOPY 07/30/2011 Next Appt Details Provider Name:Nicholas mazariegos Jr, 09/22/2024 01:35:00 PM, [address] [facility], [address], [place], [address], Insurance Providers Payer Name Payer Address Payer Phone Subscriber Number Group Number Insured Name Patient Relationship to Insured Coverage Start Date Coverage End Date [facility] [address] [place] [phone] [id number] RADHA OVALLES Self - patient is the insured MEDICAL (GENERAL) HISTORY Medical History History ICD Code coronary artery disease atrial fibrillation Colonoscopy 10/29/11, normal, ten-year fo llowup Iron overload Prostate cancer CVA Gastroesophageal reflux disease Hypertension Back pain Surgical History Surgery Date(Month/Year) 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
--- OUTSIDE RECORDS SUMMARY | 2024-07-07 14:02 | XMS_ITS | Patient Health Record ---
Author Organization [facility] Address [address] [facility] [place] [address] Care Team Providers Care Clinical Neuropsychologist Name Role Phone Dhiraj Guevara Primary Care Provider Crow Reina Unavailable [phone] Allergies Allergen (clinical drug ingredient) Drug/Non Drug [...] W/U Status Risk Notes Problem Peroneal tendonitis (01759862) Peroneal Tendonitis (726.79) Active confirmed Problem Plantar fasciitis (335843965) Plantar Fasciitis (728.71) Active confirmed Problem Pain in limb (93796732) Pain in Limb (729.5) Active confirmed Vital Signs Height 5 ft 10 in in 11/04/2023 Weight 170 lbs 11/04/2023 BMI 24.39 kg/m2 11/04/2023 Encounters Encounter Location Date Provider Diagnosis [address] [address] 11/04/2023 Crow Cuellar Skin disease L98.9 ; Ingrowing nail L60.0 ; Pain in left toe(s) M79.675 and Localized edema R60.[address] [address] 08/05/2023 Crow Cuellar [facility] [address] 08/26/2023 Crow Polo Assessments Encounter Date Diagnosis [...] Insured Coverage Start Date Coverage End Date [facility] [address] [facility] [address] [id number] Fadi Sheppard Self - patient is the insured Medical (General) History Medical History History ICD Code hyperlipidemia chicken pox Anemia Broken bones CAD (Cholesterol) Cancer Heart disease Scarlet fever Measles Mumps Chicken pox Vascular grafts Surgical History Surgery Date(Month/Year) heart surgery unspecified 08/24/1987
--- OUTSIDE RECORDS SUMMARY | 2024-07-07 14:03 | XMS_ITS ---
Author Organization [facility] Address [address] [facility] [address] [place] [address] Care Team Providers Care Well Logging Captain Name Role Phone Dhiraj Guevara MD Primary [...] 09/17/2023 Encounters Encounter Location Date Provider Diagnosis [facility] [address] [address] 09/17/2023 Nicholas Bal Jr Gastroesophageal reflux disease [...] Provider Name:Nicholas mazariegos Jr, 09/22/2024 01:35:00 PM, [address] [place] [address] Drive, [address], [place], [address],
--- OUTSIDE RECORDS SUMMARY | 2024-07-07 14:03 | XMS_ITS ---
[facility] Radhakatherine cat [place] Address [address] [place] [address] Care Team Providers Care Table Games Floor Supervisor Name Role Phone Dhiraj Guevara Primary Care Provider Crow Reina [phone] Allergies Allergen (clinical drug ingredient) Drug/Non Drug [...] Encounters Encounter Location Date Provider [facility] [address] [place] [address] 11/04/2023 Crow Cuellar Skin disease L98.9 ; [...] Notes * Fadi SHEPPARDDOB:1935 (88 yo M)Acc No.[id number]:11/04/2023 Progress Notes Patient:?Fadi Sheppard Provider:?Crow Cuellar DPM :1935???Age:88 Y???Sex:Male Kofi e:11/04/2023 Address:[address] [place], [place] [phone] Pcp:Dhiraj Guevara Subjective: * Chief Complaints: * [...] DPM Date:? 024 Generated for Yvette park/Marcella/Belia on:?07/07/2024 02:02 PM EST History and Physical Notes * [...]
== END 2024-07-07 11:35 | disposition home or self-care (01) ==
LOC: HO.HUSH 10:29
PROVIDERS: PCP Internal Medicine; Visit Provider Urology
DX: N43.3 Hydrocele, unspecified (principal); C61 Malignant neoplasm of prostate; N40.1 Benign prostatic hyperplasia with lower urinary tract symptoms; N13.8 Other obstructive and reflux uropathy
CPT/HCPCS: 99213

== ENCOUNTER → 2024-07-07 10:28 | Outpatient (BNVA) | payer MEDICARE, SELFPAY | PROVIDERS: PCP Internal Medicine; Visit Provider Urology | DX: N40.1 Benign prostatic hyperplasia with lower urinary tract symptoms (principal); C61 Malignant neoplasm of prostate; N43.3 Hydrocele, unspecified; N13.8 Other obstructive and reflux uropathy; R39.12 Poor urinary stream | CPT/HCPCS: 99212 ==

== ENCOUNTER 2024-07-26 12:55 | Outpatient (AMB) | payer MEDICARE, SELFPAY ==
--- NOTE | 2024-07-26 13:26 | MHC.OFFVIS ---
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 He has been doing well from cardiac perspective. He has not had any worsening heart failure symptoms. Denies any orthopnea, PND. Denies any exertional chest pain. 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 Denies any prolonged palpitations. No lightheadedness, syncope. No bleeding issues or neurologic events. [facility] Medical History (Updated 07/07/24 @ 11:25 by Efrain Jaimes MD) Prostate nodule Low back pain GERD (gastroesophageal reflux disease) CVA (cerebral vascular accident) Dementia Bilateral carotid artery disease Carpal tunnel syndrome of right wrist Vitamin D deficiency Cervical spinal stenosis Atrial fibrillation Hypercholesterolemia Hypertension Coronary artery disease Surgical History (Updated 01/27/24 @ 14:01 by Freddie Arora MD) Hx of CABG (~1997) Inguinal hernia, right History of cardiac cath (~03/2008) Family History Father No problems noted. Mother Cancer CVD (cardiovascular disease) Social History Household Members: Spouse Housing: House Alcohol intake: former Patient Tobacco Use Status: Never used Tobacco Tobacco use type: Cigarette e-Cigarette/Vaping Use: Never Used Second Hand Smoke Exposure: No service: Yes Current occupational status: retired Cognitive needs: No Hearing needs: Yes Vision needs: Yes Review of Systems Const Denies chills, Denies fatigue, Denies fever(s), Denies frequent falls, Denies weakness, Denies weight gain and Denies weight loss ENT Denies dizziness Card Denies chest pain, Denies leg edema, Denies lightheadedness, Denies palpitations, Denies dyspnea, Denies dyspnea on exertion, Denies orthopnea and Denies other (loss of consciousness) Resp Denies cough, Denies dyspnea and Denies dyspnea on exertion GI Denies hematochezia and Denies change in stool character Musc Denies abnormal gait, Denies muscle weakness, Denies numbness, Denies radiating pain into limb and Denies tingling Neuro Denies abnormal gait, Denies dizziness, Denies frequent falls, Denies numbness, Denies tingling and Denies weakness Endo Denies fatigue and Denies palpitations Physical Exam Vital Signs: Last Vital Signs Pulse 69 07/26/24 13:28 BP 120/74 07/26/24 13:28 BMI result Body Mass Index 24.7 Const General: cooperative, comfortable, no acute distress, alert and awake Nutritional Appearance: average body habitus Orientation/consciousness: patient oriented x3 Limitations: no limitations Neck Neck: Yes trachea midline, Yes supple and Yes no JVD (Positive AJR) Resp Effort & Inspection: normal respiratory effort Auscultation: clear to auscultation bilaterally Cardio Jugular venous distension: no JVD Palpation: normal PMI Rhythm: abnormal rhythm irregularly irregular Heart sounds: S1 normal heart sound present and S2 normal heart sound present GI Auscultation: normal bowel sounds Skin General skin exam: no rashes or lesions noted Neuro General: patient oriented x3 and no focal motor deficits Extrem General: No clubbing, No cyanosis and Yes edema Psych Appearance: grossly normal Affect: Anxious affect present Assessment & Plan Assessment & Plan (1) (HFpEF) heart failure with preserved ejection fraction: Code(s): I50.30 - Unspecified diastolic (congestive) heart failure Category: Medical Plan: Heart failure preserved ejection fraction, clinically euvolemic and well compensated with good functional status. Continue current low-dose diuretic therapy. Daily weight monitoring avoidance salt loading was discussed. Continue current rate control strategy. Continue aggressive blood pressure control. Additional diuretics as need be. Advised to call me with any worsening symptoms. (2) Coronary artery disease: Comment: CABG 3 vessel catheterization 2007 Catheterization May 2020 complex mulivessel disease, April 2020 echocardiogram normal LV mild left atrial dilatation Code(s): I25.10 - Atherosclerotic heart disease of [place] coronary artery without angina pectoris Category: Medical Qualifiers: Coronary Disease-Associated Artery/Lesion type: [place] artery [place] vs. transplanted heart: [place] heart Associated angina: without angina Qualified Code(s): I25.10 - Atherosclerotic heart disease of [place] coronary artery without angina pectoris Plan: CAD status post prior coronary artery bypass grafting with patent grafts by last cardiac catheterization. Currently not having any symptoms of angina on dual therapy with the verapamil and isosorbide. Continue the same. Currently on full oral anticoagulation with apixaban and therefore would avoid aspirin therapy to reduce bleeding risk. Continue high-intensity statin therapy with target goal LDL less than 70 mg/dL. (3) Atrial fibrillation: Comment: Ablation 2007(did not work), Holter October 2020 atrial fibrillation controlled rate Code(s): I48.91 - Unspecified atrial fibrillation Category: Medical Qualifiers: Atrial fibrillation type: paroxysmal Qualified Code(s): I48.0 - Paroxysmal atrial fibrillation Plan: Chronic rate control atrial fibrillation. Continue current rate control with verapamil has done well. Continue full oral anticoagulation Eliquis at 5 mg b.i.d.. Semi annual renal function test should be pursued. Will follow up in the clinic in 6 months time, sooner p.r.n.. Thank you for allowing me to partake in his care Coding Level of Care Code Est Pt Level 4 (45555) Complex EM visit Add On G2211 Diagnoses (HFpEF) heart failure with preserved ejection fraction I50.30 Coronary artery disease involving [place] coronary artery of [place] heart without angina pectoris I25.10 Coronary Disease-Associated Artery/Lesion type: [place] artery [place] vs. transplanted heart: [place] heart Associated angina: without angina Paroxysmal atrial fibrillation I48.0 Atrial fibrillation type: paroxysmal
[2024-07-26 13:28] VITALS: BP 120/74; PULSE 69; BMI 24.7
--- OUTSIDE RECORDS SUMMARY | 2024-07-26 13:47 | XMS_ITS | Patient Health Record ---
Author Organization [facility] Madan stephania [place] Address [address] [facility] [place] [address] Care Team Providers Care Geosciences Faculty Member Name Role Phone Dhiraj Guevara Primary Care Provider Crow Reina Unavailable [phone] Allergies Allergen (clinical drug ingredient) Drug/Non Drug [...] W/U Status Risk Notes Problem Peroneal tendonitis (22938761) Peroneal Tendonitis (726.79) Active confirmed Problem Plantar fasciitis (876597138) Plantar Fasciitis (728.71) Active confirmed Problem Pain in limb (24135751) Pain in Limb (729.5) Active confirmed Vital Signs Height 5 ft 10 in in 11/04/2023 Weight 170 lbs 11/04/2023 BMI 24.39 kg/m2 11/04/2023 Encounters Encounter Location Date Provider Diagnosis [address] [address] 11/04/2023 Crow Cuellar Skin disease L98.9 ; Ingrowing nail L60.0 ; Pain in left toe(s) M79.675 and Localized edema R60.[address] [address] 08/05/2023 Crow Cuellar [facility] [address] 08/26/2023 Crow Polo Assessments Encounter Date Diagnosis [...] Insured Coverage Start Date Coverage End Date [facility] [address] [facility] [address] [phone] [id number] Fadi Sheppard Self - patient is the insured Medical (General) History Medical History History ICD Code hyperlipidemia chicken pox Anemia Broken bones CAD (Cholesterol) Cancer Heart disease Scarlet fever Measles Mumps Chicken pox Vascular grafts Surgical History Surgery Date(Month/Year) heart surgery unspecified 08/24/1987
--- OUTSIDE RECORDS SUMMARY | 2024-07-26 13:47 | XMS_ITS ---
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 Generated for Ramyi vivian/Marcella/eTransmitting on:?07/26/2024 01:47 PM EST
--- OUTSIDE RECORDS SUMMARY | 2024-07-26 13:47 | XMS_ITS ---
Author Organization [facility] Address [address] [facility] [address] [place] [address] Care Team Providers Care Consultant Technology Name Role Phone Dhiraj Guevara MD Primary Care Provider Nicholas Paul Jr REASON FOR VISIT mri results Encounters Encounter Location Date Provider Diagnosis [facility] [address] [place] [phone] 03/18/2024 Nicholas Bal Jr PLAN OF TREATMENT Next Appt Details Provider Name:Nicholas mazariegos Jr, 09/22/2024 01:35:00 PM, [address] [facility], [address], [place], [address],
--- OUTSIDE RECORDS SUMMARY | 2024-07-26 13:47 | XMS_ITS | Patient Health Record ---
Author Organization [facility] Address [address] [place] [address] Care Team Providers Care Business English Instructor Name Role Phone Dhiraj Guevara MD Primary Care Provider Nicholas Paul Jr [phone] ALLERGIES Allergen (clinical drug ingredient) Drug/Non Drug [...] reflux disease without esophagitis (K21.9) Active confirmed [id number] Problem Abnormal barium swallow (R93.3) Active confirmed [id number] VITAL SIGNS Blood pressure diastolic 00 mm Hg 09/17/2023 Height 70.75 in 09/17/2023 Blood pressure systolic 000 mm Hg 09/17/2023 Weight 168 lbs 09/17/2023 BMI 23.59 kg/m2 09/17/2023 Encounters Encounter Location Date Provider Diagnosis [facility] [address] [place] [address] 09/17/2023 Nicholas Bal Jr Gastroesophageal reflux disease without esophagitis K21.9 [facility] [address] [place], [place] [phone] 03/18/2024 Nicholas Bal Jr ASSESSMENTS Encounter Date Diagnosis Assessment Notes Treatment Notes Treatment Clinical Notes 09/17/2023 Gastroesophageal ref lux disease without esophagitis (ICD-10 - K21.9) Proton pump inhibitors material was printed PLAN OF TREATMENT Future Test Test Name Order Date COLONOSCOPY 07/30/2011 Next Appt Details Provider Name:Nicholas mazariegos Jr, 09/22/2024 01:35:00 PM, [address] [facility], [address], [place], [address], Insurance Providers Payer Name Payer Address Payer Phone Subscriber Number Group Number Insured Name Patient Relationship to Insured Coverage Start Date Coverage End Date [facility] [address] [place] [phone] [id number] RADHA OVALLES Self - patient is the insured MEDICAL (GENERAL) HISTORY Medical History History ICD Code coronary artery disease atrial fibrillation Colonoscopy 10/29/11, normal, ten-year fo llowup Iron overload Prostate cancer CVA Gastroesophageal reflux disease Hypertension Back pain Surgical History Surgery Date(Month/Year) 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
--- OUTSIDE RECORDS SUMMARY | 2024-07-26 13:47 | XMS_ITS ---
Author Organization [facility] Address [address] [facility] [address] [place] [address] Care Team Providers Care Plastic Surgery Technician Name Role Phone Dhiraj Guevara MD Primary Care Provider Edwin Bal Jr, Nicholas Unavailable [phone] ALLERGIES Allergen (clinical drug ingredient) Drug/Non Drug [...] 09/17/2023 Encounters Encounter Location Date Provider Diagnosis [facility] [address] [address] 09/17/2023 Nicholas Bal Jr Gastroesophageal reflux disease [...] Provider Name:Nicholas mazariegos Jr, 09/22/2024 01:35:00 PM, [address] [place] [address] Drive, [address], [place], [address],
--- OUTSIDE RECORDS SUMMARY | 2024-07-26 13:47 | XMS_ITS ---
Author Organization [facility] Address [address] [place] [address] Care Team Providers Care Garage Laborer Name Role Phone Dhiraj Guevara Primary Care Provider Crow Reina Unavailable [phone] Encounters Encounter Location Date Provider Diagnosis [address] [address] 10/14/2023 Crow Cuellar Plan Of Treatment No Information Progress Notes * CHARLETTEFadiDOB:1935 (89 yo M)Acc No.[id number]:10/14/2023 Progress Notes Patient:?Fadi SHEPPARD Provider:?Crow Cuellar DPM :1935???Age:88 Y???Sex:Male Kofi e:10/14/2023 Address:[address] [place] [address] [facility] Pcp:Dhiraj Guevara Subjective: * Chief Complaints: * [...] DPM Date:? 024 Generated for Yvette park/Marcella/eTransmitting on:?07/26/2024 01:46 PM EST
--- OUTSIDE RECORDS SUMMARY | 2024-07-26 13:48 | XMS_ITS ---
[facility] Radhakatherine cat [place] Address [address] [place] [address] Care Team Providers Care Sales And Management Trainee Name Role Phone Dhiraj Guevara Primary Care Provider Crow Reina [phone] Allergies Allergen (clinical drug ingredient) Drug/Non Drug [...] 11/04/2023 Encounters Encounter Location Date Provider Diagnosis [facility] [address] [place] [address] 11/04/2023 Crow Cuellar Skin disease L98.9 ; [...] Notes * Fadi SHEPPARDDOB:1935 (88 yo M)Acc No.[id number]:11/04/2023 Progress Notes Patient:?Fadi Sheppard Provider:?Crow Cuellar DPM :1935???Age:88 Y???Sex:Male Kofi e:11/04/2023 Address:[address] [place], [place] [phone] Pcp:Dhiraj Guevara Subjective: * Chief Complaints: * [...] DPM Date:? 024 Generated for Yvette park/Marcella/Belia on:?07/26/2024 01:47 PM EST History and Physical Notes * [...]
== END 2024-07-26 13:54 | disposition home or self-care (01) ==
PROVIDERS: PCP Internal Medicine; Visit Provider Internal Medicine Cardiovascular Disease
DX: I50.30 Unspecified diastolic (congestive) heart failure (principal); I25.10 Atherosclerotic heart disease of native coronary artery without angina pectoris; I48.0 Paroxysmal atrial fibrillation
CPT/HCPCS: 99214; G2211

== ENCOUNTER → 2024-07-26 12:55 | Outpatient (BNVA) | payer MEDICARE, SELFPAY | PROVIDERS: PCP Internal Medicine; Visit Provider Internal Medicine Cardiovascular Disease | DX: I50.30 Unspecified diastolic (congestive) heart failure (principal); I25.10 Atherosclerotic heart disease of native coronary artery without angina pectoris; I48.0 Paroxysmal atrial fibrillation | CPT/HCPCS: 99212 ==

== ENCOUNTER 2024-08-10 13:01 | Outpatient (AMB) | payer MEDICARE, SELFPAY ==
--- NOTE | 2024-08-10 13:03 | MHC.PC.OV ---
Vital Signs 08/10/24 13:04 Height 5 ft 10 in Weight 164 lb BMI 23.5 BP 130/70 Blood Pressure Location Lt brachial Position Sitting Pulse 89 Pulse Source Pulse Oximeter Pulse Oximetry (%) 96 Oxygen Delivery Method Room Air Intake Visit Reasons: Atrial fibrillation, right shoulder pain Wig Stylist Required: No Allergies omeprazole [OMEPRAZOLE] Allergy (Unknown, Verified 08/10/24 13:04) RASH Tobacco use date assessed: 08/10/24 Fall risk assessment: No Falls in past year Last assessed Fall Risk: 08/10/24 Dental Screening Dental Screen Date: 08/10/24 Did you have a dental visit in the last 12 months?: Yes Did you have a dental problem in the last 6 months where you did not have access to dental care?: No Was dental information given to patient?: Patient has dentist [facility] Medical History (Updated 08/10/24 @ 13:36 by Dhiraj Guevara MD) Prostate nodule Low back pain GERD (gastroesophageal reflux disease) CVA (cerebral vascular accident) Dementia Bilateral carotid artery disease Carpal tunnel syndrome of right wrist Vitamin D deficiency Cervical spinal stenosis Atrial fibrillation Hypercholesterolemia Hypertension Coronary artery disease Surgical History (Updated 01/27/24 @ 14:01 by Freddie Arora MD) Hx of CABG (~1997) Inguinal hernia, right History of cardiac cath (~03/2008) Family History Father No problems noted. Mother Cancer CVD (cardiovascular disease) Social History Household Members: Spouse Housing: House Alcohol intake: former Patient Tobacco Use Status: Never used Tobacco Tobacco use type: Cigarette e-Cigarette/Vaping Use: Never Used Second Hand Smoke Exposure: No service: Yes Current occupational status: retired Cognitive needs: No Hearing needs: Yes Vision needs: Yes Questionnaire PHQ-9 Over the last 2 weeks, how often have you been bothered by any of the following problems? 1. Little interest or pleasure in doing things: not at all 2. Feeling down, depressed, or hopeless: not at all 3. Trouble falling or staying asleep, or sleeping too much: not at all 4. Feeling tired or having little energy: not at all 5. Poor appetite or overeating: not at all 6. Feeling bad about yourself - or that you are a failure or have let yourself or your family down: not at all 7. Trouble concentrating on things, such as reading the newspaper or watching television: not at all 8. Moving or speaking so slowly that other people could have noticed. Or the opposite - being so fidgety or restless that you have been moving around a lot more than usual: not at all 9. Thoughts that you would be better off or of hurting yourself in some way: not at all Total score: 0 Depression Screening Interpretation: Negative Depression Screening Done: Yes Source: Developed by Drs. Fadi Avery, Alanna Nguyen, Justin Campos and colleagues, with an educational oliver from [employer]. Thrive Questionnaire Date Thrive assessed: 08/10/24 I am a: Patient What is your living situation today?: I have a steady place to live Within the past 12 months, did the food you bought not last and you didn't have the money to get more?: Never true Within the past 12 months, did you worry whether your food would run out before you got money to buy more?: Never true Do you have trouble paying for medicines?: No Do you have trouble getting transportation to medical appointments?: No Do you have trouble paying your heating and electricity bill?: No Do you have trouble taking care of your child, family member or friend?: No Do you have trouble with day-to-day activities such as bathing, preparing meals, shopping, managing finances, etc.?: No Are you currently unemployed and looking for a job?: No Are you interested in more education?: No Currently or been in a relationship where the following occur: No concerns reported THRIVE Score: 0 AUDIT C Alcohol Use Questionnaire (AUDIT-C) 1. How often do you have a drink containing alcohol?: Never 3. How often do you have six or more drinks on one occasion?: Never Total Score: 0 DARYL-7 AMB Questionnaire DARYL-7 Date DARYL - 7 assessed: 08/10/24 Feeling nervous, anxious, or on edge: 0 = Not at all Not being able to stop or control worryin = Not at all Worrying too much about different things: 0 = Not at all Trouble relaxin = Not at all Being so restless that it is hard to sit still: 0 = Not at all Becoming easily annoyed or irritable: 0 = Not at all Feeling afraid as if something awful might happen: 0 = Not at all Total DARYL-7 score (0-4 normal; 5-9 mild; 10-14 moderate; 15-21 severe): 0 Source: Developed by Drs. Fadi Avery, Alanna Nguyen, Justin Campos and colleagues, with an educational oliver from [employer]. Physical exam (Primary Care) Vital Signs: Last Vital Signs Pulse 89 08/10/24 13:04 BP 130/70 08/10/24 13:04 Pulse Ox 96 08/10/24 13:04 Oxygen Delivery Method Room Air 08/10/24 13:04 BMI result Body Mass Index 23.5 Tobacco/Smoking Status: Tobacco use Status Tobacco use date assessed 08/10/24 08/10/24 13:10 Patient Tobacco Use Status Never used Tobacco 08/10/24 13:10 Tobacco use type Cigarette 08/10/24 13:10 e-Cigarette/Vaping Use Never Used 08/10/24 13:10 PHQ-9: PHQ-9 Score PHQ-9: Total score 0 08/10/24 13:29 Depression Screening Interpretation: Negative Thrive Assessment: Date of Thrive Assessment Date Thrive assessed 08/10/24 08/10/24 13:10 Currently or been in a relationship where the following occur: No concerns reported Const General: alert; No acute distress Eyes Conjunctivae: conjunctivae normal Resp Auscultation: clear to auscultation bilaterally Cardio Rate: regular rate Rhythm: regular rhythm GI Inspection: Yes normal to inspection Extrem General: Yes normal to inspection and No edema Coding Level of Care Code Est Pt Level 4 (37822) Complex EM visit Add On G2211 Diagnoses (HFpEF) heart failure with preserved ejection fraction I50.30 BPH w urinary obs/LUTS N40.1; N13.8 Coronary artery disease involving [place] coronary artery of [place] heart without angina pectoris I25.10 Associated angina: without angina Coronary Disease-Associated Artery/Lesion type: [place] artery [place] vs. transplanted heart: [place] heart Gastroesophageal reflux disease without esophagitis K21.9 Esophagitis presence: without esophagitis Hypercholesterolemia E78.00 Essential hypertension I10 Hypertension type: essential hypertension Paroxysmal atrial fibrillation I48.0 Atrial fibrillation type: paroxysmal Impaired fasting blood sugar R73.01 Arthritis of right glenohumeral joint M19.011 Colon cancer screening Z12.11 Assessment & Plan Assessment & Plan (1) (HFpEF) heart failure with preserved ejection fraction: Code(s): I50.30 - Unspecified diastolic (congestive) heart failure Category: Medical Plan: Weigh daily and record continuing with furosemide low-dose (2) BPH w urinary obs/LUTS: Code(s): N40.1 - Benign prostatic hyperplasia with lower urinary tract symptoms; N13.8 - Other obstructive and reflux uropathy Category: Medical Plan: Continue to follow-up with urology on surveillance with ultrasound and PSA (3) Coronary artery disease: Comment: CABG 3 vessel catheterization 2007 Catheterization May 2020 complex mulivessel disease, April 2020 echocardiogram normal LV mild left atrial dilatation Code(s): I25.10 - Atherosclerotic heart disease of [place] coronary artery without angina pectoris Category: Medical Qualifiers: Associated angina: without angina Coronary Disease-Associated Artery/Lesion type: [place] artery [place] vs. transplanted heart: [place] heart Qualified Code(s): I25.10 - Atherosclerotic heart disease of [place] coronary artery without angina pectoris Plan: Control the cholesterol, weight, blood pressure, continue on anticoagulation with Eliquis (4) GERD (gastroesophageal reflux disease): Code(s): K21.9 - Gastro-esophageal reflux disease without esophagitis Category: Medical Qualifiers: Esophagitis presence: without esophagitis Qualified Code(s): K21.9 - Gastro-esophageal reflux disease without esophagitis Plan: Avoid the foods that causes that usually spicy foods, tomato products, juices, coffee, soda and foods that your sensitive to. After eating do not lie down, allow 3-4 hours before in lie down. And keep the head of bed above 30 degrees to avoid the acid from going up. (5) Hypercholesterolemia: Comment: LDL goal < 70 Code(s): E78.00 - Pure hypercholesterolemia, unspecified Category: Medical Plan: Avoid fried foods, chicken skin, eggs, butter margarine, pastries and meat. Be it pork or beef they have a lot of cholesterol LDL goal of less than 70 and triglyceride of less than 150. 01/26/2024 last blood work on atorvastatin 40 (6) Hypertension: Code(s): I10 - Essential (primary) hypertension Category: Medical Qualifiers: Hypertension type: essential hypertension Qualified Code(s): I10 - Essential (primary) hypertension Plan: Continue with blood pressure medication. Decrease salt intake and exercise continue with verapamil (7) Atrial fibrillation: Comment: Ablation 2007(did not work), Holter October 2020 atrial fibrillation controlled rate Code(s): I48.91 - Unspecified atrial fibrillation Category: Medical Qualifiers: Atrial fibrillation type: paroxysmal Qualified Code(s): I48.0 - Paroxysmal atrial fibrillation Plan: Continue with anticoagulation and verapamil (8) Impaired fasting blood sugar: Code(s): R73.01 - Impaired fasting glucose Category: Medical Plan: Decrease the amount of carbohydrate intake, pasta, bread, rice and potatoes are all sugar and that is aside from all the sweet stuff, remember that fruits are good but they are Sweet also. (9) Arthritis of right glenohumeral joint: Code(s): M19.011 - Primary osteoarthritis, right shoulder Category: Medical Plan: Patient follows up with orthopedics and was advised physical therapy (10) Colon cancer screening: Code(s): Z12.11 - Encounter for screening for malignant neoplasm of colon Category: Medical Plan History of Present Illness The patient is an 89-year-old male presenting with a follow-up for multiple chronic conditions and a recent weight loss of 7 pounds. The patient's medical history includes significant chronic conditions such as hypertension, hypercholesterolemia, atrial fibrillation, coronary artery disease, gastroesophageal reflux disease, and previous prostate cancer, diagnosed in 2020. He was last evaluated in April 2024 and continues to have regular follow-ups. For his cardiology conditions, he is monitored for heart failure, with preserved ejection fraction noted on evaluation. Regular anticoagulation therapy is ongoing due to atrial fibrillation to mitigate thromboembolic risks. His recent blood tests in June revealed anemia and an elevated blood sugar level. LDL cholesterol levels were well-controlled, aligning with prescribed atorvastatin therapy. The patient reports right shoulder pain due to osteoarthritis and has been receiving advisement for physical therapy to manage the pain. The patient had a colonoscopy last in 2011 and expresses concern regarding abdominal discomfort, which may require further evaluation based on current symptoms and previous recommendations to cease screening colonoscopies at age 81. Health Maintenance - Semi-annual blood work to monitor kidney function and blood count due to anticoagulation and diuretic therapy. - LDL cholesterol target less than 70 mg/dL; latest result within target range. - Gastroenterology referral for evaluation of abdominal discomfort with consideration for colonoscopy given prior history. Social History Review of Systems - Gastrointestinal: Reports abdominal discomfort, sensations influenced by pressure around the waist area. - Neuromusculoskeletal: Reports pain in the right shoulder. Physical Exam - Gastrointestinal- Assessment for abdominal discomfort, findings unremarkable upon physical exam. - Musculoskeletal- Palpation of right shoulder indicating osteoarthritic changes without acute distress. Results - Labs: - Anemia: Hemoglobin 8.8 g/dL, hematocrit 26.8% - Blood sugar: 114 mg/dL (mildly elevated) - Cholesterol: LDL 44 mg/dL (measured in January 2024) Plan The patient is advised to continue his anticoagulant and cardiovascular medication regimen with emphasis on ongoing monitoring of heart and kidney function. Recommendations also stress adherence to physical therapy exercises for shoulder osteoarthritis. Chronic anemia likely associated with underlying conditions will be monitored through planned follow-ups. The patient should proceed with gastroenterology evaluation for further assessment of abdominal symptoms, potential colonoscopy notwithstanding age-related standard cessation of screenings. Follow-up for PSA monitoring and imaging under urological care remains crucial, given prior prostate cancer diagnosis. Patient was informed and verbally consented to the use of an ambient scribe for clinic note documentation during this visit. Discussion Notes In our discussion, I emphasized the importance of continued compliance with his prescribed regimen for atrial fibrillation and heart failure, highlighting potential benefits and risks associated with his current medications. I informed the patient that his elevated blood sugar requires attention as part of ongoing diabetes monitoring. The anemia detected in recent labs was addressed as a concern within the context of his other chronic conditions. With regard to his shoulder pain, I reiterated the recommendation for physical therapy to alleviate osteoarthritis symptoms. Discussions about potential procedural evaluations for abdominal discomfort were held, including the suitability of revisiting a colonoscopy decision based on current symptoms rather than solely age criteria. The patient and I reviewed the necessity of diligent self-monitoring of daily weight as part of his management for heart failure. Patient Instructions - Continue taking prescribed medications, including Eliquis, verapamil, and diuretics, as directed. - Engage in daily weight monitoring; maintain a record for follow-up. - Participate consistently in prescribed physical therapy for right shoulder osteoarthritis. - Schedule and attend a follow-up appointment with gastroenterology for abdominal discomfort evaluation. - Proceed with PSA testing and ultrasounds as advised for prostate cancer follow-up. - Seek medical care promptly if there are sudden changes in weight, increased abdominal pain, or unexpected symptoms occur. Orders: Orders B Type Natriuretic Peptide 3 Months I50.30 - Unspecified diastolic (congestive) heart failure Complete Blood Count Auto Diff 3 Months I50.30 - Unspecified diastolic (congestive) heart failure Comprehensive Met. Panel 3 Months I50.30 - Unspecified diastolic (congestive) heart failure Thyroid Stimulating Hormone 3 Months I50.30 - Unspecified diastolic (congestive) heart failure PSA,Total (Free>4and<10) 3 Months C61 - Malignant neoplasm of prostate Hemoglobin A1c 3 Months C61 - Malignant neoplasm of prostate Free T4 (Free Thyroxine) 3 Months I50.30 - Unspecified diastolic (congestive) heart failure Lipid Panel 3 Months E78.00 - Pure hypercholesterolemia, unspecified, I50.30 - Unspecified diastolic (congestive) heart failure Vitamin B12 and Folate 3 Months I50.30 - Unspecified diastolic (congestive) heart failure Magnesium 3 Months I50.30 - Unspecified diastolic (congestive) heart failure Referrals Gastroenterology Referral Z12.11 - Encounter for screening for malignant neoplasm of colon
[2024-08-10 13:04] VITALS: BP 130/70; PULSE 89; O2SAT 96; BMI 23.5
--- OUTSIDE RECORDS SUMMARY | 2024-08-10 15:25 | XMS_ITS | Patient Health Record ---
Author Organization [facility] Madan stephania [place] Address [address] [facility] [place] [address] Care Team Providers Care Director Outpatient Services Name Role Phone Dhiraj Guevara Primary Care Provider Crow Reina Unavailable [phone] Allergies Allergen (clinical drug ingredient) Drug/Non Drug [...] W/U Status Risk Notes Problem Peroneal tendonitis (78998689) Peroneal Tendonitis (726.79) Active confirmed Problem Plantar fasciitis (116813210) Plantar Fasciitis (728.71) Active confirmed Problem Pain in limb (66062172) Pain in Limb (729.5) Active confirmed Vital Signs Height 5 ft 10 in in 11/04/2023 Weight 170 lbs 11/04/2023 BMI 24.39 kg/m2 11/04/2023 Encounters Encounter Location Date Provider Diagnosis [facility] [address] 11/04/2023 Crow Cuellar Skin disease L98.9 ; Ingrowing nail L60.0 ; Pain in left toe(s) M79.675 and Localized edema R60.[address] [facility] [address] 08/26/2023 Crow Cuellar Assessments Encounter Date Diagnosis (ICD Code) Assessment [...] Insured Coverage Start Date Coverage End Date [facility] [address] [facility] [place] [id number] [phone] [id number] Fadi Sheppard Self - patient is the insured Medical (General) History Medical History History ICD Code hyperlipidemia chicken pox Anemia Broken bones CAD (Cholesterol) Cancer Heart disease Scarlet fever Measles Mumps Chicken pox Vascular grafts Surgical History Surgery Date(Month/Year) heart surgery unspecified 08/24/1987
--- OUTSIDE RECORDS SUMMARY | 2024-08-10 15:25 | XMS_ITS | Patient Health Record ---
Author Organization [facility] Address [address] [place] [address] Care Team Providers Care Field Artillery Fire Control Man Name Role Phone Dhiraj Guevara MD Primary Care Provider Nicholas Paul Jr [phone] Allergies Allergen (clinical drug ingredient) Drug/Non Drug Allergy documented on EMR Reaction Allergy Type Onset Date Status omeprazole Omeprazole Unknown Drug Allergy Activ e Reason For Referral No Information Medications Medication [...] Oral for 90 Active Verapamil HCl Active Immunizations Vaccine Route Administration Date Status Comme nts Influenza Unknown 09/15/2022 Refused Problems Problem Type SNOMED Code ICD Code Onset Dates Problem Status W/U Status Risk Notes Problem [id number] Gastroesophageal reflux disease without esophagitis (K21.9) Active confirmed Problem 375986002 Abnormal barium swallow (R93.3) Active confirmed Vital Signs Blood pressure diastolic 00 mm Hg 09/17/2023 Height 70.75 in 09/17/2023 Blood pressure systolic 000 mm Hg 09/17/2023 Weight 168 lbs 09/17/2023 BMI 23.59 kg/m2 09/17/2023 Encounters Encounter Location Date Provider Diagnosis [facility] [address] [place] [address] 09/17/2023 Nicholas Bal Jr Gastroesophageal reflux disease without esophagitis K21.9 [facility] Inpatient [address] [place], [place] [phone] 03/18/2024 Nicholas Bal Jr Assessments Encounter Date Diagnosis (ICD Code) Assessment Notes Treatment Notes Treatment Clinical Notes Section Notes 09/17/2023 Gastroesophageal reflux disease without esophagitis (ICD-10 - K21.9) Proton pump inhibitors material was printed At this time, he is doing well. He will continue omeprazole for his reflux. We discussed diet, lifestyle modifications, and weight management regarding the treatment of reflux. We discussed fiber supplementation for his bowel movements. Followup in one year. Plan Of Treatment Future Test Test Name Order Date COLONOSCOPY 07/30/2011 Next Appt Details Provider Name:Nicholas mazariegos Jr, 09/22/2024 01:35:00 PM, [address] [facility], [address], [place], [address], Insurance Providers Payer Name Payer Address Payer Phone Subscriber Number Group Number Insured Name Patient Relationship to Insured Coverage Start Date Coverage End Date [facility] [address] [place] [phone] [id number] RADHA OVALLES Self - patient is the insured Medical (General) History Medical History History ICD Code coronary artery disease atrial fibrillation Colonoscopy 10/29/11, normal, ten-year fo llowup Iron overload Prostate cancer CVA Gastroesophageal reflux disease Hypertension Back pain Surgical History Surgery Date(Month/Year) 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
--- OUTSIDE RECORDS SUMMARY | 2024-08-10 15:25 | XMS_ITS ---
Author Organization [facility] Address [address] [place] [address] Care Team Providers Care Psychology Tech Name Role Phone Dhiraj Guevara Primary Care Provider Crow Reina Unavailable [phone] Encounters Encounter Location Date Provider Diagnosis [address] [address] 10/14/2023 Crow Cuellar Plan Of Treatment No Information Progress Notes * CHARLETTEFadiDOB:1935 (89 yo M)Acc No.[id number]:10/14/2023 Progress Notes Patient:?Fadi SHEPPARD Provider:?Crow Cuellar DPM :1935???Age:88 Y???Sex:Male Kofi e:10/14/2023 Address:[address] [place] [address] [facility] Pcp:Dhiraj Guevara Subjective: * Chief Complaints: * [...] DPM Date:? 024 Generated for Yvette park/Marcella/eTransmitting on:?08/10/2024 03:24 PM EST
--- OUTSIDE RECORDS SUMMARY | 2024-08-10 15:25 | XMS_ITS ---
Author Organization [facility] Address [address] [place] [address] Care Team Providers Care Audit Lead Name Role Phone Dhiraj Guevara Primary Care Provider Crow Reina [phone] REASON FOR VISIT SUPERVISOR MAINTENANCE PPWK Entered Encounters Encounter Location Date Provider Diagnosis [facility] [address] [place] [address] 08/26/2023 Crow Cuellar Plan Of Treatment No Information Progress Notes * Fadi SHEPPARDDOB:1935 (88 yo M)Acc No.[id number]:08/26/2023 Patient:?ValarieFadi :1935???Age:88 Y???Sex:Male Address:[address] [place] [address], [address] * true * Date:? Generated for Ramyi vivian/Marcella/eTransmitting on:?08/10/2024 03:25 PM EST
--- OUTSIDE RECORDS SUMMARY | 2024-08-10 15:26 | XMS_ITS ---
Author Organization [facility] Address [address] [facility] [address] [place] [address] Care Team Providers Care Certified Hand Therapist Name Role Phone Dhiraj Guevara MD Primary Care Provider Nicholas Paul Jr [phone] REASON FOR VISIT mri results Encounters Encounter Location Date Provider Diagnosis [facility] Inpatient [address] [place] [phone] 03/18/2024 Nicholas Bal Jr Plan Of Treatment Next Appt Details Provider Name:Nicholas mazariegos Jr, 09/22/2024 01:35:00 PM, [address] [facility], [address], [place], [address], Progress Notes * RADHA OVALLES ADOB: (88 yo M)Acc No.[id number]:03/18/2024 Patient:?RADHA OVALLES :1935???Age:88 Y???Sex:Male Address:[address] [place] [address], [address] * true * Date:? Generated for Printi vivian/Marcella/eTransmitting on:?08/10/2024 03:25 PM EST
--- OUTSIDE RECORDS SUMMARY | 2024-08-10 15:26 | XMS_ITS ---
[facility] Radhakatherine cat [place] Address [address] [place] [address] Care Team Providers Care Project Lead Name Role Phone Dhiraj Guevara Primary Care Provider Crow Reina [phone] Allergies Allergen (clinical drug ingredient) Drug/Non Drug [...] 11/04/2023 Encounters Encounter Location Date Provider Diagnosis [facility] [address] [place] [address] 11/04/2023 Crow Cuellar Skin disease L98.9 ; [...] Notes * Fadi SHEPPARDDOB:1935 (88 yo M)Acc No.[id number]:11/04/2023 Progress Notes Patient:?Fadi Sheppard Provider:?Crow Cuellar DPM :1935???Age:88 Y???Sex:Male Kofi e:11/04/2023 Address:[address] [place], [place] [id number] Pcp:Dhiraj Guevara Subjective: * Chief Complaints: * [...] DPM Date:? 024 Generated for Yvette park/Marcella/Belia on:?08/10/2024 03:25 PM EST History and Physical Notes * [...]
--- OUTSIDE RECORDS SUMMARY | 2024-08-10 15:26 | XMS_ITS ---
Author Organization [facility] Address [address] [facility] [address] [place] [address] Care Team Providers Care Photo Journalist Name Role Phone Dhiraj Guevara MD Primary Care Provider Nicholas Paul Jr Unavailable Allergies Allergen (clinical drug ingredient) Drug/Non Drug Allergy documented on EMR Reaction Allergy Type Onset Date Status omeprazole Omeprazole Unknown Drug Allergy Activ e REASON FOR VISIT Patient presents today for dysphagia Medications Medication SIG (Take, Route, Frequency, Duration) Notes Start Date End Date Status Verapamil HCl ER 120 MG Oral for 90 Active Atorvastatin Calcium 40 MG Oral for 90 Active Eliquis 5 MG 1 tablet Orally Twic e a day Active Vitamin D3 50 MCG (1999) TAKE 1 CAPSU LE BY MOUTH DAILY Oral for 90 Active Verapamil HCl Active Vital Signs Blood pressure systolic 000 mm Hg 09/17/19 24 Blood pressure diastolic 00 mm Hg 024 Height 70.75 in 09/17/2023 Weight 168 lbs 09/17/2023 BMI 23.59 kg/m2 09/17/2023 Encounters Encounter Location Date Provider Diagnosis [facility] [address] [facility] [address] [place] [address] 09/17/2023 Nicholas Bal Jr Gastroesophageal reflux disease without esophagitis K21.9 Assessments Encounter Date Diagnosis (ICD Code) Assessment [...] Followup in one year. Plan Of Treatment Treatment Notes Assessment Notes Gastroesophageal reflux dise ase without esophagitis Proton pump inhibitors material was printed Next Appt Details Follow Up: 1 Year, Reason: Provider Name:Nicholas Virgen delilah Brooks, 09/22/2024 01:35:00 PM, [address] [facility], [address], [place], [address], Progress Notes * RADHA OVALLES ADOB: (88 yo M)Acc No.[id number]:09/17/2023 Progress Notes Patient:?RADHA OVALLES Provider:?Nicholas Bal MD :1935???Age:88 Y???Sex:Male Kofi e:09/17/2023 Address:[address] [place], [place] [id number] Pcp:Dhiraj Guevara MD Subjective: * Chief Complaints: * ???1. Patient presents today for dysphagia. * HPI: ???New symptom(s):? Radha is a pleasant 88-year-old man seen today in followup of gastroesophageal reflux disease and dysphagia. He reports she's done well since we saw him last one year ago. He has no complaints of worsening dysphagia, hematemesis, or melena. Weight and appetite have been stable. Reflux symptoms are well- controlled with apple cider vinegar. ?He does report some lumpy stool. He has no rectal bleeding or change in his bowel habits. Last colonoscopy was more than 10 years ago. This was normal. We reviewed this today. * Medical History:?Coronary ar derek disease, Atrial fibrillation, Colonoscopy 10/29/11, normal, ten-year followup, Iron overload, Prostate cancer, CVA, Gastroesophageal reflux disease, Hypertension, Back pain. * Surgical History:?CABG x3 19 , ablation, unsuccessful for atrial fibrillation , cardiac stent 2007. * Family History:?Father: dece ased, diagnosed with Heart disease.?Mother: , diagnosed with Heart disease.? No family history of colon cancer or liver cancer. * Social History:?Tobacco Use:?Tobacco Use/Smoking?Are you a: nonsmoker.?Drugs/Alcohol:?Alcohol Screen?Points: 1, Interpretation: Negative.?Miscellaneous:?Marital status: . Occupation: retired. 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 * Medications:?Taking Eliquis 5 MG Tablet 1 tablet Orally Twice a day, Taking Verapamil HCl , Taking Vitamin D3 50 MCG (1999 UT) Capsule TAKE 1 CAPSULE BY MOUTH DAILY Oral , Taking Atorvastatin Calcium 40 MG Tablet Oral , Taking Verapamil HCl ER 120 MG Capsule Extended Release 24 Hour Oral , Discontinued Warfarin Sodium , Discontinued Aspir-81 , Discontinued Calcium , Discontinued Lipitor , Discontinued HalfLytely with Flavor Packs 5-210 MG-GM Kit as directed Orally , Discontinued Isosorbide Mononitrate ER 30 MG Tablet Extended Release 24 Hour Oral , Discontinued Imiquimod 5 % Cream External , Discontinued Vitamin D (Ergocalciferol) 1.25 MG (84559 UT) Capsule TAKE 1 CAPSULE BY MOUTH WEEKLY FOR 3 MONTHS Oral , Discontinued Furosemide 20 MG Tablet Oral , Medication List reviewed and reconciled with the patient * Allergies:?Omeprazole. Objective: * Vitals:?Wt: 168 lbs, Ht: 70. 75 in, BMI:23.59 Index, BP: 000/00 mm Hg. * Examination: ???General Examination: ???On examination today, he appears well. Skin is anicteric. Lungs are clear. Heart shows regular rate and rhythm. Abdomen is soft without focal mass or tenderness. Extremities are without edema. Assessment: * Assessment: 1.?Gastroesophageal reflux d isease without esophagitis - K21.9 (Primary)? At this time, he is doing we ll. He will continue omeprazole for his reflux. We discussed diet, lifestyle modifications, and weight management regarding the treatment of reflux. We discussed fiber supplementation for his bowel movements. Followup in one year. Plan: * Treatment: * Procedure Codes:?G9903 Pt sc rn tbco id as non user, G9745 DOC RSN FOR NOT SCREEN/REC F/U HBP * Follow Up:?1 Year * * Sign off status: Completed true * Provider:?Nicholas Bal MD Date:?0 09/17/2023 Generated for Yvette park/Marcella/eTransmitting on:?08/10/2024 03:25 PM EST History and Physical Notes * HPI (History of Present Illness) Category Sub-Category Detail Notes Category Not es New symptom(s) Radha is a pleasant 88-year-old man seen today in followup of gastroesophageal reflux disease and dysphagia. He reports she's done well since we saw him last one year ago. He has no complaints of worsening dysphagia, hematemesis, or melena. Weight and appetite have been stable. Reflux symptoms are well-controlled with apple cider vinegar. He does report some lumpy stool. He has no rectal bleeding or change in his bowel habits. Last colonoscopy was more than 10 years ago. This was normal. We reviewed this today. Examination Category Sub-Category Detail Notes Category Not es General Examination On exami nation today, he appears well. Skin is anicteric. Lungs are clear. Heart shows regular rate and rhythm. Abdomen is soft without focal mass or tenderness. Extremities are without edema.
== END 2024-08-10 14:03 | disposition home or self-care (01) ==
PROVIDERS: PCP Internal Medicine; Visit Provider Internal Medicine
DX: I50.30 Unspecified diastolic (congestive) heart failure (principal); I48.0 Paroxysmal atrial fibrillation; N40.1 Benign prostatic hyperplasia with lower urinary tract symptoms; N13.8 Other obstructive and reflux uropathy; I25.10 Atherosclerotic heart disease of native coronary artery without angina pectoris; K21.9 Gastro-esophageal reflux disease without esophagitis; E78.00 Pure hypercholesterolemia, unspecified; I10 Essential (primary) hypertension; R73.01 Impaired fasting glucose; M19.011 Primary osteoarthritis, right shoulder; Z12.11 Encounter for screening for malignant neoplasm of colon

== ENCOUNTER → 2024-08-10 13:01 | Outpatient (BNVA) | payer MEDICARE, SELFPAY | PROVIDERS: PCP Internal Medicine; Visit Provider Internal Medicine | DX: I11.0 Hypertensive heart disease with heart failure (principal); I50.30 Unspecified diastolic (congestive) heart failure; N40.1 Benign prostatic hyperplasia with lower urinary tract symptoms; N13.8 Other obstructive and reflux uropathy; I25.10 Atherosclerotic heart disease of native coronary artery without angina pectoris; E78.00 Pure hypercholesterolemia, unspecified; K21.9 Gastro-esophageal reflux disease without esophagitis; I48.0 Paroxysmal atrial fibrillation; R73.01 Impaired fasting glucose; M19.011 Primary osteoarthritis, right shoulder | CPT/HCPCS: 99212 ==

== ENCOUNTER 2024-08-23 14:46 | Outpatient (REF) | payer MEDICARE, SELFPAY ==
[2024-08-23 15:51] LABS: Appearance Urine Clear; Color Urine Yellow; Glucose Urine UA Negative (Negative); Leukocyte Esterase Urine Negative (Negative); Nitrite Urine Negative (Negative); Urine Blood Negative (Negative); Urine Ketones Trace mg/dL (Negative); Urine Protein Negative (Neg-Trace)
[2024-08-23 16:12] LABS: Bacteria Urine None Seen (None Seen); Squamous Epithelial Cell Urine 0-2 /HPF (0-2); WBC Urine 0-5 /HPF (0-5)
[2024-08-23 17:10] LABS: Anion Gap 11 (12-20); Blood Urea Nitrogen 24 mg/dL (9-16); Calcium 9.1 mg/dL (8.4-10.2); Carbon Dioxide 26 mmol/L (22-29); Chloride 109 mmol/L (96-108); Estimated Glomerular Filt Rate > 60; Glucose Random 93 mg/dL (60-115); Potassium 4.2 mmol/L (3.3-5.1); Sodium 142 mmol/L (135-145)
== END 2024-08-23 14:47 | disposition home or self-care (01) ==
LOC: HO.LAB 14:46
PROVIDERS: PCP Internal Medicine; Visit Provider Urology
DX: N40.1 Benign prostatic hyperplasia with lower urinary tract symptoms (principal); N13.8 Other obstructive and reflux uropathy; I48.0 Paroxysmal atrial fibrillation
CPT/HCPCS: 36415; 80048; 81001; 87086

== ENCOUNTER 2024-09-21 12:43 | Outpatient (REF) | payer MEDICARE, SELFPAY ==
--- NOTE | ~2024-09-21 | XR_ITS ---
EXAMINATION: XR CHEST CLINICAL INFORMATION: J18.9 - Pneumonia, unspecified organism COMPARISON: 02/25/2022 TECHNIQUE: 2 views of the chest were obtained. FINDINGS: There is borderline cardiac enlargement. Mediastinal and hilar contours are normal. Aortic mural calcifications. There has been a prior sternotomy. Lungs demonstrate patchy opacities throughout the right upper and lower lung, suspicious for pneumonia. In addition, there are subtle opacities in the left upper lung as well, also suspicious for pneumonic involvement. There is an azygos fissure noted. There is no effusion or pneumothorax. There are moderate degenerative changes of the right shoulder joint. There are spinal degenerative changes. There are old bilateral rib fractures. XR/XR chest 2V IMPRESSION: 1. Multifocal pneumonia most significant in the right lung. No effusions. 2. 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 Electronically signed by: Carlos Garsia MD 09/21/2024 02:17 PM EDT
[2024-09-21 14:54] LABS: MANUAL DIFF FLAG SCAN
[2024-09-21 14:57] LABS: Basophils Percent Auto 0.3 % (0-2); Eosinophils Absolute Auto 0.1 X10*3/uL (0.0-0.4); Eosinophils Percent Auto 1.3 % (0-4); Hematocrit 27.4 % (42.0-52.0); Hemoglobin 9.1 g/dl (14.0-18.0); Imm Gran Abs Auto 0.06 X10*3/uL (0.00-0.03); Imm Gran Pct Auto 0.7 % (0.0-0.4); Immature Retic Fraction 18.3 % (2.3-13.4); Lymphocytes Percent Auto 10.8 % (20-40); Mean Corpuscular HGB Conc 33.2 g/dl (31.0-36.0); Mean Corpuscular Hemoglobin 35.5 pg (27.0-33.0); Mean Platelet Volume 11.7 fL (9.4-12.4); Monocytes Absolute Auto 1.8 X10*3/uL (0.1-1.2); Monocytes Percent Auto 19.5 % (2-11); Neutrophils Absolute Auto 6.2 x10*3/uL (2.0-8.3); Neutrophils Percent Auto 67.4 % (45-73); Platelet Count 393 X10*3/uL (160-400); Red Blood Count 2.56 X10*6/uL (4.60-5.80); Red Cell Distribution Width 22.5 % (11.0-16.0); Retic HGB Equivalent 28.3 pg (30.0-35.0); Reticulocyte Percent 1.5 % (0.5-1.8); Reticulocytes Absolute 0.039 X10*6/uL (0.026-0.095); SCAN SMEAR FLAG 1; White Blood Count 9.2 X10*3/uL (4.8-10.8)
[2024-09-21 15:38] LABS: B Type Natriuretic Peptide 136 pg/mL (<100)
[2024-09-21 15:58] LABS: SLIDE REVIEW VERIFIED
[2024-09-21 16:06] LABS: Folate 11.5 ng/mL (> or = 4.0); Vitamin B12 682 pg/mL (200-900)
[2024-09-21 16:28] LABS: Alanine Aminotransferase 17 U/L (0-40); Albumin Level 4.1 g/dL (3.5-5.0); Alkaline Phosphatase 73 U/L (39-117); Anion Gap 12 (12-20); Aspartate Amino Transferase 17 U/L (5-37); Bilirubin Total 0.9 mg/dL (0.0-1.0); Blood Urea Nitrogen 28 mg/dL (9-16); Calcium 9.1 mg/dL (8.4-10.2); Carbon Dioxide 26 mmol/L (22-29); Chloride 104 mmol/L (96-108); Estimated Glomerular Filt Rate > 60; Glucose Random 121 mg/dL (60-115); Iron 24 mcg/dL (45-160); Percent Iron Saturation 13 % (15-50); Potassium 3.7 mmol/L (3.3-5.1); Sodium 138 mmol/L (135-145); Total Iron Binding Capacity 185 mcg/dL (228-428); Unsaturated Iron Binding 161 ug/dL
[2024-09-21 16:46] LABS: Ferritin 586 ng/mL (20-250)
== END 2024-09-21 12:44 | disposition home or self-care (01) ==
LOC: HO.XRAY 12:43
PROVIDERS: PCP Internal Medicine; Visit Provider Internal Medicine
DX: J18.9 Pneumonia, unspecified organism (principal); D64.9 Anemia, unspecified; I48.0 Paroxysmal atrial fibrillation; I25.10 Atherosclerotic heart disease of native coronary artery without angina pectoris; Z79.01 Long term (current) use of anticoagulants; Z95.1 Presence of aortocoronary bypass graft
CPT/HCPCS: 36415; 71046; 80053; 82607; 82728; 82746; 83540; 83880; 85025; 85045; 96127; 99212

== ENCOUNTER 2024-09-21 12:43 | Outpatient (AMB) | payer MEDICARE, SELFPAY ==
[2024-09-21 12:49] VITALS: BP 128/68; PULSE 82; TEMP 36.7; O2SAT 94; BMI 23.4
--- NOTE | 2024-09-21 12:49 | MHC.PC.OV ---
Vital Signs 09/21/24 12:49 Height 5 ft 10 in Weight 163 lb BMI 23.4 BP 128/68 Blood Pressure Location Lt brachial Position Sitting Pulse 82 Pulse Source Pulse Oximeter Temp 98.1 F Temp Source Oral Pulse Oximetry (%) 94 Oxygen Delivery Method Room Air Intake Visit Reasons: Cold Symptoms Allergies omeprazole [OMEPRAZOLE] Allergy (Unknown, Verified 09/21/24 12:49) RASH Tobacco use date assessed: 08/10/24 Fall risk assessment: No Falls in past year Last assessed Fall Risk: 09/21/24 Dental Screening Dental Screen Date: 08/10/24 HPI Cold Symptoms HPI Details 2 weeks ago, sob, productive, , no fevers, , no sore throat, no diarrhea, did no test for covid but family no sickness PFSH Medical History (Updated 09/21/24 @ 13:08 by Dhiraj Guevara MD) Prostate nodule Low back pain GERD (gastroesophageal reflux disease) CVA (cerebral vascular accident) Dementia Bilateral carotid artery disease Carpal tunnel syndrome of right wrist Vitamin D deficiency Cervical spinal stenosis Atrial fibrillation Hypercholesterolemia Hypertension Coronary artery disease Surgical History (Updated 01/27/24 @ 14:01 by Freddie Arora MD) Hx of CABG (~1997) Inguinal hernia, right History of cardiac cath (~03/2008) Family History Father No problems noted. Mother Cancer CVD (cardiovascular disease) Social History Household Members: Spouse Housing: House Alcohol intake: former Patient Tobacco Use Status: Never used Tobacco Tobacco use type: Cigarette e-Cigarette/Vaping Use: Never Used Second Hand Smoke Exposure: No service: Yes Current occupational status: retired Cognitive needs: No Hearing needs: Yes Vision needs: Yes Questionnaire PHQ-9 Over the last 2 weeks, how often have you been bothered by any of the following problems? 1. Little interest or pleasure in doing things: not at all 2. Feeling down, depressed, or hopeless: not at all 3. Trouble falling or staying asleep, or sleeping too much: not at all 4. Feeling tired or having little energy: not at all 5. Poor appetite or overeating: not at all 6. Feeling bad about yourself - or that you are a failure or have let yourself or your family down: not at all 7. Trouble concentrating on things, such as reading the newspaper or watching television: not at all 8. Moving or speaking so slowly that other people could have noticed. Or the opposite - being so fidgety or restless that you have been moving around a lot more than usual: not at all 9. Thoughts that you would be better off or of hurting yourself in some way: not at all Total score: 0 Depression Screening Interpretation: Negative Depression Screening Done: Yes Source: Developed by Drs. Fadi Avery, Alanna Nguyen, Justin Campos and colleagues, with an educational oliver from [employer]. Thrive Questionnaire Date Thrive assessed: 08/10/24 AUDIT C Alcohol Use Questionnaire (AUDIT-C) 1. How often do you have a drink containing alcohol?: Never 3. How often do you have six or more drinks on one occasion?: Never Total Score: 0 DARYL-7 AMB Questionnaire DARYL-7 Date DARYL - 7 assessed: 08/10/24 Source: Developed by Drs. Fadi Avery, Alanna Nguyen, Justin Campos and colleagues, with an educational oliver from [employer]. Physical exam (Primary Care) Vital Signs: Last Vital Signs Temp 98.1 F 09/21/24 12:49 Pulse 82 09/21/24 12:49 BP 128/68 09/21/24 12:49 Pulse Ox 94 09/21/24 12:49 Oxygen Delivery Method Room Air 09/21/24 12:49 BMI result Body Mass Index 23.4 Tobacco/Smoking Status: Tobacco use Status Tobacco use date assessed 08/10/24 09/21/24 12:55 Patient Tobacco Use Status Never used Tobacco 09/21/24 12:55 Tobacco use type Cigarette 09/21/24 12:55 e-Cigarette/Vaping Use Never Used 09/21/24 12:55 PHQ-9: PHQ-9 Score PHQ-9: Total score 0 09/21/24 12:59 Depression Screening Interpretation: Negative Thrive Assessment: Date of Thrive Assessment Date Thrive assessed 08/10/24 09/21/24 12:55 Const General: alert; No acute distress Eyes Conjunctivae: conjunctivae normal Resp Other: Auscultation reveals left side to be clear and then the right side has basal crackles Cardio Rate: regular rate Rhythm: regular rhythm GI Inspection: Yes normal to inspection Extrem General: Yes normal to inspection and No edema Coding Level of Care Code Est Pt Level 4 (42268) Diagnoses Anemia D64.9 Paroxysmal atrial fibrillation I48.0 Atrial fibrillation type: paroxysmal Coronary artery disease involving sycuan coronary artery of sycuan heart without angina pectoris I25.10 Associated angina: without angina Coronary Disease-Associated Artery/Lesion type: sycuan artery Jamul vs. transplanted heart: sycuan heart Pneumonia J18.9 Assessment & Plan Assessment & Plan (1) Anemia: Code(s): D64.9 - Anemia, unspecified Category: Medical Plan: Advised to get blood work to follow-up on the anemia (2) Atrial fibrillation: Comment: Ablation 2007(did not work), Holter October 2020 atrial fibrillation controlled rate Code(s): I48.91 - Unspecified atrial fibrillation Category: Medical Qualifiers: Atrial fibrillation type: paroxysmal Qualified Code(s): I48.0 - Paroxysmal atrial fibrillation Plan: Patient on anticoagulation with Eliquis needs to have renal function at least twice a day year (3) Coronary artery disease: Comment: CABG 3 vessel catheterization 2007 Catheterization May 2020 complex mulivessel disease, April 2020 echocardiogram normal LV mild left atrial dilatation Code(s): I25.10 - Atherosclerotic heart disease of sycuan coronary artery without angina pectoris Category: Medical Qualifiers: Associated angina: without angina Coronary Disease-Associated Artery/Lesion type: sycuan artery Jamul vs. transplanted heart: sycuan heart Qualified Code(s): I25.10 - Atherosclerotic heart disease of sycuan coronary artery without angina pectoris Plan: Control the cholesterol, weight, blood pressure, diabetes (4) Pneumonia: Code(s): J18.9 - Pneumonia, unspecified organism Category: Medical Plan: will send in antibiotic. chest xray requested Plan History of Present Illness The patient is an 89-year-old male presenting with acute respiratory symptoms and follow-up on anemia. The patient has experienced persistent cough and phlegm production over the past few weeks, with a notable change from white to green phlegm approximately two weeks ago, raising concerns about an infectious process. Despite this, the patient denies fever, possible sore throat, or other systemic symptoms and states the cough remains problematic and breathing is labored, with no significant improvement. Additionally, there is a history of anemia with a prior blood test revealing low hemoglobin and hematocrit levels in June. The patient recognizes the need for further evaluation, given the previous findings and the lack of recent follow-up. This history aligns with chronic conditions, including atrial fibrillation, coronary artery disease, gastrouintestinal issues, and a history of prostate cancer among others, with current concerns mainly revolving around the respiratory discomfort and anemia management. Health Maintenance - Discussed need for follow-up on anemia, including blood work to reassess hemoglobin and hematocrit levels. - Encouraged hydration to aid in respiratory symptom alleviation. - No recent screening tests or vaccinations were discussed. Social History Review of Systems - Respiratory: Reports cough with phlegm production, including white and green phlegm. Denies fever. - Gastrointestinal: Denies diarrhea. - General: Denies sore throat, reports no fever. Physical Exam - Respiration- Crackles noted on the right side upon lung auscultation. Results - Labs: Previous anemia with hemoglobin 8.8 g/dl and hematocrit 26.8%, as per June blood work. - Electrolytes and renal function are normal; blood sugar is stable. Plan The patient with a suspected respiratory infection was prescribed an antibiotic to manage the probable infectious etiology of his symptoms. A chest x-ray is ordered to assess for pneumonia. I emphasized increasing fluid intake to help clear respiratory secretions. Additionally, given the history of anemia with low hemoglobin and hematocrit, the patient requires repeat bloodwork in the future to guide further management. Ongoing monitoring of electrolytes and renal function is advised due to the complexity of his medical history and treatment regimen. Patient was informed and verbally consented to the use of an ambient scribe for clinic note documentation during this visit. Discussion Notes During the consultation, we discussed the likelihood of a respiratory infection, potentially pneumonia, based on the patient's symptomatology and examination findings such as crackles in the right lung. I prescribed an antibiotic and explained its necessity in treating the likely bacterial infection, noting potential side effects and the importance of adherence to the treatment regimen. I assured the patient that with proper monitoring and intervention, management of symptoms and underlying conditions like anemia would remain effective, emphasizing follow-up blood work for anemia within two to three months. Instructions on hydration and when to seek further care due to respiratory or systemic symptom escalation were also provided. Patient Instructions - Take antibiotics as prescribed, twice daily. - Stay well hydrated to help manage respiratory symptoms. - Obtain a chest x-ray as soon as convenient to assess possible pneumonia. - Schedule follow-up blood work in two to three months to assess anemia status. - Seek medical attention if symptoms worsen, such as increased difficulty breathing or high fever. Orders: Orders Ferritin Today I48.0 - Paroxysmal atrial fibrillation IRON PROFILE Today I48.0 - Paroxysmal atrial fibrillation Comprehensive Met. Panel Today I48.0 - Paroxysmal atrial fibrillation Complete Blood Count Auto Diff Today I48.0 - Paroxysmal atrial fibrillation Reticulocyte Count Today I48.0 - Paroxysmal atrial fibrillation Vitamin B12 and Folate Today I48.0 - Paroxysmal atrial fibrillation B Type Natriuretic Peptide Today I48.0 - Paroxysmal atrial fibrillation XR chest 2V Today J18.9 - Pneumonia, unspecified organism Medications: New doxycycline hyclate 100 mg PO BID 14 caps 0RF J18.9 - Pneumonia, unspecified organism
--- OUTSIDE RECORDS SUMMARY | 2024-09-21 15:04 | XMS_ITS | Patient Health Record ---
Author Organization [facility] Address [address] [facility] [place] [address] Care Team Providers Care Water Tanker Driver Name Role Phone Dhiraj Guevara Primary Care Provider Crow Reina Unavailable [phone] Allergies Allergen (clinical drug ingredient) Drug/Non Drug [...] W/U Status Risk Notes Problem Peroneal tendonitis (69525555) Peroneal Tendonitis (726.79) Active confirmed Problem Plantar fasciitis (754525024) Plantar Fasciitis (728.71) Active confirmed Problem Pain in limb (35744226) Pain in Limb (729.5) Active confirmed Vital Signs Height 5 ft 10 in in 11/04/2023 Weight 170 lbs 11/04/2023 BMI 24.39 kg/m2 11/04/2023 Encounters Encounter Location Date Provider Diagnosis [facility] [place] [address] [place] [address] 11/04/2023 Crow Cuellar Skin disease L98.9 ; [...] Insured Coverage Start Date Coverage End Date [facility] [address] [facility] [place] [id number] Fadi Sheppard Self - patient is the insured Medical (General) History Medical History History ICD Code hyperlipidemia chicken pox Anemia Broken bones CAD (Cholesterol) Cancer Heart disease Scarlet fever Measles Mumps Chicken pox Vascular grafts Surgical History Surgery Date(Month/Year) heart surgery unspecified 08/24/1987
--- OUTSIDE RECORDS SUMMARY | 2024-09-21 15:04 | XMS_ITS ---
Author Organization [facility] Address [address] [place] [address] Care Team Providers Care Customer Advisor Name Role Phone Dhiraj Guevara Primary Care Provider Crow Reina Unavailable [phone] Encounters Encounter Location Date Provider Diagnosis [address] [address] 10/14/2023 Crow Cuellar Plan Of Treatment No Information Progress Notes * CHARLETTEFadiDOB:1935 (89 yo M)Acc No.[id number]:10/14/2023 Progress Notes Patient:?Fadi SHEPPARD Provider:?Crow Cuellar DPM :1935???Age:88 Y???Sex:Male Kofi e:10/14/2023 Address:[address] [place] [address] [facility] Pcp:Dhiraj Guevara Subjective: * Chief Complaints: * ??? * Medical History:? Objective: * Vitals:? Assessment: Plan: * Treatment: * Images: * The named appointment provid er may or may not be the originator of this progress note, and it is not deemed complete until electronically signed by the appointment provider. Sign off status: Pending * Provider:Patti Cuellar DPM Date:? 024 Generated for Yvette ng/Faberniceg/eTransmitting on:?09/21/2024 03:04 PM EDT
--- OUTSIDE RECORDS SUMMARY | 2024-09-21 15:04 | XMS_ITS ---
Author Organization [facility] Address [address] [place] [address] Care Team Providers Care Welfare Visitor Name Role Phone Dhiraj Guevara Primary Care Provider Crow Reina [phone] REASON FOR VISIT [employer] [facility]WK Entered Encounters Encounter Location Date Provider Diagnosis [facility] [address] [place] [address] 08/26/2023 Crow Cuellar Plan Of Treatment No Information Progress Notes * VALARIE FadiDOB:1935 (88 yo M)Acc No.[id number]:08/26/2023 Patient:?ValarieFadi :1935???Age:88 Y???Sex:Male Address:[address] [place] [address], [address] * true * Date:? Generated for Printi vivian/Marcella/eTransmitting on:?09/21/2024 03:04 PM EDT
--- OUTSIDE RECORDS SUMMARY | 2024-09-21 15:05 | XMS_ITS ---
Author Organization [facility] Address [address] [facility] [address] [place] [address] Care Team Providers Care Business Manager [employer] Name Role Phone Dhiraj Guevara MD Primary Care Provider Nicholas Paul Jr [phone] REASON FOR VISIT mri results Encounters Encounter Location Date Provider Diagnosis [facility] [address] [place] [phone] 03/18/2024 Nicholas Bal Jr Plan Of Treatment Next Appt Details Provider Name:Nicholas mazariegos Jr, 09/22/2024 01:35:00 PM, [address] [facility], [address], [place], [address], Progress Notes * RADHA OVALLES ADOB: (88 yo M)Acc No.[id number]:03/18/2024 Patient:?RADHA OVALLES :1935???Age:88 Y???Sex:Male Address:[address] [place] [address], [address] * true * Date:? Generated for Printi ng/Faberniceg/eTransmitting on:?09/21/2024 03:04 PM EDT
--- OUTSIDE RECORDS SUMMARY | 2024-09-21 15:05 | XMS_ITS | Patient Health Record ---
Author Organization [facility] Address [address] [facility] [address] [place] [address] Care Team Providers Care Motion Picture Photographer Name Role Phone Dhiraj Guevara MD Primary Care Provider Edwin Bal Jr, Nicholas Ledezma Allergies Allergen (clinical drug ingredient) Drug/Non Drug [...] Problem Status W/U Status Risk Notes Problem [id number] Gastroesophageal reflux disease without esophagitis (K21.9) Active confirmed Problem 407553427 Abnormal barium swallow (R93.3) Active confirmed Encounters Encounter Location Date Provider Diagnosis [facility] [address] [place] [phone] 03/18/2024 Nicholas Bal Jr Plan Of Treatment Future Test Test Name Order Date COLONOSCOPY 07/30/2011 Next Appt Details Provider Name:Nicholas mazariegos Jr, 09/22/2024 01:35:00 PM, [address] [facility], [address], [place], [address], Insurance Providers Payer Name Payer Address Payer Phone Subscriber Number Group Number Insured Name Patient Relationship to Insured Coverage Start Date Coverage End Date [facility] [address] [place] [phone] [id number] RADHA OVALLES Self - patient is the insured Medical (General) History Medical History History ICD Code coronary artery disease atrial fibrillation Colonoscopy 10/29/11, normal, ten-year fo llowup Iron overload Prostate cancer CVA Gastroesophageal reflux disease Hypertension Back pain Surgical History Surgery Date(Month/Year) 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
--- OUTSIDE RECORDS SUMMARY | 2024-09-21 15:05 | XMS_ITS ---
[facility] [place] Address [address] [place] [address] Care Team Providers Care President Name Role Phone Dhiraj Guevara Primary Care Provider Crow Reina [phone] Allergies Allergen (clinical drug ingredient) Drug/Non Drug [...] 11/04/2023 Encounters Encounter Location Date Provider Diagnosis [facility] [address] [place] [address] 11/04/2023 Crow Cuellar Skin disease L98.9 ; [...] Notes * Fadi SHEPPARDDOB:1935 (88 yo M)Acc No.[id number]:11/04/2023 Progress Notes Patient:?Fadi Sheppard Provider:?Crow Cuellar DPM :1935???Age:88 Y???Sex:Male Kofi e:11/04/2023 Address:[address] [place], [place] [id number] Pcp:Dhiraj Guevara Subjective: * Chief Complaints: * [...] DPM Date:? 024 Generated for Yvette park/Marcella/Belia on:?09/21/2024 03:05 PM EDT History and Physical Notes * HPI (History [...]
--- OUTSIDE RECORDS SUMMARY | 2024-09-21 15:05 | XMS_ITS ---
Author Organization [facility] Address [address] [facility] [address] [place] [address] Care Team Providers Care Health And Wellness Sales Consultant Name Role Phone Dhiraj Guevara MD Primary Care Provider Nicholas Paul Jr Unavailable [phone] Allergies Allergen (clinical drug ingredient) Drug/Non Drug [...] 09/17/2023 Encounters Encounter Location Date Provider Diagnosis [facility] [address] [facility] [address] [place] [address] 09/17/2023 Nicholas Bal Jr Gastroesophageal reflux disease [...] Virgen delilah Brooks, 09/22/2024 01:35:00 PM, [address] [facility], [address], [place], [address], Progress Notes * RADHA OVALLES ADOB: (88 yo M)Acc No.[id number]:09/17/2023 Progress Notes Patient:?RADHA OVALLES Provider:?Nicholas Bal MD :1935???Age:88 Y???Sex:Male Kofi e:09/17/2023 Address:[address] [place], [place] [id number] Pcp:Dhiraj Guevara MD Subjective: * Chief Complaints: [...] , Discontinued Vitamin D (Ergocalciferol) 1.25 MG (52809 UT) Capsule TAKE 1 CAPSULE BY MOUTH [...] MD Date:?0 09/17/2023 Generated for Yvette park/Marcella/eTransmitting on:?09/21/2024 03:05 PM EDT History and Physical [...]
== END 2024-09-21 13:18 | disposition home or self-care (01) ==
LOC: HO.HMCH 12:44
PROVIDERS: PCP Internal Medicine; Visit Provider Internal Medicine
DX: D64.9 Anemia, unspecified (principal); I48.0 Paroxysmal atrial fibrillation; I25.10 Atherosclerotic heart disease of native coronary artery without angina pectoris; J18.9 Pneumonia, unspecified organism

== ENCOUNTER → 2024-09-21 13:50 | Outpatient (BNV) | payer MEDICARE, SELFPAY | PROVIDERS: PCP Internal Medicine; Visit Provider Radiology Diagnostic Radiology | DX: J18.8 Other pneumonia, unspecified organism (principal) | CPT/HCPCS: 71046 ==

== ENCOUNTER 2024-10-04 12:15 | Outpatient (REF) | payer MEDICARE, SELFPAY ==
--- NOTE | ~2024-10-04 | XR_ITS ---
EXAMINATION: XR CHEST CLINICAL INFORMATION: J18.9 - Pneumonia, unspecified organism COMPARISON: September 21, 2024. TECHNIQUE: 2 views of the chest were obtained. FINDINGS: Bilateral multifocal patchy and confluent pulmonary opacities involving mostly the right and to a lesser extent left upper lung lobe. No gross pleural effusion or pneumothorax. Sternal wires. Cardiomediastinal silhouette size is normal. Calcified plaque aortic arch. Multilevel thoracic spondylosis. Old wedge-shaped compression deformities representing 20-30% volume loss in the vertebral bodies mid thoracic spine. Callus formation in the posterior lateral aspect ribs of the left upper hemithorax.. XR/XR chest 2V IMPRESSION: Concerning multifocal pneumonia with slight improved aeration. Electronically signed by: Benton Cruz MD 10/05/2024 03:18 PM EDT
--- OUTSIDE RECORDS SUMMARY | 2024-10-04 14:15 | XMS_ITS ---
Author Organization [facility] Address [address] [place] [address] Care Team Providers Care Canteen Operator Name Role Phone Dhiraj Guevara Primary Care Provider Crow Reina Unavailable [phone] Encounters Encounter Location Date Provider Diagnosis [address] [address] 10/14/2023 Crow uCellar Plan Of Treatment No Information Progress Notes * CHARLETTEFadiDOB:1935 (89 yo M)Acc No.[id number]:10/14/2023 Progress Notes Patient:?Fadi SHEPPARD Provider:?Crow Cuellar DPM :1935???Age:88 Y???Sex:Male Kofi e:10/14/2023 Address:[address] [place] [address] [facility] Pcp:Dhiraj Guevara Subjective: * Chief Complaints: * [...] DPM Date:? 024 Generated for Yvette ng/Faberniceg/eTransmitting on:?10/04/2024 02:14 PM EDT
--- OUTSIDE RECORDS SUMMARY | 2024-10-04 14:15 | XMS_ITS ---
Author Organization [facility] [place] Address [address] [place] [address] Care Team Providers Care Miniature Set Designer Name Role Phone Dhiraj Guevara Primary Care Provider Crow Reina [phone] Allergies Allergen (clinical drug ingredient) Drug/Non Drug [...] 11/04/2023 Encounters Encounter Location Date Provider Diagnosis [facility] [address] [place] [address] 11/04/2023 Crow Cuellar Skin disease L98.9 ; [...] Notes * Fadi SHEPPARDDOB:1935 (88 yo M)Acc No.[id number]:11/04/2023 Progress Notes Patient:?Fadi Sheppard Provider:?Crow Cuellar DPM :1935???Age:88 Y???Sex:Male Kofi e:11/04/2023 Address:[address] [place], [place] [address] Pcp:Dhiraj Guevara Subjective: * Chief Complaints: * [...] DPM Date:? 024 Generated for Yvette park/Marcella/Belia on:?10/04/2024 02:15 PM EDT History and Physical Notes * [...]
--- OUTSIDE RECORDS SUMMARY | 2024-10-04 14:15 | XMS_ITS ---
Author Organization [facility] Address [address] [place] [address] Care Team Providers Care Laborer/Grade Check Name Role Phone Dhiraj Guevara Primary Care Provider Crow Reina [phone] REASON FOR VISIT INSURANCE BROKER PPWK Entered Encounters Encounter Location Date Provider Diagnosis [facility] [address] [place] [address] 08/26/2023 Crow Cuellar Plan Of Treatment No Information Progress Notes * VALARIE FadiDOB:1935 (88 yo M)Acc No.[id number]:08/26/2023 Patient:?ValarieFadi :1935???Age:88 Y???Sex:Male Address:[address] [place] [address], [address] * true * Date:? Generated for Printi vivian/Marcella/eTransmitting on:?10/04/2024 02:15 PM EDT
--- OUTSIDE RECORDS SUMMARY | 2024-10-04 14:15 | XMS_ITS | Patient Health Record ---
Author Organization [facility] stephania [facility] Address [address] [facility] [place] [address] Care Team Providers Care Clinical Admissions Manager Name Role Phone Dhiraj Guevara Primary Care Provider Crow Reina Unavailable [phone] Allergies Allergen (clinical drug ingredient) Drug/Non Drug [...] W/U Status Risk Notes Problem Peroneal tendonitis (78173647) Peroneal Tendonitis (726.79) Active confirmed Problem Plantar fasciitis (632136017) Plantar Fasciitis (728.71) Active confirmed Problem Pain in limb (64861005) Pain in Limb (729.5) Active confirmed Vital Signs Height 5 ft 10 in in 11/04/2023 Weight 170 lbs 11/04/2023 BMI 24.39 kg/m2 11/04/2023 Encounters Encounter Location Date Provider Diagnosis [facility] [address] [place] [address] 11/04/2023 Crow Cuellar Skin disease L98.9 ; [...] Insured Coverage Start Date Coverage End Date [facility] [address] [facility] [place] [address] [phone] [id number] Fadi Sheppard Self - patient is the insured Medical (General) History Medical History History ICD Code hyperlipidemia chicken pox Anemia Broken bones CAD (Cholesterol) Cancer Heart disease Scarlet fever Measles Mumps Chicken pox Vascular grafts Surgical History Surgery Date(Month/Year) heart surgery unspecified 08/24/1987
== END 2024-10-04 12:16 | disposition home or self-care (01) ==
LOC: HO.XRAY 12:15
PROVIDERS: PCP Internal Medicine; Visit Provider Internal Medicine
DX: J18.9 Pneumonia, unspecified organism (principal)
CPT/HCPCS: 71046

== ENCOUNTER → 2024-10-04 12:19 | Outpatient (BNV) | payer MEDICARE, SELFPAY | PROVIDERS: PCP Internal Medicine; Visit Provider Radiology Diagnostic Radiology | DX: J18.9 Pneumonia, unspecified organism (principal) | CPT/HCPCS: 71046 ==

== ENCOUNTER 2024-10-21 | Outpatient (REF) | payer MEDICARE, SELFPAY ==
--- OUTSIDE RECORDS SUMMARY | 2023-10-14 05:30 | XMS_ITS ---
Author Organization [facility] Address [address] [place] [phone] Care Team Providers Care Aviation Support Equipment Repairer Name Role Phone Dhiraj Guevara Primary Care Provider Cristopher Garrett Unavailable [phone] Crow Cuellar [phone] Encounters Encounter Location Date Provider Diagnosis [address] [address] 10/14/2023 Crow Cuellar Plan Of Treatment Next Appt Details Provider Name:Cristopher Mera , 01/27/2025 01:15:00 PM, [address] [place] [address], [phone], Progress Notes * Fadi SHEPPARDDOB:1935 (89 yo M)Acc No.[id number]:10/14/2023 Progress Notes Patient: Fadi VITALE Provider: Therese Cuellar DPM :1935 A ge:88 Y S ex:Male Date:10/14/2023 Address:[address] [place] [address] ramya [facility] Pcp:Dhiraj Guevara Subjective: * Chief Complaints: * [...] DPM Date: 0 10/14/2023 Generated for Yvette park/Marcella/Belia on: 0 12/06/2024 07:03 AM EDT
--- OUTSIDE RECORDS SUMMARY | 2024-09-22 09:35 | XMS_ITS ---
Author Organization [facility] Address [address] [place] [address] Care Team Providers Care Regulatory Lead Name Role Phone Dhiraj Guevara MD Primary Care Provider Nicholas Paul Jr REASON FOR VISIT dysphagia Encounters Encounter Location Date Provider Diagnosis [facility] [address] [place] [address] 09/22/2024 Nicholas Bal Jr Plan Of Treatment No Information Progress Notes * RADHA OVALLES ADOB: [birth year] (89 yo M)Acc No.[id number]:09/22/2024 Progress Notes Patient: RADHA VITALE Provider: Jacqueline Bal MD :1935 A ge:89 Y S ex:Male Date:09/22/2024 Address:[address] [place], [place] [phone] Pcp:Dhiraj Guevara MD Subjective: * Chief Complaints: [...] 09/22/2024 Generated for Yvette park/Faberniceg/eTransmitting on: 0 12/06/2024 07:03 AM EDT
--- NOTE | ~2024-10-21 | XR_ITS ---
EXAMINATION: XR CHEST 2 VIEWS HISTORY: J18.9 - Pneumonia, unspecified organism COMPARISON: Comparison is made with prior examinations dated 10/04/2024 and 09/21/2024. FINDINGS: PA and lateral views of the chest are submitted. There is been further progression of airspace opacities in both upper lobes. There is no pleural effusion, pneumothorax, or pulmonary vascular congestion. The heart is normal in size. The patient is status post median sternotomy. The aorta is calcified. There is degenerative disc disease of the spine. XR/XR chest 2V IMPRESSION: Further progression of bilateral upper lobe airspace opacities. Further evaluation with chest CT is recommended. Electronically signed by: Fadi Morris MD 10/21/2024 03:29 PM EDT
== END 2024-10-21 00:01 | disposition home or self-care (01) ==
LOC: HO.XRAY
PROVIDERS: PCP Internal Medicine; Visit Provider Nurse Practitioner Family
DX: J18.9 Pneumonia, unspecified organism (principal)
CPT/HCPCS: 71046

== ENCOUNTER 2024-10-21 14:09 | Outpatient (AMB) | payer MEDICARE, SELFPAY ==
--- OUTSIDE RECORDS SUMMARY | 2024-10-21 14:14 | XMS_ITS ---
Author Organization [facility] Address [address] [place] [address] Care Team Providers Care Decorative Engraver Apprentice Name Role Phone Dhiraj Guevara MD Primary Care Provider Nicholas Paul Jr [phone] REASON FOR VISIT dysphagia Encounters Encounter Location Date Provider Diagnosis [facility] [address] [place] [address] 09/22/2024 Nicholas Bal Jr Plan Of Treatment No Information Progress Notes * RADHA OVALLES ADOB: [birth year] (89 yo M)Acc No.[id number]:09/22/2024 Progress Notes Patient:?RADHA OVALLES Provider:?Nicholas Bal MD :1935???Age:89 Y???Sex:Male Kofi e:09/22/2024 Address:[address] [place], [place] [address] Pcp:Dhiraj Guevara MD Subjective: * Chief Complaints: * ???1. Dysphagia. * Medical History:? Objective: * Vitals:? Assessment: Plan: * Treatment: * * The named appointment provid er may or may not be the originator of this progress note, and it is not deemed complete until electronically signed by the appointment provider. Sign off status: Pending * Provider:?Nicholas Bal MD Date:?0 09/22/2024 Generated for Printi ng/Faxing/eTransmitting on:?10/21/2024 02:14 PM EDT
--- OUTSIDE RECORDS SUMMARY | 2024-10-21 14:14 | XMS_ITS ---
Author Organization [facility] Address [address] [place] [address] Care Team Providers Care Diamond Selector Name Role Phone Dhiraj Guevara Primary Care Provider Cristopher Garrett Unavailable [phone] Crow Cuellar [phone] Encounters Encounter Location Date Provider Diagnosis [address] [address] 10/14/2023 Crow Cuellar Plan Of Treatment Next Appt Details Provider Name:Cristopher Mera , 01/27/2025 01:15:00 PM, [address] [place] [address], [address], Progress Notes * Fadi SHEPPARDDOB:1935 (89 yo M)Acc No.[id number]:10/14/2023 Progress Notes Patient:?Fadi SHEPPARD Provider:?Crow Cuellar DPM :1935???Age:88 Y???Sex:Male Kofi e:10/14/2023 Address:[address] [place] [address] [facility] Pcp:Dhiraj Guevara Subjective: * Chief Complaints: * [...] DPM Date:? 024 Generated for Yvette park/Marcella/Belia on:?10/21/2024 02:14 PM EDT
--- OUTSIDE RECORDS SUMMARY | 2024-10-21 14:15 | XMS_ITS ---
Author Organization [facility] Address [address] [place] [address] Care Team Providers Care Dermatology Nurse Practitioner Name Role Phone Dhiraj Guevara MD Primary Care Provider Nicholas Palu Jr [phone] REASON FOR VISIT mri results Encounters Encounter Location Date Provider Diagnosis [facility] [address] [place] [phone] 03/18/2024 Nicholas Bal Jr Plan Of Treatment No Information Progress Notes * RADHA OVALLES ADOB: [birth year] (88 yo M)Acc No.[id number]:03/18/2024 Patient:?RADHA OVALLES :1935???Age:88 Y???Sex:Male Address:[address] [place] [address], [address] * true * Date:? Generated for Ramyi vivian/Marcella/eTransmitting on:?10/21/2024 02:15 PM EDT
--- OUTSIDE RECORDS SUMMARY | 2024-10-21 14:15 | XMS_ITS | Patient Health Record ---
Author Organization [facility] [place] Address [address] [place] [address] Care Team Providers Care Receiving Associate Store Name Role Phone Dhiraj Guevara Primary Care Provider Cristopher Garrett Unavailable [phone] Crow Cuellar Unavailable [phone] Allergies Allergen (clinical drug ingredient) Drug/Non Drug Allergy documented on EMR Reaction Allergy Type Onset Date Status Adhesive Unknown Allergy Active Latex Latex Unknown Allergy Active Reason For Referral No Information Medications Medication SIG (Take, Route, Frequency, Duration) Notes Start Date End Date Status Lipitor 40 MG 1 tablet Orally Once a day for 30 day(s) Active Physical Therapy . . . 2-3x/week for 3- 4 weeks 03/23/2013 Not-Taking Warfarin Sodium 5 MG 1 tablet Orally Two times a Week for 30 day(s) Not-Taking Verapamil HCl 120 MG 1 tablet Orally Thr ee times a day for 30 day(s) Active Isosorbide Dinitrate 30 MG 1 tablet Orally Twice a day Active Vitamin D3 Active guaiFENesin Active Eliquis Active Ferrous Aspartate Ac tive Lasix Active Furosemide Active baby asprin as directed Not-Ta [place] Social History Tobacco Use: Social History Observation [...] Problem Status W/U Status Risk Notes Problem Bilateral atherosclerosis of arteries of lower limbs (disorder) (80399527427632376 ) Atherosclerosis of lytton artery of both lower extremities, with unspecified presence of clinical manifestation (I70.203) Active confirmed Q7(A), Q8(2B), Q9(1B,2 C) Vital Signs Blood pressure diastolic 70 mm Hg 10/21/2024 Height 5 ft 10 in in 10/21/2024 Blood pressure systolic 115 mm Hg 10/21/2024 Weight 170 lbs 10/21/2024 BMI 24.39 kg/m2 10/21/2024 Procedures Procedure Date Ordered Date Performed Result Body Sit e 12645-JMODXKN NAIL, 6 OR MORE 10/21/2024 N/A 68868-Axituqqw Plate 10/21/2024 N/A 61100-NJRL SKIN LESIONS, 2 TO 4 10/21/2024 N/A Encounters Encounter Location Date Provider Diagnosis [facility] [address] 11/04/2023 Crow Cuellar Skin disease L98.9 ; Ingrowing nail L60.0 ; Pain in left toe(s) M79.675 and Local[facility] [address] 10/21/2024 Cristopher Mera Pain in right toe(s) M79.674 ; Onychomycosis B35.1 ; Pain in left toe(s) M79.675 ; Atherosclerosis of lytton artery of both lower extremities, with unspecified presence of clinical manifestation I70.203 and Ingrown nail L60.0 Assessments Encounter Date Diagnosis (ICD Code) Assessment Notes Treatment Notes Treatment Clinical Notes Section Notes 11/04/2023 Ingrowing nail (ICD-10 - L60.0) 11/04/2023 Skin disease (ICD-10 - L98.9) 10/21/2024 Pain in right toe(s) (ICD-10 - M79.674) 10/21/2024 Onychomycosis (ICD-10 - B35.1) 10/21/2024 Pain in left toe(s) (ICD-10 - M79.675) 11/04/2023 Pain in left toe(s) (ICD-10 - M79.675) 11/04/2023 Localized edema (ICD-10 - R60.0) 10/21/2024 Atherosclerosis of lytton artery of both lower extremities, with unspecified presence of clinical manifestation (ICD-10 - I70.203) Q7(A), Q8(2B), Q9(1B,2C) 10/21/2024 Ingrown nail (ICD-10 - L60.0) Plan Of Treatment Pending Test Test Name Order Date X ray : Foot, left 3V 03/23/2013 41252-IFVZIDJ NAIL, 6 OR MORE 10/21/2024 73395-Gwqguxlt Plate 10/21/2024 37008-NHWX SKIN LESIONS, 2 TO 4 10/22/19 25 Next Appt Details Provider Name:Cristopher Mera , 01/27/2025 01:15:00 PM, [address] [place], [address], Insurance Providers Payer Name Payer Address Payer Phone Subscriber Number Group Number Insured Name Patient Relationship to Insured Coverage Start Date Coverage End Date [employer] [place] [employer]age [facility] [address] [facility] [id number] Fadi Sheppard Self - patient is the insured Medical (General) History Medical History History ICD Code hyperlipidemia chicken pox Anemia Broken bones CAD (Cholesterol) Cancer Heart disease Scarlet fever Measles Mumps Chicken pox Vascular grafts Surgical History Surgery Date(Month/Year) heart surgery unspecified 08/24/1987
--- OUTSIDE RECORDS SUMMARY | 2024-10-21 14:15 | XMS_ITS ---
Author Organization [facility] stephania [place] Address [address] [place] [address] Care Team Providers Care Mechanical Engineering Draftsperson Name Role Phone Dhiraj Guevara Primary Care Provider Cristopher Garrett Unavailable [phone] Allergies Allergen (clinical drug ingredient) Drug/Non Drug Allergy documented on EMR Reaction Allergy Type Onset Date Status Adhesive Unknown Allergy Active Latex Latex Unknown Allergy Active REASON FOR VISIT At Risk Footcare, Painful Nail(s) aggravated by shoes and causing difficulty standing/walking., Ingrown Nail Medications Medication SIG (Take, Route, Frequency, Duration) [...] times a day for 30 day(s) Active baby asprin as directed Not-Ta joslyn Isosorbide Dinitrate 30 MG 1 tablet Orally Twice a day Active Vitamin D3 Active guaiFENesin Active Eliquis Active Ferrous Aspartate Ac tive Lasix Active Furosemide Active Social History Tobacco Use: Social History Observation [...] atherosclerosis of arteries of lower limbs (disorder) ([id number] ) Atherosclerosis of [place] artery of both lower extremities, with unspecified presence of clinical manifestation (I70.203) Active confirmed Q7(A), Q8(2B), Q9(1B,2 C) Vital Signs Height 5 ft 10 in in 10/21/2024 Weight 170 lbs 10/21/2024 BMI 24.39 kg/m2 10/21/2024 Blood pressure systolic 115 mm Hg 10/22/19 25 Blood pressure diastolic 70 mm Hg 025 Procedures Procedure Date Ordered Date Performed Result Body Sit e 24972-NUZDHVR NAIL, 6 OR MORE 10/21/2024 N/A 11415-Ggzgrwtx Plate 10/21/2024 N/A 32166-RSSF SKIN LESIONS, 2 TO 4 10/21/2024 N/A Encounters Encounter Location Date Provider Diagnosis [facility] [address] [place] [address] 10/21/2024 Cristopher Mera Pain in right toe(s) M79.674 ; Onychomycosis B35.1 ; Pain in left toe(s) M79.675 ; Atherosclerosis of [place] artery of both lower extremities, with unspecified presence of clinical manifestation I70.203 and Ingrown nail L60.0 Assessments Encounter Date Diagnosis (ICD Code) Assessment Notes Treatment Notes Treatment Clinical Notes Section Notes 10/21/2024 Pain in right toe(s) (ICD-10 - M79.674) 10/21/2024 Onychomycosis (ICD-10 - B35.1) 10/21/2024 Pain in left toe(s) (ICD-10 - M79.675) 10/21/2024 Atherosclerosis of [place] artery of both lower extremities, with unspecified presence of clinical manifestation (ICD-10 - I70.203) Q7(A), Q8(2B), Q9(1B,2C) 10/21/2024 Ingrown nail (ICD-10 - L60.0) Plan Of Treatment Pending Test Test Name Order Date 20799-LFIIPTJ NAIL, 6 OR MORE 10/21/2024 65060-Navkyuqo Plate 10/21/2024 90622-BXVR SKIN LESIONS, 2 TO 4 10/22/19 25 Next Appt Details Follow Up: prn, Reason: Provider Name:Cristopher Mera , 01/27/2025 01:15:00 PM, [address] [facility], [place], [address], Procedure Notes * Category Sub-Category Detail Notes Nail Avulsion Procedure A fine sterile e levator was placed between the eponychium, nail fold, and nail plate to separate the structures. A sterile nail splitter, and/or sterile 316 blade, was then used to longitudinally section the nail along its entire length through the eponychium to the area under the nail fold. The offending portion of nail was from the nail bed with a rolling action and then removed with a hemostat. No underlying bone was identified. There was minimal bleeding as hemostasis was achieved through the temporary use of either a digital tourniquet or the aforementioned local with epinephrine. A bacitracin sterile dressing was applied. Local wound aftercare instructions were discussed and dispensed. The patient was informed of both conservative and future surgical procedures to prevent recurrence. Tylenol or Motrin was recommended for pain or discomfort - 05418, CIRCULATION: Pt was advised as to the risk of delayed or nonhealing due to circulation. Pt is to call the office with any questions, concerns, or complications Anesthesia was accomplished TOP ICALLY with Lidocaine Hydrochloride Jelly 2 percent Location Medial nail border, TA Debride Nail 6-10 Nail debridement Due to the cl inical pathology outlined in the exam findings, performance of this nail treatment is medically necessary as its management by an unskilled/untrained nonprofessional would put this patients foot and overall health at risk. Therefore, debridement to affected nail(s), as described in exam ( TA, T1, T2, T3, T4, T5, T6, T7, T8, T9 ), was performed exclusively by the physician of record to reduce/remove overall nail length, girth, thickness, subungual debris, and necrotic tissue, by manual and/or electrical means through the use of a nail nipper and/or dremel-type wood grinder, to a more viable healthy nail plate or bed tissue 6-10 nails in total. Silver nitrate was used for any petechial bleeding as necessary. Definitive antifungal treatment options, both pharmaceutical and surgical, have been reviewed and discussed with the patient. The patient solely prefers the use of intermittent/as needed professional debridement services for their nail condition and understands the need for additional periodic treatments to maintain effectiveness in symptomatic relief - 58466 Keratoma Treatment Parring or Cutting o f Benign Hyperkeratotic Lesion(s) (-56) 2-4 Lesions - Due to the at risk nature of the patients medical condition as documented in the exam findings, performance of this keratoderma treatment is medically necessary as its management by an unskilled/untrained nonprofessional would put this patients foot and overall health at risk. Therefore, the benign hyperkeratotic lesions, (4) in total, locations as stated and described in the exam ( SUB MTH (s), 5, B/L, Plantar Heel(s), B/L ), were pared, and/or cut utilizing a sterile 15 blade, tissue nippers, and/or power dremel instrumentation by the physician of record - 46151, Q8 Progress Notes * Fadi SHEPPARDDOB:1935 (89 yo M)Acc No.[id number]:10/21/2024 Progress Note Patient:?Fadi SHEPPARD Provider:?Cristopher Mera DPM :1935???Age:89 Y???Sex:Male Kofi e:10/21/2024 Address:[address] [place], [place] [id number] Pcp:Dhiraj Guevara Subjective: * Chief Complaints: * ???At Risk FootcarePainful N ail(s) aggravated by shoes and causing difficulty standing/walking.Ingrown Nail * HPI: ???At Risk footcare:?Pt States Last PCP Visit:?Date?08/24/2024 ?Misc?Patient accompanied by, ,ELIZA, and Daughter,Estela is physically present in exam room at time of visit,.? * ROS:?General/Constitutional:?Nausea?denies.?Vomiting?denies.?Hunger Thirst?denies.?Loss appetite?denies.?Chills?denies.?Fatigue?denies.?Fever?denies.?Night Sweats?denies.?Unexplained weight loss?denies.?Unexplained weight gain?denies.?HEENTM:?Dentures?denies.?Dizziness?denies.?Glasses/contacts?denies.?Retinopathy?de nies.?Blurred/double vision?denies.?TMJ?denies.?Discharge/drainage?admits.?Implants?denies.?Sore throat?denies.?Dental implants?denies.?Hard of hearing ?admits.?Difficulty chewing/swallowing/speaking?denies.?Nose bleeds?denies.?Sore mouth?denies.?Respiratory:?On Oxygen?denies.?Pneumonia/pleurisy?denies.?Bronchitis?denies.?Emphysema?denies.?C oughing?denies.?Cough blood?denies.?Shortness of breath?admits.?Wheezing?denies.?Cardiovascular:?Pacemaker?denies.?MVP?denies.?WPW?denies.?CHF?denies.?Heart attack?admits.?Septal defect?denies.?Rapid beat?admits.?Chest pain ?denies.?Atrial Fib.?admits.?Murmur/Palpitations?denies.?Gastrointestinal:?Hemorrhoids?denies.?Stomach/Abdominal pain?denies.?Dark blood stool?denies.?Irritable bowel ?denies.?Constipation?denies.?Diarrhea?denies.?Hematology:?Swelling?admits.?Clots?denies.?Varicose Veins?denies.?Bruising?admits, on anticoagulants.?Bleeding problem?admits, on anticoagulants.?Genitourinary:?Blood urine?denies.?Frequent/Painfu/urination/bladder control?denies.?Kidney stones?denies.?Infection (UTI)?denies.?Nephropathy?denies.?sex trans dis (STD)?denies.?Prostate?admits.?Musculoskeletal:?Hammertoes?denies.?Bunions?denies.?Back Pain?denies.?Muscle Cramps/ Resting?denies.?Muscle cramps / walking?denies.?Generalized aches and pains?denies.?Weakness?denies.?Integ.:?Jeter?admits.?Scars?admits.?Corns/calluses?admits.?Ingrown nails?admits.?Painful nails?admits.?Open Sores?denies.?Rashes?denies.?Neurologic:?Difficulty sleeping?denies.?Brain disorder?denies.?Numbness?denies.?Balance trouble?denies.?Confusion?denies.?Fainting/blackouts?denies.?Tingling?denies.?Tr emors?denies.? * Medical History:? * Surgical History:?heart surg evan unspecified 08/24/1987 * Hospitalization/Major Diagno stic Procedure:?Denies Past Hospitalization * Family History:?Mother: dece ased, cancer.?Father: .? * Social History:?Tobacco Use:?Tobacco Use/Smoking?Are you a:?nonsmoker ?Additional Findings: Tobacco Non-User?Current non-smoker ?Tobacco use other than smoking?Are you an other tobacco user??No ???Miscellaneous:?Caffeine: yes, 1-2 cups per day. ?Children: yes. ?Exercise: no. ?Marital status: . ?Occupation: Retired. * Medications:?TakingFurosemid e Lasix Ferrous Aspartate Eliquis guaiFENesin Vitamin D3 Isosorbide Dinitrate 30 MG Tablet 1 tablet Orally Twice a day Verapamil HCl 120 MG Tablet 1 tablet Orally Three times a day Lipitor 40 MG Tablet 1 tablet Orally Once a day Taking Furosemide Taking Lasix Taking Ferrous Aspartate Taking Eliquis Taking guaiFENesin Taking Vitamin D3 Taking Isosorbide Dinitrate 30 MG Tablet 1 tablet Orally Twice a day Taking Verapamil HCl 120 MG Tablet 1 tablet Orally Three times a day Taking Lipitor 40 MG Tablet 1 tablet Orally Once a day Not- Taking/PRNWarfarin Sodium 5 MG Tablet 1 tablet Orally Two times a Week Physical Therapy . . . . 2-3x/week baby asprin as directed Medication List reviewed and reconciled with the patientNot-Taking/PRN Warfarin Sodium 5 MG Tablet 1 tablet Orally Two times a Week Not-Taking/PRN Physical Therapy . . . . 2-3x/week Not-Taking/PRN baby asprin as directed Medication List reviewed and reconciled with the patient * Allergies:?LatexAdhesiveyes[ Allergies Verified] Objective: * Vitals:?Ht: 5 ft 10 in, Wt: 170, BMI: 24.39, Shoe size: 12, BP: 115/70 mm Hg, Ht-cm: 177.8 cm, Wt-k.11 kg. * Examination: ???Vascular: ?DP PULSES (B):?1/4, B/L.?PT PULSES (B):? 0/4, B/L.?CAPILLARY FILL TIME:? delayed, all digits, B/L.?TROPHIC CONDITION-TEXTURE/ELASTICITY/TURGOR/HAIR GROWTH (B):? decreased, fragile, thin, shiny skin, with sparse to absent hair growth, B/L.?TEMPERTURE GRADIENT (C):? decreased, cool to cool, proximal to distal, B/L.?PIGMENTATION:?cyanotic, B/L.?EDEMA (C):?absent, B/L.?CLAUDICATION (C):?denies, B/L.?REST PAIN:?denies, B/L.?PARESTHESIA (C):?absent, B/L.?BURNING (C):?absent, B/L.?Nails: ?NAILS are:?Elongated, overgrown, dystrophic, lytic, greater than 3mm thick, discolored and friable with crumbly malodorous subungual debris, with pain on palpation , TA, T1, T2, T3, T4, T5, T6, T7, T8, T9.?Dermatologic: ?SKIN FINDINGS:?Skin exam reveals Keratotic lesion(s) located at, SUB MTH (s), 5, B/L, Plantar Heel(s), B/L.?Ingrown Nail: ?INSPECTION:?Reveals nail incurvation, pain on palpation, groove hypertrophy, Medial nail border, TA.? Assessment: * Assessment: 1.?Pain in right toe(s) - M7 9.674???2.?Onychomycosis - B35.1 (Primary)???3.?Pain in left toe(s) - M79.675???4.?Atherosclerosis of [place] artery of both lower extremities, with unspecified presence of clinical manifestation - I70.203???Specify :Q8???Notes :Q7(A), Q8(2B), Q9(1B,2C)???5.?Ingrown nail - L60.0???Specify :Medial nail border,?TA??? Plan: * Treatment: 2.?Atherosclerosis of [place] artery of both lower extremities, with unspecified presence of clinical manifestation?Procedure: 24341-CHIZ SKIN LESIONS, 2 TO 4 3.?Ingrown nail?Procedure: 02483-Tldfmtfi Plate * Procedures:?Debride Nail 6-10:?Nail debridement?Due to the clinical pathology outlined in the exam findings, performance of this nail treatment is medically necessary as its management by an unskilled/untrained nonprofessional would put this patients foot and overall health at risk. Therefore, debridement to affected nail(s), as described in exam ( TA, T1, T2, T3, T4, T5, T6, T7, T8, T9 ), was performed exclusively by the physician of record to reduce/remove overall nail length, girth, thickness, subungual debris, and necrotic tissue, by manual and/or electrical means through the use of a nail nipper and/or dremel-type wood grinder, to a more viable healthy nail plate or bed tissue 6- 10 nails in total. Silver nitrate was used for any petechial bleeding as necessary. Definitive antifungal treatment options, both pharmaceutical and surgical, have been reviewed and discussed with the patient. The patient solely prefers the use of intermittent/as needed professional debridement services for their nail condition and understands the need for additional periodic treatments to maintain effectiveness in symptomatic relief - 08285.?Keratoma Treatment:?Parring or Cutting of Benign Hyperkeratotic Lesion(s)?(-56) 2-4 Lesions - Due to the at risk nature of the patients medical condition as documented in the exam findings, performance of this keratoderma treatment is medically necessary as its management by an unskilled/untrained nonprofessional would put this patients foot and overall health at risk. Therefore, the benign hyperkeratotic lesions, (4) in total, locations as stated and described in the exam (?SUB MTH (s),?5,?B/L,?Plantar Heel(s),?B/L?), were pared, and/or cut utilizing a sterile 15 blade, tissue nippers, and/or power dremel instrumentation by the physician of record - 34241, Q8.?Nail Avulsion:?Location?Medial nail border,?TA.?Anesthesia?was accomplished TOPICALLY with Lidocaine Hydrochloride Jelly 2 percent.?Procedure?A fine sterile elevator was placed between the eponychium, nail fold, and nail plate to separate the structures. A sterile nail splitter, and/or sterile 316 blade, was then used to longitudinally section the nail along its entire length through the eponychium to the area under the nail fold. The offending portion of nail was from the nail bed with a rolling action and then removed with a hemostat. No underlying bone was identified. There was minimal bleeding as hemostasis was achieved through the temporary use of either a digital tourniquet or the aforementioned local with epinephrine. A bacitracin sterile dressing was applied. Local wound aftercare instructions were discussed and dispensed. The patient was informed of both conservative and future surgical procedures to prevent recurrence. Tylenol or Motrin was recommended for pain or discomfort - 87063, CIRCULATION: Pt was advised as to the risk of delayed or nonhealing due to circulation. Pt is to call the office with any questions, concerns, or complications.? * Procedure Codes:?18666 DEBRI DE NAIL, 6 OR MORE, Modifiers: XS 69855 Avulsion Plate, Modifiers: XS , [id number] TRIM SKIN LESIONS, 2 TO 4, Modifiers: XS , Q8 * Follow Up:?prn * Images: * Sign off status: Completed true * Provider:?Cristopher Mera DPM Date:?2024 Generated for Yvette park/Marcella/Beila on:?10/21/2024 02:15 PM EDT History and Physical Notes * HPI (History of Present Illness) Category Sub-Category Detail Notes Category Not es At Risk footcare Pt States Last PCP Visit: Date: 5 [facility] Patient accompanied by, , ELIZA, and Daughter, Estela is physically present in exam room at time of visit, Examination Category Sub-Category Detail Notes Category Not es Ingrown Nail INSPECTION: Reveals nail inc urvation, pain on palpation, groove hypertrophy, Medial nail border, TA Dermatologic SKIN FINDINGS: Skin exam reveal s Keratotic lesion(s) located at, SUB MTH (s), 5, B/L, Plantar Heel(s), B/L Vascular DP PULSES (B): 1/4, B/L PT PULSES (B): 0/4, B/L CAPILLARY FILL TIME: delayed, all digits , B/L TEMPERTURE GRADIENT (C): decreased, cool to cool, proximal to distal, B/L TROPHIC CONDITION-TEXTURE/ELASTICITY/TURGOR/HAIR GROWTH (B): decreased, fragile, thin, shiny skin, wi th sparse to absent hair growth, B/L EDEMA (C): absent, B/L CLAUDICATION (C): denies, B/L REST PAIN: denies, B/L PIGMENTATION: cyanotic, B/L PARESTHESIA (C): absent, B/L BURNING (C): absent, B/L Nails NAILS are: Elongated, overg rown, dystrophic, lytic, greater than 3mm thick, discolored and friable with crumbly malodorous subungual debris, with pain on palpation , TA, T1, T2, T3, T4, T5, T6, T7, T8, T9
--- OUTSIDE RECORDS SUMMARY | 2024-10-21 14:15 | XMS_ITS | Patient Health Record ---
Author Organization [facility] Address [address] [place] [address] Care Team Providers Care Operating Room Manager Name Role Phone Dhiraj Guevara MD Primary Care Provider Nicholas Paul Jr Allergies Allergen (clinical drug ingredient) Drug/Non Drug [...] Problem Status W/U Status Risk Notes Problem [id number] Gastroesophageal reflux disease without esophagitis (K21.9) Active confirmed Problem [id number] Abnormal barium swallow (R93.3) Active confirmed Encounters Encounter Location Date Provider Diagnosis [facility] [address] [place], [place] [id number] 03/18/2024 Nicholas Bal Jr [facility] [address] [place] [address] 09/22/2024 Nicholas Bal Jr Plan Of Treatment Future Test Test Name Order Date COLONOSCOPY 07/30/2011 Insurance Providers Payer Name Payer Address Payer Phone Subscriber Number Group Number Insured Name Patient Relationship to Insured Coverage Start Date Coverage End Date [facility] [address] [place] [address] [phone] [id number] CHARLETTERADHA Self - patient is the insured Medical (General) History Medical History History ICD Code coronary artery disease atrial fibrillation Colonoscopy 10/29/11, normal, ten-year fo llowup Iron overload Prostate cancer CVA Gastroesophageal reflux disease Hypertension Back pain Surgical History Surgery Date(Month/Year) 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
[2024-10-21 14:16] VITALS: BP 126/54; PULSE 85; O2SAT 92; BMI 21.6
--- NOTE | 2024-10-21 14:16 | MHC.PC.OV ---
Vital Signs 10/21/24 14:16 Height 5 ft 10 in Weight 150 lb 8 oz BMI 21.6 BP 126/54 L Blood Pressure Location Lt brachial Position Sitting Pulse 85 Pulse Source Pulse Oximeter Pulse Oximetry (%) 92 Oxygen Delivery Method Room Air Intake Visit Reasons: [facility] 10/12 pneumonia Oracle Manager Required: No Accompanied by: Self / Same As Patient Allergies omeprazole [OMEPRAZOLE] Allergy (Unknown, Verified 10/21/24 14:16) RASH Tobacco use date assessed: 10/21/24 Fall risk assessment: No Falls in past year Last assessed Fall Risk: 10/21/24 Dental Screening Dental Screen Date: 10/21/24 Did you have a dental visit in the last 12 months?: Yes Did you have a dental problem in the last 6 months where you did not have access to dental care?: No Was dental information given to patient?: Patient has dentist HPI HPI Comments History of Present Illness Details 89 Y/O Male patient who presents to the clinic today for HDF. He is accompanied by Daughter and . He was admitted at [facility] on 10/05 - 10/11 for evaluation and Treatment of Pneumonia B/L upper lobes and Right Lower Lobe. He completed His Abx course as ordered. Today reports SOB, dry cough and fatigue. Reports not feeling any better since discharged. Pt's Daughter presents home readings for Oxygen Sat taken by [facility]. Report shows Pt sating around higher 80's % - lower 90's % Family worried that Patient is not getting any better. Daughter asking for Chest Xray. [facility] Medical History (Updated 10/21/24 @ 14:37 by Lisa Powers NP) Prostate nodule Low back pain GERD (gastroesophageal reflux disease) CVA (cerebral vascular accident) Dementia Bilateral carotid artery disease Carpal tunnel syndrome of right wrist Vitamin D deficiency Cervical spinal stenosis Atrial fibrillation Hypercholesterolemia Hypertension Coronary artery disease Surgical History Hx of CABG (~1997) Inguinal hernia, right History of cardiac cath (~03/2008) Family History Father No problems noted. Mother Cancer CVD (cardiovascular disease) Social History Household Members: Spouse Housing: House Alcohol intake: former Patient Tobacco Use Status: Never used Tobacco Tobacco use type: Cigarette e-Cigarette/Vaping Use: Never Used Second Hand Smoke Exposure: No service: Yes Current occupational status: retired Cognitive needs: No Hearing needs: Yes Vision needs: Yes Questionnaire PHQ-9 Over the last 2 weeks, how often have you been bothered by any of the following problems? 1. Little interest or pleasure in doing things: several days 2. Feeling down, depressed, or hopeless: not at all 3. Trouble falling or staying asleep, or sleeping too much: several days 4. Feeling tired or having little energy: nearly every day 5. Poor appetite or overeating: several days 6. Feeling bad about yourself - or that you are a failure or have let yourself or your family down: not at all 7. Trouble concentrating on things, such as reading the newspaper or watching television: not at all 8. Moving or speaking so slowly that other people could have noticed. Or the opposite - being so fidgety or restless that you have been moving around a lot more than usual: not at all 9. Thoughts that you would be better off or of hurting yourself in some way: not at all Total score: 6 Source: Developed by Drs. Fadi Avery, Alanna Nguyen, Justin Campos and colleagues, with an educational oliver from [employer]. Thrive Questionnaire Date Thrive assessed: 10/21/24 I am a: Patient What is your living situation today?: I have a steady place to live Within the past 12 months, did the food you bought not last and you didn't have the money to get more?: Never true Within the past 12 months, did you worry whether your food would run out before you got money to buy more?: Never true Do you have trouble paying for medicines?: No Do you have trouble getting transportation to medical appointments?: No Do you have trouble paying your heating and electricity bill?: No Do you have trouble taking care of your child, family member or friend?: No Do you have trouble with day-to-day activities such as bathing, preparing meals, shopping, managing finances, etc.?: I choose not to answer this question Are you currently unemployed and looking for a job?: No Are you interested in more education?: No Please select the resources that you would like help with: None Currently or been in a relationship where the following occur: No concerns reported THRIVE Score: 0 AUDIT C Alcohol Use Questionnaire (AUDIT-C) 1. How often do you have a drink containing alcohol?: Never 3. How often do you have six or more drinks on one occasion?: Never Total Score: 0 DARYL-7 AMB Questionnaire DARYL-7 Date DARYL - 7 assessed: 10/21/24 Feeling nervous, anxious, or on edge: 0 = Not at all Not being able to stop or control worryin = Not at all Worrying too much about different things: 0 = Not at all Trouble relaxin = Not at all Being so restless that it is hard to sit still: 0 = Not at all Becoming easily annoyed or irritable: 0 = Not at all Feeling afraid as if something awful might happen: 0 = Not at all Total DARYL-7 score (0-4 normal; 5-9 mild; 10-14 moderate; 15-21 severe): 0 Source: Developed by Drs. Fadi Avery, Alanna Nguyen, Justin Campos and colleagues, with an educational oliver from [employer]. Review of Systems Const All systems reviewed & are unremarkable except as noted in HPI and below Physical exam (Primary Care) Vital Signs: Last Vital Signs Pulse 85 10/21/24 14:16 BP 126/54 L 10/21/24 14:16 Pulse Ox 92 10/21/24 14:16 Oxygen Delivery Method Room Air 10/21/24 14:16 BMI result Body Mass Index 21.6 Tobacco/Smoking Status: Tobacco use Status Tobacco use date assessed 10/21/24 10/21/24 14:17 Patient Tobacco Use Status Never used Tobacco 10/21/24 14:17 Tobacco use type Cigarette 10/21/24 14:17 e-Cigarette/Vaping Use Never Used 10/21/24 14:17 PHQ-9: PHQ-9 Score PHQ-9: Total score 6 10/21/24 15:03 Thrive Assessment: Date of Thrive Assessment Date Thrive assessed 10/21/24 10/21/24 14:17 Currently or been in a relationship where the following occur: No concerns reported Const General: no acute distress Nutritional Appearance: thin Orientation/consciousness: patient oriented x3 Resp Effort & Inspection: normal respiratory effort and able to speak in complete sentences Auscultation: clear to auscultation bilaterally, no crackles, no rales, no rhonchi, no wheezes and diminished lung sounds bilateral Cardio Heart sounds: S1 normal heart sound present and S2 normal heart sound present Neuro General: patient oriented x3 Coding Level of Care Code Est Pt Level 4 (66892) Diagnoses Pneumonia of both upper lobes due to infectious organism J18.9 Laterality: bilateral Lung location: upper lobe of lung Pneumonia type: due to unspecified organism Time Spent (min) 20 Assessment & Plan Assessment & Plan (1) Pneumonia: Code(s): J18.9 - Pneumonia, unspecified organism Category: Medical Qualifiers: Laterality: bilateral Lung location: upper lobe of lung Pneumonia type: due to unspecified organism Qualified Code(s): J18.9 - Pneumonia, unspecified organism Plan: Stable - will order another chest Xray. Diminished Lung sounds B/L Orders: Orders XR chest 2V Today J18.9 - Pneumonia, unspecified organism CT chest wo IV con Today J18.9 - Pneumonia, unspecified organism Medications: New prednisone 20 mg PO DAILY 10 tabs 0RF J18.9 - Pneumonia, unspecified organism cefuroxime axetil 500 mg PO BID 20 tabs 0RF 10 days J18.9 - Pneumonia, unspecified organism
--- OUTSIDE RECORDS SUMMARY | 2024-10-21 14:16 | XMS_ITS ---
Author Organization [facility] Address [address] [place] [address] Care Team Providers Care Parachute Panel Joiner Name Role Phone Dhiraj Guevara MD Primary Care Provider Nicholas Paul Jr [phone] REASON FOR VISIT cancel ov Encounters Encounter Location Date Provider Diagnosis [facility] [address] [place] [phone] 09/22/2024 Nicholas Bal Jr Plan Of Treatment No Information Progress Notes * RADHA OVALLES ADOB: [birth year] (89 yo M)Acc No.[id number]:09/22/2024 Patient:?RADHA OVALLES :1935???Age:89 Y???Sex:Male Address:[address] [place] [address], [address] * true * Date:? Generated for Yvette park/Marcella/eTransmitting on:?10/21/2024 02:15 PM EDT
--- OUTSIDE RECORDS SUMMARY | 2024-10-21 14:16 | XMS_ITS ---
Author Organization [facility] Address [address] [place] [address] Care Team Providers Care Manager Machine Name Role Phone Dhiraj Guevara Primary Care Provider Cristopher Garrett Unavailable [phone] Crow Cuellar Unavailable [phone] Allergies Allergen (clinical drug ingredient) Drug/Non Drug [...] Date Provider Diagnosis [facility] [address] [place] [address] 11/04/2023 Crow Cuellar Skin disease L98.9 ; [...] Name:Cristopher Mera , 01/27/2025 01:15:00 PM, [address] [place], [address], Progress Notes * Fadi SHEPPARDDOB:1935 (88 yo M)Acc No.[id number]:11/04/2023 Progress Notes Patient:?Fadi Sheppard Provider:?Crow Cuellar DPM :1935???Age:88 Y???Sex:Male Kofi e:11/04/2023 Address:[address] [place] [address] [facility] Pcp:Dhiraj Guevara Subjective: * Chief Complaints: * [...] TIME:?3 secs. per digit. B/L.?EDEMA:? 3/4, Left, /4, Right, Foot, Ankle(s), Leg(s).?Dermatologic: ?SKIN FINDINGS:?Skin exam [...] EDT Sign off status: Completed true * Provider:Patti Cuellar DPM Date:? 024 Generated for Yvette park/Marcella/Belia on:?10/21/2024 02:15 PM EDT History and Physical [...]
== END 2024-10-21 14:53 | disposition home or self-care (01) ==
LOC: HO.HMCH 14:10
PROVIDERS: PCP Internal Medicine; Visit Provider Nurse Practitioner Family
DX: J18.9 Pneumonia, unspecified organism (principal)

== ENCOUNTER → 2024-10-21 14:09 | Outpatient (BNVA) | payer MEDICARE, SELFPAY | PROVIDERS: PCP Internal Medicine; Visit Provider Nurse Practitioner Family | DX: J18.9 Pneumonia, unspecified organism (principal) | CPT/HCPCS: 96127; 99212 ==

== ENCOUNTER → 2024-10-21 15:10 | Outpatient (BNV) | payer MEDICARE, SELFPAY | PROVIDERS: PCP Internal Medicine; Visit Provider Radiology Diagnostic Radiology | DX: J84.89 Other specified interstitial pulmonary diseases (principal) | CPT/HCPCS: 71046 ==

== ENCOUNTER → 2024-10-27 23:59 | Outpatient (BNV) | payer MEDICARE, SELFPAY | PROVIDERS: PCP Internal Medicine; Visit Provider Internal Medicine | DX: J18.9 Pneumonia, unspecified organism (principal); G93.41 Metabolic encephalopathy; I25.10 Atherosclerotic heart disease of native coronary artery without angina pectoris; I10 Essential (primary) hypertension | CPT/HCPCS: G0180 ==

== ENCOUNTER 2024-11-15 10:09 | Outpatient (REF) | payer MEDICARE, SELFPAY ==
--- NOTE | ~2024-11-15 | CT_ITS ---
EXAMINATION: CT CHEST WITHOUT CONTRAST CLINICAL INFORMATION: Pneumonia unknown organism COMPARISON: None available. TECHNIQUE: Multidetector volumetric CT imaging of the chest was done. Axial MIP volume rendering provided. Sagittal and coronal reformatted images were obtained. This CT examination was performed using dose optimization techniques as appropriate, variously including the following: *Automated exposure control *Adjustment of mA and/or kV according to patient size (this includes techniques or standardized protocols for targeted exams where dose is matched to indication/reason for exam; i.e. extremities or head) *Use of iterative reconstruction technique DLP: 140 mGy/cm. 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 LUNGS: Diffuse groundglass density throughout both upper lobes and both lower lobes with more patchy consolidation or atelectasis left lower lobe superior and posterior segments. Mild atelectatic changes are seen in the right middle and lower lobes. There is no pulmonary nodule or mass seen. MEDIASTINUM: The thyroid lobes are less symmetrical and normal. The central trachea and bronchi are widely patent. No pericardial effusion seen. Heart size is normal. No abnormal size mediastinal hilar lymph nodes seen. CORONARY ARTERY CALCIFICATION: Moderate coronary artery calcifications are present. PLEURA: There is no pleural effusion. No pleural mass or thickening. AXILLA: No lymphadenopathy. UPPER ABDOMEN: Visualized liver, spleen, pancreas and bilateral adrenal glands are unremarkable. There is a solitary gallstone. OSSEOUS STRUCTURES: There is an exaggerated thoracic kyphosis with no aggressive lytic or sclerotic process seen. There is mild spondylosis dorsal spine. There are median sternotomy sutures from previous intervention. CT/CT chest wo IV con IMPRESSION: Diffuse upper and lower lobe groundglass density likely from low-grade inflammatory process . Patchy focal consolidation/atelectasis and left lower lobe and mild atelectatic changes right middle lobe and right lower lobe. No clear airspace consolidation seen. Significant coronary artery calcifications but no pericardial effusion seen. Fleischner guidelines were followed. Electronically signed by: Cipriano Hutchins MD 11/15/2024 10:49 AM EDT
--- OUTSIDE RECORDS SUMMARY | 2024-11-15 11:42 | XMS_ITS ---
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 Name Role Phone Dhiraj Guevara Primary Care Provider Cristopher Garrett Unavailable [phone] Crow Cuellar [phone] Encounters Encounter Location Date Provider Diagnosis [address] [id number] 10/14/2023 Crow Cuellar Plan Of Treatment Next Appt Details Provider Name:Cristopher Mera , 01/27/2025 01:15:00 PM, [address] [place] [address], [id number], Progress Notes * Fadi SHEPPARDDOB:1935 (89 yo M)Acc No.[id number]:10/14/2023 Progress Notes Patient:?Fadi SHEPPARD Provider:?Crow Cuellar DPM :1935???Age:88 Y???Sex:Male Kofi e:10/14/2023 Address:[address] [place] [address] [id number] Pcp:Dhiraj Guevara Subjective: * Chief Complaints: * ??? * Medical History:? Objective: * Vitals:? Assessment: Plan: * Treatment: * Images: * The named appointment provid er may or may not be the originator of this progress note, and it is not deemed complete until electronically signed by the appointment provider. Sign off status: Pending * Provider:Patti Cuellar DPM Date:? 024 Generated for Yvette park/Marcella/Trellitting on:?11/15/2024 11:41 AM EDT
== END 2024-11-15 10:10 | disposition home or self-care (01) ==
LOC: HO.CT 10:09
PROVIDERS: PCP Internal Medicine; Visit Provider Internal Medicine
DX: J18.9 Pneumonia, unspecified organism (principal)
CPT/HCPCS: 71250

== ENCOUNTER → 2024-11-15 10:11 | Outpatient (BNV) | payer MEDICARE, SELFPAY | PROVIDERS: PCP Internal Medicine; Visit Provider Radiology Diagnostic Radiology | DX: I25.10 Atherosclerotic heart disease of native coronary artery without angina pectoris (principal) | CPT/HCPCS: 71250 ==

== ENCOUNTER 2024-11-22 12:16 | Outpatient (AMB) | payer MEDICARE, SELFPAY ==
[2024-11-22 12:34] VITALS: BP 110/56; PULSE 85; O2SAT 95; BMI 22.0
--- NOTE | 2024-11-22 12:34 | MHC.PC.OV ---
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 Accompanied by: Self / Same As Patient Allergies omeprazole [OMEPRAZOLE] Allergy (Unknown, Verified 11/22/24 12:34) RASH Medication List - Last Reconciled 11/22/24 by Dhiraj Guevara MD albuterol sulfate 90 mcg/actuation inhalation atorvastatin (Lipitor) 40 mg PO DAILY cholecalciferol (vitamin D3) 50 mcg PO DAILY diclofenac sodium 1% (Arthritis Pain (diclofenac)) 4 grams topical QID diclofenac sodium 1% (Voltaren Arthritis Pain) 4 grams topical QID Eliquis (apixaban) 5 mg PO BID NS furosemide (Lasix) 20 mg PO DAILY isosorbide mononitrate ER 30 mg PO .QD multivitamin 1 tab PO DAILY ondansetron 4 mg PO BID PRN 4 days verapamil ER 120 mg PO BID 90 days Tobacco use date assessed: 11/22/24 Fall risk assessment: No Falls in past year Last assessed Fall Risk: 11/22/24 Dental Screening Dental Screen Date: 11/22/24 Did you have a dental visit in the last 12 months?: No Did you have a dental problem in the last 6 months where you did not have access to dental care?: No Was dental information given to patient?: No HPI Prostate CA, CAD, atrial fib - see comments HPI Details CT scan done November 2024 Diffuse upper and lower lobe groundglass density likely from low-grade inflammatory process . Patchy focal consolidation/atelectasis and left lower lobe and mild atelectatic changes right middle lobe and right lower lobe. No clear airspace consolidation seen. Significant coronary artery calcifications but no pericardial effusion seen. [facility] Medical History (Updated 11/22/24 @ 12:54 by Dhiraj Guevara MD) Prostate nodule Low back pain GERD (gastroesophageal reflux disease) CVA (cerebral vascular accident) Dementia Bilateral carotid artery disease Carpal tunnel syndrome of right wrist Vitamin D deficiency Cervical spinal stenosis Atrial fibrillation Hypercholesterolemia Hypertension Coronary artery disease Surgical History Hx of CABG (~1997) Inguinal hernia, right History of cardiac cath (~03/2008) Family History Father No problems noted. Mother Cancer CVD (cardiovascular disease) Social History Household Members: Spouse Housing: House Alcohol intake: former Patient Tobacco Use Status: Never used Tobacco Tobacco use type: Cigarette e-Cigarette/Vaping Use: Never Used Second Hand Smoke Exposure: No service: Yes Current occupational status: retired Cognitive needs: No Hearing needs: Yes Vision needs: Yes Questionnaire PHQ-9 Over the last 2 weeks, how often have you been bothered by any of the following problems? 1. Little interest or pleasure in doing things: several days 2. Feeling down, depressed, or hopeless: not at all 3. Trouble falling or staying asleep, or sleeping too much: several days 4. Feeling tired or having little energy: nearly every day 5. Poor appetite or overeating: several days 6. Feeling bad about yourself - or that you are a failure or have let yourself or your family down: not at all 7. Trouble concentrating on things, such as reading the newspaper or watching television: not at all 8. Moving or speaking so slowly that other people could have noticed. Or the opposite - being so fidgety or restless that you have been moving around a lot more than usual: not at all 9. Thoughts that you would be better off or of hurting yourself in some way: not at all Total score: 6 Source: Developed by Drs. Fadi Avery, Alanna Nguyen, Justin Campos and colleagues, with an educational oliver from [employer]. Thrive Questionnaire Date Thrive assessed: 11/22/24 I am a: Patient What is your living situation today?: I have a steady place to live Within the past 12 months, did the food you bought not last and you didn't have the money to get more?: Never true Within the past 12 months, did you worry whether your food would run out before you got money to buy more?: Never true Do you have trouble paying for medicines?: No Do you have trouble getting transportation to medical appointments?: No Do you have trouble paying your heating and electricity bill?: No Do you have trouble taking care of your child, family member or friend?: No Do you have trouble with day-to-day activities such as bathing, preparing meals, shopping, managing finances, etc.?: I choose not to answer this question Are you currently unemployed and looking for a job?: No Are you interested in more education?: No Please select the resources that you would like help with: None Currently or been in a relationship where the following occur: No concerns reported THRIVE Score: 0 AUDIT C Alcohol Use Questionnaire (AUDIT-C) 1. How often do you have a drink containing alcohol?: Never 3. How often do you have six or more drinks on one occasion?: Never Total Score: 0 DARYL-7 AMB Questionnaire DARYL-7 Date DARYL - 7 assessed: 11/22/24 Feeling nervous, anxious, or on edge: 0 = Not at all Not being able to stop or control worryin = Not at all Worrying too much about different things: 0 = Not at all Trouble relaxin = Not at all Being so restless that it is hard to sit still: 0 = Not at all Becoming easily annoyed or irritable: 0 = Not at all Feeling afraid as if something awful might happen: 0 = Not at all Total DARYL-7 score (0-4 normal; 5-9 mild; 10-14 moderate; 15-21 severe): 0 Source: Developed by Drs. Fadi Avery, Alanna Nguyen, Justin Campos and colleagues, with an educational oliver from [employer]. Physical exam (Primary Care) Vital Signs: Last Vital Signs Pulse 85 11/22/24 12:34 BP 110/56 L 11/22/24 12:34 Pulse Ox 95 11/22/24 12:34 Oxygen Delivery Method Room Air 11/22/24 12:34 BMI result Body Mass Index 22.0 Tobacco/Smoking Status: Tobacco use Status Tobacco use date assessed 11/22/24 11/22/24 12:41 Patient Tobacco Use Status Never used Tobacco 11/22/24 12:41 Tobacco use type Cigarette 11/22/24 12:41 e-Cigarette/Vaping Use Never Used 11/22/24 12:41 PHQ-9: PHQ-9 Score PHQ-9: Total score 6 11/22/24 12:41 Thrive Assessment: Date of Thrive Assessment Date Thrive assessed 11/22/24 11/22/24 12:41 Currently or been in a relationship where the following occur: No concerns reported Const General: alert; No acute distress Eyes Conjunctivae: conjunctivae normal Resp Auscultation: clear to auscultation bilaterally Cardio Rate: regular rate Rhythm: regular rhythm GI Inspection: Yes normal to inspection Extrem General: Yes normal to inspection and No edema Coding Level of Care Code Est Pt Level 4 (18439) Complex EM visit Add On G2211 Diagnoses Pneumonia of both upper lobes due to infectious organism J18.9 Laterality: bilateral Lung location: upper lobe of lung Pneumonia type: due to unspecified organism (HFpEF) heart failure with preserved ejection fraction I50.30 Coronary artery disease involving [place] coronary artery of [place] heart without angina pectoris I25.10 Associated angina: without angina Coronary Disease-Associated Artery/Lesion type: [place] artery [place] vs. transplanted heart: [place] heart Paroxysmal atrial fibrillation I48.0 Atrial fibrillation type: paroxysmal Essential hypertension I10 Hypertension type: essential hypertension Hypercholesterolemia E78.00 Left knee pain M25.562 Assessment & Plan Assessment & Plan (1) Pneumonia: Code(s): J18.9 - Pneumonia, unspecified organism Category: Medical Qualifiers: Laterality: bilateral Lung location: upper lobe of lung Pneumonia type: due to unspecified organism Qualified Code(s): J18.9 - Pneumonia, unspecified organism Plan: Patient has had multiple antibiotic treatment for pneumonia with last 1 cefuroxime. (2) (HFpEF) heart failure with preserved ejection fraction: Code(s): I50.30 - Unspecified diastolic (congestive) heart failure Category: Medical Plan: Continue to weigh daily and on furosemide (3) Coronary artery disease: Comment: CABG 3 vessel catheterization 2007 Catheterization May 2020 complex mulivessel disease, April 2020 echocardiogram normal LV mild left atrial dilatation Code(s): I25.10 - Atherosclerotic heart disease of [place] coronary artery without angina pectoris Category: Medical Qualifiers: Associated angina: without angina Coronary Disease-Associated Artery/Lesion type: [place] artery [place] vs. transplanted heart: [place] heart Qualified Code(s): I25.10 - Atherosclerotic heart disease of [place] coronary artery without angina pectoris Plan: Control the cholesterol, weight, blood pressure, patient on anticoagulation with Eliquis (4) Atrial fibrillation: Comment: Ablation 2007(did not work), Holter October 2020 atrial fibrillation controlled rate Code(s): I48.91 - Unspecified atrial fibrillation Category: Medical Qualifiers: Atrial fibrillation type: paroxysmal Qualified Code(s): I48.0 - Paroxysmal atrial fibrillation Plan: Continue with anticoagulation with Eliquis patient also on verapamil 120 mg once a day (5) Hypertension: Code(s): I10 - Essential (primary) hypertension Category: Medical Qualifiers: Hypertension type: essential hypertension Qualified Code(s): I10 - Essential (primary) hypertension Plan: Continue with blood pressure medication. Decrease salt intake and exercise has the furosemide isosorbide mononitrate and verapamil (6) Hypercholesterolemia: Comment: LDL goal < 70 Code(s): E78.00 - Pure hypercholesterolemia, unspecified Category: Medical Plan: Avoid fried foods, chicken skin, eggs, butter margarine, pastries and meat. Be it pork or beef they have a lot of cholesterol patient takes atorvastatin 40 mg once a day (7) Left knee pain: Code(s): M25.562 - Pain in left knee Category: Medical Plan History of Present Illness The patient is an 89-year-old male presenting for follow-up after recent pneumonia and ongoing management of multiple chronic conditions. The patient has a history of hypertension, hypercholesterolemia, atrial fibrillation, coronary artery disease, and gastroesophageal reflux disease (GERD). He was diagnosed with prostate cancer in 2020 and also has benign prostatic hyperplasia (BPH). The patient has peripheral vascular disease and heart failure with preserved ejection fraction. He was recently treated for pneumonia, which included a course of antibiotics and prednisone. The patient reports a history of knee arthritis, with previous imaging showing arthritis and a meniscus tear. He has experienced intermittent knee pain, which has recently worsened. Health Maintenance Social History Review of Systems - Respiratory: Reports dyspnea, especially after exertion. - Musculoskeletal: Reports intermittent knee pain. - Neurological: Reports numbness and lack of strength. Physical Exam Results - Imaging: CT scan of the chest showed diffuse upper and lower ground glass density, patchy focal consolidation in the left lower lobe, mild atelectatic change in the right middle and lower lobes, and significant coronary artery calcifications. - Imaging: Chest X-ray showed progression of bilateral upper lobe airspace opacities. Plan The patient will continue with his current medication regimen, including antihypertensives, anticoagulation with Eliquis, and atorvastatin for hypercholesterolemia. He is advised to continue daily weight monitoring and furosemide for heart failure management. A referral to a senior staff consultant is planned to further evaluate his respiratory status and ensure resolution of pneumonia. The patient is encouraged to use Voltaren gel for knee pain management and consider an X-ray if symptoms persist. Patient was informed and verbally consented to the use of an ambient scribe for clinic note documentation during this visit. Discussion Notes During the visit, we discussed the patient's ongoing management of his chronic conditions, including hypertension, hypercholesterolemia, and atrial fibrillation. We reviewed the recent CT scan and chest X-ray findings, noting the persistence of some pulmonary changes despite treatment for pneumonia. I recommended a referral to a senior staff consultant to ensure comprehensive respiratory care and discussed the use of Voltaren gel for knee pain management. Patient Instructions - Continue taking all prescribed medications as directed. - Monitor your weight daily and report any significant changes. - Use Voltaren gel on your knee as needed for pain relief. - Follow up with the senior staff consultant as scheduled. Orders: Orders XR knee LT 2V Today M25.562 - Pain in left knee Referrals Pulmonology Referral J18.9 - Pneumonia, unspecified organism Medications: New diclofenac sodium 1% (Voltaren Arthritis Pain) apply to single knee, ankle, foot; for foot includes sole/toes/top of foot 4 grams topical QID 100 grams 1RF M25.562 - Pain in left knee
--- OUTSIDE RECORDS SUMMARY | 2024-11-22 13:55 | XMS_ITS ---
Author Organization [facility] Address [address] [place] [id number] Care Team Providers Care Agile Tester Name Role Phone Dhiraj Guevara Primary Care Provider Cristopher Garrett Unavailable [phone] Crow Cuellar [phone] Encounters Encounter Location Date Provider Diagnosis [address] [id number] 10/14/2023 Crow Cuellar Plan Of Treatment Next Appt Details Provider Name:Cristopher Mera , 01/27/2025 01:15:00 PM, [address] [place] [address], [phone], Progress Notes * Fadi SHEPPARDDOB:1935 (89 yo M)Acc No.[id number]:10/14/2023 Progress Notes Patient:?Fadi SHEPPARD Provider:?Crow Cuellar DPM :1935???Age:88 Y???Sex:Male Kofi e:10/14/2023 Address:[address] [place] [address] [facility] Pcp:Dhiraj Guevara Subjective: * Chief Complaints: * [...] DPM Date:? 024 Generated for Yvette park/Marcella/Belia on:?11/22/2024 01:55 PM EDT
== END 2024-11-22 13:07 | disposition home or self-care (01) ==
LOC: HO.HMCH 12:17
PROVIDERS: PCP Internal Medicine; Visit Provider Internal Medicine
DX: J18.9 Pneumonia, unspecified organism (principal); I50.30 Unspecified diastolic (congestive) heart failure; I25.10 Atherosclerotic heart disease of native coronary artery without angina pectoris; I48.0 Paroxysmal atrial fibrillation; I10 Essential (primary) hypertension; E78.00 Pure hypercholesterolemia, unspecified; M25.562 Pain in left knee

== ENCOUNTER → 2024-11-22 12:16 | Outpatient (BNVA) | payer MEDICARE, SELFPAY | PROVIDERS: PCP Internal Medicine; Visit Provider Internal Medicine | DX: I25.10 Atherosclerotic heart disease of native coronary artery without angina pectoris (principal); J18.9 Pneumonia, unspecified organism; I11.0 Hypertensive heart disease with heart failure; I50.30 Unspecified diastolic (congestive) heart failure; I48.0 Paroxysmal atrial fibrillation; E78.00 Pure hypercholesterolemia, unspecified; M25.562 Pain in left knee; K21.9 Gastro-esophageal reflux disease without esophagitis; N40.0 Benign prostatic hyperplasia without lower urinary tract symptoms | CPT/HCPCS: 96127; 99212 ==

== ENCOUNTER 2024-12-15 14:32 | Outpatient (AMB) | payer MEDICARE, SELFPAY ==
--- OUTSIDE RECORDS SUMMARY | 2023-10-14 05:30 | XMS_ITS ---
Author Organization [facility] Address [address] [place] [address] Care Team Providers Care Grinder Set Up Operator Surface Name Role Phone Dhiraj Guevara Primary Care Provider Cristopher Garrett Unavailable [phone] Crow Cuellar [phone] Encounters Encounter Location Date Provider Diagnosis [address] [address] 10/14/2023 Crow Cuellar Plan Of Treatment Next Appt Details Provider Name:Cristopher Mera , 01/27/2025 01:15:00 PM, [address] [place] [address], [phone], Progress Notes * Fadi SHEPPARDDOB:1935 (89 yo M)Acc No.[id number]:10/14/2023 Progress Notes Patient: Fadi VITALE Provider: Therese Cuellar DPM :1935 A ge:88 Y S ex:Male Date:10/14/2023 Address:[address] [place] [address] rmaya [facility] Pcp:Dhiraj Guevara Subjective: * Chief Complaints: * [...] 10/14/2023 Generated for Yvette park/Marcella/Belia on: 0 12/15/2024 02:40 PM EDT
--- OUTSIDE RECORDS SUMMARY | 2024-09-22 09:35 | XMS_ITS ---
Author Organization [facility] Address [address] [place] [address] Care Team Providers Care Master Esthetician Name Role Phone Dhiraj Guevara MD Primary Care Provider Nicholas Paul Jr REASON FOR VISIT dysphagia Encounters Encounter Location Date Provider Diagnosis [facility] [address] [place] [address] 09/22/2024 Nicholas Bal Jr Plan Of Treatment No Information Progress Notes * RADHA OVALLES ADOB: [birth year] (89 yo M)Acc No.[id number]:09/22/2024 Progress Notes Patient: RADHA VITALE Provider: Jacqueline Bal MD :1935 A ge:89 Y S ex:Male Date:09/22/2024 Address:[address] [place], [place] [phone] Pcp:Dhiraj Guevara MD Subjective: * Chief Complaints: [...] Bal MD Date: 0 09/22/2024 Generated for Ramyi ng/Faberniceg/eTransmitting on: 0 12/15/2024 02:40 PM EDT
[2024-12-15 14:50] VITALS: BP 114/52; PULSE 75; TEMP 36.4; O2SAT 95; BMI 21.8
--- NOTE | 2024-12-15 14:50 | AM.OFFWIN_ITS ---
Intake Vital Signs 12/15/24 14:50 Height 5 ft 10 in Weight 152 lb 4 oz BMI 21.8 BP 114/52 L Blood Pressure Location Rt brachial Position Sitting Pulse 75 Pulse Source Pulse Oximeter Temp 97.6 F Temp Source Oral Pulse Oximetry (%) 95 Oxygen Delivery Method Room Air Intake Visit Reasons: EP Rash around groin Intake Note: Patient presents with a groin rash about 6 weeks. Rash is red and itchy Patient Tobacco Use Status: Never used Tobacco Allergies omeprazole (OMEPRAZOLE) Allergy (Unknown, Verified 12/15/24 14:55) RASH Medication List - Last Reconciled 12/15/24 by Stephanie Sharp PA-C albuterol sulfate 90 mcg/actuation inhalation atorvastatin (Lipitor) 40 mg PO DAILY cholecalciferol (vitamin D3) 50 mcg PO DAILY diclofenac sodium 1% (Arthritis Pain (diclofenac)) 4 grams topical QID diclofenac sodium 1% (Voltaren Arthritis Pain) 4 grams topical QID Eliquis (apixaban) 5 mg PO BID NS furosemide (Lasix) 20 mg PO DAILY isosorbide mononitrate ER 30 mg PO .QD verapamil ER 120 mg PO BID 90 days Do you need a note to return to daycare/school/sports/work: No HPI HPI Comments History of Present Illness Details History - The patient is an 89-year-old male pre senting with skin irritation and urinary incontinence. - The patient reported using a strong so ap, which may have contributed to the development of a groin rash, characterized by sometimes itchy red bumps, noted about six weeks ago. - The itchiness worsens if not washed tw ice daily. - The patient experiences some urinary l eakage, particularly when sitting for extended periods, leading to skin moisture - The patient has limited control over u rinary drips, although normal urination is manageable. - The patient has a hydrocele, which is being monitored with an upcoming ultrasound scheduled for December 27. Physical Exam General: Uncomfortable, not in acute distress Orientation: Patient oriented x3 Limitations: No limitations Head: Normal to inspection Ears: Hearing grossly normal bilaterally Nose: Normal External nose present Face and sinus: Normal facial exam Mouth: normal, moist oral mucosa Eyes: Appearance normal, both eyes and all related structures Neck: Normal visual inspection and Yes full ROM Respiratory: Normal respiratory effort and able to speak in complete sentences. Skin: upper inner bilateral legs has 7-8 scattered erythematous papules, no pattern. No warmth, no drainage. Neuro: Patient oriented x3 Extremities: moving all extremities normally [facility] Medical History (Updated 12/15/24 @ 15:27 by Stephanie Sharp PA-C) Prostate nodule Low back pain GERD (gastroesophageal reflux disease) CVA (cerebral vascular accident) Dementia Bilateral carotid artery disease Carpal tunnel syndrome of right wrist Vitamin D deficiency Cervical spinal stenosis Atrial fibrillation Hypercholesterolemia Hypertension Coronary artery disease Surgical History Hx of CABG (~1997) Inguinal hernia, right History of cardiac cath (~03/2008) Family History Father No problems noted. Mother Cancer CVD (cardiovascular disease) Social History Household Members: Spouse Housing: House Alcohol intake: former Patient Tobacco Use Status: Never used Tobacco Tobacco use type: Cigarette e-Cigarette/Vaping Use: Never Used Second Hand Smoke Exposure: No service: Yes Current occupational status: retired Cognitive needs: No Hearing needs: Yes Vision needs: Yes Review of Systems Const All systems reviewed & are unremarkable except as noted in HPI and below Physical Exam Vital Signs: Last Vital Signs Temp 97.6 F 12/15/24 14:50 Pulse 75 12/15/24 14:50 BP 114/52 L 12/15/24 14:50 Pulse Ox 95 12/15/24 14:50 Oxygen Delivery Method Room Air 12/15/24 14:50 BMI result Body Mass Index 21.8 Assessment & Plan Assessment & Plan (1) Folliculitis: Code(s): L73.9 - Follicular disorder, unspecified Plan: Patient was informed and verbally consented to the use of an ambient scribe for clinic note documentation during this visit Folliculitis - Prescribed mupirocin cream to be applied twice daily for seven days to manage bacterial infection and reduce irritation. (2) Urinary leakage: Code(s): R32 - Unspecified urinary incontinence Qualifiers: Urinary Incontinence type: unspecified incontinence Qualified Code(s): R32 - Unspecified urinary incontinence Plan: Urinary Incontinence - Advised to discuss urinary leakage with Dr. Jaimes during the follow-up appointment on January 04. - Also, encouraged pt to attend his ultrasound on December 27 to assess the hydrocele. Medications: New mupirocin 2% 1 appl topical TID 22 grams 0RF Coding Level of Care Code Est Pt Level 3 (49290) Diagnoses Folliculitis L73.9 Urinary incontinence, unspecified type R32 Urinary Incontinence type: unspecified incontinence
== END 2024-12-15 15:42 | disposition home or self-care (01) ==
PROVIDERS: PCP Internal Medicine; Visit Provider Physician Assistant
DX: L73.9 Follicular disorder, unspecified (principal); R32 Unspecified urinary incontinence

== ENCOUNTER → 2024-12-15 14:32 | Outpatient (BNVA) | payer MEDICARE, SELFPAY | PROVIDERS: PCP Internal Medicine; Visit Provider Physician Assistant | DX: L73.9 Follicular disorder, unspecified (principal); R32 Unspecified urinary incontinence | CPT/HCPCS: 99212 ==

== ENCOUNTER 2024-12-23 13:03 | Outpatient (AMB) | payer MEDICARE, SELFPAY ==
--- OUTSIDE RECORDS SUMMARY | 2023-10-14 05:30 | XMS_ITS ---
Author Organization [facility] Address [address] [place] [phone] Care Team Providers Care Dietitian Therapeutic Name Role Phone Dhiraj Guevara Primary Care Provider Cristopher Garrett Unavailable [phone] Crow Cuellar [phone] Encounters Encounter Location Date Provider Diagnosis [address] [address] 10/14/2023 Crow Cuellar Plan Of Treatment Next Appt Details Provider Name:Cristopher Mera , 01/27/2025 01:15:00 PM, [address] [place] [address], [phone], Progress Notes * Fadi SHEPPARDDOB:1935 (89 yo M)Acc No.[id number]:10/14/2023 Progress Notes Patient: Fadi VITALE Provider: Therese Cuellar DPM :1935 A ge:88 Y S ex:Male Date:10/14/2023 Address:[address] [place] [address] ramya [facility] Pcp:Dhiraj Gueavra Subjective: * Chief Complaints: * * Medical [...] 10/14/2023 Generated for Yvette park/Marcella/Belia on: 0 12/23/2024 01:06 PM EDT
--- OUTSIDE RECORDS SUMMARY | 2024-09-22 09:35 | XMS_ITS ---
Author Organization [facility] Address [address] [place] [address] Care Team Providers Care Business Process Engineer Name Role Phone Dhiraj Guevara MD Primary Care Provider Nicholas Paul Jr REASON FOR VISIT dysphagia Encounters Encounter Location Date Provider Diagnosis [facility] [address] [place] [address] 09/22/2024 Nicholas Bal Jr Plan Of Treatment No Information Progress Notes * RADHA OVALLES ADOB: 7 (89 yo M)Acc No.[id number]:09/22/2024 Progress Notes Patient: RADHA VITALE Provider: Jacqueline Bal MD :1935 A ge:89 Y S ex:Male Date:09/22/2024 Address:[address] [place], [place] [phone] Pcp:Dhiraj Guevara MD Subjective: * Chief Complaints: [...] MD Date: 0 09/22/2024 Generated for Yvette park/Faberniceg/eTransmitting on: 0 12/23/2024 01:06 PM EDT
--- NOTE | 2024-12-23 13:11 | A.OFFPC_ITS ---
Vital Signs 12/23/24 13:12 Height 5 ft 10 in Weight 147 lb 6 oz BMI 21.1 BP 130/68 Blood Pressure Location Lt brachial Position Sitting Pulse 94 Pulse Source Pulse Oximeter Temp 97.1 F Temp Source Temporal Artery Scan Pulse Oximetry (%) 94 Oxygen Delivery Method Room Air Intake Visit Reasons: Cough Intake Note: Patient complains of Cough on going for 4 weeks. 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 Pt reports coughing 24 hours a day. Pt was recently treated for Pneumonia on 10/21 with Cefuroxime - Pt reports no symptom improvement. Patient was referred to Pulmonology by PCP and has an appointment on 12/27 (Dr. Cantu). [facility] Medical History (Updated 12/23/24 @ 13:57 by Lisa Powers NP) Cough Prostate nodule Low back pain GERD (gastroesophageal reflux disease) CVA (cerebral vascular accident) Dementia Bilateral carotid artery disease Carpal tunnel syndrome of right wrist Vitamin D deficiency Cervical spinal stenosis Atrial fibrillation Hypercholesterolemia Hypertension Coronary artery disease Surgical History Hx of CABG (~1997) Inguinal hernia, right History of cardiac cath (~03/2008) Family History Father No problems noted. Mother Cancer CVD (cardiovascular disease) Social History Household Members: Spouse Housing: House Alcohol intake: former Patient Tobacco Use Status: Never used Tobacco Tobacco use type: Cigarette e-Cigarette/Vaping Use: Never Used Second Hand Smoke Exposure: No service: Yes Current occupational status: retired Cognitive needs: No Hearing needs: Yes Vision needs: Yes Questionnaire Thrive Questionnaire Date Thrive assessed: 11/22/24 I am a: Patient What is your living situation today?: I have a steady place to live Within the past 12 months, did the food you bought not last and you didn't have the money to get more?: Never true Within the past 12 months, did you worry whether your food would run out before you got money to buy more?: Never true Do you have trouble paying for medicines?: No Do you have trouble getting transportation to medical appointments?: No Do you have trouble paying your heating and electricity bill?: No Do you have trouble taking care of your child, family member or friend?: No Do you have trouble with day-to-day activities such as bathing, preparing meals, shopping, managing finances, etc.?: I choose not to answer this question Are you currently unemployed and looking for a job?: No Are you interested in more education?: No Please select the resources that you would like help with: None Currently or been in a relationship where the following occur: No concerns reported THRIVE Score: 0 DARYL-7 AMB Questionnaire DARYL-7 Date DARYL - 7 assessed: 11/22/24 Source: Developed by Drs. Fadi Avery, Alanna Nguyen, Justin Campos and colleagues, with an educational oliver from [employer]. Review of Systems Const All systems reviewed & are unremarkable except as noted in HPI and below Physical exam (Primary Care) Vital Signs: Last Vital Signs Temp 97.1 F 12/23/24 13:12 Pulse 94 12/23/24 13:12 BP 130/68 12/23/24 13:12 Pulse Ox 94 12/23/24 13:12 Oxygen Delivery Method Room Air 12/23/24 13:12 BMI result Body Mass Index 21.1 Tobacco/Smoking Status: Tobacco use Status Tobacco use date assessed 12/23/24 12/23/24 13:18 Patient Tobacco Use Status Never used Tobacco 12/23/24 13:18 Tobacco use type Cigarette 12/23/24 13:18 e-Cigarette/Vaping Use Never Used 12/23/24 13:18 Thrive Assessment: Date of Thrive Assessment Date Thrive assessed 11/22/24 12/23/24 13:18 Currently or been in a relationship where the following occur: No concerns reported Const General: no acute distress Nutritional Appearance: well nourished Orientation/consciousness: patient oriented x3 Resp Effort & Inspection: normal respiratory effort, able to speak in complete sentences, no audible wheezes and no cough Auscultation: clear to auscultation bilaterally, no crackles, no rales, no rhonchi and no wheezes Cardio Heart sounds: S1 normal heart sound present and S2 normal heart sound present Neuro General: patient oriented x3 Coding Level of Care Code Est Pt Level 4 (77375) Diagnoses Subacute cough R05.2 Cough type: subacute Time Spent (min) 20 Assessment & Plan Assessment & Plan (1) Cough: Code(s): R05.9 - Cough, unspecified Category: Medical Qualifiers: Cough type: subacute Qualified Code(s): R05.2 - Subacute cough Plan: Pt not actively coughing in the room B/L Lungs CTA ordered Cough medicine Pt has an appointment with Pulmonology 12/27 Medications: New benzonatate 200 mg (2 x 100 mg) PO BID 60 caps 0RF R05.2 - Subacute cough
[2024-12-23 13:12] VITALS: BP 130/68; PULSE 94; TEMP 36.2; O2SAT 94; BMI 21.1
== END 2024-12-23 14:55 | disposition home or self-care (01) ==
LOC: HO.HMCH 13:04
PROVIDERS: PCP Internal Medicine; Visit Provider Nurse Practitioner Family
DX: R05.2 Subacute cough (principal)

== ENCOUNTER → 2024-12-23 13:03 | Outpatient (BNVA) | payer MEDICARE, SELFPAY | PROVIDERS: PCP Internal Medicine; Visit Provider Nurse Practitioner Family | DX: R05.2 Subacute cough (principal) | CPT/HCPCS: 99212 ==

== ENCOUNTER 2024-12-27 13:14 | Outpatient (REF) | payer MEDICARE, SELFPAY ==
--- OUTSIDE RECORDS SUMMARY | 2023-10-14 05:30 | XMS_ITS ---
Author Organization [facility] Address [address] [place] [id number] Care Team Providers Care Hotel Operation Manager Name Role Phone Dhiraj Guevara Primary Care Provider Cristopher Garrett Unavailable [phone] Crow Cuellar [phone] Encounters Encounter Location Date Provider Diagnosis [address] [address] 10/14/2023 Crow Cuellar Plan Of Treatment Next Appt Details Provider Name:Cristopher Mera , 01/27/2025 01:15:00 PM, [address] [place] [address], [id number], Progress Notes * Fadi SHEPPARDDOB:1935 (89 yo M)Acc No.[id number]:10/14/2023 Progress Notes Patient: Fadi VITALE Provider: Therese Cuellar DPM :1935 A ge:88 Y S ex:Male Date:10/14/2023 Address:[address] [place] [address] ramya [id number] Pcp:Dhiraj Guevara Subjective: * Chief Complaints: * [...] 10/14/2023 Generated for Yvette park/Marcella/Belia on: 0 12/27/2024 02:18 PM EDT
--- OUTSIDE RECORDS SUMMARY | 2024-09-22 09:35 | XMS_ITS ---
Author Organization [facility] Address [address] [place] [address] Care Team Providers Care Director Labor Standards Name Role Phone Dhiraj Guevara MD Primary Care Provider Nicholas Paul Jr REASON FOR VISIT dysphagia Encounters Encounter Location Date Provider Diagnosis [facility] [address] [place] [address] 09/22/2024 Nicholas Bal Jr Plan Of Treatment No Information Progress Notes * RADHA OVALLES ADOB: 7 (89 yo M)Acc No.[id number]:09/22/2024 Progress Notes Patient: RADHA VITALE Provider: Jacqueline Bal MD :1935 A ge:89 Y S ex:Male Date:09/22/2024 Address:[address] [place], [place] [phone] Pcp:Dhiraj Guevara MD Subjective: * Chief Complaints: [...] MD Date: 0 09/22/2024 Generated for Yvette ng/Faberniceg/eTransmitting on: 0 12/27/2024 02:18 PM EDT
--- NOTE | ~2024-12-27 | XR_ITS ---
EXAMINATION: XR CHEST CLINICAL INFORMATION: J18.9 - Pneumonia, unspecified organism COMPARISON: October 21, 2024 TECHNIQUE: 2 views of the chest were obtained. FINDINGS: Again seen are mediastinal wires. Heart size is within normal limits. There are patchy airspace opacities in the left lung sparing the apex. Right lung is grossly clear. Multiple healed rib fractures are seen in the posterior lateral right mid to lower chest and posterior lateral left seventh rib. XR/XR chest 2V IMPRESSION: Vague patchy airspace opacities in the left lung could represent pneumonia. Electronically signed by: Albert Andre MD 12/27/2024 04:31 PM EDT
--- NOTE | ~2024-12-27 | US_ITS ---
EXAMINATION: US PELVIS LIMITED (BLADDER) CLINICAL INFORMATION: Poor urinary stream. COMPARISON: None available. TECHNIQUE: Real-time imaging of the bladder. FINDINGS: BLADDER: Fluid-filled. Bilateral ureteral jets are demonstrated. Prevoid bladder volume is 104 mL. Postvoid bladder volume is not documented. Prostate gland measures 4.5 x 4.4 x 4.9 cm. Volume: 51 cc. US/US bladder IMPRESSION: Prostate gland volume: 51 cc. Normal urinary retention in a post void image.. Electronically signed by: Benton Cruz MD 12/27/2024 03:17 PM EDT
--- NOTE | ~2024-12-27 | US_ITS ---
EXAMINATION: US SCROTUM CLINICAL INFORMATION: Hydrocele.. COMPARISON: None available. TECHNIQUE: A sonogram of the scrotum was performed assessing mackey-scale appearance and color Doppler flow. Spectral Doppler analysis of the arterial and venous flow were performed in the testes bilaterally. FINDINGS: RIGHT: Right testicle measures 3.6 x 2.3 x 2.9 cm, volume 12.3 mL. No focal testicular parenchymal lesions are visualized. Spectral Doppler analysis of the arterial and venous flow is normal in the right testis. Right epididymal head is normal in size. There is a small right epididymal head cyst measuring 5 x 6 x 6 mm. There is a small right hydrocele. Right epididymal Doppler flow is normal. LEFT: Left testicle measures 4.0 x 1.7 x 3.3 cm, volume 12.5 mL. No focal testicular parenchymal lesions are visualized. Spectral Doppler analysis of the arterial and venous flow is normal in the left testis. Left epididymal head is normal in size. There is a small left hydrocele. There is a small left varicocele. Left epididymal Doppler flow is normal. US/US scrotum IMPRESSION: 1. Normal testicles and epididymides bilaterally. 2. Small hydroceles bilaterally. 3. Small left varicocele. Electronically signed by: Carlos Garsia MD 12/27/2024 03:21 PM EDT
[2024-12-27 15:12] LABS: Prostate Specific Antigen 5.23 ng/mL (<0.05-4.0)
== END 2024-12-27 13:15 | disposition home or self-care (01) ==
LOC: HO.US 13:14
PROVIDERS: Absent Provider Internal Medicine; PCP Internal Medicine; Visit Provider Urology
DX: C61 Malignant neoplasm of prostate (principal); R39.12 Poor urinary stream; N43.3 Hydrocele, unspecified; J18.9 Pneumonia, unspecified organism; R05.2 Subacute cough; Z12.5 Encounter for screening for malignant neoplasm of prostate
CPT/HCPCS: 36415; 71046; 76857; 76870; 84153; 94010; 99202

== ENCOUNTER → 2024-12-27 13:36 | Outpatient (BNV) | payer MEDICARE, SELFPAY | PROVIDERS: PCP Internal Medicine; Visit Provider Radiology Diagnostic Radiology | DX: I86.1 Scrotal varices (principal); N40.1 Benign prostatic hyperplasia with lower urinary tract symptoms; J18.9 Pneumonia, unspecified organism | CPT/HCPCS: 71046; 76857; 76870 ==

== ENCOUNTER 2024-12-27 15:06 | Outpatient (AMB) | payer MEDICARE, SELFPAY ==
[2024-12-27 15:15] VITALS: BP 142/63; PULSE 66; O2SAT 97; BMI 21.5
--- NOTE | 2024-12-27 15:15 | A.OFFVIS_ITS ---
Vital Signs 12/27/24 15:15 Height 5 ft 10 in Weight 149 lb 14.629 oz BMI 21.5 BP 142/63 H Blood Pressure Location Lt brachial Position Sitting Pulse 66 Pulse Source Pulse Oximeter Pulse Oximetry (%) 97 Oxygen Delivery Method Room Air Intake Visit Reasons: Dyspnea Intake Note: pt is here as a new patient for dyspnea, eating does affect, Systems Requirements Planner Required: No Allergies omeprazole (OMEPRAZOLE) Allergy (Unknown, Verified 12/27/24 17:05) RASH Medication List - Last Reconciled 12/27/24 by Kumar Brand MD albuterol sulfate 90 mcg/actuation inhalation atorvastatin (Lipitor) 40 mg PO DAILY benzonatate 200 mg (2 x 100 mg) PO BID cholecalciferol (vitamin D3) 50 mcg PO DAILY diclofenac sodium 1% (Arthritis Pain (diclofenac)) 4 grams topical QID diclofenac sodium 1% (Voltaren Arthritis Pain) 4 grams topical QID Eliquis (apixaban) 5 mg PO BID NS furosemide (Lasix) 20 mg PO DAILY isosorbide mononitrate ER 30 mg PO .QD mupirocin 2% 1 appl topical TID verapamil ER 120 mg PO BID 90 days Do you need a note to return to daycare/school/sports/work: No HPI HPI Dyspnea: Details: 89 YEARS OLD GENTLEMAN COMES ACCOMPANIED BY HIS . HE IS QUITE ALERT AND PLEASANT BUT TENDS TO BE INTERMITTENTLY CONFUSED. HE IS COMPLAINING OF NOT GETTING ENOUGH AIR WHEN HE IS EATING AND SWALLOWING. THIS COMPLAINT IS VERY NONSPECIFIC, HE ALSO DENIES ANY DIFFICULTY IN SWALLOWING, AND ALSO DENIES ANY COUGH OR WHEEZING. THE RECENT HISTORY GOES BACK TO SEPTEMBER OF THIS YEAR WHEN HE WAS TREATED AT [facility] WITH BILATERAL INTERSTITIAL PNEUMONIA THE CT SCAN AT [facility] ON 10/05/2024 SHOWS MULTIFOCAL PNEUMONIA PREDOMINANTLY INVOLVING THE UPPER LOBES AND RIGHT LOWER LOBE. PATIENT WAS TREATED WITH COURSE OF ANTIBIOTIC. HE CLAIMS THAT HE HAS HAD NO FEVER CHILLS OR CHEST PAIN. PRESENTLY HE DENIES GETTING SHORT OF BREATH WHEN HE WALKS. COUGH IS MINIMAL. AND IS MAIN COMPLAINT IS IF HE IS NOT GETTING ENOUGH AIR WHEN HE SWALLOWS. 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 [facility] Medical History Cough Prostate nodule Low back pain GERD (gastroesophageal reflux disease) CVA (cerebral vascular accident) Dementia Bilateral carotid artery disease Carpal tunnel syndrome of right wrist Vitamin D deficiency Cervical spinal stenosis Atrial fibrillation Hypercholesterolemia Hypertension Coronary artery disease Surgical History Hx of CABG (~1997) Inguinal hernia, right History of cardiac cath (~03/2008) Family History Father No problems noted. Mother Cancer CVD (cardiovascular disease) Social History Household Members: Spouse Housing: House Alcohol intake: former Patient Tobacco Use Status: Never used Tobacco Tobacco use type: Cigarette e-Cigarette/Vaping Use: Never Used Second Hand Smoke Exposure: No service: Yes Current occupational status: retired Cognitive needs: No Hearing needs: Yes Vision needs: Yes Review of Systems Const All systems reviewed & are unremarkable except as noted in HPI and below (I COULD NOT GET ANY MORE [place]) Physical Exam Vital Signs: Last Vital Signs Pulse 66 12/27/24 15:15 BP 142/63 H 12/27/24 15:15 Pulse Ox 97 12/27/24 15:15 Oxygen Delivery Method Room Air 12/27/24 15:15 BMI result Body Mass Index 21.5 Const General: comfortable, no acute distress, alert and awake Orientation/consciousness: patient oriented x3 HEENT Head: Yes normal to inspection General nose exam: No nasal polyps present and No nasal discharge present Face and sinus: Yes sinuses nontender Mouth: oropharynx normal Throat: Yes posterior oropharynx normal Eyes General: appearance normal, both eyes and all related structures Neck Neck: Yes normal visual inspection, Yes no lymphadenopathy, Yes trachea midline and Yes no JVD Thyroid: Thyroid normal Chest Chest palpation & inspection: normal inspection of the chest, normal palpation of entire chest wall and no tenderness Resp Other: PERCUSSION NOTE IS RESONANT, PATIENT DOES HAVE GOOD BREATH SOUNDS ON BOTH SIDES, NO WHEEZES RHONCHI OR CREPITATIONS ARE HEARD Cardio Palpation: normal PMI Rate: regular rate Rhythm: regular rhythm Heart sounds: no gallops and no murmurs GI Palpation (GI): Soft to palpation, nontender, No hepatosplenomegaly present and no masses Auscultation: normal bowel sounds Back/Spine/Pelvis Thoracic/Lumbar Spine: thoracic and lumbar spine normal to inspection Skin General skin exam: no rashes or lesions noted Neuro General: patient oriented x3, gait normal and no focal motor deficits Cranial nerves: Yes CN's II-XII intact bilaterally Extrem General: Yes normal to inspection, Yes no clubbing, cyanosis or edema and Yes no calf tenderness Psych Appearance: grossly normal and well kempt Speech and movement: Normal speech and movement present Office Procedures Spirometry Testing Spirometry Comments: In office spirometry completed with results given to Dr Brand. [id number]- Spirometry Results Reviewed Results Reviewed: SPIROMETRY WAS PERFORMED IN THE OFFICE FLOW VOLUMES ARE ALL NORMAL, NO EVIDENCE OF OBSTRUCTIVE LUNG DISEASE. CT SCAN OF THE CHEST 11/15 Diffuse upper and lower lobe groundglass density likely from low-grade inflammatory process . Patchy focal consolidation/atelectasis and left lower lobe and mild atelectatic changes right middle lobe and right lower lobe. No clear airspace consolidation seen. Significant coronary artery calcifications but no pericardial effusion seen. Fleischner guidelines were followed. Assessment & Plan Assessment & Plan (1) Pneumonia: Comment: PATIENT WAS TREATED FOR BILATERAL MULTIFOCAL PNEUMONIA , BACK IN SEPTEMBER 2024. MOST OF HIS ACUTE SYMPTOMS HAVE RESOLVED, BUT CONTINUE TO HAVE MILD INTERMITTENT COUGH MOST LIKELY HE HAD ACUTE VIRAL PNEUMONITIS, POSSIBILITY OF POST ASPIRATION PNEUMONITIS CAN NOT BE RULED OUT. Code(s): J18.9 - Pneumonia, unspecified organism Category: Medical Qualifiers: Laterality: bilateral Lung location: upper lobe of lung Pneumonia type: due to unspecified organism Qualified Code(s): J18.9 - Pneumonia, unspecified organism Plan: REPEAT CT SCAN ON 11/15/2024, AGAIN SHOWED BILATERAL INTERSTITIAL ALVEOLAR DENSITIES WITH PATCHES OF ATELECTASIS. I THINK HE IS HAVING SLOW RESOLUTION OF HIS PNEUMONITIS. IT IS INTERESTING TO KNOW THAT HIS SPIROMETRY IS EXCELLENT WITH ALL THE FLOW VOLUMES BEING NORMAL,. I DO FEEL THAT HE MAY BE CANDIDATE TO HAVE PULMONARY ASPIRATION, HOWEVER HE DESCRIBES THAT HE CAN SWALLOW OKAY WHEN HE CHEWS HIS FOOD. HIS COMPLAINT OF NOT GETTING ENOUGH AIR WHEN HE EATS AND SWALLOWS IS VERY NONSPECIFIC COMPLAINTS. IT MAY BE PSYCHOLOGIC FEELING. PATIENT IS REASSURED. HE IS INSTRUCTED TO DO WELL AND EAT SLOWLY. I REASSURED HIM THAT HIS LUNGS SOUND CLEAR, AND ALSO SPIROMETRY SHOWS NORMAL FLOW VOLUMES. A REPEAT CHEST X-RAY IS ORDERED . (2) Cough: Comment: HE HAS MILD INTERMITTENT COUGH WHICH IS NONSPECIFIC AND I THINK THIS IS MOSTLY RELATED TO HIS BILATERAL INTERSTITIAL PNEUMONITIS. IT IS GRADUALLY IMPROVING. Code(s): R05.9 - Cough, unspecified Category: Medical Qualifiers: Cough type: subacute Qualified Code(s): R05.2 - Subacute cough Plan: PATIENT NEEDS TO BE FOLLOWED CLOSELY. AND AVERAGE SEE HIM BACK IN ABOUT 2 MONTHS . Orders: Orders AMB Spirometry Testing 12/27/24 R05.2 - Subacute cough XR chest 2V 12/27/24 J18.9 - Pneumonia, unspecified organism, R05.2 - Subacute cough Coding Level of Care Code New Pt Level 4 (49571) Diagnoses Pneumonia of both upper lobes due to infectious organism J18.9 Laterality: bilateral Lung location: upper lobe of lung Pneumonia type: due to unspecified organism Subacute cough R05.2 Cough type: subacute CPT Codes Spirometry - CPT: 72645- Spirometry ([id number])
== END 2024-12-27 16:08 | disposition home or self-care (01) ==
LOC: HO.HPS 15:07
PROVIDERS: PCP Internal Medicine; Visit Provider Internal Medicine
DX: J18.9 Pneumonia, unspecified organism (principal); R05.2 Subacute cough
CPT/HCPCS: 94010; 99204

== ENCOUNTER 2025-01-04 13:41 | Outpatient (AMB) | payer MEDICARE, SELFPAY ==
--- OUTSIDE RECORDS SUMMARY | 2023-10-14 05:30 | XMS_ITS ---
Author Organization [facility] Address [address] [place] [phone] Care Team Providers Care Hand Stapler Name Role Phone Dhiraj Guevara Primary Care Provider Cristopher Garrett Unavailable [phone] Crow Cuellar [phone] Encounters Encounter Location Date Provider Diagnosis [address] [address] 10/14/2023 Crow Cuellar Plan Of Treatment Next Appt Details Provider Name:Cristopher Mera , 01/27/2025 01:15:00 PM, [address] [place] [address], [phone], Progress Notes * Fadi SHEPPARDDOB:1935 (89 yo M)Acc No.[id number]:10/14/2023 Progress Notes Patient: Fadi VITALE Provider: Therese Cuellar DPM :1935 A ge:88 Y S ex:Male Date:10/14/2023 Address:[address] [place] [address] [facility] Pcp:Dhiraj Guevara Subjective: * Chief Complaints: * [...] 10/14/2023 Generated for Yvette park/Marcella/Belia on: 0 01/04/2025 02:20 PM EDT
--- OUTSIDE RECORDS SUMMARY | 2024-09-22 09:35 | XMS_ITS ---
Author Organization [facility] Address [address] [place] [address] Care Team Providers Care Medical Services Assistant Name Role Phone Dhiraj Guevara MD Primary Care Provider Nicholas Paul Jr REASON FOR VISIT dysphagia Encounters Encounter Location Date Provider Diagnosis [facility] [address] [place] [address] 09/22/2024 Nicholas Bal Jr Plan Of Treatment No Information Progress Notes * RADHA OVALLES ADOB: 7 (89 yo M)Acc No.[id number]:09/22/2024 Progress Notes Patient: RADHA VITALE Provider: Jacqueline Bal MD :1935 A ge:89 Y S ex:Male Date:09/22/2024 Address:[address] [place], [place] [address] Pcp:Dhiraj Guevara MD Subjective: * Chief Complaints: * 1 . Dysphagia. * Medical History: Objective: * Vitals: Assessment: Plan: * Treatment: * * The named appointment provid er may or may not be the originator of this progress note, and it is not deemed complete until electronically signed by the appointment provider. Sign off status: Pending * Provider: Jacqueline Bal MD Date: 09/22/2024 Generated for Ramyi ng/Faberniceg/eTransmitting on: 0 01/04/2025 02:20 PM EDT
--- NOTE | 2025-01-04 13:44 | A.OFFVIS_ITS ---
Intake Visit Reasons: 6m/US Intake Note: Patient is present for 6 mo follow up for hydrocele and BPH Labs done 12/27/2024: PSA 5.23 Imaging done 12/27/2024 Urology Medication:NONE Antibiotic Allergy:NONE Blood Thinner:APIXABAN PVR: 20 MLS Diet Aid Required: No Accompanied by: Self / Same As Patient Allergies omeprazole (OMEPRAZOLE) Allergy (Unknown, Verified 01/04/25 13:45) RASH HPI Comments Details: Fadi is a pleasant male. He is a patient of Dr. Guevara. He is seen for following urologic condition - prostate nodule - prostate cancer - gross hematuria Persistent slow rise in PSA Recommend finasteride for enlarged prostate Imaging - 50 g prostate otherwise unremarkable bladder, scrotal ultrasound is a small hydrocele left side Continue six-month follow-up PSA 09/28 3.3, 03/30 3.7, 01/29 3.3, 12/30 5.3 Prostate cancer February 2021 grade group [address] Pro[address] cancer diagnosed by Dr. Jaimes February 2021 PSA at diagnosis - 02/26 2.2 Biopsy performed for prostate nodule Histologic type: Adenocarcinoma, acinar type; focal intraductal adenocarcinoma Histologic grade: Monae score: 4+3=7 (left mid lateral), 3+4=7 (left base medial), 3+3=6 (left base lateral, left mid medial, right base lateral, right mid medial) Tumor quantitation: Number cores positive: 6 - 50%, 80%, 50%, 50%, 20%, 20% - 270/1200 Total number of cores: 12, % of tissue involved: 20-25% of all tissue examined Periprostatic fat inv.: Not identified Seminal vesicle inv: Not identified, Perineural inv.: Present, LVI:Not identified Staging 02/26 Bone Scan NAD PSA 12/23 1.8, 02/26 2.2, 11/27 1.6, 03/29 2.1 Imaging - 01/29 MRI - left posterolateral mid gland 2 cm lesion PI-RADS 5, question of early T3a involvement, 55 g prostate Lower Urinary Tract Symptoms Weakness of stream On alpha velasquez previously [facility] Medical History (Updated 01/04/25 @ 14:27 by Efrain Jaimes MD) Cough Prostate nodule Low back pain GERD (gastroesophageal reflux disease) CVA (cerebral vascular accident) Dementia Bilateral carotid artery disease Carpal tunnel syndrome of right wrist Vitamin D deficiency Cervical spinal stenosis Atrial fibrillation Hypercholesterolemia Hypertension Coronary artery disease Surgical History Hx of CABG (~1997) Inguinal hernia, right History of cardiac cath (~03/2008) Family History (Updated 01/04/25 @ 14:28 by Efrain Jaimes MD) Father No problems noted. Mother CVD (cardiovascular disease) Social History (Updated 01/04/25 @ 14:28 by Efrain Jaimes MD) Household Members: Spouse Housing: House Alcohol intake: former Patient Tobacco Use Status: Never used Tobacco e-Cigarette/Vaping Use: Never Used Second Hand Smoke Exposure: No service: Yes Current occupational status: retired Cognitive needs: No Hearing needs: Yes Vision needs: Yes Review of Systems Const Denies chills and Denies fever(s) Card Reports no additional complaints and Denies syncope Resp Denies cough GI Denies abdominal pain and Denies heartburn Reports as per HPI and Denies change in libido Neuro Denies syncope Psych Denies change in libido Endo Denies change in libido Physical Exam Const General: cooperative, healthy appearing, comfortable and no acute distress Orientation/consciousness: patient oriented x3 HEENT Face and sinus: Yes normal facial exam Mouth: moist mucous membranes Neck Neck: Yes normal visual inspection, Yes full ROM and Yes trachea midline Chest Chest palpation & inspection: normal inspection of the chest Resp Effort & Inspection: normal respiratory effort, able to speak in complete sentences and no respiratory distress GI Inspection: Yes normal to inspection Back/Spine/Pelvis Cervical Spine: normal cervical lordosis Thoracic/Lumbar Spine: thoracic and lumbar spine normal to inspection Skin General skin exam: no rashes or lesions noted Neuro General: patient oriented x3, gait normal, tone normal and moves all extremities Extrem General: Yes normal to inspection and Yes capillary refill normal Assessment & Plan Assessment & Plan (1) Prostate cancer: Comment: February 2021 grade group 3 intermediate volume - Bone Scan NAD Code(s): C61 - Malignant neoplasm of prostate Category: Medical Plan Six-month follow-up repeat PSA Orders: Orders PSA,Total (Free>4and<10) 6 Months C61 - Malignant neoplasm of prostate Patient Instructions: This note is constructed using voice recognition software. While every effort has been made to ensure accuracy lock technician errors may have been included. Imaging studies, laboratory and physical exam results were discussed and reviewed in detail. No major barriers to patient understanding were identified. An opportunity to ask questions regarding the treatment plan was provided. All questions were answered. The patient expressed understanding and agreement with the above treatment plan. The patient is aware they should contact our office by phone for worsening of their current condition or the appearance of new urologic symptoms. Compliance is encouraged with any medications and followup testing that is ordered. It is a privilege to participate in the urologic care of your patient. If you have any questions or concerns regarding treatment for the above conditions, or other urologic issues, please do not hesitate to contact me. The office telephone contact is [phone]. Sincerely, Dr Efrain Jaimes MD, [facility] - Urology Compassionate Specialist Care for the Genitourinary System Coding Level of Care Code Est Pt Level 3 (00330) Diagnoses Prostate cancer C61
== END 2025-01-04 14:31 | disposition home or self-care (01) ==
PROVIDERS: PCP Internal Medicine; Visit Provider Urology
DX: R32 Unspecified urinary incontinence (principal); N40.1 Benign prostatic hyperplasia with lower urinary tract symptoms; N13.8 Other obstructive and reflux uropathy; C61 Malignant neoplasm of prostate
CPT/HCPCS: 99213

== ENCOUNTER → 2025-01-04 13:41 | Outpatient (BNVA) | payer MEDICARE, SELFPAY | PROVIDERS: PCP Internal Medicine; Visit Provider Urology | DX: C61 Malignant neoplasm of prostate (principal) | CPT/HCPCS: 51798; 81003; 99212 ==

== ENCOUNTER 2025-02-02 11:12 | Outpatient (REF) | payer MEDICARE, SELFPAY ==
[2025-02-02 12:56] LABS: Hematocrit 26.9 % (42.0-52.0); Hemoglobin 8.7 g/dl (14.0-18.0); Mean Corpuscular HGB Conc 32.3 g/dl (31.0-36.0); Mean Corpuscular Hemoglobin 35.8 pg (27.0-33.0); NRBC Abs Auto 0.000 X10*3/uL (0.0-0.012); NRBC Pct Auto 0.0 /100WBC (0.0-0.2); Platelet Count 300 X10*3/uL (160-400); Red Blood Count 2.43 X10*6/uL (4.60-5.80); White Blood Count 8.2 X10*3/uL (4.8-10.8)
[2025-02-02 13:13] LABS: Mean Corpuscular Volume 110.7 fL (80.0-98.0)
[2025-02-02 13:34] LABS: Anion Gap 10 (12-20); Blood Urea Nitrogen 22 mg/dL (9-16); Calcium 8.8 mg/dL (8.4-10.2); Carbon Dioxide 26 mmol/L (22-29); Chloride 107 mmol/L (96-108); Estimated Glomerular Filt Rate > 60; Potassium 4.2 mmol/L (3.3-5.1); Sodium 139 mmol/L (135-145)
== END 2025-02-02 11:13 | disposition home or self-care (01) ==
LOC: HO.LAB 11:12
PROVIDERS: PCP Internal Medicine; Visit Provider Internal Medicine Cardiovascular Disease
DX: I11.0 Hypertensive heart disease with heart failure (principal); I50.30 Unspecified diastolic (congestive) heart failure; I48.0 Paroxysmal atrial fibrillation; I25.10 Atherosclerotic heart disease of native coronary artery without angina pectoris; Z79.01 Long term (current) use of anticoagulants; Z79.899 Other long term (current) drug therapy
CPT/HCPCS: 36415; 80048; 85027; 93005; 99212

== ENCOUNTER 2025-02-02 11:12 | Outpatient (AMB) | payer MEDICARE, SELFPAY ==
--- OUTSIDE RECORDS SUMMARY | 2024-09-22 09:35 | XMS_ITS ---
Author Organization [facility] Address [address] [place] [address] Care Team Providers Care Farmworkers Name Role Phone Dhiraj Guevara MD Primary Care Provider Edwin Bal Jr, Nicholas Ledezma [phone] REASON FOR VISIT dysphagia Encounters Encounter Location Date Provider Diagnosis [facility] [address] [facility] [address] [place] [address] 09/22/2024 Nicholas Bal Jr Plan Of Treatment Next Appt Details Provider Name:Nicholas mazariegos Jr, 04/10/2025 01:55:00 PM, [address], [address], [place], [address], Progress Notes * RADHA OVALLES ADOB: (89 yo M)Acc No.[id number]:09/22/2024 Progress Notes Patient: RADHA VITALE Provider: Jacqueline Bal MD :1935 A ge:89 Y S ex:Male Date:09/22/2024 Address:[address] [place] [address] [facility] Pcp:Dhiraj Guevara MD Subjective: * Chief Complaints: [...] 0 09/22/2024 Generated for Printi ng/Marcella/Trellitting on: 0 02/02/2025 12:33 PM EDT
[2025-02-02 11:18] VITALS: BP 122/76; PULSE 76; BMI 22.1
--- NOTE | 2025-02-02 11:18 | A.OFFVIS_ITS ---
Vital Signs 02/02/25 11:18 Height 5 ft 10 in Weight 154 lb 5.177 oz BMI 22.1 BP 122/76 Blood Pressure Location Lt brachial Position Sitting Pulse 76 Intake Visit Reasons: 6 mth f/up Intake Note: 6 month follow-up with ekg c/o right side chest pain Airplane Inspector Required: No Allergies omeprazole (OMEPRAZOLE) Allergy (Unknown, Verified 01/04/25 13:45) RASH Medication List - Last Reconciled 02/02/25 by Freddie Arora MD albuterol sulfate 90 mcg/actuation inhalation atorvastatin (Lipitor) 40 mg PO DAILY cholecalciferol (vitamin D3) 50 mcg PO DAILY diclofenac sodium 1% (Arthritis Pain (diclofenac)) 4 grams topical QID diclofenac sodium 1% (Voltaren Arthritis Pain) 4 grams topical QID Eliquis (apixaban) 5 mg PO BID NS furosemide (Lasix) 20 mg PO DAILY isosorbide mononitrate ER 30 mg PO .QD mupirocin 2% 1 appl topical TID verapamil ER 120 mg PO BID 90 days HPI Comments Details: Fadi comes for follow-up. He has no obvious cardiac complaints. He said his muscle of the working harder although he has lost some weight after having a b out of pneumonia that he says lasted for 6 weeks. He said he has been losing muscle mass. He has no symptoms of active chest pain. No prolonged palpitation irregular heartbeat. No orthopnea, PND, leg edema. No lightheadedness, syncope. Taking all his medications. No bleeding issues or neurologic events. [facility] Medical History Cough Prostate nodule Low back pain GERD (gastroesophageal reflux disease) CVA (cerebral vascular accident) Dementia Bilateral carotid artery disease Carpal tunnel syndrome of right wrist Vitamin D deficiency Cervical spinal stenosis Atrial fibrillation Hypercholesterolemia Hypertension Coronary artery disease Surgical History Hx of CABG (~1997) Inguinal hernia, right History of cardiac cath (~03/2008) Family History Father No problems noted. Mother CVD (cardiovascular disease) Social History Household Members: Spouse Housing: House Alcohol intake: former Patient Tobacco Use Status: Never used Tobacco e-Cigarette/Vaping Use: Never Used Second Hand Smoke Exposure: No service: Yes Current occupational status: retired Cognitive needs: No Hearing needs: Yes Vision needs: Yes Review of Systems Const Denies chills, Denies fatigue, Denies fever(s), Denies frequent falls, Denies weakness, Denies weight gain and Denies weight loss ENT Denies dizziness Card Denies chest pain, Denies leg edema, Denies lightheadedness, Denies palpitations, Denies dyspnea, Denies dyspnea on exertion, Denies orthopnea and Denies other (loss of consciousness) Resp Denies cough, Denies dyspnea and Denies dyspnea on exertion GI Denies hematochezia and Denies change in stool character Musc Denies abnormal gait, Denies muscle weakness, Denies numbness, Denies radiating pain into limb and Denies tingling Neuro Denies abnormal gait, Denies dizziness, Denies frequent falls, Denies numbness, Denies tingling and Denies weakness Endo Denies fatigue and Denies palpitations Physical Exam Vital Signs: Last Vital Signs Pulse 76 02/02/25 11:18 BP 122/76 02/02/25 11:18 BMI result Body Mass Index 22.1 Const General: cooperative, comfortable, no acute distress, alert and awake Nutritional Appearance: thin Orientation/consciousness: patient oriented x3 Limitations: no limitations Neck Neck: Yes trachea midline, Yes supple and Yes no JVD (Positive AJR) Resp Effort & Inspection: normal respiratory effort Auscultation: clear to auscultation bilaterally Cardio Jugular venous distension: no JVD Palpation: normal PMI Rhythm: abnormal rhythm irregularly irregular Heart sounds: S1 normal heart sound present and S2 normal heart sound present GI Auscultation: normal bowel sounds Skin General skin exam: no rashes or lesions noted Neuro General: patient oriented x3 and no focal motor deficits Extrem General: No clubbing, No cyanosis and Yes edema Psych Appearance: grossly normal Affect: Anxious affect present Office Procedures EKG Details: EKG shows atrial fibrillation with left posterior fascicular block at 76 beats per minute [id number], Complete Assessment & Plan Assessment & Plan (1) (HFpEF) heart failure with preserved ejection fraction: Code(s): I50.30 - Unspecified diastolic (congestive) heart failure Category: Medical Plan: Heart failure with preserved ejection fraction, clinically euvolemic well compensated. Looks currently well. Continue low-dose diuretic therapy. Fern nue aggressive rate control approach. Daily weight monitoring avoidance salt loading was discussed. Additional diuretics as need be. Encouraged to maintain activity level as tolerated. Also advised to improve nutrition especially protein intake. He understands agrees. (2) Atrial fibrillation: Comment: Ablation 2007(did not work), Holter October 2020 atrial fibrillation controlled rate Code(s): I48.91 - Unspecified atrial fibrillation Category: Medical Qualifiers: Atrial fibrillation type: paroxysmal Qualified Code(s): I48.0 - Par oxysmal atrial fibrillation Plan: Atrial fibrillation, chronic has remained rate controlled on current verapamil dose. Has done well with it. Continue rate control approach. No signs of worsening decompensated congestive heart failure. Continue full oral anticoagulation, currently on Eliquis 5 mg b.i.d.. Semi annual renal function and annual CBC should be performed. (3) Coronary artery disease: Comment: CABG 1987, 3 vessel catheterization 2007 Catheterization May 2020 complex mulivessel disease, April 2020 echocardiogram normal LV mild left atrial dilatation Code(s): I25.10 - Atherosclerotic heart disease of creek coronary artery without angina pectoris Category: Medical Qualifiers: Coronary Disease-Associated Artery/Lesion type: [place] artery [place] vs. transplanted heart: creek heart Associated angina: without angina Qualified Code(s): I25.10 - Atherosclerotic heart disease of [place] coronary artery without angina pectoris Plan: CAD with remote coronary artery bypass grafting with no current symptoms of angina at current workload. Continue current dual antianginal therapy with isosorbide and verapamil. Continue high-intensity statin therapy with atorvastatin 40 mg daily. Avoid aspirin therapy as patient is already on full oral anticoagulation Eliquis. Will follow up in the clinic in 6 months time on his request. Thank you for al lowing me to partake in his care Orders: Orders Basic Metabolic Panel Today I48.0 - Paroxysmal atrial fibrillation Complete Blood Count no Diff Today I48.0 - Paroxysmal atrial fibrillation Coding Level of Care Code Est Pt Level 4 (63833) Complex EM visit Add On G2211 Diagnoses (HFpEF) heart failure with preserved ejection fraction I50.30 Paroxysmal atrial fibrillation I48.0 Atrial fibrillation type: paroxysmal Coronary artery disease involving creek coronary artery of creek heart without angina pectoris I25.10 Coronary Disease-Associated Artery/Lesion type: [place] artery [place] vs. transplanted heart: creek heart Associated angina: without angina CPT Codes EKG - CPT: 16292-[id number], Complete ([id number])
--- OUTSIDE RECORDS SUMMARY | 2025-02-02 12:33 | XMS_ITS | Patient Health Record ---
Author Organization [facility] Address [address] [place] [id number] Care Team Providers Care Research Associate Molecular Biology Name Role Phone Dhiraj Guevara MD Primary [...] Problem Status W/U Status Risk Notes Problem [id number] Gastroesophageal reflux disease without esophagitis (K21.9) Active confirmed Problem [id number] Abnormal barium swallow (R93.3) Active confirmed Encounters Encounter Location Date Provider Diagnosis [facility] [place] [address] [place], [place] [id number] 03/18/2024 Nicholas Bal Jr [facility] [address] [place] [phone] 09/22/2024 Nicholas Bal Jr [facility] [address] [place] [phone] 02/01/2025 Nicholas Bal Jr Plan Of Treatment Future Test Test Name Order Date COLONOSCOPY 07/30/2011 Next Appt Details Provider Name:Nicholas mazariegos Jr, 04/10/2025 01:55:00 PM, [address], [address], [place], [address], Insurance Providers Payer Name Payer Address Payer Phone Subscriber Number Group Number Insured Name Patient Relationship to Insured Coverage Start Date Coverage End Date [facility] [address] [facility] [phone] [id number] RADHA OVALLES Self - patient is the insured Medical (General) History Medical History History ICD Code coronary artery disease atrial fibrillation Colonoscopy 10/29/11, normal, ten-year fo llowup Iron overload Prostate cancer CVA Gastroesophageal reflux disease Hypertension Back pain Surgical History Surgery Date(Month/Year) 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
--- OUTSIDE RECORDS SUMMARY | 2025-02-02 12:33 | XMS_ITS | Patient Health Record ---
Author Organization [facility] stephania MaxRossiter Address [address] [place] [address] Care Team Providers Care Director Educational Radio Name Role Phone Dhiraj Guevara Primary Care Provider Cristopher Garrett Unavailable [phone] Allergies Allergen (clinical drug ingredient) Drug/Non Drug Allergy documented on EMR Reaction Allergy Type Onset Date Status Adhesive Unknown Allergy Active Latex Latex Unknown Allergy Active Reason For Referral No Information Medications Medication SIG (Take, Route, Frequency, Duration) Notes Start Date End Date Status Warfarin Sodium 5 MG 1 tablet Orally Two times a Week; Duration: 30 day(s) Not-Taking Lipitor 40 MG 1 tablet Orally Once a day; Duration: 30 day(s) Active Furosemide Active baby asprin as directed Not-Ta joslyn Physical Therapy . . . 2-3x/week; Duration: 3-4 weeks 03/23/2013 Not-Taking Vitamin D3 Active guaiFENesin Active Verapamil HCl 120 MG 1 tablet Orally Thr ee times a day; Duration: 30 day(s) Active Isosorbide Dinitrate 30 MG 1 tablet Orally Twice a day Active Eliquis Active Ferrous Aspartate Ac tive Lasix Active Immunizations Vaccine Route Administration Date Status Comme nts Influenza Unknown 01/27/2025 Refused Social History Tobacco Use: Social History Observation Description Date Details (start date - stop date) Never Smoker NA - NA Tobacco Use/Smoking Question Answer Notes Are you a: nonsmoker Additional Findings: Tobacco Non-User Current no n-smoker Tobacco use other than smoking: Question Answer Notes Are you an other tobacco user? No AUDIT-C (Standard) Question Answer Notes Did you have a drink containing alcohol in the p ast year? No Points 0 Interpretation Negative Problems Problem Type SNOMED Code ICD Code Onset Dates Problem Status W/U Status Risk Notes Problem Bilateral atherosclerosis of arteries of lower limbs (disorder) ([id number] ) Atherosclerosis of y[place] dehe artery of both lower extremities, with unspecified presence of clinical manifestation (I70.203) Active confirmed Q7(A), Q8(2B), Q9(1B,2 C) Vital Signs Blood pressure diastolic 72 mm Hg 01/27/2025 Height 5 ft 10 in in 01/27/2025 Blood pressure systolic 116 mm Hg 01/27/2025 Weight 155 lbs 01/27/2025 BMI 22.24 kg/m2 01/27/2025 Procedures Procedure Date Ordered Date Performed Result Body Sit e 30047-FDKAUUI NAIL, 6 OR MORE 10/21/2024 N/A 68841-Pqytlixz Plate 10/21/2024 N/A 02170-LBUZ SKIN LESIONS, 2 TO 4 10/21/2024 N/A 48265-HVAEGVY NAIL, 6 OR MORE 01/27/2025 N/A 80583-AAUU SKIN LESIONS, 2 TO 4 01/27/2025 N/A Encounters Encounter Location Date Provider Diagnosis [facility] [address] [address] 10/21/2024 Cristopher Samaria Pain in right toe(s) M79.674 ; Onychomycosis B35.1 ; Pain in left toe(s) M79.675 ; Atherosclerosis of yocha dehe artery of both lower extremities, with unspecified presence of clinical manifestation I70.203 and Ingrown nail L60.[address] [facility] [address] 01/27/2025 Cristopher Samaria Pain in right toe(s) M79.674 ; Onychomycosis B35.1 ; Pain in left toe(s) M79.675 ; Atherosclerosis of yocha dehe artery of both lower extremities, with unspecified presence of clinical manifestation I70.203 and Subungual hematoma of left foot, initial encounter S90.222A Assessments Encounter Date Diagnosis (ICD Code) Assessment Notes Treatment Notes Treatment Clinical Notes Section Notes 10/21/2024 Pain in right toe(s) (ICD-10 - M79.674) 01/27/2025 Pain in right toe(s) (ICD-10 - M79.674) 01/27/2025 Onychomycosis (ICD-10 - B35.1) 10/21/2024 Onychomycosis (ICD-10 - B35.1) 10/21/2024 Pain in left toe(s) (ICD-10 - M79.675) 01/27/2025 Pain in left toe(s) (ICD-10 - M79.675) 10/21/2024 Atherosclerosis of yocha dehe artery of both lower extremities, with unspecified presence of clinical manifestation (ICD-10 - I70.203) Q7(A), Q8(2B), Q9(1B,2C) 01/27/2025 Atherosclerosis of yocha dehe artery of both lower extremities, with unspecified presence of clinical manifestation (ICD-10 - I70.203) Q7(A), Q8(2B), Q9(1B,2C) 01/27/2025 Subungual hematoma of left foot, initial encounter (ICD-10 - S90.222A) 10/21/2024 Ingrown nail (ICD-10 - L60.0) Plan Of Treatment Pending Test Test Name Order Date X ray : Foot, left 3V 03/23/2013 25847-[id number] NAIL, 6 OR MORE 10/21/2024 12741-IAEACCG NAIL, 6 OR MORE 01/27/2025 95685-Lhpintcf Plate 10/21/2024 32769-SNOC SKIN LESIONS, 2 TO 4 10/22/19 13584-AKIX SKIN LESIONS, 2 TO 4 01/28/20 Insurance Providers Payer Name Payer Address Payer Phone Subscriber Number Group Number Insured Name Patient Relationship to Insured Coverage Start Date Coverage End Date [employer] [place] [employer] [facility] [address] [facility] [address] [id number] Fadi Sheppard Self - patient is the insured Medical (General) History Medical History History ICD Code hyperlipidemia chicken pox Anemia Broken bones CAD (Cholesterol) Cancer Heart disease Scarlet fever Measles Mumps Chicken pox Vascular grafts Surgical History Surgery Date(Month/Year) heart surgery unspecified 08/24/1987 Hospitalization History Reason Date(Month/Year) pneumonia 09/15/24
== END 2025-02-02 11:47 | disposition home or self-care (01) ==
LOC: HO.HCS 11:13
PROVIDERS: PCP Internal Medicine; Visit Provider Internal Medicine Cardiovascular Disease
DX: I50.30 Unspecified diastolic (congestive) heart failure (principal); I48.0 Paroxysmal atrial fibrillation; I25.10 Atherosclerotic heart disease of native coronary artery without angina pectoris
CPT/HCPCS: 93010; 99214; G2211

== ENCOUNTER 2025-02-07 10:59 | Outpatient (AMB) | payer MEDICARE, SELFPAY ==
--- NOTE | 2025-02-07 11:06 | A.OFFPC_ITS ---
Vital Signs 02/07/25 11:07 Height 5 ft 10 in Weight 154 lb BMI 22.1 BP 120/62 Blood Pressure Location Lt brachial Position Sitting Pulse 78 Pulse Source Pulse Oximeter Pulse Oximetry (%) 96 Oxygen Delivery Method Room Air Intake Visit Reasons: Annual Exam- see comment Allergies omeprazole (OMEPRAZOLE) Allergy (Unknown, Verified 02/07/25 11:07) RASH Medication List - Last Reconciled 02/07/25 by hDiraj Guevara MD atorvastatin (Lipitor) 40 mg PO DAILY cholecalciferol (vitamin D3) 50 mcg PO DAILY Eliquis (apixaban) 5 mg PO BID NS furosemide (Lasix) 20 mg PO DAILY isosorbide mononitrate ER 30 mg PO .QD multivitamin 1 tab PO .once a week mupirocin 2% 1 appl topical TID verapamil ER 120 mg PO BID 90 days Tobacco use date assessed: 12/23/24 Fall risk assessment: No Falls in past year Last assessed Fall Risk: 02/07/25 Dental Screening Dental Screen Date: 11/22/24 [facility] Medical History Cough Prostate nodule Low back pain GERD (gastroesophageal reflux disease) CVA (cerebral vascular accident) Dementia Bilateral carotid artery disease Carpal tunnel syndrome of right wrist Vitamin D deficiency Cervical spinal stenosis Atrial fibrillation Hypercholesterolemia Hypertension Coronary artery disease Surgical History Hx of CABG (~1997) Inguinal hernia, right History of cardiac cath (~03/2008) Family History Father No problems noted. Mother CVD (cardiovascular disease) Social History Household Members: Spouse Housing: House Alcohol intake: former Patient Tobacco Use Status: Never used Tobacco Tobacco use type: Cigarette e-Cigarette/Vaping Use: Never Used Second Hand Smoke Exposure: No service: Yes Current occupational status: retired Cognitive needs: No Hearing needs: Yes Vision needs: Yes Questionnaire PHQ-9 Over the last 2 weeks, how often have you been bothered by any of the following problems? 1. Little interest or pleasure in doing things: several days 2. Feeling down, depressed, or hopeless: not at all 3. Trouble falling or staying asleep, or sleeping too much: several days 4. Feeling tired or having little energy: nearly every day 5. Poor appetite or overeating: several days 6. Feeling bad about yourself - or that you are a failure or have let yourself or your family down: not at all 7. Trouble concentrating on things, such as reading the newspaper or watching television: not at all 8. Moving or speaking so slowly that other people could have noticed. Or the opposite - being so fidgety or restless that you have been moving around a lot more than usual: not at all 9. Thoughts that you would be better off or of hurting yourself in some way: not at all Total score: 6 Depression Screening Interpretation: Positive Depression Screening Done: Yes Source: Developed by Drs. Fadi Avery, Alanna Nguyen, Justin Campos and colleagues, with an educational oliver from [employer]. Thrive Questionnaire Date Thrive assessed: 02/07/25 I am a: Patient What is your living situation today?: I have a steady place to live Within the past 12 months, did the food you bought not last and you didn't have the money to get more?: Never true Within the past 12 months, did you worry whether your food would run out before you got money to buy more?: Never true Do you have trouble paying for medicines?: No Do you have trouble getting transportation to medical appointments?: No Do you have trouble paying your heating and electricity bill?: No Do you have trouble taking care of your child, family member or friend?: No Do you have trouble with day-to-day activities such as bathing, preparing meals, shopping, managing finances, etc.?: I choose not to answer this question Are you currently unemployed and looking for a job?: No Are you interested in more education?: No Please select the resources that you would like help with: None Currently or been in a relationship where the following occur: No concerns reported THRIVE Score: 0 AUDIT C Alcohol Use Questionnaire (AUDIT-C) 1. How often do you have a drink containing alcohol?: Never 3. How often do you have six or more drinks on one occasion?: Never Total Score: 0 DARYL-7 AMB Questionnaire DARYL-7 Date DARYL - 7 assessed: 11/22/24 Source: Developed by Drs. Fadi Avery, Alanna Nguyen, Justin Campos and colleagues, with an educational oliver from [employer]. Review of Systems Const Denies poor appetite and Denies weakness Eyes Denies no additional complaints ENT Reports Normal hearing present, Denies dizziness, Denies nasal congestion, Den ies tinnitus and Denies sore throat Card Denies chest pain, Denies syncope, Denies rapid heart rate and Denies dyspnea Resp Denies cough and Denies dyspnea GI Denies change in stool character, Reports constipation, Denies diarrhea, Denies nausea and Denies vomiting Denies dysuria and Denies urinary frequency Neuro Reports Normal hearing present, Denies confusion, Denies dizziness, Denies syncope and Denies weakness Psych Denies confusion Physical exam (Primary Care) Vital Signs: Last Vital Signs Pulse 78 02/07/25 11:07 BP 120/62 02/07/25 11:07 Pulse Ox 96 02/07/25 11:07 Oxygen Delivery Method Room Air 02/07/25 11:07 BMI result Body Mass Index 22.1 Tobacco/Smoking Status: Tobacco use Status Tobacco use date assessed 12/23/24 02/07/25 11:11 Patient Tobacco Use Status Never used Tobacco 02/07/25 11:11 Tobacco use type Cigarette 02/07/25 11:11 e-Cigarette/Vaping Use Never Used 02/07/25 11:11 PHQ-9: PHQ-9 Score PHQ-9: Total score 6 02/07/25 12:19 Depression Screening Interpretation: Positive Thrive Assessment: Date of Thrive Assessment Date Thrive assessed 02/07/25 02/07/25 11:11 Currently or been in a relationship where the following occur: No concerns repor gustavo Const General: No confusion Orientation/consciousness: No confusion HENMT Head: Yes normocephalic Ears: external ears normal and TM's normal bilaterally Face and sinus: Yes normal facial exam Mouth: moist mucous membranes Throat: Yes tonsils normal Eyes Conjunctivae: conjunctivae normal Pupils: Equal, round and reactive pupils present and Pupil accommodation reflex normal Direct Ophthalmoscopy: normal light reflex Neck Neck: No lymphadenopathy Thyroid: Thyroid normal Chest Chest palpation & inspection: normal inspection of the chest Resp Effort & Inspection: normal respiratory effort and no audible wheezes Auscultation: clear to auscultation bilaterally, no crackles, no wheezes and lung sounds not diminished Cardio Rate: regular rate Rhythm: regular rhythm Peripheral pulses: radial pulses present and dorsalis pedis present GI Other: guaiac negative prostate enlarged L side Palpation (GI): no masses Auscultation: normal bowel sounds and normoactive bowel sounds Other: R groin bulge Skin General skin exam: no rashes or lesions noted Rashes: no rashes Neuro General: No confusion Cranial nerves: Yes Equal, round and reactive pupils present and Yes Normal hearing present Cognition (Neuro): normal cognition Gait exam (Neuro): Normal gait present Motor exam (neuro): 5/5 motor strength present throughout Deep tendon reflexes (DTR's): Right brachioradialis reflex intensity grade: 2+, Left brachioradialis reflex intensity grade: 2+, Right patellar reflex intensity grade: 2+ and Left patellar reflex intensity grade: 2+ Extrem General: No edema Immunizations pneumoc 20-morena conj-dip cr(PF) 0.5 mL IM syringe Performing Provider: Dhiraj Guevara MD [facility] [place] Administered by: Makayla Herron LPN on 02/07/25 12:19 Dose Route Admin Location Dispensed Lot Number Expiration Date [facility] 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 0.5 mL IM Left Deltoid 0.5 mL [id number] 01/05/26 [employer] Total Dispensed Waste 0.5 mL 0 % VIS Given Date VIS Provided VIS Publication Date 02/07/25 Single Vaccine 24 Eligibility Eligibility Date Funding Source Not [facility] Eligible 02/07/25 Private Coding Level of Care Code Est Pt Prev Care >65y(97637) Diagnoses Annual physical exam Z00.00 Subacute cough R05.2 Cough type: subacute Prostate cancer C61 BPH w urinary obs/LUTS N40.1; N13.8 Gastroesophageal reflux disease without esophagitis K21.9 Esophagitis presence: without esophagitis Impaired fasting blood sugar R73.01 Paroxysmal atrial fibrillation I48.0 Atrial fibrillation type: paroxysmal Coronary artery disease involving [place] coronary artery of [place] heart without angina pectoris I25.10 Associated angina: without angina Coronary Disease-Associated Artery/Lesion type: [place] artery [place] vs. transplanted heart: [place] heart (HFpEF) heart failure with preserved ejection fraction I50.30 Hypercholesterolemia E78.00 Essential hypertension I10 Hypertension type: essential hypertension Thumb tendonitis M77.8 Assessment & Plan Assessment & Plan (1) Annual physical exam: Code(s): Z00.00 - Encounter for general adult medical examination without abnormal findings Category: Medical Plan: Patient is advised to eat healthy, keep well hydrated, keep active and have adequate sleep. (2) Cough: Comment: HE HAS MILD INTERMITTENT COUGH WHICH IS NONSPECIFIC AND I THINK THIS IS MOSTLY RELATED TO HIS BILATERAL INTERSTITIAL PNEUMONITIS. IT IS GRADUALLY IMPROVING. Code(s): R05.9 - Cough, unspecified Category: Medical Qualifiers: Cough type: subacute Qualified Code(s): R05.2 - Subacute cough Plan: Patient has seen Pulmonary and gradually improving (3) Prostate cancer: Comment: February 2021 grade group 3 intermediate volume - Bone Scan NAD Code(s): C61 - Malignant neoplasm of prostate Category: Medical Plan: Patient follows up with urology and under surveillance on PSA (4) BPH w urinary obs/LUTS: Code(s): N40.1 - Benign prostatic hyperplasia with lower urinary tract symptoms; N13.8 - Other obstructive and reflux uropathy Category: Medical Plan: Continue to follow-up with urology (5) GERD (gastroesophageal reflux disease): Code(s): K21.9 - Gastro-esophageal reflux disease without esophagitis Category: Medical Qualifiers: Esophagitis presence: without esophagitis Qualified Code(s): K21.9 - Gastro-esophageal reflux disease without esophagitis Plan: Avoid the foods that causes that usually spicy foods, tomato products, juices, coffee, soda and foods that your sensitive to. After eating do not lie down, allow 3-4 hours before in lie down. And keep the head of bed above 30 degrees to avoid the acid from going up. (6) Impaired fasting blood sugar: Code(s): R73.01 - Impaired fasting glucose Category: Medical Plan: Decrease the amount of carbohydrate intake, pasta, bread, rice and potatoes are all sugar and that is aside from all the sweet stuff, remember that fruits are good but they are Sweet also. (7) Atrial fibrillation: Comment: Ablation 2007(did not work), Holter October 2020 atrial fibrillation controlled rate Code(s): I48.91 - Unspecified atrial fibrillation Category: Medical Qualifiers: Atrial fibrillation type: paroxysmal Qualified Code(s): I48.0 - Paroxysmal atrial fibrillation Plan: Continue with anticoagulation with Eliquis 5 mg twice a day twice a day year blood work for renal function (8) Coronary artery disease: Comment: CABG 1988, 3 vessel catheterization 2007 Catheterization May 2020 complex mulivessel disease, April 2020 echocardiogram normal LV mild left atrial dilatation Code(s): I25.10 - Atherosclerotic heart disease of [place] coronary artery without angina pectoris Category: Medical Qualifiers: Associated angina: without angina Coronary Disease-Associated Artery/Lesion type: [place] artery [place] vs. transplanted heart: [place] heart Qualified Code(s): I25.10 - Atherosclerotic heart disease of [place] coronary artery without angina pectoris Plan: Control the cholesterol, weight, blood pressure, diabetes on anticoagulation (9) (HFpEF) heart failure with preserved ejection fraction: Code(s): I50.30 - Unspecified diastolic (congestive) heart failure Category: Medical Plan: Weigh daily and continue with the diuretic furosemide 20 mg once a day (10) Hypercholesterolemia: Comment: LDL goal < 70 Code(s): E78.00 - Pure hypercholesterolemia, unspecified Category: Medical Plan: Avoid fried foods, chicken skin, eggs, butter margarine, pastries and meat. Be it pork or beef they have a lot of cholesterol LDL goal of less than 70 and triglyceride of less than 150 on atorvastatin 40 mg once a day. (11) Hypertension: Code(s): I10 - Essential (primary) hypertension Category: Medical Qualifiers: Hypertension type: essential hypertension Qualified Code(s): I10 - Essential (primary) hypertension Plan: Continue with blood pressure medication. Decrease salt intake and exercise continue with verapamil 120 mg twice a day (12) Thumb tendonitis: Comment: Right Code(s): M77.8 - Other enthesopathies, not elsewhere classified Category: Medical Plan History of Present Illness The patient is an 89-year-old male presenting for a physical examination and management of multiple chronic conditions. The patient has a history of hypertension and hypercholesterolemia, managed with medications including verapamil and atorvastatin. He also has atrial fibrillation, for which he is on anticoagulation therapy with Eliquis and verapamil. Coronary artery disease is present, and the patient is on dual antiplatelet therapy, isosorbide, and atorvastatin. The patient has a history of prostate cancer diagnosed in 2020, currently under surveillance with PSA monitoring. He has benign prostatic hyperplasia, with a prostate volume of 51 cc, causing urinary symptoms such as leakage. The patient reports impaired glucose tolerance and is advised to monitor his diet. The patient has a history of congestive heart failure with preserved ejection fraction, managed with a low-dose diuretic. He was treated for bilateral multifocal pneumonia in September 2024 and diagnosed with post aspiration pneumonitis. The patient reports a rash in the groin area, for which mupirocin was prescribed. He also has a history of anemia, with recent blood work showing a hemoglobin level of 8.7 g/dL. The patient has a small hydrocele and varicocele, identified on a scrotal ultrasound. He also has a hernia, which has been present for some time. The patient experiences arthritis, causing pain in the thumb and wrist, and is considering physical therapy for management. Health Maintenance - PSA monitoring for prostate cancer surveillance - Blood work follow-up in two to three months for anemia and cholesterol monitoring - Dietary recommendations to increase iron intake, including spinach and dried fruits - Consideration of pneumonia vaccination Social History - Substance Use: Patient does not consume alcohol or tobacco. - Exercise: Patient is advised to maintain physical activity to aid bowel movements. - Nutrition: Patient is encouraged to consume foods rich in iron, such as spina ch and dried fruits. Review of Systems - Cardiovascular: Denies chest pain, reports discomfort during heart examination. - Respiratory: Denies dyspnea, reports no cough or wheezing. - Gastrointestinal: Denies heartburn, reports discomfort related to clothing pressure. - Genitourinary: Reports urinary leakage, denies blood in stools. - Musculoskeletal: Reports arthritis-related pain in thumb and wrist. - Neurological: Denies dizziness, reports occasional lightheadedness upon waking. Physical Exam General: Cooperative, healthy appearing, comfortable, no acute distress and well developed Orientation: Patient oriented x3 Limitations: No limitations Head: Normal to inspection Ears: Hearing poor, patient does not use hearing aids Nose: Normal external nose present Face and sinus: Normal facial exam Eyes: Appearance normal, both eyes and all related structures Neck: Normal visual inspection and Yes full ROM Respiratory: Normal respiratory effort and able to speak in complete sentences. Clear to auscultation bilaterally Cardiovascular: Regular rate and rhythm. Normal S1 and S2 GI: Normal to inspection. Soft to palpation and nontender Skin: Rash noted on the groin, treated with mupirocin Neuro: Patient oriented x3 Extremities: Normal to inspection, patient reports discomfort with tight clothing around the waist Results - Labs: Hemoglobin 8.7 g/dL, indicating anemia. - Labs: PSA level 5.23 ng/mL, elevated. - Imaging: Scrotal ultrasound showed small hydrocele and varicocele. Plan Patient was informed and verbally consented to the use of an ambient scribe for clinic note documentation during this visit. 1. Hypertension The patient will continue with current antihypertensive therapy, including verapamil 120 mg twice a day, to maintain blood pressure control. 2. Hypercholesterolemia The patient is on atorvastatin 40 mg daily, with a goal LDL of less than 70 mg/dL and triglycerides less than 150 mg/dL. 3. Atrial Fibrillation The patient is on anticoagulation therapy with Eliquis 5 mg twice a day and verapamil for rate control. 4. Coronary Artery Disease Management includes dual antiplatelet therapy, isosorbide mononitrate, and atorvastatin. 5. Prostate Cancer The patient is under surveillance with regular PSA monitoring, with the last PSA recorded at 5.23 ng/mL. 6. Benign Prostatic Hyperplasia The patient experiences urinary symptoms due to an enlarged prostate, with a volume of 51 cc, and is advised to continue monitoring with urology. 7. Congestive Heart Failure With Preserved Ejection Fraction The patient is advised to continue with a low-dose diuretic and monitor weight daily. 8. Anemia The patient has a hemoglobin level of 8.7 g/dL, with follow-up blood work planned in two to three months to monitor anemia and iron levels. 9. Arthritis The patient reports pain in the thumb and wrist, and physical therapy is considered for management. Discussion Notes During the visit, I discussed with the patient the management of his chronic conditions, including hypertension, hypercholesterolemia, atrial fibrillation, and coronary artery disease. We reviewed the importance of medication adherence and regular follow-up with cardiology and urology. I emphasized the need for dietary modifications to address anemia and impaired glucose tolerance, recommending foods rich in iron and low in sugar. We also discussed the potential benefits of pneumonia vaccination and the importance of regular PSA monitoring for prostate cancer surveillance. Patient Instructions - Continue taking all prescribed medications as directed. - Monitor blood pressure and weight daily. - Follow a diet rich in iron, including spinach and dried fruits. - Schedule follow-up appointments with cardiology and urology as advised. - Consider pneumonia vaccination as discussed. Orders: Orders Comprehensive Met. Panel 3 Months R73.01 - Impaired fasting glucose Free T4 (Free Thyroxine) 3 Months R73.01 - Impaired fasting glucose Hemoglobin A1c 3 Months R73.01 - Impaired fasting glucose Ferritin 3 Months R73.01 - Impaired fasting glucose IRON PROFILE 3 Months R73.01 - Impaired fasting glucose PSA,Total (Free>4and<10) 3 Months R73.01 - Impaired fasting glucose Complete Blood Count Auto Diff 3 Months R73.01 - Impaired fasting glucose B Type Natriuretic Peptide 3 Months R73.01 - Impaired fasting glucose Reticulocyte Count 3 Months R73.01 - Impaired fasting glucose Lipid Panel 3 Months E78.00 - Pure hypercholesterolemia, unspecified, R73.01 - Impaired fasting glucose Vitamin B12 and Folate 3 Months R73.01 - Impaired fasting glucose Thyroid Stimulating Hormone 3 Months R73.01 - Impaired fasting glucose UA CC w/rflx Micro + Cult 3 Months R30.0 - Dysuria, R73.01 - Impaired fasting glucose OT Evaluation and Treatment Today M77.8 - Other enthesopathies, not elsewhere classified Pneumococcal 20 Immunization Today Z23 - Encounter for immunization
[2025-02-07 11:07] VITALS: BP 120/62; PULSE 78; O2SAT 96; BMI 22.1
== END 2025-02-07 12:15 | disposition home or self-care (01) ==
LOC: HO.HMCH 11:02
PROVIDERS: PCP Internal Medicine; Visit Provider Internal Medicine
DX: Z00.00 Encounter for general adult medical examination without abnormal findings (principal); C61 Malignant neoplasm of prostate; I48.0 Paroxysmal atrial fibrillation; I50.30 Unspecified diastolic (congestive) heart failure; R05.2 Subacute cough; N40.1 Benign prostatic hyperplasia with lower urinary tract symptoms; N13.8 Other obstructive and reflux uropathy; K21.9 Gastro-esophageal reflux disease without esophagitis; R73.01 Impaired fasting glucose; I25.10 Atherosclerotic heart disease of native coronary artery without angina pectoris; I10 Essential (primary) hypertension; Z23 Encounter for immunization

== ENCOUNTER 2025-02-07 10:59 | Outpatient (REF) | payer MEDICARE, SELFPAY ==
--- NOTE | ~2025-02-07 | XR_ITS ---
CLINICAL HISTORY: M77.8 - Other enthesopathies, not elsewhere classified 3 view right hand Comparison: None provided Findings: Bones intact. No dislocations. Multifocal degenerative changes greatest at the 1st carpometacarpal joint. Multifocal joint space narrowing and osteophyte formation. There is a questionable 2 mm calcification or foreign body projecting over the palmar aspect of the 2nd finger at the level of the proximal phalanx. Severe atherosclerotic vascular calcifications. IMPRESSION: 1. Multifocal degenerative changes greatest at the 1st carpometacarpal joint. 2. There is a questionable 2 mm calcification or foreign body projecting over the palmar aspect of the 2nd finger at the level of the proximal phalanx. Correlation with physical examination is recommended. This document has been electronically signed by: Iron Dunham DO on 02/08/2025 09:34:19
--- NOTE | ~2025-02-07 | XR_ITS ---
CLINICAL HISTORY: M25.562 - Pain in left knee 2 view left knee Comparison: None provided Findings: Bones intact. No dislocations. Mild tricompartmental joint space narrowing and osteophyte formation. Small knee joint effusion. No radiopaque foreign body. Severe atherosclerotic vascular calcifications. IMPRESSION: 1. Mild tricompartmental joint space narrowing and osteophyte formation. 2. Small knee joint effusion. 3. Severe atherosclerotic vascular calcifications. This document has been electronically signed by: Iron Dunham DO on 02/08/2025 09:33:23
== END 2025-02-07 11:00 | disposition home or self-care (01) ==
LOC: HO.XRAY 10:59
PROVIDERS: PCP Internal Medicine; Visit Provider Internal Medicine
DX: Z23 Encounter for immunization (principal); Z00.00 Encounter for general adult medical examination without abnormal findings; M25.562 Pain in left knee; M77.8 Other enthesopathies, not elsewhere classified; R50.2 Drug induced fever; C61 Malignant neoplasm of prostate; N40.1 Benign prostatic hyperplasia with lower urinary tract symptoms; N13.8 Other obstructive and reflux uropathy; K21.9 Gastro-esophageal reflux disease without esophagitis; R73.01 Impaired fasting glucose; I48.0 Paroxysmal atrial fibrillation; I25.10 Atherosclerotic heart disease of native coronary artery without angina pectoris; I11.0 Hypertensive heart disease with heart failure; I50.30 Unspecified diastolic (congestive) heart failure; E78.00 Pure hypercholesterolemia, unspecified; Z79.01 Long term (current) use of anticoagulants; Z79.899 Other long term (current) drug therapy
CPT/HCPCS: 73130; 73560; 90471; 90677; 99397

== ENCOUNTER → 2025-02-07 12:48 | Outpatient (BNV) | payer MEDICARE, SELFPAY | PROVIDERS: PCP Internal Medicine; Visit Provider Family Medicine | DX: M18.11 Unilateral primary osteoarthritis of first carpometacarpal joint, right hand (principal); M17.12 Unilateral primary osteoarthritis, left knee | CPT/HCPCS: 73130; 73560 ==

== ENCOUNTER 2025-03-07 10:33 | Outpatient (RCR) | payer MEDICARE, SELFPAY ==
--- NOTE | 2025-03-08 08:41 | MHC.OT.EP ---
[facility] Office [address] [phone] F: [phone] F: [phone] Occupational Therapy Plan of Care Patient Name: Fadi Sheppard Date of Evaluation: 03/07/25 Diagnosis: R Thumb pain Pain Location: intermittent at wrist (+) [place] Pain Score: 3 Pain Scale Used: Numeric (0 - 10) Aggravating Factors: none reported Alleviating Factors: none reported Assessment: Pt is an 89 yr old R hand dominant male who reports experiencing pain in his R thumb CMC J, MP J, IP J as well as pain along his radial wrist. Pt's X-ray showed degenerative changes. He presented today w/ AROM of his hand and wrist WNL, decreased plasticator, atrophy of his web space and a (+) [place]. Pt reports having a hefty co-pay and would like to address these today w/ education on jt. protection, and a home exercise plan at this time. Frequency and Duration: The patient will be seen Short Term Goals: see below Senior Care Goals: Pt will be complaint w/ HEP Pt will be compliant w/ comfort cool thumb spica orthoses wear Pt will be complaint w/ jt. protection techniques/ modifications Treatment Plan: Therapeutic Exercise Therapeutic Activity Home Exercise Program Splinting Patient Education Electronically Signed By: Tracy Chen OTR/L Please Sign and return to therapist. Thank you once again for your referral.
== END 2025-03-08 08:41 | disposition home or self-care (01) ==
LOC: HO.OT 10:33
PROVIDERS: PCP Internal Medicine; Visit Provider Internal Medicine
DX: M77.8 Other enthesopathies, not elsewhere classified (principal)
CPT/HCPCS: 97110; 97165; 97535

== ENCOUNTER 2025-03-23 14:17 | Outpatient (REF) | payer MEDICARE, SELFPAY ==
--- NOTE | ~2025-03-23 | XR_ITS ---
EXAMINATION: XR CHEST CLINICAL INFORMATION: R05.2 - Subacute cough COMPARISON: December 27, 2024 TECHNIQUE: PA and lateral views FINDINGS: Pulmonary reticular pattern. Bilateral patchy pulmonary opacities more confluent in the left lung. 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 No pleural effusion. No pneumothorax. Cardiomediastinal silhouette size is normal. Sternal wires. Multilevel spondylosis and a shaped curvature of the thoracolumbar spine. Multiple old healed rib fractures, bilaterally. Kyphotic deformity apex in the upper to mid thoracic spine. Calcified plaques, aorta. XR/XR chest 2V IMPRESSION: Pulmonary edema versus acute pneumonitis versus drug toxicity among other etiologies. Electronically signed by: Benton Cruz MD 03/23/2025 03:46 PM EDT
== END 2025-03-23 14:18 | disposition home or self-care (01) ==
LOC: HO.XRAY 14:17
PROVIDERS: PCP Internal Medicine; Visit Provider Internal Medicine
DX: R05.2 Subacute cough (principal); I25.10 Atherosclerotic heart disease of native coronary artery without angina pectoris; I11.0 Hypertensive heart disease with heart failure; I50.30 Unspecified diastolic (congestive) heart failure; I48.0 Paroxysmal atrial fibrillation; E78.00 Pure hypercholesterolemia, unspecified; R73.01 Impaired fasting glucose; K21.9 Gastro-esophageal reflux disease without esophagitis; N40.1 Benign prostatic hyperplasia with lower urinary tract symptoms; N13.8 Other obstructive and reflux uropathy; D53.9 Nutritional anemia, unspecified; C61 Malignant neoplasm of prostate
CPT/HCPCS: 71046; 99212

== ENCOUNTER 2025-03-23 14:17 | Outpatient (AMB) | payer MEDICARE, SELFPAY ==
--- OUTSIDE RECORDS SUMMARY | 2023-10-14 05:30 | XMS_ITS ---
Author Organization [facility] Address [address] [place] [address] Care Team Providers Care 3D Modeler Name Role Phone Dhiraj Guevara Primary Care Provider Cristopher Garrett Unavailable [phone] Crow Vega [phone] Encounters Encounter Location Date Provider Diagnosis [address] [address] 10/14/2023 Crow Vega Plan Of Treatment No Information Progress Notes * Fadi SHEPPARDDOB:1935 (89 yo M)Acc No.[id number]:10/14/2023 Progress Notes Patient: Fadi VITALE Provider: Therese Cuellar DPM :1935 A ge:88 Y S ex:Male Date:10/14/2023 Address:[address] [place] [address] ramya [facility] Pcp:Dhiraj Guevara Subjective: * Chief Complaints: * [...] DPM Date: 0 10/14/2023 Generated for Yvette park/Faberniceg/eTransmitting on: 1 05:57 PM EDT
--- OUTSIDE RECORDS SUMMARY | 2024-09-22 09:35 | XMS_ITS ---
Author Organization [facility] Address [address] [place] [address] Care Team Providers Care Wire Spiral Binder Name Role Phone Dhiraj Guevara MD Primary Care Provider Edwin Bal Jr, Nicholas Ledezma REASON FOR VISIT dysphagia Encounters Encounter Location Date Provider Diagnosis [facility] [address] [facility] [address] [place] [address] 09/22/2024 Nicholas Bal Jr Plan Of Treatment Next Appt Details Provider Name:Nicholas mazariegos Jr, 04/10/2025 01:55:00 PM, [address], [address], [place], [address], Progress Notes * RADHA OVALLES ADOB: (89 yo M)Acc No.[id number]:09/22/2024 Progress Notes Patient: RADHA VITALE Provider: Jacqueline Bal MD :1935 A ge:89 Y S ex:Male Date:09/22/2024 Address:[address] [place] [address] [facility] Pcp:Dhiraj Guevara MD Subjective: * Chief Complaints: [...] Bal MD Date: 0 09/22/2024 Generated for Printi ng/Marcella/Trellitting on: 1 05:57 PM EDT
[2025-03-23 14:21] VITALS: BP 122/62; PULSE 67; O2SAT 94; BMI 21.5
--- NOTE | 2025-03-23 14:21 | MHC.PC.OV ---
Vital Signs 03/23/25 14:21 Height 5 ft 10 in Weight 150 lb BMI 21.5 BP 122/62 Blood Pressure Location Lt brachial Position Sitting Pulse 67 Pulse Source Pulse Oximeter Pulse Oximetry (%) 94 Oxygen Delivery Method Room Air Intake Visit Reasons: pneumonia Allergies omeprazole (OMEPRAZOLE) Allergy (Unknown, Verified 03/23/25 14:22) RASH Tobacco use date assessed: 12/23/24 Fall risk assessment: No Falls in past year Last assessed Fall Risk: 03/23/25 Dental Screening Dental Screen Date: 11/22/24 [facility] Medical History Cough Prostate nodule Low back pain GERD (gastroesophageal reflux disease) CVA (cerebral vascular accident) Dementia Bilateral carotid artery disease Carpal tunnel syndrome of right wrist Vitamin D deficiency Cervical spinal stenosis Atrial fibrillation Hypercholesterolemia Hypertension Coronary artery disease Surgical History Hx of CABG (~1997) Inguinal hernia, right History of cardiac cath (~03/2008) Family History Father No problems noted. Mother CVD (cardiovascular disease) Social History Household Members: Spouse Housing: House Alcohol intake: former Patient Tobacco Use Status: Never used Tobacco Tobacco use type: Cigarette e-Cigarette/Vaping Use: Never Used Second Hand Smoke Exposure: No service: Yes Current occupational status: retired Cognitive needs: No Hearing needs: Yes Vision needs: Yes Questionnaire Thrive Questionnaire Date Thrive assessed: 10/21/24 I am a: Patient What is your living situation today?: I have a steady place to live Within the past 12 months, did the food you bought not last and you didn't have the money to get more?: Never true Within the past 12 months, did you worry whether your food would run out before you got money to buy more?: Never true Do you have trouble paying for medicines?: No Do you have trouble getting transportation to medical appointments?: No Do you have trouble paying your heating and electricity bill?: No Do you have trouble taking care of your child, family member or friend?: No Do you have trouble with day-to-day activities such as bathing, preparing meals, shopping, managing finances, etc.?: I choose not to answer this question Are you currently unemployed and looking for a job?: No Are you interested in more education?: No Please select the resources that you would like help with: None Currently or been in a relationship where the following occur: No concerns reported THRIVE Score: 0 DARYL-7 AMB Questionnaire DARYL-7 Date DARYL - 7 assessed: 11/22/24 Source: Developed by Drs. Fadi Avery, Alanna Nguyen, Justin Campos and colleagues, with an educational oliver from [employer]. Physical exam (Primary Care) Vital Signs: Last Vital Signs Pulse 67 03/23/25 14:21 BP 122/62 03/23/25 14:21 Pulse Ox 94 03/23/25 14:21 Oxygen Delivery Method Room Air 03/23/25 14:21 BMI result Body Mass Index 21.5 Tobacco/Smoking Status: Tobacco use Status Tobacco use date assessed 12/23/24 03/23/25 14:23 Patient Tobacco Use Status Never used Tobacco 03/23/25 14:23 Tobacco use type Cigarette 03/23/25 14:23 e-Cigarette/Vaping Use Never Used 03/23/25 14:23 Thrive Assessment: Date of Thrive Assessment Date Thrive assessed 10/21/24 03/23/25 14:23 Currently or been in a relationship where the following occur: No concerns reported Const General: alert; No acute distress Eyes Conjunctivae: conjunctivae normal Resp Auscultation: clear to auscultation bilaterally Cardio Rate: regular rate Rhythm: regular rhythm GI Inspection: Yes normal to inspection Extrem General: Yes normal to inspection and No edema Coding Level of Care Code Est Pt Level 4 (35554) Est Pt Prev Care 40-64y(90224) Diagnoses Coronary artery disease involving [place] coronary artery of [place] heart without angina pectoris I25.10 Associated angina: without angina Coronary Disease-Associated Artery/Lesion type: [place] artery [place] vs. transplanted heart: [place] heart (HFpEF) heart failure with preserved ejection fraction I50.30 Essential hypertension I10 Hypertension type: essential hypertension Paroxysmal atrial fibrillation I48.0 Atrial fibrillation type: paroxysmal Hypercholesterolemia E78.00 Impaired fasting blood sugar R73.01 Gastroesophageal reflux disease without esophagitis K21.9 Esophagitis presence: without esophagitis BPH w urinary obs/LUTS N40.1; N13.8 Macrocytic anemia D53.9 Prostate cancer C61 Assessment & Plan Assessment & Plan (1) Coronary artery disease: Comment: CABG 1988, 3 vessel catheterization 2007 Catheterization May 2020 complex mulivessel disease, April 2020 echocardiogram normal LV mild left atrial dilatation Code(s): I25.10 - Atherosclerotic heart disease of [place] coronary artery without angina pectoris Category: Medical Qualifiers: Associated angina: without angina Coronary Disease-Associated Artery/Lesion type: [place] artery [place] vs. transplanted heart: [place] heart Qualified Code(s): I25.10 - Atherosclerotic heart disease of [place] coronary artery without angina pectoris Plan: Control the cholesterol, weight, blood pressure, continue with anticoagulation on Eliquis (2) (HFpEF) heart failure with preserved ejection fraction: Code(s): I50.30 - Unspecified diastolic (congestive) heart failure Category: Medical Plan: Patient is on furosemide continue to monitor (3) Hypertension: Code(s): I10 - Essential (primary) hypertension Category: Medical Qualifiers: Hypertension type: essential hypertension Qualified Code(s): I10 - Essential (primary) hypertension Plan: Continue with blood pressure medication. Decrease salt intake and exercise on verapamil (4) Atrial fibrillation: Comment: Ablation 2007(did not work), Holter October 2020 atrial fibrillation controlled rate Code(s): I48.91 - Unspecified atrial fibrillation Category: Medical Qualifiers: Atrial fibrillation type: paroxysmal Qualified Code(s): I48.0 - Paroxysmal atrial fibrillation Plan: Continue with anticoagulation with Eliquis and verapamil (5) Hypercholesterolemia: Comment: LDL goal < 70 Code(s): E78.00 - Pure hypercholesterolemia, unspecified Category: Medical Plan: Avoid fried foods, chicken skin, eggs, butter margarine, pastries and meat. Be it pork or beef they have a lot of cholesterol LDL goal of less than 70 and triglyceride of less than 150 on atorvastatin 40 mg once a day (6) Impaired fasting blood sugar: Code(s): R73.01 - Impaired fasting glucose Category: Medical Plan: Decrease the amount of carbohydrate intake, pasta, bread, rice and potatoes are all sugar and that is aside from all the sweet stuff, remember that fruits are good but they are Sweet also. (7) GERD (gastroesophageal reflux disease): Code(s): K21.9 - Gastro-esophageal reflux disease without esophagitis Category: Medical Qualifiers: Esophagitis presence: without esophagitis Qualified Code(s): K21.9 - Gastro-esophageal reflux disease without esophagitis Plan: Avoid the foods that causes that usually spicy foods, tomato products, juices, coffee, soda and foods that your sensitive to. After eating do not lie down, allow 3-4 hours before in lie down. And keep the head of bed above 30 degrees to avoid the acid from going up. (8) BPH w urinary obs/LUTS: Code(s): N40.1 - Benign prostatic hyperplasia with lower urinary tract symptoms; N13.8 - Other obstructive and reflux uropathy Category: Medical Plan: Continue to follow-up with urology (9) Macrocytic anemia: Code(s): D53.9 - Nutritional anemia, unspecified Category: Medical Plan: Continuing to monitor. Patient has met with Hematology-Oncology and declined further workup with bone marrow biopsy. (10) Prostate cancer: Comment: February 2021 grade group 3 intermediate volume - Bone Scan NAD Code(s): C61 - Malignant neoplasm of prostate Category: Medical Plan: Continuing to monitor under urology Plan History of Present Illness The patient is an 89-year-old male presenting for management of multiple chronic conditions including hypertension, hypercholesterolemia, coronary artery disease, atrial fibrillation, and prostate cancer. Hypertension and hypercholesterolemia have been long-standing issues, managed with medication. Coronary artery disease and atrial fibrillation are also chronic conditions, with the latter being managed with anticoagulation therapy. The patient was diagnosed with prostate cancer in February 2021 and is currently under surveillance by urology. Benign prostatic hyperplasia is also present, with a prostate volume of 51 cc noted on ultrasound. The patient has impaired glucose tolerance and peripheral vascular disease, contributing to his complex medical profile. Congestive heart failure with preserved ejection fraction is being managed with diuretics and other medications. Macrocytic anemia has been evaluated by hematology, with a suspicion of myelodysplastic syndrome, though the patient declined further workup. Hemochromatosis gene analysis was negative, and ferritin levels are elevated. Osteoarthritis is evident in the hands and knees, with tricompartmental joint space narrowing and severe atherosclerotic vascular calcifications noted on imaging. Pneumonitis has been identified, with recommendations for deep breathing exercises to prevent lung collapse. Health Maintenance - Surveillance for prostate cancer by urology - Regular follow-up with cardiology for heart failure management - Hematology follow-up for macrocytic anemia - Pulmonary follow-up for pneumonitis Social History - Reports decreased water intake, previously drank more fluids. - Consumes a diet including green leafy vegetables, though not daily. Review of Systems - Cardiovascular: Reports feeling jittery and tired, heart rate controlled with medication. Denies chest pain. - Respiratory: Reports dyspnea and occasional static sound when breathing. Denies cough or phlegm production. - Musculoskeletal: Reports joint pain in hands and knees. - Gastrointestinal: Denies any new gastrointestinal symptoms. Physical Exam Results - Labs: Hemochromatosis gene analysis negative, elevated ferritin levels. - Imaging: Tricompartmental joint space narrowing and severe atherosclerotic vascular calcifications noted on knee x-ray. - Imaging: Prostate ultrasound showing BPH with a volume of 51 cc. Plan Patient was informed and verbally consented to the use of an ambient scribe for clinic note documentation during this visit. 1. Hypertension Hypertension is managed with medication, and the patient is advised to continue monitoring blood pressure regularly. 2. Hypercholesterolemia Hypercholesterolemia is managed with atorvastatin 40 mg daily, with a goal LDL of less than 70 mg/dL. 3. Coronary Artery Disease Coronary artery disease is managed with isosorbide and verapamil, and the patient is advised to adhere to medication regimen to prevent angina. 4. Atrial Fibrillation Atrial fibrillation is managed with anticoagulation therapy using Eliquis and rate control with verapamil. 5. Prostate Cancer Prostate cancer is under surveillance by urology, with regular follow-ups scheduled. 6. Benign Prostatic Hyperplasia Benign prostatic hyperplasia is monitored with regular urology visits, and prostate volume is assessed via ultrasound. 7. Congestive Heart Failure With Preserved Ejection Fraction Congestive heart failure with preserved ejection fraction is managed with furosemide and regular cardiology follow-ups. 8. Macrocytic Anemia Macrocytic anemia is monitored by hematology, with the patient declining further invasive workup. 9. Osteoarthritis Osteoarthritis is managed with pain relief measures and physical therapy exercises as advised by the therapist. 10. Pneumonitis Pneumonitis is managed with recommendations for deep breathing exercises to prevent lung collapse. Discussion Notes During the visit, I discussed the management of the patient's chronic conditions, emphasizing the importance of medication adherence, particularly for atrial fibrillation and coronary artery disease. We reviewed the need for regular follow-ups with cardiology and urology, and the patient was advised to continue with deep breathing exercises for pneumonitis. The patient was informed about the potential need for further workup for macrocytic anemia, though he declined invasive procedures at this time. Patient Instructions - Continue taking all prescribed medications as directed, especially for heart conditions. - Attend regular follow-up appointments with cardiology and urology. - Perform deep breathing exercises daily to help with lung health. - Monitor blood pressure regularly and report any significant changes. - Maintain a balanced diet with adequate hydration. Orders: Orders XR chest 2V Today R05.2 - Subacute cough
--- OUTSIDE RECORDS SUMMARY | 2025-03-23 17:58 | XMS_ITS | Patient Health Record ---
Author Organization [facility] Address [address] [place] [phone] Care Team Providers Care Hand Fabric Cutter Name Role Phone Dhiraj Guevara MD Primary Care Provider Edwin Bal Jr, Nicholas Ledezma Allergies Allergen (clinical drug ingredient) Drug/Non Drug Allergy documented on EMR Reaction Allergy Type Onset Date Status omeprazole Omeprazole Unknown Drug Allergy Activ e Reason For Referral No Information Medications Medication SIG (Take, Route, Frequency, Duration) Notes Start Date End Date Status Verapamil HCl ER 120 MG Oral; Duration: 90 Active Atorvastatin Calcium 40 MG Oral; Duration: 90 Active Eliquis 5 MG 1 tablet Orally Twic e a day Active Vitamin D3 50 MCG (1999) TAKE 1 CAPSU LE BY MOUTH DAILY Oral; Duration: 90 Active Verapamil HCl Active Immunizations Vaccine Route Administration Date Status Comme nts Influenza Unknown 09/15/2022 Refused Problems Problem Type SNOMED Code ICD Code Onset Dates Problem Status W/U Status Risk Notes Problem Gastroesophageal reflux disease without esophagitis (377210979) Gastroesophageal reflux disease without esophagitis (K21.9) Active confirmed Problem Barium swallow abnormal (313440175) Abnormal barium swallow (R93.3) Active confirmed Encounters Encounter Location Date Provider Diagnosis [facility] [address] [place] [id number] 09/22/2024 Nicholas Bal Jr [facility] [address] [place] [phone] 02/01/2025 Nicholas Bal Jr Plan Of Treatment Future Test Test Name Order Date COLONOSCOPY 07/30/2011 Next Appt Details Provider Name:Nicholas mazariegos Jr, 04/10/2025 01:55:00 PM, [address], [address], [place], [address], Insurance Providers Payer Name Payer Address Payer Phone Subscriber Number Group Number Insured Name Patient Relationship to Insured Coverage Start Date Coverage End Date [facility] [address] [facility] [place] [phone] [id number] RADHA OVALLES Self - patient is the insured Medical (General) History Medical History History ICD Code coronary artery disease atrial fibrillation Colonoscopy 10/29/11, normal, ten-year fo llowup Iron overload Prostate cancer CVA Gastroesophageal reflux disease Hypertension Back pain Surgical History Surgery Date(Month/Year) 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
--- OUTSIDE RECORDS SUMMARY | 2025-03-23 17:58 | XMS_ITS | Patient Health Record ---
[facility] stephania MaxMynor Address [address] [place] [address] Care Team Providers Care Gravel Inspector Name Role Phone Dhiraj Guevara Primary Care Provider Cristopher Garrett Unavailable [phone] Allergies Allergen (clinical drug ingredient) Drug/Non Drug [...] atherosclerosis of arteries of lower limbs (disorder) ([id number] ) Atherosclerosis of [place] artery of both lower extremities, with unspecified presence of clinical manifestation (I70.203) Active confirmed Q7(A), Q8(2B), Q9(1B,2 C) Vital Signs Blood pressure diastolic 72 mm Hg 01/27/2025 Height 5 ft 10 in in 01/27/2025 Blood pressure systolic 116 mm Hg 01/27/2025 Weight 155 lbs 01/27/2025 BMI 22.24 kg/m2 01/27/2025 Procedures Procedure Date Ordered Date Performed Result Body Sit e 39212-CWRYLAA NAIL, 6 OR MORE 10/21/2024 N/A 14075-Zjqjjdhd Plate 10/21/2024 N/A 98550-CSIO SKIN LESIONS, 2 TO 4 10/21/2024 N/A 03051-GXPEJSH NAIL, 6 OR MORE 01/27/2025 N/A 98428-NEII SKIN LESIONS, 2 TO 4 01/27/2025 N/A Encounters Encounter Location Date Provider Diagnosis [facility] [address] 10/21/2024 Cristopher Samaria Pain in right toe(s) M79.674 ; Onychomycosis B35.1 ; Pain in left toe(s) M79.675 ; Atherosclerosis of [place] artery of both lower extremities, with unspecified presence of clinical manifestation I70.203 and Ingrown nail L60.0 [facility] [address] [place] [address] 01/27/2025 Cristopher Samaria Pain in right toe(s) M79.674 ; Onychomycosis B35.1 ; Pain in left toe(s) M79.675 ; Atherosclerosis of [place] artery of both lower extremities, with unspecified presence of clinical manifestation I70.203 and Subungual hematoma of left foot, initial encounter S90.222A [facility] [address] [address] 02/16/2025 Cristopher Samaria Assessments Encounter Date Diagnosis (ICD Code) Assessment Notes Treatment Notes Treatment Clinical Notes Section Notes 10/21/2024 Pain in right toe(s) (ICD-10 - M79.674) 01/27/2025 Pain in right toe(s) (ICD-10 - M79.674) 01/27/2025 Onychomycosis (ICD-10 - B35.1) 10/21/2024 Onychomycosis (ICD-10 - B35.1) 10/21/2024 Pain in left toe(s) (ICD-10 - M79.675) 01/27/2025 Pain in left toe(s) (ICD-10 - M79.675) 10/21/2024 Atherosclerosis of [place] artery of both lower extremities, with unspecified presence of clinical manifestation (ICD-10 - I70.203) Q7(A), Q8(2B), Q9(1B,2C) 01/27/2025 Atherosclerosis of [place] artery of both lower extremities, with unspecified presence of clinical manifestation (ICD-10 - I70.203) Q7(A), Q8(2B), Q9(1B,2C) 01/27/2025 Subungual hematoma of left foot, initial encounter (ICD-10 - S90.222A) 10/21/2024 Ingrown nail (ICD-10 - L60.0) Plan Of Treatment Pending Test Test Name Order Date X ray : Foot, left 3V 03/23/2013 07387-SJYGMOA NAIL, 6 OR MORE 10/21/2024 43078-RCTEQQM NAIL, 6 OR MORE 01/27/2025 11854-Lwxehqmm Plate 10/21/2024 47134-GEPR SKIN LESIONS, 2 TO 4 10/22/19 25 06010-LCUX SKIN LESIONS, 2 TO 4 01/28/20 25 Insurance Providers Payer Name Payer Address Payer Phone Subscriber Number Group Number Insured Name Patient Relationship to Insured Coverage Start Date Coverage End Date [employer] [address] [place] [address] [phone] [id number] Fadi Sheppard Self - patient is the insured Medical (General) History Medical History History ICD Code hyperlipidemia chicken pox Anemia Broken bones CAD (Cholesterol) Cancer Heart disease Scarlet fever Measles Mumps Chicken pox Vascular grafts Surgical History Surgery Date(Month/Year) heart surgery unspecified 08/24/1987 Hospitalization History Reason Date(Month/Year) pneumonia 09/15/24
== END 2025-03-23 15:15 | disposition home or self-care (01) ==
PROVIDERS: PCP Internal Medicine; Visit Provider Internal Medicine
DX: I11.0 Hypertensive heart disease with heart failure (principal); I50.30 Unspecified diastolic (congestive) heart failure; I48.0 Paroxysmal atrial fibrillation; C61 Malignant neoplasm of prostate; I25.10 Atherosclerotic heart disease of native coronary artery without angina pectoris; E78.00 Pure hypercholesterolemia, unspecified; R73.01 Impaired fasting glucose; K21.9 Gastro-esophageal reflux disease without esophagitis; N40.1 Benign prostatic hyperplasia with lower urinary tract symptoms; N13.8 Other obstructive and reflux uropathy; D53.9 Nutritional anemia, unspecified

== ENCOUNTER → 2025-03-23 15:27 | Outpatient (BNV) | payer MEDICARE, SELFPAY | PROVIDERS: PCP Internal Medicine; Visit Provider Radiology Diagnostic Radiology | DX: R05.2 Subacute cough (principal) | CPT/HCPCS: 71046 ==

== ENCOUNTER 2025-04-10 15:12 | Outpatient (REF) | payer MEDICARE, SELFPAY ==
--- OUTSIDE RECORDS SUMMARY | 2023-10-14 04:30 | XMS_ITS ---
Author Organization [facility] Address [address] [place] [phone] Care Team Providers Care Salesperson Neckties Name Role Phone Dhiraj Guevara Primary Care Provider Cristopher Garrett Unavailable [phone] Crow Vega [phone] Encounters Encounter Location Date Provider Diagnosis [address] [address] 10/14/2023 Crow Vega Plan Of Treatment No Information Progress Notes * Fadi SHEPPARDDOB:1935 (89 yo M)Acc No.[id number]:10/14/2023 Progress Notes Patient: Fadi VITALE Provider: Therese Cuellar DPM :1935 A ge:88 Y S ex:Male Date:10/14/2023 Address:[address] [place] [address] ramya [facility] Pcp:Dhiraj Guevara Subjective: * Chief Complaints: * * Medical History: Objective: * Vitals: Assessment: Plan: * Treatment: * Images: * The named appointment provid er may or may not be the originator of this progress note, and it is not deemed complete until electronically signed by the appointment provider. Sign off status: Pending * Provider: Therese Cuellar DPM Date: 0 10/14/2023 Generated for Yvette park/Marcella/eTransmitting on: 06/10/2024 04:33 PM EST
--- OUTSIDE RECORDS SUMMARY | 2024-09-22 08:35 | XMS_ITS ---
Author Organization [facility] Address [address] [place] [address] Care Team Providers Care Communications Tower Climber Name Role Phone Dhiraj Guevara MD Primary Care Provider Nicholas Paul Jr REASON FOR VISIT dysphagia Encounters Encounter Location Date Provider Diagnosis [facility] [address] [place] [address] 09/22/2024 Nicholas Bal Jr Plan Of Treatment No Information Progress Notes * RADHA OVALLES ADOB: 7 (89 yo M)Acc No.[id number]:09/22/2024 Progress Notes Patient: RADHA VITALE Provider: Jacqueline Bal MD :1935 A ge:89 Y S ex:Male Date:09/22/2024 Address:[address] [place], [place] [address] Pcp:Dhiraj Guevara MD Subjective: * Chief Complaints: * 1 . Dysphagia. * Medical History: Objective: * Vitals: Assessment: Plan: * Treatment: * * The named appointment provid er may or may not be the originator of this progress note, and it is not deemed complete until electronically signed by the appointment provider. Sign off status: Pending * Provider: Jacqueline Bal MD Date: 0 09/22/2024 Generated for Yvette park/Marcella/eTransmitting on: 1 06/10/2024 04:33 PM EST
--- OUTSIDE RECORDS SUMMARY | 2025-04-06 09:55 | XMS_ITS ---
Author Organization [facility] Address [address] [place] [id number] Care Team Providers Care Biomedical Electronics Technician Name Role Phone Dhiraj Guevara MD Primary Care Provider Nicholas Paul Jr [phone] Allergies Allergen (clinical drug ingredient) Drug/Non Drug Allergy documented on EMR Reaction Allergy Type Onset Date Status omeprazole Omeprazole Unknown Drug Allergy Activ e REASON FOR VISIT Patient presents today for abdominal pain Medications Medication SIG (Take, Route, Frequency, Duration) Notes Start Date End Date Status Verapamil HCl ER 120 MG Oral; Duration: 90 Active Water Pill Active Atorvastatin Calcium 40 MG Oral; Duration: 90 Active Eliquis 5 MG 1 tablet Orally Twic e a day Active Vitamin D3 50 MCG (1999) TAKE 1 CAPSULE BY MOUTH DAILY Oral; Duration: 90 Active Verapamil HCl Not-Ta joslyn Isosorbide Dinitrate Active Immunizations Vaccine Route Administration Date Status Comme nts Influenza Unknown 04/06/2025 Refused Social History AUDIT-C (Standard) Question Answer Notes Did you have a drink containing alcohol in the p ast year? 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 Vital Signs Temperature 97 degrees Fahrenheit 04/06/2025 Blood pressure systolic 001 mm Hg 04/06/20 25 Blood pressure diastolic 01 mm Hg 025 Height 70.75 in 04/06/2025 Weight 153.6 lbs 04/06/2025 BMI 21.57 kg/m2 04/06/2025 Encounters Encounter Location Date Provider Diagnosis [facility] [address] [place] [id number] 04/06/2025 Nicholas Bal Jr Abdominal pain, acute, generalized R10.84 Assessments Encounter Date Diagnosis (ICD Code) Assessment Notes Treatment Notes Treatment Clinical Notes Section Notes 04/06/2025 Abdominal pain, acute, generalized (ICD-10 - R10.84) Plan Of Treatment Pending Test Test Name Order Date BUN 04/06/2025 CREATININE 04/06/2025 LIVER PROFILE 04/06/2025 LIPASE 04/06/2025 CBC w/o DIFF 04/06/2025 CT ABD & PELVIS WITH CONTRAST 04/06/2025 Progress Notes * RADHA OVALLES ADOB: [birth year] (89 yo M)Acc No.[id number]:04/06/2025 Progress Notes Patient: RADHA VITALE Provider: Jacqueline Bal MD :1935 A ge:89 Y S ex:Male Date:04/06/2025 Address:[address] [place] [address] Pcp:Dhiraj Guevara MD Subjective: * Chief Complaints: * 1 . Patient presents today for abdominal pain. * Medical History: C oronary artery disease, Atrial fibrillation, Colonoscopy 10/29/11, normal, ten- year followup, Iron overload, Prostate cancer, CVA, Gastroesophageal reflux disease, Hypertension, Back pain. * Surgical History: C ABG x3 1987, ablation, unsuccessful for atrial fibrillation , cardiac stent 2007. * Family History: F ather: , diagnosed with Heart disease. M other: , diagnosed with Heart disease. No family history of colon cancer or liver cancer. * Social History: T obacco Use: T obacco Use/Smoking A re you a: nonsmoker. D rugs/Alcohol: A lcohol Screen P oints: 1, Interpretation: Negative. D rug/Alcohol: A JAZMIN-C (Standard) D id you have a drink containing alcohol in the past year? N o,?Points 0 , I nterpretation N egative. H e is retired sheet lower. * Medications: T aking Isosorbide Dinitrate , Taking Water Pill , Taking Eliquis 5 MG Tablet 1 tablet Orally Twice a day , Taking Vitamin D3 50 MCG (1999 [place]) Capsule TAKE 1 CAPSULE BY MOUTH DAILY Oral , Taking Atorvastatin Calcium 40 MG Tablet Oral , Taking Verapamil HCl ER 120 MG Capsule Extended Release 24 Hour Oral , Not-Taking/PRN Verapamil HCl , Medication List reviewed and reconciled with the patient * Allergies: O meprazole. Objective: * Vitals: W t:153.6lbs, Ht: 70.75 in, BMI:21.57Index, BP:001/01mm Hg, Temp:97, Wt-k.67. Assessment: * Assessment: 1. A bdominal pain, acute, generalized - R10.84 (Primary) Plan: * Treatment: * * Immunizations: Influenza (Not administered - Refused: Patient decision) * Preventive Medicine: Screenings: F all Risk Screening F all Risk Assessment: N o falls in the past year, S creening: N o falls in the past year, A ssessment: N ot performed, no reason specified, P maine of Care: N ot documented, no reason specified. * * The named appointment provid er may or may not be the originator of this progress note, and it is not deemed complete until electronically signed by the appointment provider. Sign off status: Pending * Provider: Jacqueline Bal MD Date: Generated for Yvette park/Marcella/Trellitting on: 06/10/2024 04:33 PM EST
--- OUTSIDE RECORDS SUMMARY | 2025-04-10 16:34 | XMS_ITS | Patient Health Record ---
Author Organization [facility] Address [address] [place] [phone] Care Team Providers Care Wind Energy Project Manager Name Role Phone Dhiraj Guevara MD [...] ER 120 MG Oral; Duration: 90 Active Verapamil HCl Not-Ta joslyn Isosorbide Dinitrate Active Water Pill Active Atorvastatin Calcium 40 MG Oral; Duration: 90 Active Eliquis 5 MG 1 tablet Orally Twic e a day Active Vitamin D3 50 MCG (1999) TAKE 1 CAPSULE BY MOUTH DAILY Oral; Duration: 90 Active Immunizations Vaccine Route Administration Date Status Comme nts Influenza Unknown 09/15/2022 Refused Influenza Unknown 04/06/2025 Refused Social History AUDIT-C (Standard) Question Answer Notes Did you have a drink containing alcohol in the p ast year? 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 Problems Problem Type SNOMED Code ICD Code Onset Dates Problem Status W/U Status Risk Notes Problem Gastroesophageal reflux disease without esophagitis (933859496) Gastroesophageal reflux disease without esophagitis (K21.9) Active confirmed Problem Barium swallow abnormal (506711692) Abnormal barium swallow (R93.3) Active confirmed Vital Signs Temperature 97 degrees Fahrenheit 04/06/2025 Blood pressure diastolic 01 mm Hg 04/06/2025 Height 70.75 in 04/06/2025 Blood pressure systolic 001 mm Hg 04/06/2025 Weight 153.6 lbs 04/06/2025 BMI 21.57 kg/m2 04/06/2025 Encounters Encounter Location Date Provider [facility] [address] [place] [address] 04/06/2025 Nicholas Bal Jr Abdominal pain, acute, generalized R10.84 [facility] [address] [place] [address] 09/22/2024 Nicholas Bal Jr [facility] [address] [place] [address] 02/01/2025 Nicholas Bal Jr Assessments Encounter Date Diagnosis (ICD Code) Assessment Notes Treatment Notes Treatment Clinical Notes Section Notes 04/06/2025 Abdominal pain, acute, generalized (ICD-10 - R10.84) Plan Of Treatment Pending Test Test Name Order Date BUN 04/06/2025 CREATININE 04/06/2025 LIVER PROFILE 04/06/2025 LIPASE 04/06/2025 CBC w/o DIFF 04/06/2025 CT ABD & PELVIS WITH CONTRAST 04/06/2025 Future Test Test Name Order Date COLONOSCOPY 07/30/2011 Insurance Providers Payer Name Payer Address Payer Phone Subscriber Number Group Number Insured Name Patient Relationship to Insured Coverage Start Date Coverage End Date [facility] [address] [facility] [place] [phone] [id number] RADHA OVALLES Self - patient is the insured Medical (General) History Medical History History ICD Code coronary artery disease atrial fibrillation Colonoscopy 10/29/11, normal, ten-year fo llowup Iron overload Prostate cancer CVA Gastroesophageal reflux disease Hypertension Back pain Surgical History Surgery Date(Month/Year) cardiac stent 2008 ablation, unsuccessful for atrial fibril lation CABG x3 1988
--- OUTSIDE RECORDS SUMMARY | 2025-04-10 16:34 | XMS_ITS | Patient Health Record ---
Author Organization [facility] stephania MaxMynor Address [address] [place] [address] Care Team Providers Care Yarn Skeins Examiner Name Role Phone Dhiraj Guevara Primary Care Provider Cristopher [place] Unavailable [phone] Allergies Allergen (clinical drug ingredient) Drug/Non Drug [...] atherosclerosis of arteries of lower limbs (disorder) (55896128216084943 ) Atherosclerosis of [place] artery of both lower extremities, with unspecified presence of clinical manifestation (I70.203) Active confirmed Q7(A), Q8(2B), Q9(1B,2 C) Vital Signs Blood pressure diastolic 72 mm Hg 01/27/2025 Height 5 ft 10 in in 01/27/2025 Blood pressure systolic 116 mm Hg 01/27/2025 Weight 155 lbs 01/27/2025 BMI 22.24 kg/m2 01/27/2025 Procedures Procedure Date Ordered Date Performed Result Body Sit e 89001-IJUFRRU NAIL, 6 OR MORE 10/21/2024 N/A 37760-Whymnyop Plate 10/21/2024 N/A 82104-GVHA SKIN LESIONS, 2 TO 4 10/21/2024 N/A 21948-SKXOYSP NAIL, 6 OR MORE 01/27/2025 N/A 78750-AJLB SKIN LESIONS, 2 TO 4 01/27/2025 N/A Encounters Encounter Location Date Provider Diagnosis [facility] [address] 10/21/2024 Cristopher Samaria Pain in right toe(s) M79.674 ; Onychomycosis B35.1 ; Pain in left toe(s) M79.675 ; Atherosclerosis of [place] artery of both lower extremities, with unspecified presence of clinical manifestation I70.203 and Ingrown nail L60.0 [facility] [address] [place] [address] 01/27/2025 Cristopher Samaria Pain in right toe(s) M79.674 ; Onychomycosis B35.1 ; Pain in left toe(s) M79.675 ; Atherosclerosis of [place] artery of both lower extremities, with unspecified presence of clinical manifestation I70.203 and Subungual hematoma of left foot, initial encounter S90.222A [facility] [address] [address] 02/16/2025 Cristopher Samaria Assessments Encounter Date Diagnosis (ICD Code) Assessment Notes Treatment Notes Treatment Clinical Notes Section Notes 10/21/2024 Pain in right toe(s) (ICD-10 - M79.674) 01/27/2025 Pain in right toe(s) (ICD-10 - M79.674) 01/27/2025 Onychomycosis (ICD-10 - B35.1) 10/21/2024 Onychomycosis (ICD-10 - B35.1) 10/21/2024 Pain in left toe(s) (ICD-10 - M79.675) 01/27/2025 Pain in left toe(s) (ICD-10 - M79.675) 10/21/2024 Atherosclerosis of [place] artery of both lower extremities, with unspecified presence of clinical manifestation (ICD-10 - I70.203) Q7(A), Q8(2B), Q9(1B,2C) 01/27/2025 Atherosclerosis of [place] artery of both lower extremities, with unspecified presence of clinical manifestation (ICD-10 - I70.203) Q7(A), Q8(2B), Q9(1B,2C) 01/27/2025 Subungual hematoma of left foot, initial encounter (ICD-10 - S90.222A) 10/21/2024 Ingrown nail (ICD-10 - L60.0) Plan Of Treatment Pending Test Test Name Order Date X ray : Foot, left 3V 03/23/2013 04535-XLAIXXM NAIL, 6 OR MORE 10/21/2024 24487-AYIMLDW NAIL, 6 OR MORE 01/27/2025 51373-Esbdrrtf Plate 10/21/2024 12884-CPNW SKIN LESIONS, 2 TO 4 10/22/19 25 85900-PVKH SKIN LESIONS, 2 TO 4 01/28/20 25 Insurance Providers Payer Name Payer Address Payer Phone Subscriber Number Group Number Insured Name Patient Relationship to Insured Coverage Start Date Coverage End Date [employer] [address] [place] [address] [id number] Fadi Sheppard Self - patient is the insured Medical (General) History Medical History History ICD Code hyperlipidemia chicken pox Anemia Broken bones CAD (Cholesterol) Cancer Heart disease Scarlet fever Measles Mumps Chicken pox Vascular grafts Surgical History Surgery Date(Month/Year) heart surgery unspecified 08/24/1987 Hospitalization History Reason Date(Month/Year) pneumonia 09/15/24
[2025-04-10 17:16] LABS: Hematocrit 28.5 % (42.0-52.0); Hemoglobin 9.4 g/dl (14.0-18.0); Mean Corpuscular HGB Conc 33.0 g/dl (31.0-36.0); Mean Corpuscular Hemoglobin 36.7 pg (27.0-33.0); NRBC Abs Auto 0.020 X10*3/uL (0.0-0.012); NRBC Pct Auto 0.3 /100WBC (0.0-0.2); Platelet Count 293 X10*3/uL (160-400); Red Blood Count 2.56 X10*6/uL (4.60-5.80); White Blood Count 5.8 X10*3/uL (4.8-10.8)
[2025-04-10 17:19] LABS: Mean Corpuscular Volume 111.3 fL (80.0-98.0)
[2025-04-10 17:38] LABS: Alanine Aminotransferase 19 U/L (0-40); Albumin Level 4.5 g/dL (3.5-5.0); Alkaline Phosphatase 63 U/L (39-117); Aspartate Amino Transferase 18 U/L (5-37); Blood Urea Nitrogen 24 mg/dL (9-16); Estimated Glomerular Filt Rate > 60; Lipase 27 U/L (8-78); Total Protein 6.8 g/dL (6.5-8.0)
== END 2025-04-10 15:13 | disposition home or self-care (01) ==
LOC: HO.LAB 15:12
PROVIDERS: PCP Internal Medicine; Visit Provider Internal Medicine Gastroenterology
DX: R10.84 Generalized abdominal pain (principal)
CPT/HCPCS: 36415; 80076; 82565; 83690; 84520; 85027

== ENCOUNTER 2025-04-22 13:09 | Inpatient (IN) | payer MEDICARE, SELFPAY ==
--- NOTE | ~2025-04-22 | XR_ITS ---
CLINICAL HISTORY: SOB 2 view chest x-ray. Comparison: 03/23/2025 Findings: Lungs reveal hazy right base consolidation, and likely faint right upper lung consolidation. No other consolidation. No pleural effusions. Cardiac and mediastinal contours are stable. Bones unremarkable. Impression: 1. Patchy right lung consolidation as described above. This document has been electronically signed by: Kahlil Dow MD on 04/22/2025 15:02:55
--- NOTE | ~2025-04-22 | CT_ITS ---
CLINICAL HISTORY: Right groin pain, microscopic hematuria CT abdomen and pelvis with and without contrast Comparison: None provided Findings: Enlarged right cardiac atrium. Small left more than right simple pleural effusions. Bilateral lower lung ground-glass opacities due to pulmonary edema and/or pneumonia (please refer to the 04/22/[address] report for more details) Moderately small/atrophied pancreas. Gallstones. No bowel obstruction, pneumoperitoneum, or pneumatosis. Mild colonic diverticulosis without diverticulitis. Unremarkable appendix. Atherosclerotic calcifications. [id number] bilateral hydronephrosis/hydroureter without urinary tract stone secondary to the distended urinary bladder (the urinary bladder extends into the lower abdomen). No evidence of urinary bladder wall thickening. Enlarged prostate measuring up to 54 mm in width and projecting into the urinary bladder base. No urinary tract stone. Mauj-pc-mudfjahi left more than right perinephric fat stranding. Rest of the abdominopelvic viscera are unremarkable. Spinal degenerative changes. No acute fracture. Partially evaluated sternotomy wires. IMPRESSION: 1. Enlarged right cardiac atrium. Small left more than right simple pleural effusions. Bilateral lower lung ground-glass opacities due to pulmonary edema and/or pneumonia (please refer to the 04/22/[address] report for more details) 2. Gallstones. 3. Prostatomegaly. Yocb-gt-[id number] bilateral hydronephrosis/hydroureter without urinary tract stone secondary to the distended urinary bladder. 4. . Onwz-hh-[id number] left more than right perinephric fat stranding may be an incidental finding for patient's age, due to the hydronephrosis, or secondary to decreased renal function. Clinical/lab correlation recommended. This document has been electronically signed by: Katerine Singer MD on 04/23/2025 11:37:22
--- NOTE | ~2025-04-22 | CT_ITS ---
CLINICAL HISTORY: sob ?pneumonia CT chest without contrast: Comparison: CT/VT/SR - CT CHEST WITHOUT IV CONTRAST - 11/15/24 10:20 EDT Please note the lack of IV contrast limits evaluation of the vasculature and solid organs. Findings: No suspicious thyroid nodules. 1.2 cm prevascular lymph node (5, 47), likely reactive. Mediastinum and Heart: No cardiomegaly. Significant calcified coronary artery disease and moderate calcified atherosclerotic disease of the thoracic aorta. Lungs: Small bilateral pleural effusions. Bilateral ground-glass opacities. Airspace opacities in the peripheral upper lobes. Few areas of interlobular septal thickening. Mildly dilated bronchioles. No pneumothorax. Upper abdomen: Cholelithiasis. Partially seen mild left hydronephrosis versus an extrarenal pelvis. Bones and soft tissues: Multilevel degenerative changes. No acute fracture. Impression: Bilateral ground-glass opacities and small pleural effusions which may be secondary to pulmonary edema or pneumonia. The appearance of the bronchioles raises suspicion for underlying interstitial lung disease. Consider chest HRCT after resolution of the acute process. Cholelithiasis. Partially seen mild left hydronephrosis versus an extrarenal pelvis. This document has been electronically signed by: Elli Perkins MD on 04/22/2025 18:17:07
[2025-04-22 13:11] VITALS: BP 128/60; PULSE 88; RESP 22; TEMP 36.3; O2SAT 94; BMI 22.7
--- NOTE | 2025-04-22 13:13 | ED_ITS ---
HPI - SOB/Dyspnea General Stated Complaint: SOB Related Data Home Medications ?Medication ?Instructions ?Recorded ?Confirmed multivitamin 1 tab PO .once a week 02/07/25 Previous Rx's ?Medication ?Instructions ?Recorded verapamil 120 mg 24 hr 120 mg PO BID 90 days #180 c aps 01/25/24 capsule,extended release isosorbide mononitrate 30 mg 30 mg PO .QD #90 tabs tablet,extended release 24 hr Eliquis 5 mg tablet (apixaban) 5 mg PO BID #180 tabs 0 09/27/24 atorvastatin 40 mg tablet (Lipitor) 40 mg PO DAILY #90 tabs 11/14/24 cholecalciferol (vitamin D3) 50 50 mcg PO DAILY #90 ca ps 11/14/24 mcg (2,000 unit) capsule furosemide 20 mg tablet (Lasix) 20 mg PO DAILY #90 tab s 11/14/24 mupirocin 2 % topical ointment 1 appl topical TID #22 grams 04/01/25 Allergies Allergy/AdvReac Type Severity Reaction Status Date / Time omeprazole (OMEPRAZOLE) Allergy Unknown RASH Verified 04/22/25 13:14 [facility] Past Medical History Medical History Cough Prostate nodule Low back pain GERD (gastroesophageal reflux disease) CVA (cerebral vascular accident) Dementia Bilateral carotid artery disease Carpal tunnel syndrome of right wrist Vitamin D deficiency Cervical spinal stenosis Atrial fibrillation Hypercholesterolemia Hypertension Coronary artery disease Surgical History Hx of CABG (~1997) Inguinal hernia, right History of cardiac cath (~03/2008) Family History Family History Father No problems noted. Mother CVD (cardiovascular disease) Social History Social History Household Members: Spouse Housing: House Alcohol intake: former Patient Tobacco Use Status: Never used Tobacco Tobacco use type: Cigarette e-Cigarette/Vaping Use: Never Used Second Hand Smoke Exposure: No service: Yes Current occupational status: retired Cognitive needs: No Hearing needs: Yes Vision needs: Yes Course Course Course Narrative: Lizz Solis WEB CONTENT EXECUTIVE 04/22 1313 This is a rapid medical exam. Deferred additional HPI, ROS, PE to primary provider. 89 yo male with history of PNA, CHF, CAD here with SOB x 24 hrs, worsened with laying flat. Will obtain labs, EKG, CXR, viral testing VSS Discharge Plan Discharge Prescriptions: No Action verapamil 120 mg capsule,ext rel. pellets 24 hr 120 mg PO BID 90 Days Qty: 180 3RF isosorbide mononitrate 30 mg tablet extended release 24 hr 30 mg PO .QD Qty: 90 2RF Eliquis 5 mg tablet 5 mg PO BID Qty: 180 3RF atorvastatin [Lipitor] 40 mg tablet 40 mg PO DAILY Qty: 90 1RF cholecalciferol (vitamin D3) 50 mcg (2,000 unit) capsule 50 mcg PO DAILY Qty: 90 3RF furosemide [Lasix] 20 mg tablet 20 mg PO DAILY Qty: 90 3RF mupirocin 2 % ointment 1 appl topical TID Qty: 22 0RF multivitamin Tablet 1 tab PO .once a week Print Language: Sami
--- NOTE | 2025-04-22 13:15 | ECG_ITS ---
Test Reason : SOB Blood Pressure : */* mmHG Vent. Rate : 78 BPM Atrial Rate : * BPM P-R Int : * ms QRS Dur : 102 ms QT Int : 390 ms P-R-T Axes : * 95 66 degrees QTcB Int : 444 ms Atrial fibrillation with premature ventricular or aberrantly conducted complexes Rightward axis Nonspecific ST abnormality Abnormal ECG When compared with ECG of 14-Aug-2017 12:48, No significant change was found Referred By: Lizz Solis Electronically Signed By: BRIGID ROBERTSON MD
[2025-04-22 13:43] LABS: MANUAL DIFF FLAG NO
[2025-04-22 13:48] LABS: Hematocrit 24.7 % (42.0-52.0); Hemoglobin 8.4 g/dl (14.0-18.0); Imm Gran Abs Auto 0.04 X10*3/uL (0.00-0.03); Imm Gran Pct Auto 0.4 % (0.0-0.4); Lymphocytes Absolute Auto 0.6 X10*3/uL (1.2-4.9); Mean Corpuscular HGB Conc 34.0 g/dl (31.0-36.0); Mean Corpuscular Hemoglobin 37.2 pg (27.0-33.0); Mean Corpuscular Volume 109.3 fL (80.0-98.0); NRBC Abs Auto 0.000 X10*3/uL (0.0-0.012); NRBC Pct Auto 0.0 /100WBC (0.0-0.2); Platelet Count 234 X10*3/uL (160-400); Red Blood Count 2.26 X10*6/uL (4.60-5.80); White Blood Count 9.7 X10*3/uL (4.8-10.8)
[2025-04-22 14:13] VITALS: BP 122/57; PULSE 78; RESP 18; TEMP 36.7; O2SAT 88
[2025-04-22 14:16] LABS: Alanine Aminotransferase 21 U/L (0-40); Albumin Level 4.7 g/dL (3.5-5.0); Alkaline Phosphatase 64 U/L (39-117); Anion Gap 13 (12-20); Aspartate Amino Transferase 23 U/L (5-37); Blood Urea Nitrogen 23 mg/dL (9-16); Calcium 9.5 mg/dL (8.4-10.2); Carbon Dioxide 23 mmol/L (22-29); Chloride 109 mmol/L (96-108); Creatinine Clr Calc Pharmacy 49.9; Estimated Glomerular Filt Rate > 60; Potassium 4.0 mmol/L (3.3-5.1); Sodium 141 mmol/L (135-145); Total Protein 6.9 g/dL (6.5-8.0)
[2025-04-22 14:23] LABS: Troponin-I High Sensitivity 31.6 ng/L (<3.5-35.0)
--- NOTE | 2025-04-22 14:25 | PC.NURSE ---
Pt stated he had not taken his home lasix because he didn't want to pee every 5 minutes confirmed. Briefly educated patient about the importance of taking home medication in order to avoid the feeling of not being able to breathe/ER visits/potential hospitalization.
[2025-04-22 14:28] VITALS: O2SAT 94
--- NOTE | 2025-04-22 14:30 | ED.SOB ---
HPI - SOB/Dyspnea General Chief Complaint: Dyspnea Stated Complaint: SOB Time Seen by Provider: 04/22/25 14:20 Source: patient Mode of arrival: ambulatory Limitations: no limitations History of Present Illness HPI Narrative: This is 89 years old male presented to the emergency department with a chief complaint of shortness of breath dyspnea on exertion orthopnea worse for about 1 week, he has a history of coronary artery disease status post CABG, history of hypertension AFib he will recath in 2019 has a multivessel coronary artery disease decision was to treat medically only MD elicited complaint: shortness of breath Pertinent past history: congestive heart failure Onset (ago): week(s) (1) Timing: constant Severity: moderate Exacerbating factors: lying flat and exertion Known history of: congestive heart failure Associated symptoms: denies other symptoms Treatment prior to arrival: none Related Data Home oxygen amount: none Home Medications ?Medication ?Instructions ?Recorded ?Confirmed multivitamin 1 tab PO .once a week 02/07/25 02/07/25 Previous Rx's ?Medication ?Instructions ?Recorded verapamil 120 mg 24 hr 120 mg PO BID 90 days #180 caps 01/25/24 capsule,extended release isosorbide mononitrate 30 mg 30 mg PO .QD #90 tabs 09/21/24 tablet,extended release 24 hr Eliquis 5 mg tablet (apixaban) 5 mg PO BID #180 tabs 09/27/24 atorvastatin 40 mg tablet (Lipitor) 40 mg PO DAILY #90 tabs 11/14/24 cholecalciferol (vitamin D3) 50 50 mcg PO DAILY #90 caps 11/14/24 mcg (2,000 unit) capsule furosemide 20 mg tablet (Lasix) 20 mg PO DAILY #90 tabs 11/14/24 mupirocin 2 % topical ointment 1 appl topical TID #22 grams 04/01/25 Allergies Allergy/AdvReac Type Severity Reaction Status Date / Time omeprazole (OMEPRAZOLE) Allergy Unknown RASH Verified 04/22/25 13:14 Review of Systems Constitutional: Constitutional: Reports no additional constitutional complaints ENT: Reports system reviewed and no additional complaints, except as documented Respiratory: Respiratory: Reports as per [facility] Past Medical History Attestation statement: The following information was validated with the patient. Source: unable to obtain Medical History Cough Prostate nodule Low back pain GERD (gastroesophageal reflux disease) CVA (cerebral vascular accident) Dementia Bilateral carotid artery disease Carpal tunnel syndrome of right wrist Vitamin D deficiency Cervical spinal stenosis Atrial fibrillation Hypercholesterolemia Hypertension Coronary artery disease Surgical History Hx of CABG (~1997) Inguinal hernia, right History of cardiac cath (~03/2008) Family History Family History Father No problems noted. Mother CVD (cardiovascular disease) Social History Social History Household Members: Spouse Housing: House Alcohol intake: former Patient Tobacco Use Status: Never used Tobacco Tobacco use type: Cigarette Smoked in Last 30 Days: No e-Cigarette/Vaping Use: Never Used Second Hand Smoke Exposure: No Use of substances other than those prescribed or required for medical reasons: No Advance Directives: No Advance Directives Information Provided: Yes service: Yes Current occupational status: retired Cognitive needs: No Hearing needs: Yes Vision needs: Yes Physical Exam Exam: Exam: Mild distress hypoxic in triage Vital Signs: Vital Signs: Last Vital Signs Temp 98.1 F 04/22/25 14:13 Pulse 78 04/22/25 14:13 Resp 18 04/22/25 14:13 BP 121/66 04/22/25 14:44 Pulse Ox 94 04/22/25 14:28 O2 Del Method Nasal Cannula 04/22/25 14:28 O2 Flow Rate 2 04/22/25 14:28 BMI result Body Mass Index 22.7 Const: General: cooperative Nutritional Appearance: well nourished Limitations: no limitations HEENT: Head: Yes normal to inspection General nose exam: Normal external nose present Face and sinus: Yes normal facial exam Neck: Other: JVD present Chest: Chest palpation & inspection: normal inspection of the chest Resp: Auscultation: rales and rhonchi Cardio: Jugular venous distension: no JVD Rhythm: abnormal rhythm GI: Inspection: Yes normal to inspection Palpation (GI): Soft to palpation Skin: General skin exam: no rashes or lesions noted and elasticity normal Lesions: no lesions Rashes: no rashes Extrem: General: Yes normal to inspection Course Reevaluation(s) Reevaluation #1: Chest x-ray was just read by the Radiology as right lower lobe infiltrate, patient has no fever, WBC is normal any way we will cover with the antibiotic Time: 15:39 Medications Administered Discontinued Medications Generic Name Dose Route Start Last Admin Trade Name Lauryn PRN Reason Stop Dose Admin Furosemide 40 mg 04/22/25 14:37 04/22/25 14:44 Furosemide 40 Mg/4 Ml Vial IVPUSH 04/22/25 14:38 40 mg ONCE ONE Administration Protocol Medical Decision Making Medical Decision Making [facility] Narrative: Patient presented to emergency department with shortness of breath on exertion orthopnea elevated BNP working diagnosis is congestive heart failure we will administer diuretic 15:40 received IV Lasix here respiration rate came down to 18 from 22, we just got the report of the chest x-ray by the Radiology who read as right lower lobe consolidation, the patient has no fever no cough no white count given his age the we will cover the patient on IV antibiotic blood culture done we will start him on doxy and Rocephin I discussed the case with the hospitalist plan admission to [facility] Differential Diagnosis Differential Diagnoses: The differential diagnosis associated with the presentation includes CHF/acute coronary syndrome Admission/Observation Consideration of admission/observation: Escalation of care including admission/observation considered Consult Healthcare Provider Management of the patient was discussed with: Hospitalist Lab Data [facility] Lab Attestation statement: I reviewed the patient's lab results. 04/22/25 13:37 04/22/25 13:37 Labs: Lab Results 04/22/25 04/22/25 Range/Units 13:37 14:48 WBC 9.7 (4.8-10.8) X10*3/uL RBC 2.26 L (4.60-5.80) X10*6/uL Hgb 8.4 L (14.0-18.0) g/dl Hct 24.7 L (42.0-52.0) % MCV 109.3 H (80.0-98.0) fL MCH 37.2 H (27.0-33.0) pg MCHC 34.0 (31.0-36.0) g/dl RDW 22.3 H (11.0-16.0) % Plt Count 234 (160-400) X10*3/uL MPV 11.7 (9.4-12.4) fL Immature Gran % (Auto) 0.4 (0.0-0.4) % Neut % (Auto) 78.0 H (45-73) % Lymph % (Auto) 6.2 L (20-40) % [place] % (Auto) 15.1 H (2-11) % Eos % (Auto) 0.2 (0-4) % Baso % (Auto) 0.1 (0-2) % Lymph # (Auto) 0.6 L (1.2-4.9) X10*3/uL [place] # (Auto) 1.5 H (0.1-1.2) X10*3/uL Eos # (Auto) 0.0 (0.0-0.4) X10*3/uL Baso # (Auto) 0.0 (0.0-0.2) X10*3/uL Abs Immat Gran (auto) 0.04 H (0.00-0.03) X10*3/uL Absolute Neuts (auto) 7.5 (2.0-8.3) x10*3/uL Absolute Nucleated RBC 0.000 (0.0-0.012) X10*3/uL Nucleated RBC % (auto) 0.0 (0.0-0.2) /100WBC Sodium 141 (135-145) mmol/L Potassium 4.0 (3.3-5.1) mmol/L Chloride 109 H (96-108) mmol/L Carbon Dioxide 23 (22-29) mmol/L Anion Gap 13 (12-20) BUN 23 H (9-16) mg/dL Creatinine 1.01 (0.5-1.4) mg/dL Estim Creat Clear Calc 49.9 Estimated GFR > 60 Random Glucose 149 H (60-115) mg/dL Calcium 9.5 (8.4-10.2) mg/dL Total Bilirubin 2.4 H (0.0-1.0) mg/dL Direct Bilirubin 0.3 (0.0-0.5) mg/dL AST 23 (5-37) U/L ALT 21 (0-40) U/L Alkaline Phosphatase 64 (39-117) U/L Troponin I High Sens 31.6 (<3.5-35.0) ng/L NT-Pro-B Natriuret Pep 2131.0 H (<300) pg/mL Total Protein 6.9 (6.5-8.0) g/dL Albumin 4.7 (3.5-5.0) g/dL Urine Color Yellow Urine Appearance Clear Urine pH 5.5 (5.0-9.0) Ur Specific [place] 1.020 (1.005-1.025) Urine Protein Trace (Neg-Trace) mg/dL Urine Glucose (UA) Negative (Negative) mg/dL Urine Ketones Trace (Negative) mg/dL Urine Blood Trace H (Negative) Urine Nitrite Negative (Negative) Ur Leukocyte Esterase Negative (Negative) Urine RBC 3-5 H (0-2) /HPF Urine WBC 0-5 (0-5) /HPF Ur Squamous Epith Cells 0-2 (0-2) /HPF Urine Bacteria None Seen (None Seen) Hyaline Casts 0-2 (0-2) /LPF Urine Opiates Screen Not Detected (Not Detect) Ur Buprenorphine Scrn Not Detected (Not Detect) ng/mL Ur Oxycodone Screen Not Detected (Not Detect) ng/mL Urine Methadone Screen Not Detected (Not Detect) ng/mL Urine Fentanyl Screen Not Detected (Not Detect) Ur Barbiturates Screen Not Detected (Not Detect) Ur Phencyclidine Scrn Not Detected (Not Detect) Ur Amphetamines Screen Not Detected (Not Detect) U Benzodiazepines Scrn Not Detected (Not Detect) Urine Cocaine Screen Not Detected (Not Detect) U Marijuana (THC) Screen Not Detected (Not Detect) Influenza Type A (PCR) NEGATIVE (Negative) Influenza Type B (PCR) NEGATIVE (Negative) RSV RNA Qual (PCR) NEGATIVE (Negative) SARS-CoV-2 RNA (RT-PCR) NEGATIVE (Negative) Independent Interpretation I performed an independent interpretation of an: EKG and Plain X-Ray (CHF) Interpretation: AFib with controlled rate Radiology Impression Discussion of test interpretation with radiology: I have reviewed the radiologist's reading. Independent Historian Clinical information obtained from an independent historian. History obtained from or confirmed by: Spouse External Record Review External record reviewed: Inpatient record Chronic Conditions Patient?s care impacted by: Other (Coronary artery disease) Critical Care Time Critical Care Time Critical Care Time: Yes Total Critical Care Time: 60 Attestation: IV Lasix tachycardic the patient is speaking with the Discharge Plan Discharge Clinical Impression: Acute dyspnea, Pneumonia CHF (congestive heart failure) Qualifiers: Heart failure type: diastolic Heart failure chronicity: acute Qualified Code(s): I50.31 - Acute diastolic (congestive) heart failure Patient Disposition: Admitted As Inpatient
[2025-04-22 14:34] LABS: Resp Syncy Virus RNA Qual PCR NEGATIVE (Negative); SARS COV2 PCR INHOUSE NEGATIVE (Negative)
[2025-04-22 14:44] VITALS: BP 121/66
[2025-04-22] MEDS: Furosemide 40 MG/4 ML VIAL IVPUSH (14:44)
[2025-04-22 14:58] LABS: Appearance Urine Clear; Glucose Urine UA Negative (Negative); PH 5.5 (5.0-9.0); Specific Gravity - Urine 1.020 (1.005-1.025); UMIC TRIGGER UACC YES
[2025-04-22 15:05] LABS: Cannabinoid Screen Urine Not Detected (Not Detect)
--- NOTE | 2025-04-22 16:32 | PM.IMHP ---
History of Present Illness Date of Service: 04/22/25 Attending physician on admission: [facility] Chief Complaint: shortness of breath This is an 89-year-old male with history of AFib on Eliquis, coronary artery disease, heart failure who presents to the emergency department with shortness of breath. Patient reports shortness of breath ongoing for the past 2-3 days. He has associated orthopnea. He skipped his dose of Lasix yesterday for unclear reasons. He denies any recent sick contacts or any fever. He does report chills. In the emergency department his BNP was noted to be 2131 with no previous comparison for baseline. In addition chest x-ray showed patchy right lung consolidation. Patient was treated with IV antibiotics and IV Lasix. Patient was noted to by hypoxic on arrival with o2 saturation of 88% on room air. His oxygen saturations increased to 94% on 2L but did continue to dip down with any movement. Review of Systems Review of Systems: Yes all other systems are reviewed and are negative Constitutional: Constitutional: Reports chills and Denies fever(s) Cardiovascular: Cardiovascular: Denies chest pain and Denies palpitations Endocrine: Endocrine: Denies palpitations [facility] Medical History Cough Prostate nodule Low back pain GERD (gastroesophageal reflux disease) CVA (cerebral vascular accident) Dementia Bilateral carotid artery disease Carpal tunnel syndrome of right wrist Vitamin D deficiency Cervical spinal stenosis Atrial fibrillation Hypercholesterolemia Hypertension Coronary artery disease Family History Father No problems noted. Mother CVD (cardiovascular disease) Surgical History Hx of CABG (~1997) Inguinal hernia, right History of cardiac cath (~03/2008) Social History Household Members: Spouse Housing: House Alcohol intake: former Patient Tobacco Use Status: Never used Tobacco Tobacco use type: Cigarette Smoked in Last 30 Days: No e-Cigarette/Vaping Use: Never Used Second Hand Smoke Exposure: No Use of substances other than those prescribed or required for medical reasons: No Advance Directives: No Advance Directives Information Provided: Yes Nutrition Risks: On aspiration precautions service: Yes Current occupational status: retired Cognitive needs: No Hearing needs: Yes Vision needs: Yes Meds Allergies Allergy/AdvReac Type Severity Reaction Status Date / Time omeprazole (OMEPRAZOLE) Allergy Unknown RASH Verified 04/22/25 13:14 Active Medications: Current Medications Doxycycline Hyclate 100 mg/ (Sodium Chloride) 250 mls @ 166.67 mls/hr IV ONCE ONE Stop: 04/22/25 17:06 Home Medications ?Medication ?Instructions ?Recorded ?Confirmed ?Last Taken ?Type isosorbide mononitrate 30 mg 30 mg PO DAILY 04/22/25 04/22/25 04/21/25 History tablet,extended release 24 hr Physical Exam Vital Signs and Narrative: Vital Signs: Last Vital Signs Temp 98.1 F 04/22/25 14:13 Pulse 78 04/22/25 14:13 Resp 18 04/22/25 14:13 BP 121/66 04/22/25 14:44 Pulse Ox 94 04/22/25 14:28 O2 Del Method Nasal Cannula 04/22/25 14:28 O2 Flow Rate 2 04/22/25 14:28 BMI result Body Mass Index 22.7 Const: Other: thin, frail elderly male Orientation/consciousness: patient oriented x3 Resp: Other: diminished breath sounds, SOB with movement Effort & Inspection: no respiratory distress Cardio: Jugular venous distension: JVD Palpation: normal PMI Neuro: General: patient oriented x3, moves all extremities and CN's II-XI intact bilaterally Extrem: General: No pedal edema Results Labs 04/23/25 05:10 04/23/25 05:10 Labs: Laboratory Results - last 24 hr 04/22/25 04/22/25 04/22/25 13:37 14:48 15:55 MCV 109.3 H MCH 37.2 H MCHC 34.0 RDW 22.3 H Plt Count 234 MPV 11.7 Immature Gran % (Auto) 0.4 Neut % (Auto) 78.0 H Lymph % (Auto) 6.[address] [place] % (Auto) 15.1 H Eos % (Auto) 0.2 Baso % (Auto) 0.1 Lymph # (Auto) 0.[address] [place] # (Auto) 1.5 H Eos # (Auto) 0.0 Baso # (Auto) 0.0 Abs Immat Gran (auto) 0.04 H Absolute Neuts (auto) 7.5 Absolute Nucleated RBC 0.000 Nucleated RBC % (auto) 0.0 Anion Gap 13 Estim Creat Clear Calc 49.9 Estimated GFR > 60 Random Glucose 149 H Lactic Acid 1.5 Calcium 9.5 Total Bilirubin 2.4 H Direct Bilirubin 0.3 AST 23 ALT 21 Alkaline Phosphatase 64 Troponin I High Sens 31.6 C-Reactive Protein 0.60 H NT-Pro-B Natriuret Pep 2131.0 H Total Protein 6.9 Albumin 4.7 Urine Color Yellow Urine Appearance Clear Urine pH 5.5 Ur Specific [place] 1.020 Urine Protein Trace Urine Glucose (UA) Negative Urine Ketones Trace Urine Blood Trace H Urine Nitrite Negative Ur Leukocyte Esterase Negative Urine RBC 3-5 H Urine WBC 0-5 Ur Squamous Epith Cells 0-2 Urine Bacteria None Seen Hyaline Casts 0-2 Urine Opiates Screen Not Detected Ur Buprenorphine Scrn Not Detected Ur Oxycodone Screen Not Detected Urine Methadone Screen Not Detected Urine Fentanyl Screen Not Detected Ur Barbiturates Screen Not Detected Ur Phencyclidine Scrn Not Detected Ur Amphetamines Screen Not Detected U Benzodiazepines Scrn Not Detected Urine Cocaine Screen Not Detected U Marijuana (THC) Screen Not Detected Influenza Type A (PCR) NEGATIVE Influenza Type B (PCR) NEGATIVE RSV RNA Qual (PCR) NEGATIVE SARS-CoV-2 RNA (RT-PCR) NEGATIVE Assessment and Plan (1) (HFpEF) heart failure with preserved ejection fraction: Status: Acute Plan This is a 89-year-old male with history of CAD s/p CABG, HFpEF, HTN, afib on Eliquis, HLD, gerd, chronic macromytic anemia, prostate CA who presents to the emergency department with shortness of breath found to have acute on chronic CHF and possible pneumonia Acute respiratory failure due to acute on chronic CHF and pneumonia Continue supplemental oxygen, wean as tolerated persistent dyspnea with movement or lying flat Treatment of underlying CHF and pneumonia as below Acute on chronic HFpEF IV lasix, low sodium diet, monitor UO trend BNP last echo from 2022, will order echo Community acquired pneumonia CXR reporting pna however no cough, fever or elevated white count, will check chest CT for further characterization multiple episodes of pna, some previous concern of aspiration raised by pulm - will obtain speech evaluation treat with IV ceftriaxone, doxy follow blood cultures Chronic microcytic anemia 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 Given age and frailty high risk for decompensation requiring close monitoring of respiratory status Quality Stroke Does the patient have a stroke diagnosis?: No VTE Prior VTE?: No VTE Risk Level:: Medical - moderate - high VTE Device Contraindication: Treatment Not Indicated VTE Drug Contraindication: N/A - Med Ordered
--- NOTE | 2025-04-22 16:54 | PC.NURSE ---
Phlebotomy at bedside to draw BCs, pt previously drawn by AVLIN Huerta, BC sent w/ pt labels per Bradley. abx delayed d/t BC draws/admitting provider assessment/pt need to urinate.
[2025-04-22 16:55] VITALS: BP 116/80; PULSE 87; RESP 18; O2SAT 99
--- NOTE | 2025-04-22 17:39 | HO.NURTONUR ---
Addendum entered by Meg Todd RN 04/23/25 13:24: Alert and answering questions appropriately, breathing even and unlabored while at rest. 2L O2 NC remains. Able to ambulate with 1 assist standing by. Speech evaluated today, wrote note. Eating his lunch now, took his pills no issue. IV lasix with good urine output so far. Was complaining of groin pain last night, provider aware and did CT scan. Pain went away with Toradol and Tylenol. Addendum entered by Daniella Lacey RN 04/22/25 17:47: Initially 88% on RA, not normally on RA, satting anywhere between 94 - 99% on 2L Original Note: Pt presents to ED w/ SOB x today. Admits to not taking home lasix x 2 days because he didn't want to get up every 5 minutes to pee BNP elevated, CHF exacerbation, 40 IV lasix given ~700 ccs urinary OP @ this time. Purewick in place. CXR shows question of pneumonia, concern for aspiration. BC done. abx running. ORDNANCE HANDLER eval ordered. Pt has not had any PO intake / refusing at this time. Pt is alert but forgetful, repetitive, and intermittently verbally aggressive, especially w/ at bedside. ECHO ordered. SB assist to BR.
--- NOTE | 2025-04-22 17:48 | PHA.MEDREC ---
Pharmacy Consult ? Medication Reconciliation Pharmacy has completed the medication reconciliation. Spoke to patient to confirm medication list. Patient confirmed he is taking verapamil and there are verapamil capsules in his pill box even though there's no pharmacy claims for it. Last dose of medications was yesterday 04/21/25 except he took a dose of eliquis today.
--- NOTE | 2025-04-22 18:18 | PC.NURSE ---
Pt attempted to eat dinner, proceeded to vomit / desat, provider Claire quintero made aware, pt to be NPO until PRODUCTION ENGINEER TRACK eval.
--- NOTE | 2025-04-22 19:49 | MHC.EDTECH ---
Pt was given a male purewick on first shift. It was given because they did not want him standing due to safety concerns of him falling. Came on shift and reminded him that he had the male purewick and that would help him with the urine part of it. Pt rang his call rivas and i went in and he took down his side rail and was standing using the urinal after i told him he had the purewick. He said he needed to mannequin wig maker order to urinate. Reminded him to please not stand on his own and it was for his safety
[2025-04-23] VITALS (9 sets, daily range): BP systolic 100–129; BP diastolic 46–86; PULSE 74–87; RESP 17–20; TEMP 36.4–37.1; O2SAT 92–100; BMI 22.8
--- NOTE | 2025-04-23 01:29 | PC.NURSE ---
MD made aware of pts penis pain and how pt refused male purewick and feels the need to pee but nothing comes out. Pt and dtr also concerned bc pt is now having 10/10 penis pain . Md made aware of all of this.
--- NOTE | 2025-04-23 04:50 | PC.NURSE ---
pts dtr called around 1am for an update and expressing her concerns regarding her father and the pain he started experiencing near his penis. RN informed her that MD was made aware and she would evaluate pt when she makes her rounds. MD was made aware that dtr was inquiring about her father.
[2025-04-23 05:15] LABS: Hematocrit 24.7 % (42.0-52.0); Hemoglobin 8.3 g/dl (14.0-18.0); Mean Corpuscular HGB Conc 33.6 g/dl (31.0-36.0); Mean Corpuscular Hemoglobin 36.9 pg (27.0-33.0); Mean Corpuscular Volume 109.8 fL (80.0-98.0); NRBC Abs Auto 0.020 X10*3/uL (0.0-0.012); NRBC Pct Auto 0.2 /100WBC (0.0-0.2); Platelet Count 220 X10*3/uL (160-400); Red Blood Count 2.25 X10*6/uL (4.60-5.80); White Blood Count 9.2 X10*3/uL (4.8-10.8)
[2025-04-23 05:29] LABS: Anion Gap 14 (12-20); Blood Urea Nitrogen 24 mg/dL (9-16); Calcium 8.9 mg/dL (8.4-10.2); Carbon Dioxide 22 mmol/L (22-29); Chloride 106 mmol/L (96-108); Creatinine Clr Calc Pharmacy 47.1; Estimated Glomerular Filt Rate > 60; Potassium 3.9 mmol/L (3.3-5.1); Sodium 138 mmol/L (135-145)
--- NOTE | 2025-04-23 06:38 | PM.EVENT ---
Event Note Date of Service: 04/23/25 Event Note: Mr. Sheppard is c/o severe right groin pain that started yesterday associated with defecation difficulty. No bloody or black stools. He denied nausea or vomiting. He mentioned that Tylenol helped with pain. VS: Stable. Abdominal exam: Soft, nondistended, Remarkable for right suprapubic and palpable bulge. UA - mild microscopic hematuria. A/P: Right palpable inguinal bulge, rule out hernia. Check abdominal pelvis CT scan with and without contrast. Continue pain control with Tylenol and Toradol; Dilaudid IV as needed (if tylenol and toradol are not effective. Patient educated to stay in bed. Bedside commode as needed. Time Spent With Patient Time: Total time managing care of this patient today ____ minutes.
--- NOTE | 2025-04-23 06:40 | PC.NURSE ---
pt stated to RN that he had to defecate. pt refused bed richardson and ED had no commodes. RN walked pt to the bathroom across the chin. pt was sitting on the toilet for about 20 min- he refused to get up. RN stayed at the door with pt the whole time as ed was short on techs. pt did have a BM. multiple round stools were noted in the toilet. pt was still c/o of groin pain. pt to be medicated per aug and day RN to complete any am orders.
--- NOTE | 2025-04-23 07:14 | P.PNIM_ITS ---
Subjective Subjective Date of Service: 04/23/25 Interval History: f/u on acute resp failure, concern for PNA and CHF Physical Exam 2 Vital Signs: Vital Signs: Last Vital Signs Temp 98.8 F 04/23/25 02:59 Pulse 84 04/23/25 02:59 Resp 17 04/23/25 02:59 BP 100/46 L 04/23/25 02:59 Pulse Ox 95 04/23/25 02:59 O2 Del Method Nasal Cannula 04/23/25 02:59 O2 Flow Rate 1.5 04/23/25 02:59 BMI result Body Mass Index 22.7 Objective Data Active Medications Acetaminophen (Acetaminophen 325 Mg Tablet) 650 mg PO Q6H PRN PRN Reason: Pain, Mild 1-3,fever,headache Last Admin: 04/23/25 01:09 Dose: 650 mg Documented By: ML Apixaban (Apixaban 5 Mg Tablet) 5 mg PO BID ADY Last Admin: 04/22/25 22:27 Dose: 5 mg Documented By: ML Bisacodyl (Bisacodyl 5 Mg Tablet.Dr) 10 mg PO BEDTIME ADY Calcium Carbonate (Calcium Carbonate 750 Mg Tab.Chew) 750 mg PO Q4H PRN PRN Reason: Heartburn Furosemide (Furosemide 20 Mg/2 Ml Vial) 20 mg IVPUSH BID@0900,1800 [facility]; Protocol Hydromorphone HCl (Hydromorphone Hcl 1 Mg/Ml Syringe) 0.5 mg IVPUSH Q4H PRN; Protocol PRN Reason: Pain, Severe (Pain Scale 7-10) Acetaminophen (Ofirmev) 1,000 mg in 100 mls @ 400 mls/hr IV Q6H [facility] Isosorbide Mononitrate (Isosorbide Mononitrate 30 Mg Tab.Er.24h) 30 mg PO DAILY ADY; Protocol Magnesium Hydroxide (Milk Of Magnesia 30 Ml Oral.Susp) 30 ml PO DAILY PRN PRN Reason: Constipation Melatonin (Melatonin 3 Mg Tablet) 6 mg PO BEDTIME PRN PRN Reason: Insomnia Last Admin: 04/23/25 01:09 Dose: 6 mg Documented By: ML Polyethylene Glycol (Polyethylene Glycol 3350 17 Gm Powd.Pack) 17 gm PO DAILY [facility] Senna (Sennosides 8.6 Mg Tablet) 8.6 mg PO BEDTIME PRN PRN Reason: Constipation Sodium Biphosphate/Sodium Phosphate (Sodium Phosphate,[place]-Dibasic 133 Ml Enema) 133 ml [place] ONCE PRN PRN Reason: Constipation Sodium Chloride (0.9 % Sodium Chloride Flush 3 Ml Syringe) 3 ml IVFLUSH QSHIFT [facility] Last Admin: 04/23/25 01:49 Dose: Not Given Documented By: ML Non-Admin Reason: IV Running Vitamin D (Cholecalciferol (Vitamin D3) 25 Mcg Tablet) 50 mcg PO DAILY [facility] Labs 04/23/25 05:10 04/24/25 06:45 Labs: Laboratory Results - last 24 hr 04/22/25 04/22/25 04/22/25 13:37 14:48 15:55 MCV 109.3 H MCH 37.2 H MCHC 34.0 RDW 22.3 H Plt Count 234 MPV 11.7 Immature Gran % (Auto) 0.4 Neut % (Auto) 78.0 H Lymph % (Auto) 6.2 L [place] % (Auto) 15.1 H Eos % (Auto) 0.2 Baso % (Auto) 0.1 Lymph # (Auto) 0.6 L [place] # (Auto) 1.5 H Eos # (Auto) 0.0 Baso # (Auto) 0.0 Abs Immat Gran (auto) 0.04 H Absolute Neuts (auto) 7.5 Absolute Nucleated RBC 0.000 Nucleated RBC % (auto) 0.0 Anion Gap 13 Estim Creat Clear Calc 49.9 Estimated GFR > 60 Random Glucose 149 H Lactic Acid 1.5 Calcium 9.5 Total Bilirubin 2.4 H Direct Bilirubin 0.3 AST 23 ALT 21 Alkaline Phosphatase 64 Troponin I High Sens 31.6 C-Reactive Protein 0.60 H NT-Pro-B Natriuret Pep 2131.0 H Total Protein 6.9 Albumin 4.7 Urine Color Yellow Urine Appearance Clear Urine pH 5.5 Ur Specific [place] 1.020 Urine Protein Trace Urine Glucose (UA) Negative Urine Ketones Trace Urine Blood Trace H Urine Nitrite Negative Ur Leukocyte Esterase Negative Urine RBC 3-5 H Urine WBC 0-5 Ur Squamous Epith Cells 0-2 Urine Bacteria None Seen Hyaline Casts 0-2 Urine Opiates Screen Not Detected Ur Buprenorphine Scrn Not Detected Ur Oxycodone Screen Not Detected Urine Methadone Screen Not Detected Urine Fentanyl Screen Not Detected Ur Barbiturates Screen Not Detected Ur Phencyclidine Scrn Not Detected Ur Amphetamines Screen Not Detected U Benzodiazepines Scrn Not Detected Urine Cocaine Screen Not Detected U Marijuana (THC) Screen Not Detected Influenza Type A (PCR) NEGATIVE Influenza Type B (PCR) NEGATIVE RSV RNA Qual (PCR) NEGATIVE SARS-CoV-2 RNA (RT-PCR) NEGATIVE 04/23/25 05:10 MCV 109.8 H MCH 36.9 H MCHC 33.6 RDW 22.3 H Plt Count 220 MPV 10.7 Immature Gran % (Auto) Neut % (Auto) Lymph % (Auto) [place] % (Auto) Eos % (Auto) Baso % (Auto) Lymph # (Auto) [place] # (Auto) Eos # (Auto) Baso # (Auto) Abs Immat Gran (auto) Absolute Neuts (auto) Absolute Nucleated RBC 0.020 H Nucleated RBC % (auto) 0.2 Anion Gap 14 Estim Creat Clear Calc 47.1 Estimated GFR > 60 Random Glucose 129 H Lactic Acid Calcium 8.9 D Total Bilirubin Direct Bilirubin AST ALT Alkaline Phosphatase Troponin I High Sens C-Reactive Protein NT-Pro-B Natriuret Pep 6510.1 H Total Protein Albumin Urine Color Urine Appearance Urine pH Ur Specific [place] Urine Protein Urine Glucose (UA) Urine Ketones Urine Blood Urine Nitrite Ur Leukocyte Esterase Urine RBC Urine WBC Ur Squamous Epith Cells Urine Bacteria Hyaline Casts Urine Opiates Screen Ur Buprenorphine Scrn Ur Oxycodone Screen Urine Methadone Screen Urine Fentanyl Screen Ur Barbiturates Screen Ur Phencyclidine Scrn Ur Amphetamines Screen U Benzodiazepines Scrn Urine Cocaine Screen U Marijuana (THC) Screen Influenza Type A (PCR) Influenza Type B (PCR) RSV RNA Qual (PCR) SARS-CoV-2 RNA (RT-PCR) Assessment and Plan (1) (HFpEF) heart failure with preserved ejection fraction: Status: Acute (2) Peripheral vascular disease: Status: Acute Plan This is an 89-year-old male with a history of coronary artery disease status post CABG, heart failure with preserved ejection fraction, hypertension, atrial fibrillation on apixaban (Eliquis), hyperlipidemia, GERD, chronic microcytic anemia, and prostate cancer who presents to the emergency department with shortness of breath. He is found to have acute on chronic congestive heart failure and possible pneumonia. He is experiencing acute respiratory failure due to acute on chronic CHF and pneumonia. Supplemental oxygen is continued and will be weaned as tolerated. He has persistent dyspnea with movement or when lying flat. Management is focused on treating the underlying CHF and pneumonia as outlined below. Acute on chronic HFpEF IV Lasix, follow I/O and weight, low salt diet. BNP has trended up from 2135- 6510 His last echocardiogram was in 2022, and a repeat echocardiogram will be ordered. Cardiology consultation to help with management Community-acquired pneumonia, chest X-ray reports pneumonia, although he does not have cough, fever, or an elevated white count. CT show monik ground glass opacity, with small P. Effusion PNA or CHF. . He has had multiple episodes of pneumonia in the past, with some previous concern for aspiration raised by Pulmonology; a speech evaluation will be obtained. IV ceftriaxone and doxycyclin Follow BCx. Chronic microcytic anemia, probable myelodysplastic syndrome is noted per outpatient Hematology notes. The patient has declined further workup His hemoglobin and hematocrit are near baseline. Paroxysmal atrial fibrillation Continue Apixaban (Eliquis) For DVT prophylaxis, he will remain on apixaban (Eliquis). Code status is full code. The patient will likely require a two-midnight stay in the hospital for management of respiratory failure due to CHF and pneumonia, requiring IV diuretics, IV antibiotics, further workup, and possible need for specialist evaluation. Given his age and frailty, he is at high risk for decompensation and will require close monitoring of his respiratory status. Quality Stroke Does the patient have a stroke diagnosis?: No VTE Prior VTE?: No VTE Risk Level:: Medical - moderate - high VTE Device Contraindication: Treatment Not Indicated VTE Drug Contraindication: N/A - Med Ordered
[2025-04-23] MEDS: 0.9 % Sodium Chloride Flush 3 ML SYRINGE IVFLUSH ×2 (07:26→18:20)
[2025-04-23] MEDS: iohexoL 350 MG/ML 100 ML INFUS..BTL 85 ML IV (08:58)
[2025-04-23] MEDS: Furosemide 20 MG/2 ML VIAL IVPUSH (10:35)
--- NOTE | 2025-04-23 10:40 | P.CONCA_ITS ---
History of Present Illness History of Present Illness Date of Service: 04/23/25 [facility]ing physician[facility] Consult reason: congestive heart failure Chief complaint: HF Narrative: I was consulted to see Fadi in cardiology consultation today for respiratory failure with shortness of breath and decompensated congestive heart failure. Patient is a 89-year-old patient usually very functional see him in the office for many years with prior history of CAD status post coronary artery bypass grafting with some circumflex territory ischemia being managed medically with no symptoms of angina in the recent past, chronic atrial fibrillation has failed rhythm control approach on oral anticoagulation with Eliquis, early heart failure with preserved ejection fraction, hyperlipidemia. Patient came to the hospital with sudden-onset shortness of breath over the last couple of days. He noticed some leg swelling. He has not had any respiratory illness recently with no symptoms of cough productive of phlegm or wheezing. He has not had any fever or chills. Came to the hospital was noted to have bilateral infiltrative that would suggestive of pneumonia but pulmonary edema is also likely. Patient when I saw him looked pretty comfortable. He has received diuretics but that has no clear output documented. Patient denies any palpitations or angina. He has EKGs does not show any acute ischemia. His troponins are within acceptable limits no evidence of acute ischemia. His admission BNP was 2131 and BNP this morning is 6510 Review of Systems 2 Constitutional: Constitutional: Reports no additional constitutional complaints Cardiovascular: Cardiovascular: Denies chest pain, Reports leg edema, Denies lightheadedness, Denies Loss of Consciousness, Denies palpitations, Reports dyspnea and Reports orthopnea Respiratory: Respiratory: Reports no additional respiratory complaints and Reports dyspnea Gastrointestinal: Gastrointestinal: Reports no additional gastrointestinal complaints Genitourinary: Genitourinary: Reports no additional male genitourinary complaints Musculoskeletal: Musculoskeletal: Reports no additional musculoskeletal complaints Integumentary/Breasts: Skin/Breast: Reports system reviewed and no additional complaints, except as docu Neurologic: Reports system reviewed and no additional complaints, except as documented Psychiatric: Psychiatric: Reports no additional psychiatric complaints Endocrine: Endocrine: Reports no additional endocrine complaints and Denies palpitations PMFSH Past Medical History Medical History Cough Prostate nodule Low back pain GERD (gastroesophageal reflux disease) CVA (cerebral vascular accident) Dementia Bilateral carotid artery disease Carpal tunnel syndrome of right wrist Vitamin D deficiency Cervical spinal stenosis Atrial fibrillation Hypercholesterolemia Hypertension Coronary artery disease Family History Family History Father No problems noted. Mother CVD (cardiovascular disease) Surgical History Surgical History Hx of CABG (~1997) Inguinal hernia, right History of cardiac cath (~03/2008) Social History Social History Household Members: Spouse Housing: House Alcohol intake: former Patient Tobacco Use Status: Never used Tobacco Tobacco use type: Cigarette Smoked in Last 30 Days: No e-Cigarette/Vaping Use: Never Used Second Hand Smoke Exposure: No Use of substances other than those prescribed or required for medical reasons: No Advance Directives: No Advance Directives Information Provided: Yes Nutrition Risks: On aspiration precautions service: Yes Current occupational status: retired Cognitive needs: No Hearing needs: Yes Vision needs: Yes Meds Allergies Allergy/AdvReac Type Severity Reaction Status Date / Time omeprazole (OMEPRAZOLE) Allergy Unknown RASH Verified 04/22/25 13:14 Active Medications: Current Medications Acetaminophen (Acetaminophen 325 Mg Tablet) 650 mg PO Q6H PRN PRN Reason: Pain, Mild 1-3,fever,headache Last Admin: 04/23/25 01:09 Dose: 650 mg Apixaban (Apixaban 5 Mg Tablet) 5 mg PO BID [facility] Last Admin: 04/23/25 10:31 Dose: 5 mg Bisacodyl (Bisacodyl 5 Mg Tablet.Dr) 10 mg PO BEDTIME ADY Calcium Carbonate (Calcium Carbonate 750 Mg Tab.Chew) 750 mg PO Q4H PRN PRN Reason: Heartburn Furosemide (Furosemide 20 Mg/2 Ml Vial) 20 mg IVPUSH BID@0900,1800 [facility]; Protocol Last Admin: 04/23/25 10:35 Dose: 20 mg Hydromorphone HCl (Hydromorphone Hcl 1 Mg/Ml Syringe) 0.5 mg IVPUSH Q4H PRN; Protocol PRN Reason: Pain, Severe (Pain Scale 7-10) Acetaminophen (Ofirmev) 1,000 mg in 100 mls @ 400 mls/hr IV Q6H [facility] Last Infusion: 04/23/25 08:19 Dose: Infused Isosorbide Mononitrate (Isosorbide Mononitrate 30 Mg Tab.Er.24h) 30 mg PO DAILY [facility]; Protocol Last Admin: 04/23/25 10:34 Dose: 30 mg Magnesium Hydroxide (Milk Of Magnesia 30 Ml Oral.Susp) 30 ml PO DAILY PRN PRN Reason: Constipation Melatonin (Melatonin 3 Mg Tablet) 6 mg PO BEDTIME PRN PRN Reason: Insomnia Last Admin: 04/23/25 01:09 Dose: 6 mg Polyethylene Glycol (Polyethylene Glycol 3350 17 Gm Powd.Pack) 17 gm PO DAILY [facility] Last Admin: 04/23/25 10:35 Dose: Not Given Senna (Sennosides 8.6 Mg Tablet) 8.6 mg PO BEDTIME PRN PRN Reason: Constipation Sodium Biphosphate/Sodium Phosphate (Sodium Phosphate,[place]-Dibasic 133 Ml Enema) 133 ml [place] ONCE PRN PRN Reason: Constipation Sodium Chloride (0.9 % Sodium Chloride Flush 3 Ml Syringe) 3 ml IVFLUSH QSHIFT [facility] Last Admin: 04/23/25 07:26 Dose: 3 ml Vitamin D (Cholecalciferol (Vitamin D3) 25 Mcg Tablet) 50 mcg PO DAILY [facility] Last Admin: 04/23/25 10:33 Dose: 50 mcg Home Medications ?Medication ?Instructions ?Recorded ?Confirmed ?Last Taken ?Type isosorbide mononitrate 30 mg 30 mg PO DAILY 04/22/25 1 06/22/24 04/21/25 History tablet,extended release 24 hr Physical Exam 2 Vital Signs: Vital Signs: Last Vital Signs Temp 97.6 F 04/23/25 10:36 Pulse 78 04/23/25 10:36 Resp 18 04/23/25 10:36 BP 116/54 L 04/23/25 10:36 Pulse Ox 100 04/23/25 10:36 O2 Del Method Nasal Cannula 04/23/25 10:36 O2 Flow Rate 2 04/23/25 10:36 BMI result Body Mass Index 22.7 Const: General: cooperative, comfortable, no acute distress, alert and awake Nutritional Appearance: thin Orientation/consciousness: patient oriented x3 Limitations: no limitations HEENT: Head: Yes normocephalic and Yes atraumatic Neck: Neck: Yes trachea midline, Yes supple and Yes no JVD Resp: Effort & Inspection: normal respiratory effort Auscultation: crackles Cardio: Jugular venous distension: no JVD Rhythm: abnormal rhythm irregularly irregular Heart sounds: S1 normal heart sound present, S2 normal heart sound present, no click, no gallops and no murmurs GI: Auscultation: normal bowel sounds Skin: General skin exam: no rashes or lesions noted Neuro: General: patient oriented x3 and no focal motor deficits Extrem: General: Yes no clubbing, cyanosis or edema Objective Labs and Meds 04/23/25 05:10 04/23/25 05:10 Lab results: Laboratory Results - last 24 hr 04/22/25 04/22/25 04/22/25 13:37 14:48 15:55 WBC 9.7 RBC 2.26 L Hgb 8.4 L Hct 24.7 L MCV 109.3 H MCH 37.2 H MCHC 34.0 RDW 22.3 H Plt Count 234 MPV 11.7 Immature Gran % (Auto) 0.4 Neut % (Auto) 78.0 H Lymph % (Auto) 6.2 L [place] % (Auto) 15.1 H Eos % (Auto) 0.2 Baso % (Auto) 0.1 Lymph # (Auto) 0.6 L [place] # (Auto) 1.5 H Eos # (Auto) 0.0 Baso # (Auto) 0.0 Abs Immat Gran (auto) 0.04 H Absolute Neuts (auto) 7.5 Absolute Nucleated RBC 0.000 Nucleated RBC % (auto) 0.0 Sodium 141 Potassium 4.0 Chloride 109 H Carbon Dioxide 23 Anion Gap 13 BUN 23 H Creatinine 1.01 Estim Creat Clear Calc 49.9 Estimated GFR > 60 Random Glucose 149 H Lactic Acid 1.5 Calcium 9.5 Total Bilirubin 2.4 H Direct Bilirubin 0.3 AST 23 ALT 21 Alkaline Phosphatase 64 Troponin I High Sens 31.6 C-Reactive Protein 0.60 H NT-Pro-B Natriuret Pep 2131.0 H Total Protein 6.9 Albumin 4.7 Urine Color Yellow Urine Appearance Clear Urine pH 5.5 Ur Specific [place] 1.020 Urine Protein Trace Urine Glucose (UA) Negative Urine Ketones Trace Urine Blood Trace H Urine Nitrite Negative Ur Leukocyte Esterase Negative Urine RBC 3-5 H Urine WBC 0-5 Ur Squamous Epith Cells 0-2 Urine Bacteria None Seen Hyaline Casts 0-2 Urine Opiates Screen Not Detected Ur Buprenorphine Scrn Not Detected Ur Oxycodone Screen Not Detected Urine Methadone Screen Not Detected Urine Fentanyl Screen Not Detected Ur Barbiturates Screen Not Detected Ur Phencyclidine Scrn Not Detected Ur Amphetamines Screen Not Detected U Benzodiazepines Scrn Not Detected Urine Cocaine Screen Not Detected U Marijuana (THC) Screen Not Detected Influenza Type A (PCR) NEGATIVE Influenza Type B (PCR) NEGATIVE RSV RNA Qual (PCR) NEGATIVE SARS-CoV-2 RNA (RT-PCR) NEGATIVE 04/23/25 05:10 WBC 9.2 RBC 2.25 L Hgb 8.3 L Hct 24.7 L MCV 109.8 H MCH 36.9 H MCHC 33.6 RDW 22.3 H Plt Count 220 MPV 10.7 Immature Gran % (Auto) Neut % (Auto) Lymph % (Auto) [place] % (Auto) Eos % (Auto) Baso % (Auto) Lymph # (Auto) [place] # (Auto) Eos # (Auto) Baso # (Auto) Abs Immat Gran (auto) Absolute Neuts (auto) Absolute Nucleated RBC 0.020 H Nucleated RBC % (auto) 0.2 Sodium 138 Potassium 3.9 Chloride 106 Carbon Dioxide 22 Anion Gap 14 BUN 24 H Creatinine 1.07 Estim Creat Clear Calc 47.1 Estimated GFR > 60 Random Glucose 129 H Lactic Acid Calcium 8.9 D Total Bilirubin Direct Bilirubin AST ALT Alkaline Phosphatase Troponin I High Sens C-Reactive Protein NT-Pro-B Natriuret Pep 6510.1 H Total Protein Albumin Urine Color Urine Appearance Urine pH Ur Specific [place] Urine Protein Urine Glucose (UA) Urine Ketones Urine Blood Urine Nitrite Ur Leukocyte Esterase Urine RBC Urine WBC Ur Squamous Epith Cells Urine Bacteria Hyaline Casts Urine Opiates Screen Ur Buprenorphine Scrn Ur Oxycodone Screen Urine Methadone Screen Urine Fentanyl Screen Ur Barbiturates Screen Ur Phencyclidine Scrn Ur Amphetamines Screen U Benzodiazepines Scrn Urine Cocaine Screen U Marijuana (THC) Screen Influenza Type A (PCR) Influenza Type B (PCR) RSV RNA Qual (PCR) SARS-CoV-2 RNA (RT-PCR) Assessment and Plan (1) Decompensated heart failure: Status: Acute Decompensated congestive heart failure in this elderly gentleman, question underlying pulmonary process although this is probably less likely. He has prior history of heart failure preserved ejection fraction on diuretics at home. Clinically seems to be doing better compared to when he came in. I would continue with diuresis. Better intake and output chart needs to be maintained. Continue monitor renal function as well as electrolytes. Trend BNP tomorrow. Obtain an echocardiogram. Continue current diuretics. Add Jardiance 10 mg to his regimen. Continue other therapy as before. There was no evidence of acute myocardial ischemia at this point time. Will follow with you Procedures Date of Service Date of Service: 04/23/25
--- NOTE | 2025-04-23 11:34 | PC.NURSE ---
This RN gave pt his morning meds after speech eval. tolerated well, pills one at a time with water.
--- NOTE | 2025-04-23 12:32 | MHC.SL.SWA ---
Speech Pathologist Impression: Oropharyngeal swallowing function deemed WFL Risk of Aspiration Due to: Reduced cognition, current and hx of pneumonia Dysphasia Diet Status: Recommend START diet of REGULAR solids, THIN liquids; with intermittent supervision and meds WHOLE with liquids. Liquid Consistency and Strategies for Safe Swallow: Liquid Intake Recommendation: Thin Liquid Intake Strategies: Solid Food Consistency: Dietary Recommendations: Regular Additional Modifications to Solid Foods: Oral Medication Intake: Whole with Liquid Please contact the pharmacy regarding appropriate crushable or liquid drug formulations that are available whenever modified delivery is recommended. Compensatory Strategies and Precautions to be Taken for Safe Swallow: Supervision While Eating and Drinking for Safe Swallow: Intermittent Supervision Foods to Avoid: Swallowing Recommended Treatments: Recommendation for Speech: Inpatient Speech Therapy Comment: Patient presents with oropharyngeal swallowing function deemed WFL. Patient with no s/sx of penetration/aspiration. Patient poor historian, reporting troubles of swallowing but could not expand further. Patient denies any esophageal s/sx. Patient with adequate and timely mastication, adequate cohesion and clearance. Patient maintaining appropriate oxygen levels throughout evaluation. Patient observed taking medications whole with water, took four small pills with no difficulties noted or reported. Recommend START diet of REGULAR solids, THIN liquids with intermittent supervision as patient with confusion, medications WHOLE with liquids. MAIL AGENT to follow-up 1-2x to ensure tolerance. MD and RN notified of diet recommendations via secure chat Frequency/Duration: M-F Daily; Follow-up 1-2x Date Range for Service Req: Timeline to reassess: [place] Nurse Clinican/Clinical Fellow: No Supervisory Statement: I have reviewed and agree with the student/clinical fellow's documentation: No Speech Language Pathologist: Emily Sands M.A., [facility]IL AGENT
--- NOTE | 2025-04-23 13:39 | PC.NURSE ---
Pt refusing Jardiance, this RN educated him on the medicine, still refused. Provider aware.
--- NOTE | 2025-04-23 20:58 | PM.EVENT ---
Event Note Date of Service: 04/23/25 Event Note: 7:oo pm - abdomen pelvic CT scan results reviewed: IMPRESSION: 1. Enlarged right cardiac atrium. Small left more than right simple pleural effusions. Bilateral lower lung ground-glass opacities due to pulmonary edema and/or pneumonia (please refer to the 04/22/[address] report for more details) 2. Gallstones. 3. Prostatomegaly. [id number] bilateral hydronephrosis/hydroureter without urinary tract stone secondary to the distended urinary bladder. 4. . [id number] left more than right perinephric fat stranding may be an incidental finding for patient's age, due to the hydronephrosis, or secondary to decreased renal function. Clinical/lab correlation recommended. Contacted by nursing, pt is retaining urine, bladder scan >800. Indwelling catheter has been ordered + urojets. Per RN, pt is refusing catheter placement. We will speak with him and inform him about the importance of indwelling urinary catheter placement including resolution of urinary retention and potentially hydronephrosis/hydroureter resolution and will allow acutely measure urinary output as he is receiving IV diuretics. Urology consult has been placed. Time Spent With Patient Time: Total time managing care of this patient today ____ minutes.
[2025-04-23] MEDS: Lidocaine HCl 2 % Urojet 10 ML JEL.PF.APP TOPICAL (23:31)
[2025-04-24] VITALS (11 sets, daily range): BP systolic 98–128; BP diastolic 38–63; PULSE 78–88; RESP 16–18; TEMP 36.4–37.6; O2SAT 92–100
[2025-04-24] MEDS: 0.9 % Sodium Chloride Flush 3 ML SYRINGE IVFLUSH ×3 (00:01→20:25)
--- NOTE | 2025-04-24 07:00 | CA_ITS ---
Transthoracic Echocardiogram Patient (Last, First, Middle): Fadi Sheppard A Gender: M Date of : 1935 Age: 89 Procedure Date: 04/24/2025 Procedure Type: Transthoracic Echocardiogram Location: [facility] Height: 175.26 cm Weight: 69.85 kg BSA: 1.85 m2 Heart Rate: 84 bpm BP: 102 / 52 mmHg Hydrology Professor: SWAPNIL Referring MD: Claire TAYLOR Symptoms: sob,chf Study Quality: Adequate ECG Rhythm: Atrial Fibrillation Conclusions: - The left ventricular systolic function is normal. The calculated ejection fraction is 60% by biplane method. - The basal inferior segment is akinetic. - There is moderate calcification of the aortic valve. Findings Left Ventricle Normal left ventricular cavity size. There is normal left ventricular wall thickness. The left ventricular systolic function is normal. The calculated ejection fraction is 60% by biplane method. Diastolic function is indeterminate on the basis of available data. Wall Motion Rest Echo Findings The basal inferior segment is akinetic. Atria The left atrium is moderately dilated. The right atrium is mildly dilated. Aortic Valve There is moderate calcification of the aortic valve. There is trace (trivial) aortic valve regurgitation. No significant aortic stenosis. Mitral Valve There is mild mitral annular calcification. There is trace mitral valve regurgitation. There is no mitral valve stenosis. Pulmonic Valve The pulmonic valve is likely normal. Tricuspid Valve There is trace tricuspid valve regurgitation. There is no evidence of pulmonary hypertension. Great Vessels The asc aorta and aortic arch are normal in size. Venous The inferior vena cava is mildly dilated and collapses greater than 50% with inspiration. Pericardium/Pleural There is no evidence of pericardial effusion. Prior Study Comparison No significant change compared to prior study dated: 08/12/2022. Measurements 2D Linear Measurements IVSd: 0.87 0.6-0.9/0.6-1.0 cm LVIDd: 4.61 3.9-5.3/4.2-5.9 cm LVIDd Index: 2.49 2.4-3.2/2.2-3.1 cm/m2 LVIDs: 2.69 2.0-3.6 cm LVPWd: 0.99 0.7-1.1 cm LA Diam: 3.20 2.7-3.8/3.0-4.0 cm LAIDs Index: 1.73 1.5-2.3 cm/m2 LV Mass: 180.04 67-162/88-224 g LV Mass Index: 97.32 43-95/49-115 g/m2 LVOT Diam: 2.00 3.0+(-)1.3 cm 2D Systolic Function EF 4C: 68.00 >55% EF 2C: 51.50 >55% EF BiP: 60.00 >55% Mitral Valve MV Pk E: 1.41 MV Decel Time: 173.00 E'Lateral: 10.40 E'Medial: 10.10 E/E' Med: 14.00 E/E' Lat: 13.60 PHT: 51.00 MVA PHT: 4.31 Decel [place]: 8.21 Aortic Valve AoV Pk Terrell: 1.69 AoV Mn Terrell: 1.17 AoV VTI: 0.30 AoV Pk Grad: 11.00 Aov Mn Grad: 6.00 JENNIFER Cont.VTI: 1.98 AI Pk Terrell: 3.32 AI [place]: 3.37 LVOT LVOT Pk Terrell: 1.10 LVOT Mn Terrell: 0.73 LVOT VTI: 0.19 LVOT Pk Grad: 5.00 LVOT Mn Grad: 2.00 LVOT Diam: 2.00 LVOT Area: 3.14 Diastolic Function MV Pk E: 1.41 E'Medial: 10.10 E/E' Med: 14.00 E' Laterial: 10.40 E/E' Lat: 13.60 Right Ventricle TAPSE (mm): 19.80 TVS' Terrell: 10.70 Tricuspid Valve TR Pk Terrell: 2.12 TR Pk Grad: 18.00 RA Press: 8.00 RVSP: 26.00 Great Vessels Aorta Sinus of Valsalva: 3.10 2.0-3.5 cm Ao Asc: 3.60 2.1-3.4 cm Ao Arch: 2.80 Pulmonary Valve PV Pk Terrell: 0.92 Peak PV Grad: 3.00 Updated in Other Vendor System with Status of Final Satya Casanova MD electronically signed on 04/24/2025 3:55:11 PM with status of Final
[2025-04-24 08:24] LABS: Folate 9.3 ng/mL (> or = 4.0); Vitamin B12 575 pg/mL (200-900)
--- NOTE | 2025-04-24 08:26 | MHC.CM.PN ---
CM met with Patient at bedside; IMM was addressed verbally with Patient r/t Patient feeling unable to physically sign. Home with new HVNA VS STR, pending PT Eval is the tentative plan and CM has initiated and will follow for dc planning. Patient appeared sleepy but was able to respond to questions. 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 PCP is Dr. Guevara and will transport if Patient is ultimately dc'd to home.
[2025-04-24 08:37] LABS: Anion Gap 11 (12-20); Blood Urea Nitrogen 27 mg/dL (9-16); Calcium 8.5 mg/dL (8.4-10.2); Carbon Dioxide 26 mmol/L (22-29); Chloride 107 mmol/L (96-108); Creatinine Clr Calc Pharmacy 49.0; Estimated Glomerular Filt Rate > 60; Potassium 3.6 mmol/L (3.3-5.1); Sodium 140 mmol/L (135-145)
--- NOTE | 2025-04-24 09:12 | PM.PNCARD ---
Subjective Subjective Date of Service: 04/24/25 Interval history: Not clear if he is confused as he kept stating ' go away'. Not offering any clear symptoms or proper responses to questions. Review of Systems Review of Systems Unable to obtain review of systems Physical Exam Vital Signs: Last Vital Signs Temp 98.4 F 04/24/25 07:19 Pulse 82 04/24/25 07:19 Resp 16 04/24/25 07:19 BP 99/52 L 04/24/25 07:19 Pulse Ox 92 04/24/25 07:19 O2 Del Method Room Air 04/24/25 07:19 O2 Flow Rate 1 04/23/25 19:38 BMI result Body Mass Index 22.8 Const General: comfortable and no acute distress Orientation/consciousness: No patient oriented x3 HEENT Other: Unremarkable Head: Yes normal to inspection Neck Neck: Yes normal visual inspection Chest Chest palpation & inspection: normal inspection of the chest Resp Other: No overt findings but also difficult to examine because of position and lack of cooperation Cardio Palpation: normal PMI Heart sounds: S1 normal heart sound present, S2 normal heart sound present, no gallops, no murmurs and no rubs GI Palpation (GI): Soft to palpation Back/Spine/Pelvis Other: unremarkable Skin General skin exam: no rashes or lesions noted Neuro General: No patient oriented x3 Extrem General: Yes normal to inspection Psych Mental Status: mental status grossly normal Objective Labs and Meds 04/23/25 05:10 04/24/25 06:45 Lab results: Laboratory Results - last 24 hr 04/24/25 06:45 Hold Purple Top SEE NOTE Sodium 140 Potassium 3.6 Chloride 107 Carbon Dioxide 26 Anion Gap 11 L BUN 27 H Creatinine 1.03 Estim Creat Clear Calc 49.0 Estimated GFR > 60 Random Glucose 92 Calcium 8.5 Vitamin B12 575 Folate 9.3 Progress Note: A&P Assessment and plan (1) Acute on chronic congestive heart failure: Status: Acute (2) Atrial fibrillation: Status: Acute Plan Cardiac studies reviewed. Last echocardiogram from 2022 with LVEF 59%. Basal inferior akinesis. Moderate biatrial enlargement. Mild mitral annular calcification. Recent EKG with atrial fibrillation and premature ventricular versus aberrantly conducted complexes. Nonspecific ST-T changes. High sensitivity troponin levels are 2131 and 6410. High sensitivity troponin within range. In the chest CTA, bilateral ground-glass opacities and small effusions-pulmonary edema versus pneumonia. Possible interstitial lung disease. Overall, unclear how much of his symptoms are from congestive heart failure. He is on empiric diuretics. Also on Jardiance. May continue that for now. If he is able to cooperate, obtain another echocardiogram. He may have some delirium/confusion due to hospitalization. We will follow up with you. Time Spent With Patient Time: Total time managing care of this patient today ____ minutes. Progress Note: Quality Stroke Does the patient have a stroke diagnosis?: No Procedures Date of Service Date of Service: 04/24/25
--- NOTE | 2025-04-24 15:20 | MHC.SL.SWA ---
Speech Pathologist Impression: WFL Risk of Aspiration Due to: Reduced cognition, respiratory failure due to CHF and pneumonia Dysphasia Diet Status:Recommend CONTINUE with REGULAR solids, THIN liquids Liquid Consistency and Strategies for Safe Swallow: Liquid Intake Recommendation: Thin Liquid Intake Strategies: Unrestricted Solid Food Consistency: Dietary Recommendations: Regular Additional Modifications to Solid Foods: Oral Medication Intake: Whole with Liquid Please contact the pharmacy regarding appropriate crushable or liquid drug formulations that are available whenever modified delivery is recommended. Compensatory Strategies and Precautions to be Taken for Safe Swallow: Sitting Upright (90 deg) Small Bites and Sips Alternate Liquids/Solids Rate of Ingestion Change Supervision While Eating and Drinking for Safe Swallow: Intermittent Supervision Foods to Avoid: Swallowing Recommended Treatments: Compens. Strategy Educat. Recommendation for Speech: Inpatient Speech Therapy Comment: Patient seen for follow-up. Patient met in room at very end of lunch. Patient's at bedside, reports no hx of difficulties swallowing. Patient seen eating hamburger and potato chips. Patient with timely mastication, adequate cohesion and clearance. Patient with no overt s/sx of penetration/aspiration. Patient reporting Globus sensation with hamburger; educated on compensatory strategy of alternating liquids/solids. By completion of meal and end of session, patient reporting no Globus sensation. Recommend CONTINUE with current diet of REGUALR solids, THIN Liquids. ASSEMBLER ADJUSTER to follow-up x1, anticipate discharge next time seen as patient presenting WFL and at baseline. Frequency/Duration: M-F Daily; Follow-up x1 Date Range for Service Req: Timeline to reassess: Equipment Worker Clinican/Clinical Fellow: No Supervisory Statement: I have reviewed and agree with the student/clinical fellow's documentation: No Speech Language Pathologist: Emily Sands M.A., [facility]-ASSEMBLER ADJUSTER
--- NOTE | 2025-04-24 17:03 | HO.PM.IMPN ---
Subjective Subjective Date of Service: 04/24/25 Interval History: Reporting no sob, has been a bit confused and has refused some cre Physical Exam Vital Signs: Vital Signs: Last Vital Signs Temp 98.5 F 04/24/25 15:36 Pulse 87 04/24/25 15:36 Resp 16 04/24/25 15:36 BP 117/56 L 04/24/25 15:36 Pulse Ox 92 04/24/25 15:36 O2 Del Method Room Air 04/24/25 15:36 O2 Flow Rate 1 04/23/25 19:38 BMI result Body Mass Index 22.8 Const: Other: General: AO X 3, no acute distress Resp: CTA bilateral CVS: S1,S2,RRR GI: +BS, NT, no distention Skin: No rash Neuro: motor grossly intact Psych: appropriate affect Objective Data Active Medications Acetaminophen (Acetaminophen 325 Mg Tablet) 650 mg PO Q6H PRN PRN Reason: Pain, Mild 1-3,fever,headache Last Admin: 04/23/25 01:09 Dose: 650 mg Documented By: ML Apixaban (Apixaban 5 Mg Tablet) 5 mg PO BID [facility] Last Admin: 04/24/25 13:44 Dose: Not Given Documented By: PALOMA Non-Admin Reason: Patient Refused Atorvastatin Calcium (Atorvastatin Calcium 40 Mg Tablet) 40 mg PO DAILY [facility] Bisacodyl (Bisacodyl 5 Mg Tablet.Dr) 10 mg PO BEDTIME [facility] Last Admin: 04/23/25 23:52 Dose: Not Given Documented By: HUMA Non-Admin Reason: Patient Refused Calcium Carbonate (Calcium Carbonate 750 Mg Tab.Chew) 750 mg PO Q4H PRN PRN Reason: Heartburn Empagliflozin (Empagliflozin 10 Mg Tablet) 10 mg PO DAILY [facility] Last Admin: 04/24/25 13:44 Dose: Not Given Documented By: PALOMA Non-Admin Reason: Patient Refused Furosemide (Furosemide 20 Mg/2 Ml Vial) 20 mg IVPUSH BID@0900,1800 [facility]; Protocol Last Admin: 04/24/25 13:45 Dose: Not Given Documented By: PALOMA Non-Admin Reason: low BP Hydromorphone HCl (Hydromorphone Hcl 1 Mg/Ml Syringe) 0.5 mg IVPUSH Q4H PRN; Protocol PRN Reason: Pain, Severe (Pain Scale 7-10) Isosorbide Mononitrate (Isosorbide Mononitrate 30 Mg Tab.Er.24h) 30 mg PO DAILY [facility]; Protocol Last Admin: 04/24/25 13:50 Dose: Not Given Documented By: PALOMA Non-Admin Reason: low BP Magnesium Hydroxide (Milk Of Magnesia 30 Ml Oral.Susp) 30 ml PO DAILY PRN PRN Reason: Constipation Melatonin (Melatonin 3 Mg Tablet) 6 mg PO BEDTIME PRN PRN Reason: Insomnia Last Admin: 04/23/25 01:09 Dose: 6 mg Documented By: ML Polyethylene Glycol (Polyethylene Glycol 3350 17 Gm Powd.Pack) 17 gm PO DAILY [facility] Last Admin: 04/24/25 13:50 Dose: Not Given Documented By: PALOMA Non-Admin Reason: Patient Refused Senna (Sennosides 8.6 Mg Tablet) 8.6 mg PO BEDTIME PRN PRN Reason: Constipation Sodium Biphosphate/Sodium Phosphate (Sodium Phosphate,[place]-Dibasic 133 Ml Enema) 133 ml CA ONCE PRN PRN Reason: Constipation Sodium Chloride (0.9 % Sodium Chloride Flush 3 Ml Syringe) 3 ml IVFLUSH QSHIFT [facility] Last Admin: 04/24/25 13:49 Dose: Not Given Documented By: PALOMA Non-Admin Reason: Patient Refused Verapamil HCl (Verapamil Hcl Sr 120 Mg Tablet.Er) 120 mg PO BID [facility]; Protocol Vitamin D (Cholecalciferol (Vitamin D3) 25 Mcg Tablet) 50 mcg PO DAILY [facility] Last Admin: 04/24/25 13:44 Dose: Not Given Documented By: PALOMA Non-Admin Reason: Patient Refused Labs 04/23/25 05:10 04/24/25 06:45 Labs: Laboratory Results - last 24 hr 04/24/25 06:45 Hold Purple Top SEE NOTE Anion Gap 11 L Estim Creat Clear Calc 49.0 Estimated GFR > 60 Random Glucose 92 Calcium 8.5 Vitamin B12 575 Folate 9.3 Microbiology Microbiology Results: Microbiology 04/22/25 16:40 Blood Culture - Preliminary Blood - Subclavian No growth after 24 hours. 04/22/25 16:40 Blood Culture - Preliminary Blood - Subclavian No growth after 24 hours. Assessment and Plan (1) (HFpEF) heart failure with preserved ejection fraction: Status: Acute (2) Peripheral vascular disease: Status: Acute Plan This is an 89-year-old male with a history of coronary artery disease status post CABG, heart failure with preserved ejection fraction, hypertension, atrial fibrillation on apixaban (Eliquis), hyperlipidemia, GERD, chronic microcytic anemia, and prostate cancer who presents to the emergency department with shortness of breath. He is found to have acute on chronic congestive heart failure and possible pneumonia. He is experiencing acute respiratory failure due to acute on chronic CHF and pneumonia. Supplemental oxygen is continued and will be weaned as tolerated. He has persistent dyspnea with movement or when lying flat. Management is focused on treating the underlying CHF and pneumonia as outlined below. Acute on chronic HFpEF IV Lasix, follow I/O and weight, low salt diet. BNP has trended up from 2135- 6510 clinically better, BP trending down. Hold Lasix and change to PO tomorow cardiology input noted, His last echocardiogram was in 2022, and a repeat echocardiogram EF 60% today Community-acquired pneumonia, chest X-ray reports pneumonia, although he does not have cough, fever, or an elevated white count. CT show monik ground glass opacity, with small P. Effusion PNA or CHF. . He has had multiple episodes of pneumonia in the past, with some previous concern for aspiration raised by Pulmonology; a speech evaluation will be obtained. IV ceftriaxone and doxycyclin, change to PO Ceftin and Doxy for toal of 7 days at w[place] Chronic microcytic anemia, probable myelodysplastic syndrome is noted per outpatient Hematology notes. The patient has declined further workup His hemoglobin and hematocrit are near baseline. Paroxysmal atrial fibrillation Continue Apixaban (Eliquis) Veerapamil, hold for low BP For DVT prophylaxis, he will remain on apixaban (Eliquis). Code status is full code. The patient will likely require a two-midnight stay in the hospital for management of respiratory failure due to CHF and pneumonia, requiring IV diuretics, IV antibiotics, further workup, and possible need for specialist evaluation. Given his age and frailty, he is at high risk for decompensation and will require close monitoring of his respiratory status. Quality Stroke Does the patient have a stroke diagnosis?: No VTE Prior VTE?: No VTE Risk Level:: Medical - moderate - high VTE Device Contraindication: Treatment Not Indicated VTE Drug Contraindication: N/A - Med Ordered
[2025-04-24] MEDS: VerapamiL HCL SR 120 MG TABLET.ER PO (20:10)
[2025-04-25 03:32] VITALS: BP 126/60; PULSE 69; RESP 18; TEMP 37.7; O2SAT 94
[2025-04-25 07:33] VITALS: BP 110/57; PULSE 62; RESP 16; TEMP 36.4; O2SAT 92
[2025-04-25] MEDS: VerapamiL HCL SR 120 MG TABLET.ER PO ×2 (08:16→21:50)
[2025-04-25] MEDS: 0.9 % Sodium Chloride Flush 3 ML SYRINGE IVFLUSH ×3 (08:17→21:51)
--- NOTE | 2025-04-25 11:08 | PC.NURSE ---
pt refused some of his morning meds today (documented per mar) despite multiple attempts of convincement and encouragement from RN. notified
[2025-04-25 11:17] VITALS: BP 126/51; PULSE 74; RESP 16; TEMP 36.6; O2SAT 92
--- NOTE | 2025-04-25 12:19 | PM.UROCN ---
History of Present Illness Consult details Consult date: 04/25/25 Narrative: CC: Urinary retention with bilateral hydro 89-year-old male Known to Urology Had progressive weakness of stream Had previously been on alpha blockers Current prostate enlarged Imaging - CT [id number] bilateral hydronephrosis/hydroureter without urinary tract stone secondary to the distended urinary bladder (the urinary bladder extends into the lower abdomen). No evidence of urinary bladder wall thickening. Enlarged prostate measuring up to 54 mm in width and projecting into the urinary bladder base. No urinary tract stone. Aosu-[id number] left more than right perinephric fat stranding. Recommend re-initiation of prostate medications Combination therapy tamsulosin and finasteride Creatinine is normal with no evidence of renal insult Review of Systems Constitutional: Constitutional: Denies chills and Denies fever(s) Cardiovascular: Cardiovascular: Reports no additional cardiovascular complaints and Denies syncope Respiratory: Respiratory: Denies cough Gastrointestinal: Gastrointestinal: Denies abdominal pain and Denies heartburn Genitourinary: Genitourinary: Reports as per HPI and Denies change in libido Neurologic: Denies syncope Psychiatric: Psychiatric: Denies change in libido Endocrine: Endocrine: Denies change in libido [facility] Past Medical History Medical History Cough Prostate nodule Low back pain GERD (gastroesophageal reflux disease) CVA (cerebral vascular accident) Dementia Bilateral carotid artery disease Carpal tunnel syndrome of right wrist Vitamin D deficiency Cervical spinal stenosis Atrial fibrillation Hypercholesterolemia Hypertension Coronary artery disease Family History Family History Father No problems noted. Mother CVD (cardiovascular disease) Surgical History Surgical History Hx of CABG (~1997) Inguinal hernia, right History of cardiac cath (~03/2008) Social History Social History Household Members: Spouse Housing: House Do you presently have visiting nurse or other home services: No Alcohol intake: former Patient Tobacco Use Status: Never used Tobacco Tobacco use type: Cigarette e-Cigarette/Vaping Use: Never Used Second Hand Smoke Exposure: No service: Yes Current occupational status: retired Cognitive needs: No Hearing needs: Yes Vision needs: Yes Meds Allergies Allergy/AdvReac Type Severity Reaction Status Date / Time omeprazole (OMEPRAZOLE) Allergy Unknown RASH Verified 04/22/25 13:14 Active Medications: Current Medications Acetaminophen (Acetaminophen 325 Mg Tablet) 650 mg PO Q6H PRN PRN Reason: Pain, Mild 1-3,fever,headache Last Admin: 04/23/25 01:09 Dose: 650 mg Apixaban (Apixaban 5 Mg Tablet) 5 mg PO BID [facility] Last Admin: 04/25/25 08:16 Dose: 5 mg Atorvastatin Calcium (Atorvastatin Calcium 40 Mg Tablet) 40 mg PO DAILY [facility] Last Admin: 04/25/25 10:57 Dose: Not Given Bisacodyl (Bisacodyl 5 Mg Tablet.Dr) 10 mg PO BEDTIME [facility] Last Admin: 04/24/25 20:16 Dose: Not Given Calcium Carbonate (Calcium Carbonate 750 Mg Tab.Chew) 750 mg PO Q4H PRN PRN Reason: Heartburn Empagliflozin (Empagliflozin 10 Mg Tablet) 10 mg PO DAILY [facility] Last Admin: 04/25/25 10:57 Dose: Not Given Furosemide (Furosemide 20 Mg/2 Ml Vial) 20 mg IVPUSH BID@0900,1800 [facility]; Protocol Last Admin: 04/25/25 10:57 Dose: Not Given Hydromorphone HCl (Hydromorphone Hcl 1 Mg/Ml Syringe) 0.5 mg IVPUSH Q4H PRN; Protocol PRN Reason: Pain, Severe (Pain Scale 7-10) Isosorbide Mononitrate (Isosorbide Mononitrate 30 Mg Tab.Er.24h) 30 mg PO DAILY [facility]; Protocol Last Admin: 04/25/25 08:16 Dose: 30 mg Magnesium Hydroxide (Milk Of Magnesia 30 Ml Oral.Susp) 30 ml PO DAILY PRN PRN Reason: Constipation Melatonin (Melatonin 3 Mg Tablet) 6 mg PO BEDTIME PRN PRN Reason: Insomnia Last Admin: 04/23/25 01:09 Dose: 6 mg Polyethylene Glycol (Polyethylene Glycol 3350 17 Gm Powd.Pack) 17 gm PO DAILY [facility] Last Admin: 04/25/25 10:37 Dose: Not Given Senna (Sennosides 8.6 Mg Tablet) 8.6 mg PO BEDTIME PRN PRN Reason: Constipation Sodium Biphosphate/Sodium Phosphate (Sodium Phosphate,[place]-Dibasic 133 Ml Enema) 133 ml NE ONCE PRN PRN Reason: Constipation Sodium Chloride (0.9 % Sodium Chloride Flush 3 Ml Syringe) 3 ml IVFLUSH QSHIFT [facility] Last Admin: 04/25/25 08:17 Dose: 3 ml Verapamil HCl (Verapamil Hcl Sr 120 Mg Tablet.Er) 120 mg PO BID [facility]; Protocol Last Admin: 04/25/25 08:16 Dose: 120 mg Vitamin D (Cholecalciferol (Vitamin D3) 25 Mcg Tablet) 50 mcg PO DAILY [facility] Last Admin: 04/25/25 08:16 Dose: 50 mcg Home Medications ?Medication ?Instructions ?Recorded ?Confirmed ?Last Taken ?Type isosorbide mononitrate 30 mg 30 mg PO DAILY 04/22/25 04/22/25 04/21/25 History tablet,extended release 24 hr Physical Exam Vital Signs: Vital Signs: Last Vital Signs Temp 97.8 F 04/25/25 11:17 Pulse 74 04/25/25 11:17 Resp 16 04/25/25 11:17 BP 126/51 L 04/25/25 11:17 Pulse Ox 92 04/25/25 11:17 O2 Del Method Room Air 04/25/25 11:17 O2 Flow Rate 1 04/23/25 19:38 BMI result Body Mass Index 22.8 Const: General: cooperative, healthy appearing, comfortable and no acute distress Orientation/consciousness: patient oriented x3 HEENT: Face and sinus: Yes normal facial exam Mouth: moist mucous membranes Neck: Neck: Yes normal visual inspection, Yes full ROM and Yes trachea midline Chest: Chest palpation & inspection: normal inspection of the chest Resp: Effort & Inspection: normal respiratory effort, able to speak in complete sentences and no respiratory distress GI: Inspection: Yes normal to inspection Back/Spine/Pelvis: Cervical Spine: normal cervical lordosis Thoracic/Lumbar Spine: thoracic and lumbar spine normal to inspection Skin: General skin exam: no rashes or lesions noted Neuro: General: patient oriented x3, gait normal, tone normal and moves all extremities Extrem: General: Yes normal to inspection and Yes capillary refill normal Results Labs 04/23/25 05:10 04/24/25 06:45 Labs: Urine 04/22/25 Range/Units 14:48 Urine Color Yellow Urine Appearance Clear Urine pH 5.5 (5.0-9.0) Ur Specific [place] 1.020 (1.005-1.025) Urine Protein Trace (Neg-Trace) mg/dL Urine Glucose (UA) Negative (Negative) mg/dL All other labs normal. Assessment and Plan (1) Prostate cancer: Status: Acute (2) BPH w urinary obs/LUTS: Status: Acute Plan Finasteride plus tamsulosin Procedures Date of Service Date of Service: 04/25/25
--- NOTE | 2025-04-25 14:29 | MHC.SL.SWA ---
Speech Pathologist Impression:WFL Risk of Aspiration Due to: Cognition, current pneumonia Dysphasia Diet Status: Recommend CONTINUE with REGULAR solids, THIN liquids with intermittent supervision Liquid Consistency and Strategies for Safe Swallow: Liquid Intake Recommendation: Thin Liquid Intake Strategies: Unrestricted Solid Food Consistency: Dietary Recommendations: Regular Additional Modifications to Solid Foods: Oral Medication Intake: Whole with Liquid Please contact the pharmacy regarding appropriate crushable or liquid drug formulations that are available whenever modified delivery is recommended. Compensatory Strategies and Precautions to be Taken for Safe Swallow: Sitting Upright (90 deg) Small Bites and Sips Alternate Liquids/Solids Rate of Ingestion Change Supervision While Eating and Drinking for Safe Swallow: Intermittent Supervision Foods to Avoid: Swallowing Recommended Treatments: Compens. Strategy Educat. Recommendation for Speech: D/C Comment: Patient seen for follow-up. Patient met in room during lunch with at bedside. Patient requiring moderate encouragement to eat lunch, eventually consuming ~25% of lunch while ADVERTISEMENT DISTRIBUTOR with him. Patient reporting Globus sensation; patient and educated on strategies to take during meals and after to reduce sensation. Patient with timely mastication, adequate cohesion and clearance. Patient with no s/sx of penetration/aspiration. RN and family with no concerns at this time. Patient tolerating current diet of regular solids, thin liquids. Patient at baseline, ADVERTISEMENT DISTRIBUTOR services at this level no longer warranted. Please re-consult if any issues/concerns arise. Frequency/Duration: Date Range for Service Req: Timeline to reassess: Admission Discharge Rn Clinican/Clinical Fellow: No Supervisory Statement: I have reviewed and agree with the student/clinical fellow's documentation: No Speech Language Pathologist: Emily Sands M.A., [facility]-ADVERTISEMENT DISTRIBUTOR
--- NOTE | 2025-04-25 15:00 | PC.NURSE ---
lbackman cath DC at 1445 for voiding trial per MD steele. pt tolerated well, d/t void at 2045 to 2245
[2025-04-25 15:15] VITALS: BP 115/53; PULSE 76; RESP 16; TEMP 36.7; O2SAT 93
[2025-04-25] MEDS: Furosemide 20 MG/2 ML VIAL IVPUSH (15:36)
--- NOTE | 2025-04-25 17:08 | HO.PM.IMPN ---
Subjective Subjective Date of Service: 04/25/25 Interval History: No new complaints today. The patient refused to take his medications multiple times throughout the day. Counseled again at 16:00 regarding the need to be compliant with the medications, otherwise it complicates his clinical course, and lead to unnecessary delays in his discharge. Review of Systems Review of Systems: Yes all other systems are reviewed and are negative Physical Exam Exam: Exam: General: A&O x3, oriented to time place person and situation, comfortable, no pain Cardiac: S1, S2 auscultated with no S3/4, no MRG. Well perfused. Elevated JVP to the angle of the mandible bilaterally Respiratory: Decreased breath sounds at the bases bilaterally with crepitations auscultated to the mid zones bilaterally, no tachypnea or dyspnea. SpO2 92% GI/ : No abdominal pain on palpation, no masses or distentions. MSK: Normal ambulation without pain at bony prominences or musculature Neurological: Normal neurological examination on overview, without obvious CN II-XII abnormalities. Vital Signs: Vital Signs: Last Vital Signs Temp 98.0 F 04/25/25 15:15 Pulse 76 04/25/25 15:15 Resp 16 04/25/25 15:15 BP 115/53 L 04/25/25 15:15 Pulse Ox 93 04/25/25 15:15 O2 Del Method Room Air 04/25/25 15:15 O2 Flow Rate 1 04/23/25 19:38 BMI result Body Mass Index 22.8 Objective Data Active Medications Acetaminophen (Acetaminophen 325 Mg Tablet) 650 mg PO Q6H PRN PRN Reason: Pain, Mild 1-3,fever,headache Last Admin: 04/23/25 01:09 Dose: 650 mg Documented By: ML Apixaban (Apixaban 5 Mg Tablet) 5 mg PO BID [facility] Last Admin: 04/25/25 08:16 Dose: 5 mg Documented By: TERENCE Atorvastatin Calcium (Atorvastatin Calcium 40 Mg Tablet) 40 mg PO DAILY [facility] Last Admin: 04/25/25 15:34 Dose: 40 mg Documented By: TERENCE Bisacodyl (Bisacodyl 5 Mg Tablet.) 10 mg PO BEDTIME [facility] Last Admin: 04/24/25 20:16 Dose: Not Given Documented By: TABATHA Non-Admin Reason: Patient Refused Calcium Carbonate (Calcium Carbonate 750 Mg Tab.Chew) 750 mg PO Q4H PRN PRN Reason: Heartburn Empagliflozin (Empagliflozin 10 Mg Tablet) 10 mg PO DAILY [facility] Last Admin: 04/25/25 15:34 Dose: 10 mg Documented By: TERENCE Finasteride (Finasteride 5 Mg Tablet) 5 mg PO DAILY [facility] Furosemide (Furosemide 20 Mg/2 Ml Vial) 20 mg IVPUSH BID@0900,1800 [facility]; Protocol Last Admin: 04/25/25 15:36 Dose: 20 mg Documented By: TERENCE Hydromorphone HCl (Hydromorphone Hcl 1 Mg/Ml Syringe) 0.5 mg IVPUSH Q4H PRN; Protocol PRN Reason: Pain, Severe (Pain Scale 7-10) Isosorbide Mononitrate (Isosorbide Mononitrate 30 Mg Tab.Er.24h) 30 mg PO DAILY [facility]; Protocol Last Admin: 04/25/25 08:16 Dose: 30 mg Documented By: TERENCE Magnesium Hydroxide (Milk Of Magnesia 30 Ml Oral.Susp) 30 ml PO DAILY PRN PRN Reason: Constipation Melatonin (Melatonin 3 Mg Tablet) 6 mg PO BEDTIME PRN PRN Reason: Insomnia Last Admin: 04/23/25 01:09 Dose: 6 mg Documented By: ML Polyethylene Glycol (Polyethylene Glycol 3350 17 Gm Powd.Pack) 17 gm PO DAILY [facility] Last Admin: 04/25/25 10:37 Dose: Not Given Documented By: TERENCE Non-Admin Reason: Patient Refused Senna (Sennosides 8.6 Mg Tablet) 8.6 mg PO BEDTIME PRN PRN Reason: Constipation Sodium Biphosphate/Sodium Phosphate (Sodium Phosphate,[place]-Dibasic 133 Ml Enema) 133 ml DC ONCE PRN PRN Reason: Constipation Sodium Chloride (0.9 % Sodium Chloride Flush 3 Ml Syringe) [facility] Last Admin: 04/25/25 15:36 Dose: 3 ml Documented By: TERENCE Tamsulosin HCl (Tamsulosin Hcl 0.4 Mg Capsule) 0.4 mg PO BEDTIME [facility] Verapamil HCl (Verapamil Hcl Sr 120 Mg Tablet.Er) 120 mg PO BID [facility]; Protocol Last Admin: 04/25/25 08:16 Dose: 120 mg Documented By: TERENCE Vitamin D (Cholecalciferol (Vitamin D3) 25 Mcg Tablet) 50 mcg PO DAILY [facility] Last Admin: 04/25/25 08:16 Dose: 50 mcg Documented By: TERENCE Labs 04/23/25 05:10 04/24/25 06:45 Microbiology Microbiology Results: Microbiology 04/22/25 16:40 Blood Culture - Preliminary Blood - Subclavian No growth after 48 hours. 04/22/25 16:40 Blood Culture - Preliminary Blood - Subclavian No growth after 48 hours. Assessment and Plan (1) (HFpEF) heart failure with preserved ejection fraction: Status: Acute (2) Acute on chronic congestive heart failure: Status: Acute (3) Hypertension: Status: Acute (4) Coronary artery disease: Status: Acute (5) Atrial fibrillation: Status: Acute (6) Peripheral vascular disease: Status: Acute (7) Current use of anticoagulant therapy: Status: Acute (8) BPH w urinary obs/LUTS: Status: Acute Plan 81-year-old male, with history of CAD s/p CABG, ischemic HFpEF, HTN, AFib on apixaban, HLD, GERD, chronic microcytic anemia, prostate cancer, presents with shortness of breath, admitted with acute on chronic CHF exacerbation with possible pneumonia Acute on chronic HFpEF IV Lasix, follow I/O and weight, low salt diet. BNP has trended up from 2135- 6510 clinically better, BP trending down. cardiology input noted His last echocardiogram was in 2022, and a repeat echocardiogram EF 60% today IV furosemide today Transitioned to p.o. tomorrow if clinical signs of CHF resolve Community-acquired pneumonia, chest X-ray reports pneumonia, although he does not have cough, fever, or an elevated white count. CT show monik ground glass opacity, with small P. Effusion PNA or CHF. . He has had multiple episodes of pneumonia in the past, with some previous concern for aspiration raised by Pulmonology; a speech evaluation will be obtained. IV ceftriaxone and doxycyclin, change to PO Ceftin and Doxy for toal of 7 days at dc Chronic microcytic anemia, probable myelodysplastic syndrome is noted per outpatient Hematology notes. The patient has declined further workup His hemoglobin and hematocrit are near baseline. Paroxysmal atrial fibrillation Continue Apixaban (Eliquis) Verapamil, hold for low BP [employer] - VTE: Apixaban 5 mg b.i.d. - CODE STATUS: Full code - DIET: Cardiac Total time managing care of this patient today: 45 minutes. Quality Stroke Does the patient have a stroke diagnosis?: No VTE Prior VTE?: No VTE Risk Level:: Medical - moderate - high VTE Device Contraindication: Treatment Not Indicated VTE Drug Contraindication: N/A - Med Ordered
[2025-04-25 19:45] VITALS: BP 141/63; PULSE 77; RESP 18; TEMP 36.9; O2SAT 97
[2025-04-25 23:25] VITALS: BP 136/59; PULSE 75; RESP 16; TEMP 36.9; O2SAT 94
[2025-04-26] VITALS (7 sets, daily range): BP systolic 101–131; BP diastolic 51–64; PULSE 68–80; RESP 16–20; TEMP 36.8–37.6; O2SAT 92–97
[2025-04-26 07:32] LABS: Anion Gap 13 (12-20); Blood Urea Nitrogen 30 mg/dL (9-16); Calcium 8.7 mg/dL (8.4-10.2); Carbon Dioxide 21 mmol/L (22-29); Chloride 109 mmol/L (96-108); Creatinine Clr Calc Pharmacy 48.6; Estimated Glomerular Filt Rate > 60; Potassium 4.1 mmol/L (3.3-5.1); Sodium 139 mmol/L (135-145)
[2025-04-26] MEDS: VerapamiL HCL SR 120 MG TABLET.ER PO ×2 (09:05→21:59)
[2025-04-26] MEDS: 0.9 % Sodium Chloride Flush 3 ML SYRINGE IVFLUSH ×3 (09:09→22:01)
[2025-04-26] MEDS: Furosemide 20 MG/2 ML VIAL IVPUSH ×2 (09:51→15:45)
--- NOTE | 2025-04-26 11:23 | MHC.CM.PN ---
Patient is not yet medically cleared for dc ; Patient will benefit from a PT Eval to assist with disposition.
--- NOTE | 2025-04-26 15:41 | PC.NURSE ---
per Dr Mujica telephone order to remove blackman cath and start voiding trial this afternoon. Blackman cath was placed at 0600 to day by night Rn for urinary retention. This RN approached pt and his to remove cath but pt refused to have it removed per order despite education on infection risk. MD Mujica notified.
--- NOTE | 2025-04-26 16:27 | HO.PM.IMPN ---
Subjective Subjective Date of Service: 04/26/25 Interval History: Failed voiding trial - required Suarez catheter placement overnight Attempting voiding trial again today. Plan for possible discharge tomorrow Review of Systems Review of Systems: Yes all other systems are reviewed and are negative Physical Exam Exam: Exam: General: A&O x3, oriented to time place person and situation, comfortable, no pain Cardiac: S1, S2 auscultated with no S3/4, no MRG. Well perfused. Elevated JVP to the angle of the mandible bilaterally Respiratory: Decreased breath sounds at the bases bilaterally with crepitations auscultated to the mid zones bilaterally, no tachypnea or dyspnea. SpO2 92% GI/ : No abdominal pain on palpation, no masses or distentions. MSK: Normal ambulation without pain at bony prominences or musculature Neurological: Normal neurological examination on overview, without obvious CN II-XII abnormalities. Vital Signs: Vital Signs: Last Vital Signs Temp 99.6 F 04/26/25 15:35 Pulse 76 04/26/25 15:35 Resp 20 04/26/25 15:35 BP 131/59 L 04/26/25 15:35 Pulse Ox 94 04/26/25 15:35 O2 Del Method Room Air 04/26/25 15:35 O2 Flow Rate 1 04/23/25 19:38 BMI result Body Mass Index 22.8 Objective Data Active Medications Acetaminophen (Acetaminophen 325 Mg Tablet) 650 mg PO Q6H PRN PRN Reason: Pain, Mild 1-3,fever,headache Last Admin: 04/23/25 01:09 Dose: 650 mg Documented By: ML Apixaban (Apixaban 5 Mg Tablet) 5 mg PO BID [facility] Last Admin: 04/26/25 09:05 Dose: 5 mg Documented By: TERENCE Atorvastatin Calcium (Atorvastatin Calcium 40 Mg Tablet) 40 mg PO DAILY [facility] Last Admin: 04/26/25 09:06 Dose: 40 mg Documented By: TERENCE Bisacodyl (Bisacodyl 5 Mg Tablet.) 10 mg PO BEDTIME [facility] Last Admin: 04/25/25 21:50 Dose: 10 mg Documented By: SHIVA Calcium Carbonate (Calcium Carbonate 750 Mg Tab.Chew) 750 mg PO Q4H PRN PRN Reason: Heartburn Empagliflozin (Empagliflozin 10 Mg Tablet) 10 mg PO DAILY [facility] Last Admin: 04/26/25 09:06 Dose: 10 mg Documented By: TERENCE Finasteride (Finasteride 5 Mg Tablet) 5 mg PO DAILY [facility] Last Admin: 04/26/25 09:05 Dose: 5 mg Documented By: TERENCE Furosemide (Furosemide 20 Mg/2 Ml Vial) 20 mg IVPUSH BID@0900,1800 [facility]; Protocol Last Admin: 04/26/25 15:45 Dose: 20 mg Documented By: TERENCE Hydromorphone HCl (Hydromorphone Hcl 1 Mg/Ml Syringe) 0.5 mg IVPUSH Q4H PRN; Protocol PRN Reason: Pain, Severe (Pain Scale 7-10) Isosorbide Mononitrate (Isosorbide Mononitrate 30 Mg Tab.Er.24h) 30 mg PO DAILY [facility]; Protocol Last Admin: 04/26/25 09:06 Dose: 30 mg Documented By: TERENCE Magnesium Hydroxide (Milk Of Magnesia 30 Ml Oral.Susp) 30 ml PO DAILY PRN PRN Reason: Constipation Melatonin (Melatonin 3 Mg Tablet) 6 mg PO BEDTIME PRN PRN Reason: Insomnia Last Admin: 04/23/25 01:09 Dose: 6 mg Documented By: ML Polyethylene Glycol (Polyethylene Glycol 3350 17 Gm Powd.Pack) 17 gm PO DAILY [facility] Last Admin: 04/26/25 09:51 Dose: Not Given Documented By: TERENCE Non-Admin Reason: Patient Refused Senna (Sennosides 8.6 Mg Tablet) 8.6 mg PO BEDTIME PRN PRN Reason: Constipation Sodium Biphosphate/Sodium Phosphate (Sodium Phosphate,[place]-Dibasic 133 Ml Enema) 133 ml SD ONCE PRN PRN Reason: Constipation Sodium Chloride (0.9 % Sodium Chloride Flush 3 Ml Syringe) 3 ml IVFLUSH QSHIFT [facility] Last Admin: 04/26/25 15:45 Dose: 3 ml Documented By: TERENCE Tamsulosin HCl (Tamsulosin Hcl 0.4 Mg Capsule) 0.4 mg PO BEDTIME [facility] Last Admin: 04/25/25 21:51 Dose: 0.4 mg Documented By: SHIVA Verapamil HCl (Verapamil Hcl Sr 120 Mg Tablet.Er) 120 mg PO BID [facility]; Protocol Last Admin: 04/26/25 09:05 Dose: 120 mg Documented By: TERENCE Vitamin D (Cholecalciferol (Vitamin D3) 25 Mcg Tablet) 50 mcg PO DAILY [facility] Last Admin: 04/26/25 09:05 Dose: 50 mcg Documented By: TERENCE Labs 04/23/25 05:10 04/26/25 06:53 Labs: Laboratory Results - last 24 hr 04/26/25 06:53 Anion Gap 13 Estim Creat Clear Calc 48.6 Estimated GFR > 60 Random Glucose 102 Calcium 8.7 Assessment and Plan (1) (HFpEF) heart failure with preserved ejection fraction: Status: Acute (2) Decompensated heart failure: Status: Acute (3) Acute on chronic congestive heart failure: Status: Acute (4) Coronary artery disease: Status: Acute (5) Atrial fibrillation: Status: Acute (6) Peripheral vascular disease: Status: Acute (7) Current use of anticoagulant therapy: Status: Acute (8) GERD (gastroesophageal reflux disease): Status: Acute (9) Dysphagia: Status: Acute (10) Pneumonia: Status: Acute Plan 81-year-old male, with history of CAD s/p CABG, ischemic HFpEF, HTN, AFib on apixaban, HLD, GERD, chronic microcytic anemia, prostate cancer, presents with shortness of breath, admitted with acute on chronic CHF exacerbation with possible pneumonia Acute on chronic HFpEF IV Lasix, follow I/O and weight, low salt diet. BNP has trended up from 2135- 6510 clinically better, BP trending down. cardiology input noted His last echocardiogram was in 2022, and a repeat echocardiogram EF 60% today IV furosemide today Transitioned to p.o. tomorrow if clinical signs of CHF resolve Community-acquired pneumonia, chest X-ray reports pneumonia, although he does not have cough, fever, or an elevated white count. CT show monik ground glass opacity, with small P. Effusion PNA or CHF. . He has had multiple episodes of pneumonia in the past, with some previous concern for aspiration raised by Pulmonology; a speech evaluation will be obtained. IV ceftriaxone and doxycyclin, change to PO Ceftin and Doxy for toal of 7 days at dc Chronic microcytic anemia, probable myelodysplastic syndrome is noted per outpatient Hematology notes. The patient has declined further workup His hemoglobin and hematocrit are near baseline. Paroxysmal atrial fibrillation Continue Apixaban (Eliquis) Verapamil, hold for low BP Urinary retention Placed in Suarez catheter last night. Suarez catheter removed today, with the attempt for voiding trial [employer] - VTE: Apixaban 5 mg b.i.d. - CODE STATUS: Full code - DIET: Cardiac Total time managing care of this patient today: 35 minutes. Quality Stroke Does the patient have a stroke diagnosis?: No VTE Prior VTE?: No VTE Risk Level:: Medical - moderate - high VTE Device Contraindication: Treatment Not Indicated VTE Drug Contraindication: N/A - Med Ordered
[2025-04-27 03:29] VITALS: BP 107/54; PULSE 61; RESP 17; TEMP 37.1; O2SAT 96
[2025-04-27 07:35] VITALS: BP 102/60; PULSE 63; RESP 17; TEMP 36.6; O2SAT 94
[2025-04-27] MEDS: VerapamiL HCL SR 120 MG TABLET.ER PO (09:20)
[2025-04-27] MEDS: 0.9 % Sodium Chloride Flush 3 ML SYRINGE IVFLUSH (09:38)
[2025-04-27] MEDS: Furosemide 20 MG/2 ML VIAL IVPUSH (09:42)
[2025-04-27 11:04] VITALS: BP 105/54; PULSE 71; RESP 18; TEMP 36.6; O2SAT 95
--- NOTE | 2025-04-27 14:46 | MHC.CM.PN ---
IMM 04/27/25 DELIVERED TO BEDSIDE, PT MEDICALLY CLEARED FOR DC HOME W/NEW COMFORT PLUS [facility]NA FOR SN- NEW [facility] CATH D/T RETENSION, PT'S AT BEDSIDE WILL TRANSPORT.
--- NOTE | 2025-04-27 15:41 | P.DS_ITS ---
DS: Providers Provider Date of Service: 04/27/25 Date of admission: 04/22/25 15:34 Date of discharge: 04/27/25 Primary care physician: Dhiraj Guevara MD Consults: 04/23/25 07:24 Consult to Cardiology Routine Consulting Provider: [facility] Reason for consultation: Acute heart failure Has provider been notified: Yes 04/23/25 20:20 Consult to Urology Routine Consulting Provider: [facility] Reason for consultation: Urinary retention, hydronephrosis, microscopic hematuria Has provider been notified: No 04/27/25 10:20 Consult to Urology Routine Consulting Provider: [facility] Reason for consultation: dc dependent - blackman cath - prostate cancer DS: Diagnosis Discharge Diagnosis (1) (HFpEF) heart failure with preserved ejection fraction: Status: Acute (2) Decompensated heart failure: Status: Acute (3) Acute on chronic congestive heart failure: Status: Acute (4) Coronary artery disease: Status: Acute (5) Atrial fibrillation: Status: Acute (6) Peripheral vascular disease: Status: Acute (7) Current use of anticoagulant therapy: Status: Acute (8) GERD (gastroesophageal reflux disease): Status: Acute (9) Dysphagia: Status: Acute (10) Pneumonia: Status: Acute DS: Summary Hospital Course Hospital Course: 81-year-old male, with history of CAD s/p CABG, ischemic HFpEF, HTN, AFib on apixaban, HLD, GERD, chronic microcytic anemia, prostate cancer, presents with shortness of breath, admitted with acute on chronic CHF exacerbation with likely superimposed pneumonia. PRESENTATION The patient presents to the emergency department with shortness of breath. Patient reports shortness of breath ongoing for the past 2-3 days. He has associated orthopnea. He skipped his dose of Lasix yesterday for unclear reasons. He denies any recent sick contacts or any fever. He does report chills. In the emergency department his BNP was noted to be 2131 with no previous comparison for baseline. In addition chest x-ray showed patchy right lung consolidation. Patient was treated with IV antibiotics and IV Lasix. Patient was noted to by hypoxic on arrival with o2 saturation of 88% on room air. His oxygen saturations increased to 94% on 2L but did continue to dip down with any movement. PROBLEM LIST Acute on chronic HFpEF IV Lasix, follow I/O and weight, low salt diet. BNP has trended up from 2135- 6510 clinically better, BP trending down. cardiology input noted His last echocardiogram was in 2022, and a repeat echocardiogram EF 60% Transition to oral furosemide Community-acquired pneumonia Chest X-ray reports pneumonia, although he does not have cough, fever, or an elevated white count. CT show monik ground glass opacity, with small P. Effusion PNA or CHF. . He has had multiple episodes of pneumonia in the past, with some previous concern for aspiration raised by Pulmonology; a speech evaluation will be obtained. IV ceftriaxone and doxycyclin, change to PO Ceftin and Doxy for toal of 7 days at nc Chronic microcytic anemia Possible myelodysplastic syndrome is noted per outpatient Hematology notes. The patient has declined further workup His hemoglobin and hematocrit are near baseline. Paroxysmal atrial fibrillation Continue Apixaban (Eliquis) Verapamil, hold for low BP Urinary retention Prostate Cancer Placed in Blackman catheter for urinary retention with multiple repeated void trials; failed. Patient reports comfort with Blackman catheter, and reports that he would prefer to be discharged home with Blackman catheter at this time. Urology was consulted for further recommendations and for follow up in the outpatient setting. Patient is currently taking finasteride and tamsulosin Status at Discharge Functional status at discharge: independent ambulation Overall status at discharge: patient is back to baseline Time Attestation Total time managing care of this patient today: 35 mintues. Discharge Coordination Time (in mins): 35 Quality: Safe Use of Opioids Does Pt have an Active Cancer Diagnosis on the Problem List?: No Quality: Stroke Does the patient have a stroke diagnosis?: No Physical Exam Exam: Exam: General: A&O x3, oriented to time place person and situation, comfortable, no pain Cardiac: S1, S2 auscultated with no S3/4, no MRG. Well perfused. Elevated JVP to the angle of the mandible bilaterally Respiratory: Decreased breath sounds at the bases bilaterally with crepitations auscultated to the mid zones bilaterally, no tachypnea or dyspnea. SpO2 92% GI/ : No abdominal pain on palpation, no masses or distentions. Blackman catheter in place MSK: Normal ambulation without pain at bony prominences or musculature Neurological: Normal neurological examination on overview, without obvious CN II-XII abnormalities. Vital Signs: Vital Signs: Last Vital Signs Temp 97.9 F 04/27/25 11:04 Pulse 71 04/27/25 11:04 Resp 18 04/27/25 11:04 BP 105/54 L 04/27/25 11:04 Pulse Ox 95 04/27/25 11:04 O2 Del Method Room Air 04/27/25 11:04 O2 Flow Rate 1 04/23/25 19:38 BMI result Body Mass Index 22.8 DS: Data Data Completed and Pending Labs on day of discharge: Preliminary micro results at discharge 04/22/25 16:40 Blood Culture - Preliminary Blood - Subclavian No growth after 48 hours. 04/22/25 16:40 Blood Culture - Preliminary Blood - Subclavian No growth after 48 hours. Discharge Plan Discharge Anticipated Discharge Date/Time: 04/27/25 15:46 Patient Disposition: Home Health Service Discharge Diagnosis: Acute CHF exacerbation and superimposed community-acquired pneumonia Referrals: [facility] [Outside] - 1 Day Referral Note: A NURSE WILL REACH OUT TO YOU TO ARRANGE A VISIT SATURDAY 04/28. Efrain Jaimes MD [Physician, Urology] - 1 Day Referral Note: PLEASE CONTACT DR. JAIMES'S OFFICE TO SCHEDULE A FOLLOW-UP APPT. Ismael,Dhiraj Lyons MD [Primary Care Provider, Internal Medicine] - 1 Week Discharge Medications: New Jardiance 10 mg Tablet 10 mg PO DAILY 30 Days Qty: 30 0RF finasteride 5 mg Tablet 5 mg PO DAILY 30 Days Qty: 30 0RF tamsulosin 0.4 mg Capsule 0.4 mg PO BEDTIME 30 Days Qty: 30 0RF Continued verapamil 120 mg capsule,ext rel. pellets 24 hr 120 mg PO BID 90 Days Qty: 180 3RF Eliquis 5 mg tablet 5 mg PO BID Qty: 180 3RF atorvastatin [Lipitor] 40 mg tablet 40 mg PO DAILY Qty: 90 1RF cholecalciferol (vitamin D3) 50 mcg (2,000 unit) capsule 50 mcg PO DAILY Qty: 90 3RF furosemide [Lasix] 20 mg tablet 20 mg PO DAILY Qty: 90 3RF isosorbide mononitrate 30 mg tablet extended release 24 hr 30 mg PO DAILY Discharge Orders: Discharge Order (Routine); Ordered 04/27/25 Ordered By: Robert Mujica Diet: Advance to usual diet Activity on Discharge: As tolerated Stand Alone Forms: Patient Portal Discharge page Print Language: Frisian Care Plan Goals: As above Health Concerns: As above Plan of Treatment: Follow up with Urology within 1 week of discharge for Blackman catheter Follow up with PCP within 1 week of discharge Follow up with outpatient Cardiology Assessment: Hemodynamically stable at time of discharge
--- NOTE | 2025-04-27 15:52 | W.MHC.F2F ---
Service Date Service Date: 04/27/25 Encounter Date of encounter: 04/27/25 Reasons for Services Signs and symptoms assessed: urinary retention, requiring blackman catheter placement imbalance, generalized muscular atrophy Reason for usp: medication management, medication treatment and teach disease management Homebound: Leaving the home is medically contraindicated at this time without the asist of a device and/or another person due th the listed conditions above and below. Reason homebound: leg weakness and poor balance / fall risk Certification: Based on the above findings, I certify that this patient is confined to the home and needs intermittent usp care, physical therapy and/or speech therapy, or continues to need occupational therapy. The patient is under my care, and I have initiated the establishment of the plan of care. The patient will be followed by a physician who will periodically review the plan of care. Time Spent With Patient Time: Total time managing care of this patient today ____ minutes. 30
[2025-04-27 15:56] VITALS: BP 99/52; PULSE 68; RESP 18; TEMP 36.4; O2SAT 94
== END 2025-04-27 18:34 | disposition home health service (06) | DRG 291 ==
LOC: HO.ED 14:37 → HO.EDOVER 15:43 → HO.IMC 04-23 13:23
PROVIDERS: Internal Medicine; Nurse Practitioner Family; Admitting Provider Physician Assistant Medical; Emergency Provider Emergency Medicine; PCP Internal Medicine; Visit Provider Hospitalist
DX: I11.0 Hypertensive heart disease with heart failure (principal); I50.33 Acute on chronic diastolic (congestive) heart failure; J18.9 Pneumonia, unspecified organism; J96.01 Acute respiratory failure with hypoxia; N13.30 Unspecified hydronephrosis; I25.10 Atherosclerotic heart disease of native coronary artery without angina pectoris; I48.0 Paroxysmal atrial fibrillation; N40.1 Benign prostatic hyperplasia with lower urinary tract symptoms; C61 Malignant neoplasm of prostate; T50.1X6A Underdosing of loop [high-ceiling] diuretics, initial encounter; R33.8 Other retention of urine; D50.9 Iron deficiency anemia, unspecified; D46.9 Myelodysplastic syndrome, unspecified; Z95.1 Presence of aortocoronary bypass graft; F03.90 Unspecified dementia, unspecified severity, without behavioral disturbance, psychotic disturbance, mood disturbance, and anxiety; Z20.822 Contact with and (suspected) exposure to COVID-19; Z79.01 Long term (current) use of anticoagulants; Z79.899 Other long term (current) drug therapy
CPT/HCPCS: 36415; 71046; 71250; 74178; 80048; 80076; 80307; 81001; 82607; 82746; 83605; 83880; 84484; 85025; 85027; 86140; 87040; 87637; 92526; 92610; 93005; 93306; 99285; J0131; J0696; J1271; J1885; J1938; Q9957; Q9967

== ENCOUNTER → 2025-04-22 13:15 | Outpatient (BNV) | payer MEDICARE, SELFPAY | PROVIDERS: Admitting Provider Physician Assistant Medical; Emergency Provider Emergency Medicine; PCP Internal Medicine; Visit Provider Radiology Diagnostic Radiology | DX: R06.02 Shortness of breath (principal) | CPT/HCPCS: 71046; 71250 ==

== ENCOUNTER 2025-04-22 15:34 | Outpatient (BNV) | payer MEDICARE, SELFPAY | END 2025-04-23 06:09 | PROVIDERS: Admitting Provider Physician Assistant Medical; Emergency Provider Emergency Medicine; PCP Internal Medicine; Visit Provider Radiology Diagnostic Radiology | DX: R10.30 Lower abdominal pain, unspecified (principal); R31.29 Other microscopic hematuria | CPT/HCPCS: 74178 ==

== ENCOUNTER 2025-04-22 15:34 | Outpatient (BNV) | payer MEDICARE, SELFPAY | END 2025-04-24 07:00 | PROVIDERS: Admitting Provider Physician Assistant Medical; Emergency Provider Emergency Medicine; PCP Internal Medicine; Visit Provider Internal Medicine | DX: I35.8 Other nonrheumatic aortic valve disorders (principal) | CPT/HCPCS: 93306 ==

== ENCOUNTER → 2025-04-22 15:34 | Outpatient (BNV) | payer MEDICARE, SELFPAY | PROVIDERS: Admitting Provider Physician Assistant Medical; Emergency Provider Emergency Medicine; PCP Internal Medicine; Visit Provider Internal Medicine | DX: I50.30 Unspecified diastolic (congestive) heart failure (principal); I50.9 Heart failure, unspecified; I25.10 Atherosclerotic heart disease of native coronary artery without angina pectoris; I48.0 Paroxysmal atrial fibrillation; I73.9 Peripheral vascular disease, unspecified; Z79.01 Long term (current) use of anticoagulants; K21.9 Gastro-esophageal reflux disease without esophagitis; R13.10 Dysphagia, unspecified; J18.9 Pneumonia, unspecified organism | CPT/HCPCS: 99223; 99232; 99233; 99239; 99499; G0180 ==

== ENCOUNTER → 2025-04-22 15:34 | Outpatient (BNV) | payer MEDICARE, SELFPAY | PROVIDERS: Admitting Provider Physician Assistant Medical; Emergency Provider Emergency Medicine; PCP Internal Medicine; Visit Provider Internal Medicine Cardiovascular Disease | DX: I50.9 Heart failure, unspecified (principal) | CPT/HCPCS: 93010; 99222; 99233 ==

== ENCOUNTER → 2025-04-22 15:34 | Outpatient (BNV) | payer MEDICARE, SELFPAY | PROVIDERS: Admitting Provider Physician Assistant Medical; Emergency Provider Emergency Medicine; PCP Internal Medicine; Visit Provider Urology | DX: C61 Malignant neoplasm of prostate (principal); N40.1 Benign prostatic hyperplasia with lower urinary tract symptoms; N13.8 Other obstructive and reflux uropathy | CPT/HCPCS: 99222 ==

== ENCOUNTER 2025-05-11 13:40 | Outpatient (AMB) | payer MEDICARE, SELFPAY ==
[2025-05-11 13:52] VITALS: BP 120/42; PULSE 64; O2SAT 98; BMI 22.0
--- NOTE | 2025-05-11 13:52 | MHC.OFFVIS ---
Vital Signs 05/11/25 13:52 Height 5 ft 9 in Weight 149 lb BMI 22.0 BP 120/42 L Blood Pressure Location Lt brachial Position Sitting Pulse 64 Pulse Source Pulse Oximeter Pulse Oximetry (%) 98 Oxygen Delivery Method Room Air Intake Visit Reasons: Dyspnea Intake Note: pt is here for follow up and states breathing is good. Allergies omeprazole (OMEPRAZOLE) Allergy (Unknown, Verified 05/11/25 14:42) RASH Medication List - Last Reconciled 05/11/25 by Kumar Brand MD atorvastatin (Lipitor) 40 mg PO DAILY cholecalciferol (vitamin D3) 50 mcg PO DAILY Eliquis (apixaban) 5 mg PO BID NS empagliflozin (Jardiance) 10 mg PO DAILY 30 days finasteride 5 mg PO DAILY 30 days furosemide (Lasix) 20 mg PO DAILY isosorbide mononitrate ER 30 mg PO DAILY tamsulosin 0.4 mg PO BEDTIME 30 days verapamil ER 120 mg PO BID 90 days Do you need a note to return to daycare/school/sports/work: No HPI HPI Dyspnea: Details: 89 YEARS OLD GENTLEMAN COMES ACCOMPANIED BY HIS , FOR [facility] . HE WAS RECENTLY ADMITTED AT [facility], TREATED FOR CONGESTIVE HEART FAILURE AND URINARY RETENTION. HE HAS INDWELLING GARCIA CATHETER GARCIA CATHETER. ASKING ME LOT OF QUESTIONS ABOUT THE URINE AND GARCIA CATHETER. I EXPLAINED THAT HE NEEDS TO FOLLOW-UP WITH THE UROLOGY SERVICE . HE WANTS TO KNOW IF THERE IS ANY RELATIONSHIP BETWEEN URINARY RETENTION AND HIS BREATHING PROBLEM. I EXPLAINED THAT IF HE HAS DISTENDED BLADDER IT MAY AFFECT HIS BREATHING BUT ONCE HE HAS THE CATHETER AND THE URINE IS DRAINING OUT , HE SHOULD FEEL BETTER. HE IS COMPLAINING OF NOT GETTING ENOUGH AIR WHEN HE IS EATING AND SWALLOWING. HE DOES FEEL THAT SOMETIME THE FOOD GETS STUCK SOMEWHERE IN THE MIDDLE OF THE CHEST AND IT TAKES A FEW MINUTES BEFORE IT MOVES DOWN INTO THE STOMACH. THIS COMPLAINT IS VERY NONSPECIFIC, HE ALSO DENIES ANY DIFFICULTY IN SWALLOWING, AND ALSO DENIES ANY COUGH OR WHEEZING. BACK IN SEPTEMBER THIS YEAR HE WAS TREATED AT [facility] FOR BILATERAL INTERSTITIAL PNEUMONIA THE CT SCAN AT [facility] ON 10/05/2024 SHOWS MULTIFOCAL PNEUMONIA PREDOMINANTLY INVOLVING THE UPPER LOBES AND RIGHT LOWER LOBE. PATIENT WAS TREATED WITH COURSE OF ANTIBIOTIC. IT SEEMS THAT HE HAD POSSIBLE PULMONARY ASPIRATION. AT PRESENT HE CLAIMS THAT HIS BREATHING IS OKAY . COUGH IS MINIMAL. AND HIS MAIN COMPLAINT IS MORE RELATED TO URINARY RETENTION. HE HAD A RECENT CT SCAN OF THE CHEST WHILE ADMITTED IN [facility] WHICH AGAIN SHOWED MULTIFOCAL DENSITIES, AND MAY HAVE BEEN DUE TO SOME DEGREE OF CONGESTIVE HEART FAILURE. [facility] Medical History (Updated 05/11/25 @ 15:12 by Kumar Brand MD) Lung density present on imaging study Cough Prostate nodule Low back pain GERD (gastroesophageal reflux disease) CVA (cerebral vascular accident) Dementia Bilateral carotid artery disease Carpal tunnel syndrome of right wrist Vitamin D deficiency Cervical spinal stenosis Atrial fibrillation Hypercholesterolemia Hypertension Coronary artery disease Surgical History Hx of CABG (~1997) Inguinal hernia, right History of cardiac cath (~03/2008) Family History Father No problems noted. Mother CVD (cardiovascular disease) Social History Household Members: Spouse Housing: House Do you presently have visiting nurse or other home services: No Alcohol intake: former Patient Tobacco Use Status: Never used Tobacco Tobacco use type: Cigarette e-Cigarette/Vaping Use: Never Used Second Hand Smoke Exposure: No service: Yes Current occupational status: retired Cognitive needs: No Hearing needs: Yes Vision needs: Yes Review of Systems Const All systems reviewed & are unremarkable except as noted in HPI and below (I COULD NOT GET ANY MORE DETAI) Physical Exam Exam Exam: HE IS ALERT, ORIENTATED, VERY SLOW IN CONVERSATION, AND FORGETFUL. HE DOES REPEAT HIS QUESTIONS AGAIN AND AGAIN. HE IS NOT IN ANY DISTRESS OROPHARYNX EXAMINATION IS NORMAL. NECK NO JVD TRACHEA MIDLINE NO MASS NOTED. CHEST PERCUSSION NOTE IS RESONANT BREATH SOUNDS ARE DISTANT BUT NO WHEEZES OR RHONCHI ARE HEARD. CARDIAC: PMI IN 5TH INTERCOSTAL SPACE MID CLAVICLE LINE HEART SOUNDS ARE NORMAL RHYTHM IS REGULAR. ABDOMEN FLAT NO PALPABLE MASS. PATIENT HAS INDWELLING GARCIA CATHETER IN PLACE. EXTREMITIES NO PITTING EDEMA PERIPHERAL PULSES ARE NOT PALPABLE NO VARICOSITIES NOTED. Vital Signs: Last Vital Signs Pulse 64 05/11/25 13:52 BP 120/42 L 05/11/25 13:52 Pulse Ox 98 05/11/25 13:52 Oxygen Delivery Method Room Air 05/11/25 13:52 BMI result Body Mass Index 22.0 Last Vital Signs HEENT Head: Yes normal to inspection General nose exam: No nasal polyps present and No nasal discharge present Face and sinus: Yes sinuses nontender Mouth: oropharynx normal Throat: Yes posterior oropharynx normal Eyes General: appearance normal, both eyes and all related structures Neck Neck: Yes normal visual inspection, Yes no lymphadenopathy, Yes trachea midline and Yes no JVD Thyroid: Thyroid normal Cardio Palpation: normal PMI Rate: regular rate Rhythm: regular rhythm Heart sounds: Gallop heart sound present and Murmur heart sound present Peripheral pulses: Peripheral pulses 2+ throughout GI Palpation (GI): Soft to palpation, Tenderness to palpation present (GI), No hepatosplenomegaly present and Palpable mass present Auscultation: normal bowel sounds Back/Spine/Pelvis Thoracic/Lumbar Spine: thoracic and lumbar spine normal to inspection Skin General skin exam: no rashes or lesions noted Neuro General: no focal motor deficits Cranial nerves: Yes CN's II-XII intact bilaterally Extrem General: Yes normal to inspection, Yes no clubbing, cyanosis or edema and Yes no calf tenderness Psych Speech and movement: Normal speech and movement present Results Reviewed Results Reviewed: CT SCAN OF THE CHEST AT [facility] ON 04/22/2025 SHOWED BILATERAL GROUND-GLASS OPACITIES AND SMALL PLEURAL EFFUSIONS PROBABLY SECONDARY TO PULMONARY INGESTION THERE WAS A QUESTION OF UNDERLYING INTERSTITIAL LUNG DISEASE Assessment & Plan Assessment & Plan (1) Cough: Comment: HE HAS MILD INTERMITTENT COUGH WHICH IS NONSPECIFIC AND I THINK THIS IS MOSTLY RELATED TO HIS BILATERAL INTERSTITIAL PNEUMONITIS. IT IS GRADUALLY IMPROVING. PATIENT IS NOT MUCH CONCERNED ABOUT THE COUGH TODAY. HE CLAIMS THAT HIS BREATHING IS OKAY. Code(s): R05.9 - Cough, unspecified Category: Medical Qualifiers: Cough type: subacute Qualified Code(s): R05.2 - Subacute cough Plan: I SPENT LOT OF TIME TO EXPLAINED TO HIM THE FINDINGS OF THE CT SCAN AND, VARIOUS POSSIBILITIES. BUT HE KEEPS ON ASKING THE SAME QUESTIONS AGAIN. UNFORTUNATELY I THINK HE HAS SIGNIFICANT DEGREE OF COGNITIVE ABILITY. (2) Dysphagia: Comment: Retention in the vallecula with liquid barium. The barium tablet also got stuck in the vallecula. Gastroesophageal reflux and question mild esophagitis. March 2022 HE HAS DEFINITE ONGOING INTERMITTENT DIFFICULTY IN SWALLOWING. THIS MAY BE DUE TO MOTILITY DISORDER OF THE ESOPHAGUS. THIS MAY ALSO BE THE CAUSE OF INTERMITTENT PULMONARY ASPIRATIONS AND RECURRENT PULMONARY DENSITIES. BUT FRANKLY IT IS DIFFICULT FOR HIM TO UNDERSTAND ALL THE MECHANISM, AND HE KEEPS ON ASKING SAME QUESTION REPEATEDLY Code(s): R13.10 - Dysphagia, unspecified Category: Medical Plan: I DID TRY TO EXPLAIN TO HIM AND HIS WHO UNDERSTANDS WELL. I ADVISED HIM TO EAT SOFT FOOD AND SLOWLY AND AVOID ANY ASPIRATIONS. (3) (HFpEF) heart failure with preserved ejection fraction: Comment: PATIENT DOES HAVE HISTORY OF CONGESTIVE HEART FAILURE. PROBABLY INTERMITTENT, AND SOME OF THE PULMONARY DENSITIES MAY BE DUE TO THAT. AT PRESENT CLINICALLY HE DOES NOT SEEM TO HAVE ANY CONGESTIVE HEART FAILURE. Code(s): I50.30 - Unspecified diastolic (congestive) heart failure Category: Medical Plan: PATIENT SHOULD FOLLOW-UP WITH CARDIOLOGY SERVICE (4) Lung density present on imaging study: Comment: HIS CT SCAN HAS REPEATEDLY SHOWN MULTIFOCAL PULMONARY DENSITIES THESE ARE PROBABLY NONSPECIFIC AND, CAN BE SECONDARY TO RECURRENT PULMONARY ASPIRATIONS SECONDARY TO CONGESTIVE HEART FAILURE. CLINICALLY HE DOES NOT HAVE ANY SIGNIFICANT RESPIRATORY SYMPTOMS AT THIS TIME. Code(s): J98.4 - Other disorders of lung Category: Medical Plan: I TRY TO EXPLAINED TO HIM THESE FINDINGS AND VARIOUS POSSIBILITIES AND TOLD HIM THAT I DO NOT THINK HE NEEDS ANY ACTIVE TREATMENT OR INTERVENTION FOR THIS ABNORMALITY AT THIS TIME. Coding Level of Care Code Est Pt Level 3 (31370) Diagnoses Subacute cough R05.2 Cough type: subacute Dysphagia R13.10 (HFpEF) heart failure with preserved ejection fraction I50.30 Lung density present on imaging study J98.4
== END 2025-05-11 14:41 | disposition home or self-care (01) ==
LOC: HO.HPS 13:41
PROVIDERS: PCP Internal Medicine; Visit Provider Internal Medicine
DX: R05.2 Subacute cough (principal); R13.10 Dysphagia, unspecified; I50.30 Unspecified diastolic (congestive) heart failure; J98.4 Other disorders of lung
CPT/HCPCS: 99213

== ENCOUNTER → 2025-05-11 13:40 | Outpatient (BNVA) | payer MEDICARE, SELFPAY | PROVIDERS: PCP Internal Medicine; Visit Provider Internal Medicine | DX: R05.2 Subacute cough (principal); R13.10 Dysphagia, unspecified; I50.30 Unspecified diastolic (congestive) heart failure; J98.4 Other disorders of lung | CPT/HCPCS: 99212 ==

== ENCOUNTER 2025-05-12 12:55 | Outpatient (AMB) | payer MEDICARE, SELFPAY ==
--- NOTE | 2025-05-12 13:05 | MHC.PC.OV ---
Vital Signs 05/12/25 13:07 Height 5 ft 9 in Weight 149 lb 8 oz BMI 22.1 BP 118/62 Blood Pressure Location Lt brachial Position Sitting Pulse 72 Pulse Source Pulse Oximeter Temp 97.1 F Temp Source Temporal Artery Scan Pulse Oximetry (%) 97 Oxygen Delivery Method Room Air Intake Visit Reasons: [place] [facility] [place] Intake Note: Patient is here for hospital discharge and TCM follow up. Patient was [place] [facility] [place]. 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 Patient presents for post-hospital follow-up after [place] [facility] [place] for evaluation and management of acute on chronic CHF exacerbation with likely superimposed pneumonia. Past medical history significant for CAD s/p CABG, ischemic HFpEF, HTN, AFib on apixaban, HLD, GERD, chronic microcytic anemia, and prostate cancer. During hospitalization, chest X-ray demonstrated patchy right-lung consolidation. He was treated with IV antibiotics and IV Lasix. He has a known history of recurrent pneumonias, and Pulmonology has previously raised concern for possible aspiration; a speech evaluation was completed inpatient. He was discharged home on Ceftin and Doxycycline to complete a 7-day course. Today the patient reports feeling well and states significant improvement since discharge. He denies fevers, chills, nausea, vomiting, shortness of breath, chest pain, cough, or wheezing. No dizziness or orthopnea reported. No concerns with medication adherence. No new complaints. NEW MEDS: Jardiance 10 mg, Finasteride 5 mg and Tamsulosin 0.4 mg. [facility] Medical History (Updated 05/12/25 @ 13:38 by Lisa Powers NP) Acute on chronic HFrEF (heart failure with reduced ejection fraction) Lung density present on imaging study Cough Prostate nodule Low back pain GERD (gastroesophageal reflux disease) CVA (cerebral vascular accident) Dementia Bilateral carotid artery disease Carpal tunnel syndrome of right wrist Vitamin D deficiency Cervical spinal stenosis Atrial fibrillation Hypercholesterolemia Hypertension Coronary artery disease Surgical History Hx of CABG (~1997) Inguinal hernia, right History of cardiac cath (~03/2008) Family History Father No problems noted. Mother CVD (cardiovascular disease) Social History Household Members: Spouse Housing: House Do you presently have visiting nurse or other home services: No Alcohol intake: former Patient Tobacco Use Status: Never used Tobacco Tobacco use type: Cigarette e-Cigarette/Vaping Use: Never Used Second Hand Smoke Exposure: No service: Yes Current occupational status: retired Cognitive needs: No Hearing needs: Yes Vision needs: Yes Questionnaire Thrive Questionnaire Date Thrive assessed: 10/21/24 I am a: Patient What is your living situation today?: I have a steady place to live Within the past 12 months, did the food you bought not last and you didn't have the money to get more?: Never true Within the past 12 months, did you worry whether your food would run out before you got money to buy more?: Never true Do you have trouble paying for medicines?: No Do you have trouble getting transportation to medical appointments?: No Do you have trouble paying your heating and electricity bill?: No Do you have trouble taking care of your child, family member or friend?: No Do you have trouble with day-to-day activities such as bathing, preparing meals, shopping, managing finances, etc.?: I choose not to answer this question Are you currently unemployed and looking for a job?: No Are you interested in more education?: No Please select the resources that you would like help with: None Currently or been in a relationship where the following occur: No concerns reported THRIVE Score: 0 DARYL-7 AMB Questionnaire DARYL-7 Date DARYL - 7 assessed: 11/22/24 Source: Developed by Drs. Fadi Avery, Alanna B.Justin Reich and colleagues, with an educational oliver from [employer]. Review of Systems Const All systems reviewed & are unremarkable except as noted in HPI and below Physical exam (Primary Care) Vital Signs: Last Vital Signs Temp 97.1 F 05/12/25 13:07 Pulse 72 05/12/25 13:07 BP 118/62 05/12/25 13:07 Pulse Ox 97 05/12/25 13:07 Oxygen Delivery Method Room Air 05/12/25 13:07 BMI result Body Mass Index 22.1 Tobacco/Smoking Status: Tobacco use Status Tobacco use date assessed 05/12/25 05/12/25 13:12 Patient Tobacco Use Status Never used Tobacco 05/12/25 13:05 Tobacco use type Cigarette 05/12/25 13:05 e-Cigarette/Vaping Use Never Used 05/12/25 13:05 Thrive Assessment: Date of Thrive Assessment Date Thrive assessed 10/21/24 05/12/25 13:05 Currently or been in a relationship where the following occur: No concerns reported Const General: no acute distress; No comfortable Nutritional Appearance: well nourished Orientation/consciousness: patient oriented x3 Resp Effort & Inspection: normal respiratory effort Auscultation: clear to auscultation bilaterally, no crackles, no rales, no rhonchi and no wheezes Cardio Rate: regular rate Rhythm: abnormal rhythm regularly irregular Neuro General: patient oriented x3 and moves all extremities Psych Speech and movement: Clear speech present Coding Level of Care Code TCM Mod MDM <= 14 Days Diagnoses Acute on chronic HFrEF (heart failure with reduced ejection fraction) I50.23 Time Spent (min) 25 Assessment & Plan Assessment & Plan (1) Acute on chronic HFrEF (heart failure with reduced ejection fraction): Code(s): I50.23 - Acute on chronic systolic (congestive) heart failure Category: Medical Plan: Completed Ceftin and Doxycycline course as directed. Will continue to Monitor for recurrence of symptoms (fever, cough, increased SOB). Continue f/u with Pulmonology. Continue on routine prescribed medications.
[2025-05-12 13:07] VITALS: BP 118/62; PULSE 72; TEMP 36.2; O2SAT 97; BMI 22.1
== END 2025-05-12 13:32 | disposition home or self-care (01) ==
LOC: HO.HMCH 12:56
PROVIDERS: PCP Internal Medicine; Visit Provider Nurse Practitioner Family
DX: I50.23 Acute on chronic systolic (congestive) heart failure (principal)

== ENCOUNTER → 2025-05-12 12:55 | Outpatient (BNVA) | payer MEDICARE, SELFPAY | PROVIDERS: PCP Internal Medicine; Visit Provider Nurse Practitioner Family | DX: I50.23 Acute on chronic systolic (congestive) heart failure (principal) | CPT/HCPCS: 99495 ==

== ENCOUNTER → 2025-05-24 08:36 | Outpatient (BNVA) | payer MEDICARE, SELFPAY | PROVIDERS: PCP Internal Medicine; Visit Provider Urology | DX: N40.1 Benign prostatic hyperplasia with lower urinary tract symptoms (principal); N13.8 Other obstructive and reflux uropathy | CPT/HCPCS: 51700; 51798 ==

== ENCOUNTER 2025-05-25 13:48 | Outpatient (AMB) | payer MEDICARE, SELFPAY ==
[2025-05-25 13:55] VITALS: BP 112/36; PULSE 82; RESP 18; O2SAT 94; BMI 22.7
--- NOTE | 2025-05-25 13:55 | A.OFFPC_ITS ---
Vital Signs 05/25/25 13:55 Height 5 ft 9 in Weight 154 lb BMI 22.7 BP 112/36 L Blood Pressure Location Lt brachial Position Sitting Respiration 18 Pulse 82 Pulse Source Pulse Oximeter Temp Source Temporal Artery Scan Pulse Oximetry (%) 94 Oxygen Delivery Method Room Air Intake Visit Reasons: 4 month f/u Pharmacy Clerk Required: No Accompanied by: Self / Same As Patient Allergies omeprazole (OMEPRAZOLE) Allergy (Unknown, Verified 05/25/25 13:55) RASH Medication List - Last Reconciled 05/25/25 by Dhiraj Guevara MD atorvastatin (Lipitor) 40 mg PO DAILY cholecalciferol (vitamin D3) 50 mcg PO DAILY Eliquis (apixaban) 5 mg PO BID NS empagliflozin (Jardiance) 10 mg PO DAILY 30 days finasteride 5 mg PO DAILY 30 days furosemide (Lasix) 20 mg PO DAILY isosorbide mononitrate ER 30 mg PO DAILY tamsulosin 0.4 mg PO BEDTIME 30 days verapamil ER 120 mg PO BID 90 days Tobacco use date assessed: 05/25/25 Fall risk assessment: No Falls in past year Last assessed Fall Risk: 05/25/25 Dental Screening Dental Screen Date: 05/25/25 Did you have a dental visit in the last 12 months?: Yes Did you have a dental problem in the last 6 months where you did not have access to dental care?: No Was dental information given to patient?: Patient has dentist HPI HPI Comments History of Present Illness Details History of Present Illness The patient is an 89 year old male presenting for follow-up for multiple chronic medical problems. His past medical history is significant for hypertension, hypercholesterolemia, atrial fibrillation, coronary artery disease, GERD, impaired glucose tolerance, benign prostatic hyperplasia, and prostate cancer in 2020. The patient was recently hospitalized for congestive heart failure with superimposed pneumonia. He was seen by a nurse practitioner on May 12 for post-hospitalization follow-up. An echocardiogram from April 2025 revealed congestive heart failure with preserved ejection fraction, though a portion of the lower heart is not moving well, likely contributing to fluid in the lungs. He was seen by a metalizing machine operator on May 11 for shortness of breath, and his cough was attributed to bilateral interstitial pneumonitis, which is noted to be gradually improving. There were concerns about aspiration causing pneumonia, and the patient notes he now eats slower but denies coughing while eating. Blood work from April revealed severe anemia with a hemoglobin of 8.3 and hematocrit of 24.7. At that time, his electrolytes were normal, creatinine was 1.04, and blood sugar was 102. His BNP in April 2025 was 6510. His last cholesterol test was in January 2024. He also reports a history of having a Suarez catheter, which has since been removed. Health Maintenance A discussion about vaccinations revealed the patient had a pneumonia shot in February 2025 but has not had a flu shot. He declined the flu shot during this visit. Preventative guidance was provided regarding masking in crowds to avoid respiratory illnesses. Social History - Activity Level: The patient's activity is limited; he notes he cannot eat as fast as he used to and was limited in his ability to walk while he had a Suarez catheter. - Nutrition: He has been eating a lot of chocolates recently. - He is advised to follow a low-sodium d iet. Results - Echocardiogram (April 2025): Showed preserved ejection fraction with weakness and decreased movement in the lower part of the heart. - Chest CT scan (~10 days prior to visit ): Revealed bilateral interstitial pneumonitis. - Labs (April 2025): BNP 6510. - Labs (January 2024): Cholesterol panel was good. - Labs (April): Hemoglobin 8.3, hemat ocrit 24.7, creatinine 1.04, blood sugar 102. [facility] Medical History Acute on chronic HFrEF (heart failure with reduced ejection fraction) Lung density present on imaging study Cough Prostate nodule Low back pain GERD (gastroesophageal reflux disease) CVA (cerebral vascular accident) Dementia Bilateral carotid artery disease Carpal tunnel syndrome of right wrist Vitamin D deficiency Cervical spinal stenosis Atrial fibrillation Hypercholesterolemia Hypertension Coronary artery disease Surgical History Hx of CABG (~1997) Inguinal hernia, right History of cardiac cath (~03/2008) Family History Father No problems noted. Mother CVD (cardiovascular disease) Social History Household Members: Spouse Housing: House Do you presently have visiting nurse or other home services: No Alcohol intake: former Patient Tobacco Use Status: Never used Tobacco Tobacco use type: Cigarette e-Cigarette/Vaping Use: Never Used Second Hand Smoke Exposure: No service: Yes Current occupational status: retired Cognitive needs: No Hearing needs: Yes Vision needs: Yes Questionnaire Thrive Questionnaire Date Thrive assessed: 05/25/25 I am a: Patient What is your living situation today?: I have a steady place to live Within the past 12 months, did the food you bought not last and you didn't have the money to get more?: Never true Within the past 12 months, did you worry whether your food would run out before you got money to buy more?: Never true Do you have trouble paying for medicines?: No Do you have trouble getting transportation to medical appointments?: No Do you have trouble paying your heating and electricity bill?: No Do you have trouble taking care of your child, family member or friend?: No Do you have trouble with day-to-day activities such as bathing, preparing meals, shopping, managing finances, etc.?: I choose not to answer this question Are you currently unemployed and looking for a job?: No Are you interested in more education?: No Please select the resources that you would like help with: None Currently or been in a relationship where the following occur: No concerns reported THRIVE Score: 0 DARYL-7 AMB Questionnaire DARYL-7 Date DARYL - 7 assessed: 11/22/24 Source: Developed by Drs. Fadi Avery, Alanna Nguyen, Justin Campos and colleagues, with an educational oliver from [employer] Review of Systems Narrative Review of Systems - Respiratory: Reports improving cough. - Cardiovascular: Reports feeling that his heart is struggling. - Gastrointestinal: Reports eating slower than previously. - Denies coughing while eating or choking on food. Physical exam (Primary Care) Vital Signs: Last Vital Signs Pulse 82 05/25/25 13:55 Resp 18 05/25/25 13:55 BP 112/36 L 05/25/25 13:55 Pulse Ox 94 05/25/25 13:55 Oxygen Delivery Method Room Air 05/25/25 13:55 BMI result Body Mass Index 22.7 Tobacco/Smoking Status: Tobacco use Status Tobacco use date assessed 05/25/25 05/25/25 14:02 Patient Tobacco Use Status Never used Tobacco 05/25/25 14:02 Tobacco use type Cigarette 05/25/25 14:02 e-Cigarette/Vaping Use Never Used 05/25/25 14:02 Thrive Assessment: Date of Thrive Assessment Date Thrive assessed 05/25/25 05/25/25 14:02 Currently or been in a relationship where the following occur: No concerns reported Narrative Physical Exam - Vitals: Blood pressure 102/systolic, noted to be on the low side. Const General: alert; No acute distress Eyes Conjunctivae: conjunctivae normal Resp Auscultation: clear to auscultation bilaterally Cardio Rate: regular rate Rhythm: regular rhythm GI Inspection: Yes normal to inspection Extrem General: Yes normal to inspection and No edema Coding Level of Care Code Est Pt Level 4 (99597) Add On Problem Visit Only Diagnoses Essential hypertension I10 Hypertension type: essential hypertension (HFpEF) heart failure with preserved ejection fraction I50.30 Coronary artery disease involving gambell coronary artery of gambell heart without angina pectoris I25.10 Associated angina: without angina Coronary Disease-Associated Artery/Lesion type: gambell artery [place] vs. transplanted heart: gambell heart Paroxysmal atrial fibrillation I48.0 Atrial fibrillation type: paroxysmal Hypercholesterolemia E78.00 Gastroesophageal reflux disease without esophagitis K21.9 Esophagitis presence: without esophagitis Dysphagia R13.10 Prostate cancer C61 Subacute cough R05.2 Cough type: subacute Severe anemia D64.9 Assessment & Plan Assessment & Plan (1) Hypertension: Code(s): I10 - Essential (primary) hypertension Category: Medical Qualifiers: Hypertension type: essential hypertension Qualified Code(s): I10 - Essential (primary) hypertension Plan: Continue with blood pressure medication. Decrease salt intake and exercise patient on verapamil 120 mg twice a day (2) (HFpEF) heart failure with preserved ejection fraction: Comment: PATIENT DOES HAVE HISTORY OF CONGESTIVE HEART FAILURE. PROBABLY INTERMITTENT, AND SOME OF THE PULMONARY DENSITIES MAY BE DUE TO THAT. AT PRESENT CLINICALLY HE DOES NOT SEEM TO HAVE ANY CONGESTIVE HEART FAILURE. April 2025 echocardiogramThe left ventricular systolic function is normal. The calculated ejection fraction is 60% by biplane method. - The basal inferior segment is akinetic. - There is moderate calcification of the aortic valve. Code(s): I50.30 - Unspecified diastolic (congestive) heart failure Category: Medical Plan: On diuretic furosemide continue to monitor low-sodium diet continue to follow up with Cardiology . April 2025 echocardiogramThe left ventricular systolic function is normal. The calculated ejection fraction is 60% by biplane method. - The basal inferior segment is akinetic. - There is moderate calcification of the aortic valve. (3) Coronary artery disease: Comment: CABG 1988, 3 vessel catheterization 2007 Catheterization May 2020 complex mulivessel disease, April 2020 echocardiogram normal LV mild left atrial dilatation Code(s): I25.10 - Atherosclerotic heart disease of gambell coronary artery without angina pectoris Category: Medical Qualifiers: Associated angina: without angina Coronary Disease-Associated Artery/Lesion type: gambell artery [place] vs. transplanted heart: gambell heart Qualified Code(s): I25.10 - Atherosclerotic heart disease of gambell coronary artery without angina pectoris Plan: Control the cholesterol, weight, blood pressure, patient on anticoagulation (4) Atrial fibrillation: Comment: Ablation 2007(did not work), Holter October 2020 atrial fibrillation controlled rate Code(s): I48.91 - Unspecified atrial fibrillation Category: Medical Qualifiers: Atrial fibrillation type: paroxysmal Qualified Code(s): I48.0 - Paroxysmal atrial fibrillation Plan: Continue with anticoagulation with Eliquis twice a day year blood work to be checked (5) Hypercholesterolemia: Comment: LDL goal < 70 Code(s): E78.00 - Pure hypercholesterolemia, unspecified Category: Medical Plan: Avoid fried foods, chicken skin, eggs, butter margarine, pastries and meat. Be it pork or beef they have a lot of cholesterol on atorvastatin 40 mg once a day patient needs blood work (6) GERD (gastroesophageal reflux disease): Code(s): K21.9 - Gastro-esophageal reflux disease without esophagitis Category: Medical Qualifiers: Esophagitis presence: without esophagitis Qualified Code(s): K21.9 - Gastro-esophageal reflux disease without esophagitis Plan: Avoid the foods that causes that usually spicy foods, tomato products, juices, coffee, soda and foods that your sensitive to. After eating do not lie down, allow 3-4 hours before in lie down. And keep the head of bed above 30 degrees to avoid the acid from going up. (7) Dysphagia: Comment: Retention in the vallecula with liquid barium. The barium tablet also got stuck in the vallecula. Gastroesophageal reflux and question mild esophagitis. March 2022 HE HAS DEFINITE ONGOING INTERMITTENT DIFFICULTY IN SWALLOWING. THIS MAY BE DUE TO MOTILITY DISORDER OF THE ESOPHAGUS. THIS MAY ALSO BE THE CAUSE OF INTERMITTENT PULMONARY ASPIRATIONS AND RECURRENT PULMONARY DENSITIES. BUT FRANKLY IT IS DIFFICULT FOR HIM TO UNDERSTAND ALL THE MECHANISM, AND HE KEEPS ON ASKING SAME QUESTION REPEATEDLY Code(s): R13.10 - Dysphagia, unspecified Category: Medical Plan: Discussed and explained to the patient regarding concerns about swallowing (8) Prostate cancer: Comment: February 2021 grade group 3 intermediate volume - Bone Scan NAD Code(s): C61 - Malignant neoplasm of prostate Category: Medical Plan: Continue to follow-up with urology (9) Cough: Comment: HE HAS MILD INTERMITTENT COUGH WHICH IS NONSPECIFIC AND I THINK THIS IS MOSTLY RELATED TO HIS BILATERAL INTERSTITIAL PNEUMONITIS. IT IS GRADUALLY IMPROVING. PATIENT IS NOT MUCH CONCERNED ABOUT THE COUGH TODAY. HE CLAIMS THAT HIS BREATHING IS OKAY. Code(s): R05.9 - Cough, unspecified Category: Medical Qualifiers: Cough type: subacute Qualified Code(s): R05.2 - Subacute cough Plan: Patient follows up with Pulmonary continuing to monitor (10) Severe anemia: Code(s): D64.9 - Anemia, unspecified Category: Medical Plan Plan Patient was informed and verbally consented to the use of an ambient scribe for clinic note documentation during this visit. 1. Anemia The patient has severe anemia, discovered with blood work in April showing a hemoglobin of 8.3. The cause is currently undetermined, with differential diagnoses including occult gastrointestinal bleeding or a production issue due to deficiency in iron or vitamin B12. A new blood work request has been made to check a complete blood count, iron, and B12 levels to investigate further. 2. Congestive Heart Failure The patient has congestive heart failure with preserved ejection fraction, which led to a recent hospitalization. He will continue taking furosemide and is advised to follow a low-sodium diet and remain active. He will continue to follow up with cardiology. 3. Hypertension The patient has a history of hypertension but currently presents with low blood pressure, with a systolic of 102. This is likely multifactorial, stemming from his anemia and medications including verapamil, isosorbide mononitrate, furosemide, and Jardiance. Following a discussion, it was decided to continue his current verapamil dose of 120 mg twice daily and monitor his blood pressure. 4. Atrial Fibrillation And Coronary Artery Disease The patient is on anticoagulation with Eliquis for his atrial fibrillation and coronary artery disease. He will continue this medication and will have blood work checked twice a year. 5. Hypercholesterolemia He will continue taking atorvastatin 40 mg once daily. A new fasting lipid panel is included in the requested blood work, as his last test was in January 2024. 6. Impaired Glucose Tolerance The patient's last blood sugar was 102 in April. Due to a recent history of eating a lot of chocolates, an A1c test will be included in the new blood work to assess his average glycemic control. 7. Gastroesophageal Reflux Disease And Aspiration Risk Concerns regarding aspiration as a cause of his pneumonia were discussed. The p atient was advised to eat slowly to prevent aspiration. The condition will continue to be monitored. 8. Benign Prostatic Hyperplasia The patient has BPH and is managed on tamsulosin. No changes were made to his tamsulosin, and he was advised to continue following up with urology for this issue. Discussion Notes I reviewed the patient's recent hospitalization for congestive heart failure and pneumonia. I explained that his echocardiogram showed preserved ejection fraction but with some weakness in the lower part of the heart, which is likely the cause of the fluid in his lungs, and I reinforced the purpose of his diuretic medication. We discussed his severe anemia, with his last hemoglobin being 8.3 in April. I explained the possible causes, including gastrointestinal blood loss or a deficiency in the components needed to make blood, such as iron and B12. I have requested new blood work to check his current blood count as well as his iron and B12 levels. I addressed his current low blood pressure of 102 systolic, explaining that it is likely multifactorial due to both his anemia and his four blood pressure- lowering medications. After discussing the risks and benefits of adjusting his verapamil, the patient and I mutually agreed to continue his current dose of 120 mg twice daily and monitor his blood pressure. I reviewed his other chronic conditions, advising him to continue his current therapies for atrial fibrillation, coronary artery disease, and hypercholesterolemia, with new lab orders for a lipid panel. I also ordered an A1c to check his recent glucose control. I advised him to continue following with his specialists, particularly urology for his prostate issues. We discussed preventative health, including vaccinations; he declined a flu shot but was advised on using a mask to prevent infection. I stressed the importance of diet, exercise, and avoiding salt to support his heart health. Patient Instructions - Please go to the lab to get your blood work done. - You will need to fast (not eat or drink anything besides water) before your blood test because we are checking your cholesterol and sugar levels. - Continue taking your current medications as prescribed, including verapamil 120 mg twice a day. - Eat a healthy diet, avoid salt, and drink plenty of water to help your heart. - Try to stay as active as possible. - Be sure to eat slowly and chew your food thoroughly to prevent food from going down the wrong way. - Continue to see your other doctors, including your heart doctor (show card letterer) and bladder doctor (urologist). - To avoid getting sick, wear a face mask when you are in crowded places. Orders: Orders Complete Blood Count Auto Diff Today D64.9 - Anemia, unspecified Comprehensive Met. Panel Today D64.9 - Anemia, unspecified Reticulocyte Count Today D64.9 - Anemia, unspecified IRON PROFILE Today D64.9 - Anemia, unspecified Vitamin B12 and Folate Today D64.9 - Anemia, unspecified Free T4 (Free Thyroxine) Today D64.9 - Anemia, unspecified Lipid Panel Today D64.9 - Anemia, unspecified, E78.00 - Pure hypercholesterolemia, unspecified Ferritin Today D64.9 - Anemia, unspecified Thyroid Stimulating Hormone Today D64.9 - Anemia, unspecified Hemoglobin A1c Today D64.9 - Anemia, unspecified
--- OUTSIDE RECORDS SUMMARY | 2025-05-25 18:03 | XMS_ITS | Patient Health Record ---
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, with unspecified presence of clinical manifestation (I70.203) Active confirmed Q7(A), Q8(2B), Q9(1B,2 C) Vital Signs Blood pressure diastolic 72 mm Hg 01/27/2025 Height 5 ft 10 in in 01/27/2025 Blood pressure systolic 116 mm Hg 01/27/2025 Weight 155 lbs 01/27/2025 BMI 22.24 kg/m2 01/27/2025 Procedures Procedure Date Ordered Date Performed Result Body Sit e 76344-[id number] NAIL, 6 OR MORE 10/21/2024 N/A 15191-Bbilmwqr Plate 10/21/2024 N/A 00926-HMNZ SKIN LESIONS, 2 TO 4 10/21/2024 N/A 25665-FVRDWFT NAIL, 6 OR MORE 01/27/2025 N/A 98373-KOAF SKIN LESIONS, 2 TO 4 01/27/2025 N/A Encounters Encounter Location Date Provider Diagnosis [facility] [address] 10/21/2024 Cristopher Samaria Pain in right toe(s) M79.674 ; Onychomycosis B35.1 ; Pain in left toe(s) M79.675 ; 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, with unspecified presence of clinical manifestation I70.203 and Ingrown nail L60.0 [facility] [address] [place] [address] 01/27/2025 Cristopher Samaria Pain in right toe(s) M79.674 ; Onychomycosis B35.1 ; Pain in left toe(s) M79.675 ; 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, with unspecified presence of clinical manifestation I70.203 and Subungual hematoma of left foot, initial encounter S90.222A [facility] [address] [address] 02/16/2025 Cristopher Samarai Assessments Encounter Date Diagnosis (ICD Code) Assessment Notes Treatment Notes Treatment Clinical Notes Section Notes 10/21/2024 Pain in right toe(s) (ICD-10 - M79.674) 01/27/2025 Pain in right toe(s) (ICD-10 - M79.674) 01/27/2025 Onychomycosis (ICD-10 - B35.1) 10/21/2024 Onychomycosis (ICD-10 - B35.1) 10/21/2024 Pain in left toe(s) (ICD-10 - M79.675) 01/27/2025 Pain in left toe(s) (ICD-10 - M79.675) 10/21/2024 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, with unspecified presence of clinical manifestation (ICD-10 - I70.203) Q7(A), Q8(2B), Q9(1B,2C) 01/27/2025 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, with unspecified presence of clinical manifestation (ICD-10 - I70.203) Q7(A), Q8(2B), Q9(1B,2C) 01/27/2025 Subungual hematoma of left foot, initial encounter (ICD-10 - S90.222A) 10/21/2024 Ingrown nail (ICD-10 - L60.0) Plan Of Treatment Pending Test Test Name Order Date X ray : Foot, left 3V 03/23/2013 [id number] NAIL, 6 OR MORE 10/21/2024 [id number] NAIL, 6 OR MORE 01/27/2025 [id number]-Joofwqsc Plate 10/21/2024 [id number] SKIN LESIONS, 2 TO 4 10/22/19 25 [id number] SKIN LESIONS, 2 TO 4 01/28/20 25 Insurance Providers Payer Name Payer Address Payer Phone Subscriber Number Group Number Insured Name Patient Relationship to Insured Coverage Start Date Coverage End Date [employer] [address] [place] [address] [id number] Fadi Sheppard Self - patient is the insured Medical (General) History Medical History History ICD Code hyperlipidemia chicken pox Anemia Broken bones CAD (Cholesterol) Cancer Heart disease Scarlet fever Measles Mumps Chicken pox Vascular grafts Surgical History Surgery Date(Month/Year) heart surgery unspecified 08/24/1987 Hospitalization History Reason Date(Month/Year) pneumonia 09/15/24
--- OUTSIDE RECORDS SUMMARY | 2025-05-25 18:03 | XMS_ITS | Patient Health Record ---
Author Organization [facility] Address [address] [place] [address] Care Team Providers Care Prefinish Operator Name Role Phone Dhiraj Guevara MD Primary Care Provider Nicholas Paul Jr Allergies Allergen (clinical drug ingredient) Drug/Non Drug Allergy documented on EMR Reaction Allergy Type Onset Date Status omeprazole Omeprazole Unknown Drug Allergy Activ e Results Component Value Reference Range Flag Notes Complete Blood Count no Diff Reviewed date:04/12/2025 10:44:49 AM Interpretation: Performing Lab:[facility], [address] [place] [phone] Notes/Report: White Blood Count 5.8 4.8-10.8 X10*3/uL N Red Blood Count 2.56 4.60-5.80 X10*6/uL L Hemoglobin 9.4 14.0-18.0 g/dl L Hematocrit 28.5 42.0-52.0 % L Mean Corpuscular Volume 111.3 80.0-98.0 fL H Mean Corpuscular Hemoglobin 36.7 27.0-33.0 pg H Mean Corpuscular HGB Conc 33.0 31.0-36.0 g/dl N Red Cell Distribution Width 21.6 11.0-16.0 % H Platelet Count 293 160-400 X10*3/uL N Mean Platelet Volume 11.9 9.4-12.4 fL N NRBC Pct Auto 0.3 0.0-0.2 /100WBC H NRBC Abs Auto 0.020 0.0-0.012 X10*3/uL H Liver Panel Reviewed date:04/12/2025 10:44:30 AM Interpretation: Performing Lab:[facility], [address] [place] [phone] Notes/Report: Bilirubin Total 0.9 0.0-1.0 mg/dL N Bilirubin Direct 0.4 0.0-0.5 mg/dL N Aspartate Amino Transferase 18 5-37 U/L N Alanine Aminotransferase 19 0-40 U/L N Total Protein 6.8 6.5-8.0 g/dL N Albumin Level 4.5 3.5-5.0 g/dL N Alkaline Phosphatase 63 39-117 U/L N Blood Urea Nitrogen Reviewed date:04/12/2025 10:44:28 AM Interpretation: Performing Lab:[facility], [address] [place] [phone] Notes/Report: Blood Urea Nitrogen 24 9-16 mg/dL H Creatinine Reviewed date:04/12/2025 10:44:22 AM Interpretation: Performing Lab:[facility], [address] [place] [phone] Notes/Report: Creatinine 1.08 0.5-1.4 mg/dL N Estimated Glomerular Filt Rate > 60 Chronic Kidney Disease: Estimated GFR < 60 mL/min/1.73m2 Severe Kidney Disease: Estimated GFR < 15 mL/min/1.73m2 Lipase Reviewed date:04/12/2025 10:44:16 AM Interpretation: Performing Lab:[facility], [address] [place] [phone] Notes/Report: Lipase 27 8-78 U/L N Reason For Referral No Information Medications Medication SIG (Take, Route, Frequency, Duration) Notes Start Date End Date Status Verapamil HCl ER 120 MG Capsule Extended Release 24 Hour Oral; Duration: 90 Active Verapamil HCl Not-Ta joslyn/PRN Isosorbide Dinitrate Active Water Pill Active Atorvastatin Calcium 40 MG Tablet Oral; Duration: 90 Active Eliquis 5 MG Tablet 1 tablet Orally Twic e a day Active Vitamin D3 50 MCG (1999) Capsule TAKE 1 CAPSULE BY MOUTH DAILY Oral; Duration: 90 Active Immunizations Vaccine Route Administration Date Status Comme nts Influenza Unknown 09/15/2022 Refused Influenza Unknown 04/06/2025 Refused Social History Social History Drug/Alcohol: Social Info Question Answer Notes AUDIT-C (Standard) Did you have a drink containing alcohol in the past year? 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 . Problems Problem Type SNOMED Code ICD Code Onset Dates Problem Status W/U Status Risk Notes Problem Gastroesophageal reflux disease without esophagitis (158839942) Gastroesophageal reflux disease without esophagitis (K21.9) Active confirmed Problem Barium swallow abnormal (310250303) Abnormal barium swallow (R93.3) Active confirmed Vital Signs Temperature 97 degrees Fahrenheit 04/06/2025 Blood pressure diastolic 01 mm Hg 04/06/2025 Height 70.75 in 04/06/2025 Blood pressure systolic 001 mm Hg 04/06/2025 Weight 153.6 lbs 04/06/2025 BMI 21.57 kg/m2 04/06/2025 Encounters Encounter Location Date Provider Diagnosis [facility] [address] [place] [phone] 04/06/2025 Nicholas Bal Jr Abdominal pain, acute, generalized R10.84 [facility] [address] [place] [phone] 09/22/2024 Nicholas Bal Jr [facility] [address] [place] [phone] 02/01/2025 Nicholas Bal Jr [facility] [address] [place] [phone] 04/12/2025 Nicholas Bal Jr Assessments Encounter Date Diagnosis (ICD Code) Assessment Notes Treatment Notes Treatment Clinical Notes Section Notes 04/06/2025 Abdominal pain, acute, generalized (ICD-10 - R10.84) We discussed his symptoms today. We have recommended further evaluation with CT scanning and laboratory studies. These will be obtained at his convenience. Depending on the findings and his symptoms he may need further evaluation with endoscopy. We discussed this today. Plan Of Treatment Pending Test Test Name Order Date BUN 04/06/2025 CREATININE 04/06/2025 LIVER PROFILE 04/06/2025 LIPASE 04/06/2025 CBC w/o DIFF 04/06/2025 CT ABD & PELVIS WITH CONTRAST 04/06/2025 Future Test Test Name Order Date COLONOSCOPY 07/30/2011 Insurance Providers Payer Name Payer Address Payer Phone Subscriber Number Group Number Insured Name Patient Relationship to Insured Coverage Start Date Coverage End Date [facility] [address] [place] [address] [phone] [id number] RADHA OVALLES Self - patient is the insured Medical (General) History Medical History History ICD Code coronary artery disease atrial fibrillation Colonoscopy 10/29/11, normal, ten-year fo llowup Iron overload Prostate cancer CVA Gastroesophageal reflux disease Hypertension Back pain Surgical History Surgery Date(Month/Year) 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
== END 2025-05-25 14:29 | disposition home or self-care (01) ==
LOC: HO.HMCH 13:49
PROVIDERS: PCP Internal Medicine; Visit Provider Internal Medicine
DX: I11.0 Hypertensive heart disease with heart failure (principal); I50.30 Unspecified diastolic (congestive) heart failure; I48.0 Paroxysmal atrial fibrillation; C61 Malignant neoplasm of prostate; I25.10 Atherosclerotic heart disease of native coronary artery without angina pectoris; E78.00 Pure hypercholesterolemia, unspecified; K21.9 Gastro-esophageal reflux disease without esophagitis; R13.10 Dysphagia, unspecified; R05.2 Subacute cough; D64.9 Anemia, unspecified

== ENCOUNTER → 2025-05-25 13:48 | Outpatient (BNVA) | payer MEDICARE, SELFPAY | PROVIDERS: PCP Internal Medicine; Visit Provider Internal Medicine | DX: I11.0 Hypertensive heart disease with heart failure (principal); I50.30 Unspecified diastolic (congestive) heart failure; E78.00 Pure hypercholesterolemia, unspecified; I25.10 Atherosclerotic heart disease of native coronary artery without angina pectoris; K21.9 Gastro-esophageal reflux disease without esophagitis; N40.0 Benign prostatic hyperplasia without lower urinary tract symptoms; D64.9 Anemia, unspecified; I48.0 Paroxysmal atrial fibrillation; R13.10 Dysphagia, unspecified; C61 Malignant neoplasm of prostate; R05.2 Subacute cough | CPT/HCPCS: 99212 ==

== ENCOUNTER 2025-05-27 10:13 | Outpatient (REF) | payer MEDICARE, SELFPAY ==
--- OUTSIDE RECORDS SUMMARY | 2025-05-27 10:17 | XMS_ITS | Patient Health Record ---
[facility] Address [address] [place] [address] Care Team Providers Care Distributor Sales Consultant Name Role Phone Dhiraj Guevara Primary Care Provider Cristopher Garrett Unavailable [phone] Allergies Allergen (clinical drug ingredient) Drug/Non Drug [...] atherosclerosis of arteries of lower limbs (disorder) (81520843720930913 ) Atherosclerosis of [place] artery of both lower extremities, with unspecified presence of clinical manifestation (I70.203) Active confirmed Q7(A), Q8(2B), Q9(1B,2 C) Vital Signs Blood pressure diastolic 72 mm Hg 01/27/2025 Height 5 ft 10 in in 01/27/2025 Blood pressure systolic 116 mm Hg 01/27/2025 Weight 155 lbs 01/27/2025 BMI 22.24 kg/m2 01/27/2025 Procedures Procedure Date Ordered Date Performed Result Body Sit e 87213-TNAKMGH NAIL, 6 OR MORE 10/21/2024 N/A 36932-Fegzwaol Plate 10/21/2024 N/A 50909-XTLX SKIN LESIONS, 2 TO 4 10/21/2024 N/A 51163-FPZNSZZ NAIL, 6 OR MORE 01/27/2025 N/A 65670-FRIN SKIN LESIONS, 2 TO 4 01/27/2025 N/A Encounters Encounter Location Date Provider Diagnosis [facility] [address] 10/21/2024 Cristopher Samaria Pain in right toe(s) M79.674 ; Onychomycosis B35.1 ; Pain in left toe(s) M79.675 ; Atherosclerosis of [place] artery of both lower extremities, with unspecified presence of clinical manifestation I70.203 and Ingrown nail L60.0 [facility] [address] [place] [address] 01/27/2025 Cristopher Samaria Pain in right toe(s) M79.674 ; Onychomycosis B35.1 ; Pain in left toe(s) M79.675 ; Atherosclerosis of [place] artery of both lower extremities, with unspecified presence of clinical manifestation I70.203 and Subungual hematoma of left foot, initial encounter S90.222A [facility] [address] [address] 02/16/2025 Cristopher Samaria Assessments Encounter Date Diagnosis (ICD Code) Assessment Notes Treatment Notes Treatment Clinical Notes Section Notes 10/21/2024 Pain in right toe(s) (ICD-10 - M79.674) 01/27/2025 Pain in right toe(s) (ICD-10 - M79.674) 01/27/2025 Onychomycosis (ICD-10 - B35.1) 10/21/2024 Onychomycosis (ICD-10 - B35.1) 10/21/2024 Pain in left toe(s) (ICD-10 - M79.675) 01/27/2025 Pain in left toe(s) (ICD-10 - M79.675) 10/21/2024 Atherosclerosis of [place] artery of both lower extremities, with unspecified presence of clinical manifestation (ICD-10 - I70.203) Q7(A), Q8(2B), Q9(1B,2C) 01/27/2025 Atherosclerosis of [place] artery of both lower extremities, with unspecified presence of clinical manifestation (ICD-10 - I70.203) Q7(A), Q8(2B), Q9(1B,2C) 01/27/2025 Subungual hematoma of left foot, initial encounter (ICD-10 - S90.222A) 10/21/2024 Ingrown nail (ICD-10 - L60.0) Plan Of Treatment Pending Test Test Name Order Date X ray : Foot, left 3V 03/23/2013 30675-UOZXQJJ NAIL, 6 OR MORE 10/21/2024 42768-YQZUZHJ NAIL, 6 OR MORE 01/27/2025 22750-Kndfxoal Plate 10/21/2024 51274-EXAW SKIN LESIONS, 2 TO 4 10/22/19 25 04002-FJNB SKIN LESIONS, 2 TO 4 01/28/20 25 Insurance Providers Payer Name Payer Address Payer Phone Subscriber Number Group Number Insured Name Patient Relationship to Insured Coverage Start Date Coverage End Date [employer] [address] [place] [address] [id number] Fadi Sheppard Self - patient is the insured Medical (General) History Medical History History ICD Code hyperlipidemia chicken pox Anemia Broken bones CAD (Cholesterol) Cancer Heart disease Scarlet fever Measles Mumps Chicken pox Vascular grafts Surgical History Surgery Date(Month/Year) heart surgery unspecified 08/24/1987 Hospitalization History Reason Date(Month/Year) pneumonia 09/15/24
--- OUTSIDE RECORDS SUMMARY | 2025-05-27 10:17 | XMS_ITS | Patient Health Record ---
Author Organization [facility] Address [address] [place] [address] Care Team Providers Care Plastic Tubing Insulation Supervisor Name Role Phone Dhiraj Guevara MD Primary Care Provider Nicholas Paul Jr [phone] Allergies Allergen (clinical drug ingredient) Drug/Non Drug Allergy documented on EMR Reaction Allergy Type Onset Date Status omeprazole Omeprazole Unknown Drug Allergy Activ e Results Component Value Reference Range Flag Notes Complete Blood Count no Diff Reviewed date:04/12/2025 10:44:49 AM Interpretation: Performing Lab:[facility], [address] [place] [phone] Notes/Report: White Blood Count 5.8 4.8-10.8 X10*3/uL [...] Panel Reviewed date:04/12/2025 10:44:30 AM Interpretation: Performing Lab:[facility], [address] [place] [phone] Notes/Report: Bilirubin Total 0.9 0.0-1.0 mg/dL N Bilirubin Direct 0.4 0.0-0.5 mg/dL N Aspartate Amino Transferase 18 5-37 U/L N Alanine Aminotransferase 19 0-40 U/L N Total Protein 6.8 6.5-8.0 g/dL N Albumin Level 4.5 3.5-5.0 g/dL N Alkaline Phosphatase 63 39-117 U/L N Blood Urea Nitrogen Reviewed date:04/12/2025 10:44:28 AM Interpretation: Performing Lab:[facility], [address] [place] [phone] Notes/Report: Blood Urea Nitrogen 24 9-16 mg/dL H Creatinine Reviewed date:04/12/2025 10:44:22 AM Interpretation: Performing Lab:[facility], [address] [place] [phone] Notes/Report: Creatinine 1.08 0.5-1.4 mg/dL N Estimated Glomerular Filt Rate > 60 Chronic Kidney Disease: Estimated GFR < 60 mL/min/1.73m2 Severe Kidney Disease: Estimated GFR < 15 mL/min/1.73m2 Lipase Reviewed date:04/12/2025 10:44:16 AM Interpretation: Performing Lab:[facility], [address] [place] [phone] Notes/Report: Lipase 27 8-78 U/L N Reason [...] Notes Problem Gastroesophageal reflux disease without esophagitis (501797322) Gastroesophageal reflux disease without esophagitis (K21.9) Active confirmed Problem Barium swallow abnormal (179229878) Abnormal barium swallow (R93.3) Active confirmed Vital Signs Temperature 97 degrees Fahrenheit 04/06/2025 Blood pressure diastolic 01 mm Hg 04/06/2025 Height 70.75 in 04/06/2025 Blood pressure systolic 001 mm Hg 04/06/2025 Weight 153.6 lbs 04/06/2025 BMI 21.57 kg/m2 04/06/2025 Encounters Encounter Location Date Provider Diagnosis [facility] [address] [place] [address] 04/06/2025 Nicholas Bal Jr Abdominal pain, acute, generalized R10.84 [facility] [address] [place] [address] 09/22/2024 Nicholas Bal Jr [facility] [address] [place] [phone] 02/01/2025 Nicholas Bal Jr [facility] [address] [place] [phone] 04/12/2025 Nicholas Bal Jr Assessments Encounter Date [...] Insured Coverage Start Date Coverage End Date [facility] [address] [place] [address] [phone] [id number] RADHA OVALLES Self - patient is the insured Medical (General) History Medical History History ICD Code coronary artery disease atrial fibrillation Colonoscopy 10/29/11, normal, ten-year fo llowup Iron overload Prostate cancer CVA Gastroesophageal reflux disease Hypertension Back pain Surgical History Surgery Date(Month/Year) 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
[2025-05-27 10:58] LABS: NRBC Abs Auto 0.000 X10*3/uL (0.0-0.012); NRBC Pct Auto 0.0 /100WBC (0.0-0.2)
[2025-05-27 11:01] LABS: Hematocrit 26.0 % (42.0-52.0); Hemoglobin 8.6 g/dl (14.0-18.0); Imm Gran Abs Auto 0.04 X10*3/uL (0.00-0.03); Imm Gran Pct Auto 0.5 % (0.0-0.4); Lymphocytes Absolute Auto 1.5 X10*3/uL (1.2-4.9); MANUAL DIFF FLAG SCAN; Mean Corpuscular HGB Conc 33.1 g/dl (31.0-36.0); Mean Corpuscular Hemoglobin 37.4 pg (27.0-33.0); PLT CLUMP 1; Red Blood Count 2.30 X10*6/uL (4.60-5.80); Reticulocytes Absolute 0.033 X10*6/uL (0.026-0.095); SCAN SMEAR FLAG 1
[2025-05-27 11:02] LABS: Mean Corpuscular Volume 113.0 fL (80.0-98.0); Platelet Count 188 X10*3/uL (160-400); White Blood Count 7.9 X10*3/uL (4.8-10.8)
[2025-05-27 11:20] LABS: Appearance Urine Cloudy; Glucose Urine UA Negative (Negative); PH 7.0 (5.0-9.0); Specific Gravity - Urine 1.015 (1.005-1.025); UMIC TRIGGER UACC YES
[2025-05-27 11:31] LABS: Alanine Aminotransferase 14 U/L (0-40); Albumin Level 4.4 g/dL (3.5-5.0); Alkaline Phosphatase 64 U/L (39-117); Anion Gap 13 (12-20); Aspartate Amino Transferase 17 U/L (5-37); Blood Urea Nitrogen 20 mg/dL (9-16); Calcium 9.3 mg/dL (8.4-10.2); Carbon Dioxide 24 mmol/L (22-29); Chloride 107 mmol/L (96-108); Cholesterol 88 mg/dL (<200); Estimated Glomerular Filt Rate > 60; HDL Cholesterol 37 mg/dL (>40); Iron 77 mcg/dL (45-160); Percent Iron Saturation 38 % (15-50); Potassium 4.0 mmol/L (3.3-5.1); Sodium 140 mmol/L (135-145); Total Iron Binding Capacity 203 mcg/dL (228-428); Total Protein 6.5 g/dL (6.5-8.0); Triglycerides 52 mg/dL (<150); Unsaturated Iron Binding 126 ug/dL
[2025-05-27 11:36] LABS: UACC Culture Trigger YES
[2025-05-27 11:41] LABS: Ferritin 485 ng/mL (20-250); Free T4 (Free Thyroxine) 1.06 ng/dL (0.71-1.85); Thyroid Stimulating Hormone 0.93 uIU/mL (0.32-4.0)
[2025-05-27 11:53] LABS: Folate 9.3 ng/mL (> or = 4.0); Vitamin B12 675 pg/mL (200-900)
== END 2025-05-27 10:14 | disposition home or self-care (01) ==
LOC: HO.LAB 10:13
PROVIDERS: PCP Internal Medicine; Visit Provider Internal Medicine
DX: C61 Malignant neoplasm of prostate (principal); D64.9 Anemia, unspecified; E78.00 Pure hypercholesterolemia, unspecified; Z13.1 Encounter for screening for diabetes mellitus
CPT/HCPCS: 36415; 80053; 80061; 81001; 81003; 82607; 82728; 82746; 83036; 83540; 84439; 84443; 85025; 85045; 87086